=== PATIENT | male | born 1950 ===

== ENCOUNTER 2021-04-27 11:50 | Inpatient (IN) | payer MEDICARE, OTHER, SELFPAY ==
--- NOTE | ~2021-04-27 | US_ITS ---
EXAMINATION: BILATERAL LOWER EXTREMITY DUPLEX CLINICAL INFORMATION: History of diabetes. Foot ulcer. Evaluate for arterial insufficiency. TECHNIQUE: Real-time ultrasound and Doppler techniques (integrating B-mode 2-D vascular images, Doppler spectral analysis and color flow Doppler imaging) were utilized to interrogate the lower extremities. COMPARISON: None FINDINGS: RIGHT LEG: Common femoral artery: 185 cm/s, Triphasic Profunda femoris artery: 185 cm/s, Triphasic Superficial femoral artery (proximal): 135 cm/s, Triphasic Superficial femoral artery (mid): 165 cm/s, Triphasic Superficial femoral artery (distal): 140 cm/s, Triphasic Popliteal artery: 102 cm/s, biphasic Posterior tibial artery: 91 cm/s, biphasic LEFT LEG: Common femoral artery: 134 cm/s, Triphasic Profunda femoris artery: 198 cm/s, biphasic Superficial femoral artery (proximal): 273 cm/s, biphasic Superficial femoral artery (mid): 176 cm/s, Triphasic Superficial femoral artery (distal): 156 cm/s, Triphasic Popliteal artery: 91 cm/s, Triphasic Posterior tibial artery: 63 cm/s, monophasic US/US arterial duplex LE BI IMPRESSION: Right: No evidence of hemodynamically significant stenosis. Left: Mild nonhemodynamically significant stenosis involving the proximal profunda femoris artery and moderate hemodynamically significant stenosis involving the proximal superficial femoral artery.
--- NOTE | ~2021-04-27 | MR_ITS ---
EXAMINATION: MRI OF THE LEFT FOOT WITH AND WITHOUT CONTRAST CLINICAL INFORMATION: Nonhealing diabetic wound. Rule out osteomyelitis. COMPARISON: None. TECHNIQUE: Multiplanar MR imaging was obtained through the left foot on a 1.5 Jaqueline magnet before and after intravenous administration of 10 mL Gadavist. FINDINGS: A skin wound is evident at the plantar aspect of the forefoot at the level of the 5th metatarsal head, measuring 1 x 0.8 cm in area. The skin is edematous and thickened. There is an underlying heterogeneous fluid collection in the subcutaneous fat and surrounding the 5th MTP joint by 1.8 cm (AP by transverse) and 1.8 cm in length. Small foci of susceptibility artifact in the dorsal aspect of this collection along the dorsal margin of the proximal phalanx correspond to gas. This collection appears superficial to the joint capsule without direct intra-articular extension. The contrast enhancement characteristics of this region are not well assessed due to the regional hypoperfusion of the plantar soft tissues in the forefoot, particularly around the 5th toe, likely due to underlying peripheral vascular disease. There is normal signal intensity within the phalanges of the 5th toe on T1-weighted images. There is mild edema signal within the 5th metatarsal head, particularly at its margins, without appreciable abnormal T1 signal. There is a small 5th MTP joint effusion. There is minimal osteoarthritis of the 1st MTP joint. MCP joints are otherwise normal. Tarsometatarsal and interphalangeal joints are unremarkable. The distal tip of the 4th toe distal phalanx is absent. There is diffuse fatty atrophy and increased T2 signal in the intrinsic foot musculature, most consistent with diabetic neuropathy. Tendons are grossly intact. No tenosynovitis. MR/MR foot LT wo/w con IMPRESSION: Gas-containing abscess in the soft tissues surrounding the 5th MTP joint. Underlying septic arthritis is suspected at the 5th MTP joint without findings of osteomyelitis.
--- NOTE | ~2021-04-27 | XR_ITS ---
EXAMINATION: XR FOOT, LEFT CLINICAL INFORMATION: cellulitis, rule out osteomyelitis COMPARISON: None TECHNIQUE: AP, lateral, and oblique views of the left foot. FINDINGS: No fracture or malalignment. Soft tissues are swollen at the forefoot, most notably in the region of the fifth MTP joint. No focal osteolysis is appreciated. Bone mineralization appears normal. No significant gas or radiodense foreign bodies. Joint spaces appear well-preserved. Small enthesopathic spur is present at the plantar fascial origin on the calcaneus. XR/XR foot LT 2V IMPRESSION: Soft tissue swelling at the left foot. No radiographic findings of osteomyelitis.
[2021-04-27 12:07] VITALS: BP 154/50; PULSE 72; RESP 18; TEMP 37; O2SAT 97; BMI 29.2
[2021-04-27 17:06] VITALS: BP 189/68; PULSE 77; RESP 18; TEMP 37.1; O2SAT 96
--- NOTE | 2021-04-27 17:45 | ED.WOUNDLAC ---
HPI - Wound/Laceration General Chief Complaint: Wound/Laceration Stated Complaint: wound on lt ft Time Seen by Provider: 04/27/21 12:37 Source: patient Mode of arrival: ambulatory Limitations: no limitations History of Present Illness HPI narrative: 70-year-old male history of diabetes came in for evaluation of left foot infection. This is a diabetic patient who had calyx removal by his manager utilization management from his left foot, then 2 days later patient noticed that he has been having fever and chills and redness around with the calyx was removed, patient was evaluated at a walk-in urgent care clinic and patient was started on Augmentin, fever and chills persist and patient notices it more pain with left foot with more redness. Went to see his PCP today who sent him to the emergency department for evaluation of worsening of left foot infection. Related Data Home Medications Medication Instructions Recorded Confirmed blood sugar diagnostic #10 ea 04/22/21 04/22/21 gabapentin 300 mg capsule 300 mg PO BID@0800,1400 04/22/21 04/27/21 lisinopril 10 mg tablet 10 mg PO DAILY 04/22/21 04/27/21 meloxicam 15 mg tablet 15 mg PO DAILY 04/22/21 04/27/21 tamsulosin 0.4 mg capsule 0.4 mg PO DAILY 04/22/21 04/27/21 gabapentin [Neurontin] 600 mg PO BEDTIME 04/27/21 04/27/21 Previous Rx's Medication Instructions Recorded amoxicillin 875 mg-potassium 1 tab PO BID #20 tab 04/22/21 clavulanate 125 mg tablet Allergies Allergy/AdvReac Type Severity Reaction Status Date / Time No Known Allergies [NKA] Allergy Unverified 04/22/21 17:36 Review of Systems Review of Systems: All other systems are reviewed and are negative Constitutional: Reports as per HPI and Reports no additional constitutional complaints Eyes: Reports as per HPI and Reports no additional eye complaints Reports system reviewed and no additional complaints, except as documented Cardiovascular: Reports as per HPI and Reports no additional cardiovascular complaints Respiratory: Reports as per HPI and Reports no additional respiratory complaints Gastrointestinal: Reports as per HPI and Reports no additional gastrointestinal complaints Genitourinary: Reports no additional female genitourinary complaints Musculoskeletal: Reports no additional musculoskeletal complaints Skin/Breast: Reports system reviewed and no additional complaints, except as docu Psychiatric: Reports no additional psychiatric complaints Endocrine: Reports no additional endocrine complaints Hematologic/Lymphatic: Reports no additional hematologic/lymphatic complaints Allergic/Immunologic: Reports no additional allergic/immunologic complaints Reports system reviewed and no additional complaints, except as documented and Reports Abnormal speech present [facility] Social History Social History Alcohol intake: never Patient Tobacco Use Status: Former Tobacco user Use of substances other than those prescribed or required for medical reasons: No Advance Directives: No Advance Directives Information Provided: No Physical Exam Vital Signs: Vital Signs: Last Vital Signs Temp 98.7 F 04/27/21 19:00 Pulse 83 04/27/21 19:00 Resp 16 04/27/21 19:00 BP 169/72 H 04/27/21 19:00 Pulse Ox 96 04/27/21 19:00 Body Mass Index 29.2 Vital signs have been reviewed as appeared to be correct. Blood pressure normal. Heart rate normal. Respiration rate normal. Temperature normal. Oxygen saturation normal. Appearance: Alert. Oriented X3. No acute distress. Head: Normal external exam. Normocephalic. Atraumatic. No Marie signs noted. No raccoon eyes noted Eyes: PERRLA. EOMI. Conjunctiva and sclera normal. Eyelids normal. ENT: TM's Normal. Pharynx normal. Uvula midline. Moist mucous membranes. No trismus noted. No drooling noted. No muffled voice noted. Neck: Normal inspection. Neck supple. FROM. No adenopathy. Thyroid Normal. No meningeal signs. No neck mass noted. CVS: Normal heart rate and rhythm. Heart sound normal. No murmurs noted. Pulses normal throughout. Respiratory: No respiratory distress. Painless inspiration. Breath sounds normal. No wheezes/rales/rhonchi noted. Chest nontender. No accessory muscle usage noted or decreased air movement noted. Abdomen: Soft and nontender. Bowel sounds normal in all 4 quadrants. No distention noted. No organomegaly noted. No visible injury noted. Back: No CVA tenderness. Full range of motion noted. Skin: Skin warm and dry. Normal skin color. Normal skin turgor. No rashes/lesions/lacerations noted. Extremities: Left foot with area of 3 x 3 cm of redness, hotness, tenderness the area involving the 5th toe, on the palmar side at the base of the 5th toe there is 1 x 1 cm area of ulceration after the kaylx was removed Neuro: Oriented X 3. No motor deficit. No sensory deficit. Reflexes normal. Course Course Course Narrative: Left foot cellulitis in a diabetic patient was not responding to oral antibiotics as an outpatient. Not meeting criteria for sepsis, start the patient on Zosyn/vancomycin and admit. MDM - Wound/Laceration Lab Data Attestation: I reviewed the patient's lab results. Result diagrams: 04/27/21 18:17 04/27/21 18:17 Labs: Lab Results 04/27/21 04/27/21 04/27/21 Range/Units 18:17 18:17 18:17 WBC 11.1 H (4.8-10.8) X10*3/uL RBC 4.53 L (4.60-5.80) X10*6/uL Hgb 9.7 L (14.0-18.0) g/dl Hct 32.9 L (42-52) % MCV 72.6 L (80-98) fL MCH 21.4 L (27.0-33.0) pg MCHC 29.5 L (31.0-36.0) g/dl RDW 18.0 H (11.0-16.0) % Plt Count 227 (160-400) X10*3/uL MPV 10.4 (9.4-12.4) fL Immature Gran % (Auto) 0.4 (0.0-0.4) % Neut % (Auto) 72.6 (45-73) % Lymph % (Auto) 15.6 L (20-40) % [place] % (Auto) 9.4 (2-11) % Eos % (Auto) 1.1 (0-4) % Baso % (Auto) 0.9 (0-2) % Lymph # (Auto) 1.7 (1.2-4.9) X10*3/uL [place] # (Auto) 1.1 (0.1-1.2) X10*3/uL Eos # (Auto) 0.1 (0.0-0.4) X10*3/uL Baso # (Auto) 0.1 (0.0-0.2) X10*3/uL Abs Immat Gran (auto) 0.05 H (0.00-0.03) X10*3/uL Absolute Neuts (auto) 8.1 (2.0-8.3) X10*3/uL Absolute Nucleated RBC 0.000 (0.0-0.012) X10*3/uL Nucleated RBC % (auto) 0.0 (0.0-0.2) /100WBC Sodium 134 L (135-145) mmol/L Potassium 5.6 H (3.3-5.1) mmol/L Chloride 102 (96-108) mmol/L Carbon Dioxide 20 L (22-29) mmol/L Anion Gap 18 (12-20) BUN 13 (9-16) mg/dL Creatinine 0.95 (0.5-1.4) mg/dL Estim Creat Clear Calc 90.2 Estimated GFR > 60 Random Glucose 175 H (60-115) mg/dL Lactic Acid 1.5 (0.5-2.0) mmol/L Calcium 8.8 (8.4-10.2) mg/dL Total Bilirubin 0.4 (0.0-1.0) mg/dL Direct Bilirubin < 0.2 (0.0-0.5) mg/dL AST 30 (5-37) U/L ALT 12 (0-40) U/L Alkaline Phosphatase 78 (39-117) U/L Total Protein 8.0 (6.5-8.0) g/dL Albumin 4.2 (3.5-5.0) g/dL Lipase 17 (8-78) U/L Urine Color Urine Appearance Urine pH (5.0-8.0) Ur Specific [place] (1.005-1.025) Urine Protein (NEG-TRACE) MG/DL Urine Glucose (UA) (NEG) MG/DL Urine Ketones (NEG) MG/DL Urine Blood (NEG) Urine Nitrite (NEG) Ur Leukocyte Esterase (NEG) 04/27/21 Range/Units 18:22 WBC (4.8-10.8) X10*3/uL RBC (4.60-5.80) X10*6/uL Hgb (14.0-18.0) g/dl Hct (42-52) % MCV (80-98) fL MCH (27.0-33.0) pg MCHC (31.0-36.0) g/dl RDW (11.0-16.0) % Plt Count (160-400) X10*3/uL MPV (9.4-12.4) fL Immature Gran % (Auto) (0.0-0.4) % Neut % (Auto) (45-73) % Lymph % (Auto) (20-40) % [place] % (Auto) (2-11) % Eos % (Auto) (0-4) % Baso % (Auto) (0-2) % Lymph # (Auto) (1.2-4.9) X10*3/uL [place] # (Auto) (0.1-1.2) X10*3/uL Eos # (Auto) (0.0-0.4) X10*3/uL Baso # (Auto) (0.0-0.2) X10*3/uL Abs Immat Gran (auto) (0.00-0.03) X10*3/uL Absolute Neuts (auto) (2.0-8.3) X10*3/uL Absolute Nucleated RBC (0.0-0.012) X10*3/uL Nucleated RBC % (auto) (0.0-0.2) /100WBC Sodium (135-145) mmol/L Potassium (3.3-5.1) mmol/L Chloride (96-108) mmol/L Carbon Dioxide (22-29) mmol/L Anion Gap (12-20) BUN (9-16) mg/dL Creatinine (0.5-1.4) mg/dL Estim Creat Clear Calc Estimated GFR Random Glucose (60-115) mg/dL Lactic Acid (0.5-2.0) mmol/L Calcium (8.4-10.2) mg/dL Total Bilirubin (0.0-1.0) mg/dL Direct Bilirubin (0.0-0.5) mg/dL AST (5-37) U/L ALT (0-40) U/L Alkaline Phosphatase (39-117) U/L Total Protein (6.5-8.0) g/dL Albumin (3.5-5.0) g/dL Lipase (8-78) U/L Urine Color YELLOW Urine Appearance CLEAR Urine pH 6.0 (5.0-8.0) Ur Specific [place] 1.020 (1.005-1.025) Urine Protein TRACE (NEG-TRACE) MG/DL Urine Glucose (UA) NEG (NEG) MG/DL Urine Ketones NEG (NEG) MG/DL Urine Blood NEG (NEG) Urine Nitrite NEG (NEG) Ur Leukocyte Esterase NEG (NEG) Imaging Data Left foot x-ray: Radiologist's impression: Soft tissue swelling at the left foot. No radiographic findings of osteomyelitis. Discharge Plan Discharge Clinical Impression: Cellulitis Patient Disposition: Admitted As Inpatient Prescriptions: No Action gabapentin [Neurontin] 300 mg capsule 600 mg PO BEDTIME RF: 0 lisinopril 10 mg tablet 10 mg PO DAILY RF: 0 tamsulosin 0.4 mg capsule 0.4 mg PO DAILY RF: 0 gabapentin 300 mg capsule 300 mg PO BID@0800,1400 RF: 0 (DME) LanternCRMTouch Verio test strips Strip See Rx Instructions ea Not Applicable QID Qty: 10 RF: 0 meloxicam 15 mg tablet 15 mg PO DAILY RF: 0 amoxicillin-pot clavulanate [Augmentin] 875-125 mg tablet 1 tab PO BID Qty: 20 RF: 0
[2021-04-27] MEDS: 0.9 % Sodium Chloride 1,000 ML 999 ML IVCONT (18:23)
[2021-04-27] MEDS: Piperacillin Sodium/Tazobactam 3.375 GM in 0.9 % Sodium Chloride 50 ML IV (18:23)
[2021-04-27 18:24] LABS: MANUAL DIFF FLAG NO
[2021-04-27 18:27] LABS: Glucose Urine UA NEG (NEG); Leukocyte Esterase Urine NEG (NEG); Nitrite Urine NEG (NEG); Urine Blood NEG (NEG); Urine Ketones NEG (NEG); Urine Protein TRACE MG/DL (NEG-TRACE)
[2021-04-27 18:30] LABS: Appearance Urine CLEAR; Color Urine YELLOW
[2021-04-27 18:47] LABS: Basophils Absolute Auto 0.1 X10*3/uL (0.0-0.2); Basophils Percent Auto 0.9 % (0-2); Eosinophils Absolute Auto 0.1 X10*3/uL (0.0-0.4); Eosinophils Percent Auto 1.1 % (0-4); Hematocrit 32.9 % (42-52); Hemoglobin 9.7 g/dl (14.0-18.0); Imm Gran Abs Auto 0.05 X10*3/uL (0.00-0.03); Imm Gran Pct Auto 0.4 % (0.0-0.4); Lymphocytes Absolute Auto 1.7 X10*3/uL (1.2-4.9); Lymphocytes Percent Auto 15.6 % (20-40); Mean Corpuscular HGB Conc 29.5 g/dl (31.0-36.0); Mean Corpuscular Hemoglobin 21.4 pg (27.0-33.0); Mean Corpuscular Volume 72.6 fL (80-98); Mean Platelet Volume 10.4 fL (9.4-12.4); Monocytes Absolute Auto 1.1 X10*3/uL (0.1-1.2); Monocytes Percent Auto 9.4 % (2-11); Neutrophils Absolute Auto 8.1 X10*3/uL (2.0-8.3); Neutrophils Percent Auto 72.6 % (45-73); Platelet Count 227 X10*3/uL (160-400); Red Blood Count 4.53 X10*6/uL (4.60-5.80); White Blood Count 11.1 X10*3/uL (4.8-10.8)
[2021-04-27 18:52] LABS: Lactic Acid 1.5 mmol/L (0.5-2.0)
[2021-04-27 19:00] VITALS: BP 169/72; PULSE 83; RESP 16; TEMP 37.1; O2SAT 96
[2021-04-27 19:07] LABS: Alanine Aminotransferase 12 U/L (0-40); Albumin Level 4.2 g/dL (3.5-5.0); Alkaline Phosphatase 78 U/L (39-117); Anion Gap 18 (12-20); Aspartate Amino Transferase 30 U/L (5-37); Bilirubin Direct < 0.2 mg/dL (0.0-0.5); Bilirubin Total 0.4 mg/dL (0.0-1.0); Blood Urea Nitrogen 13 mg/dL (9-16); Calcium 8.8 mg/dL (8.4-10.2); Carbon Dioxide 20 mmol/L (22-29); Chloride 102 mmol/L (96-108); Creatinine Clr Calc Pharmacy 90.2; Estimated Glomerular Filt Rate > 60; Glucose Random 175 mg/dL (60-115); Lipase 17 U/L (8-78); Potassium 5.6 mmol/L (3.3-5.1); Sodium 134 mmol/L (135-145)
--- NOTE | 2021-04-27 19:16 | PHA.MEDREC ---
Pharmacy Consult ? Medication Reconciliation Pharmacy has completed the medication reconciliation.
[2021-04-27] MEDS: Acetaminophen 325 MG TABLET 650 MG PO (19:26)
[2021-04-27] MEDS: vancomycin HCL 1,000 MG in 0.9 % Sodium Chloride 250 ML 270 MG IV (19:27)
[2021-04-27 19:34] LABS: Glucose, Whole Blood 205 mg/dL (60-115)
--- NOTE | 2021-04-27 19:40 | PC.NURSE ---
PT RESTING IN STRETCHER, PT REQUESTING BS BECAUSE PT STATES MILAGRO HAD SOME SNACKS . BS OBTAINED 203. PT DENIES ANY COMPLAINTS. VANCO UP AND RUNNING ON PUMP WITHOUT DIFFICULTY. SITE INTACT. PT ALERT AND WATCHING TV. RESPIRATIONS EASY, N/L. PT MEDICATED WITH TYLENOL FOR HIP PAIN. WILL CONTINUE TO MONITOR PT.
[2021-04-27 20:04] VITALS: BP 152/74; PULSE 83; RESP 16; TEMP 36.9; O2SAT 96
[2021-04-27 20:34] LABS: COVID-19 Test Negative (Negative)
--- NOTE | 2021-04-27 21:09 | P.HPHOSP_ITS ---
History of Present Illness Date of Service: 04/27/21 Chief Complaint: left foot wound This is a 62-year-old male with past medical history of hypertension, diabetes, who presents to the hospital with complaints of left foot ulcer. Patient reports that it started about 3 weeks ago after he visited for , calluses were scraped from that foot, but few days after he noticed a hole in the bottom of his foot. Patient reports that the whole started getting more swollen, started draining, he had erythema. He went to urgent care about a week and half ago he was given antibiotics, Augmentin, for few days, with no improvement in his swelling pain or redness. Therefore decided go to the PCP today and he was asked to come to the ED. Patient denies any fever but has chills, some nausea with no vomiting, low appetite, no abdominal pain , no urinary symptoms and no lower extremity edema besides the swelling of his foot. He denies any chest pain or shortness of breath no headache or change in vision no numbness tingling or weakness. On arrival to the ED patient hemodynamically stable with no significant abnormal vitals Labs are significant for 11.1, hemoglobin of 9.7, ESR of 58, sodium of 134, potassium 5.6, CRP of 8.2, UA negative. COVID-19 negative. X-ray of the foot shows soft tissue swelling at the left foot. No radiographic findings of osteomyelitis Patient will be admitted for further management Review of Systems Review of Systems: Yes all other systems are reviewed and are negative [facility] Medical History (Updated 04/28/21 @ 05:11 by Lula Vera MD) BPH (benign prostatic hyperplasia) Chronic anemia Diabetes Diabetic neuropathy GERD (gastroesophageal reflux disease) Hypertension Peripheral vascular disease Social History Alcohol intake: never Patient Tobacco Use Status: Former Tobacco user Use of substances other than those prescribed or required for medical reasons: No Advance Directives: No Advance Directives Information Provided: No Meds Allergies Allergy/AdvReac Type Severity Reaction Status Date / Time No Known Allergies [NKA] Allergy Unverified 04/22/21 17:36 Active Medications: Current Medications Generic Name Dose Route Start Last Admin Trade Name Freq PRN Reason Stop Dose Admin Pharmacy Consult 1 each 04/27/21 18:47 Consult Rx Perform Med Rec MISCELLANE ONCE PRN Consult order Home Medications Medication Instructions Recorded Confirmed Last Taken Type blood sugar diagnostic #10 ea 04/22/21 04/22/21 Unknown History gabapentin 300 mg capsule 300 mg PO BID@0800,1400 04/22/21 04/27/21 Unknown History lisinopril 10 mg tablet 10 mg PO DAILY 04/22/21 04/27/21 Unknown History meloxicam 15 mg tablet 15 mg PO DAILY 04/22/21 04/27/21 Unknown History tamsulosin 0.4 mg capsule 0.4 mg PO DAILY 04/22/21 04/27/21 Unknown History gabapentin [Neurontin] 600 mg PO BEDTIME 04/27/21 04/27/21 Unknown History Physical Exam Vital Signs and Narrative: Vital Signs: Last Vital Signs Temp 98.5 F 04/27/21 20:04 Pulse 83 04/27/21 20:04 Resp 16 04/27/21 20:04 BP 152/74 H 04/27/21 20:04 Pulse Ox 96 04/27/21 20:04 Body Mass Index 29.2 Results Labs CBC and Chem 7: 04/27/21 18:17 04/27/21 18:17 Labs: Laboratory Results - last 24 hr 04/27/21 04/27/21 04/27/21 18:17 18:17 18:17 MCV 72.6 L MCH 21.4 L MCHC 29.5 L RDW 18.0 H Plt Count 227 MPV 10.4 Immature Gran % (Auto) 0.4 Neut % (Auto) 72.6 Lymph % (Auto) 15.6 L [place] % (Auto) 9.4 Eos % (Auto) 1.1 Baso % (Auto) 0.9 Lymph # (Auto) 1.7 [place] # (Auto) 1.1 Eos # (Auto) 0.1 Baso # (Auto) 0.1 Abs Immat Gran (auto) 0.05 H Absolute Neuts (auto) 8.1 Absolute Nucleated RBC 0.000 Nucleated RBC % (auto) 0.0 Anion Gap 18 Estim Creat Clear Calc 90.2 Estimated GFR > 60 POC Glucose Random Glucose 175 H Lactic Acid 1.5 Calcium 8.8 Total Bilirubin 0.4 Direct Bilirubin < 0.2 AST 30 ALT 12 Alkaline Phosphatase 78 Total Protein 8.0 Albumin 4.2 Lipase 17 Urine Color Urine Appearance Urine pH Ur Specific [place] Urine Protein Urine Glucose (UA) Urine Ketones Urine Blood Urine Nitrite Ur Leukocyte Esterase COVID-19 ([facility]) COVID-19 Clin Com 04/27/21 04/27/21 04/27/21 18:22 19:25 20:10 MCV MCH MCHC RDW Plt Count MPV Immature Gran % (Auto) Neut % (Auto) Lymph % (Auto) [place] % (Auto) Eos % (Auto) Baso % (Auto) Lymph # (Auto) [place] # (Auto) Eos # (Auto) Baso # (Auto) Abs Immat Gran (auto) Absolute Neuts (auto) Absolute Nucleated RBC Nucleated RBC % (auto) Anion Gap Estim Creat Clear Calc Estimated GFR POC Glucose 205 H Random Glucose Lactic Acid Calcium Total Bilirubin Direct Bilirubin AST ALT Alkaline Phosphatase Total Protein Albumin Lipase Urine Color YELLOW Urine Appearance CLEAR Urine pH 6.0 Ur Specific [place] 1.020 Urine Protein TRACE Urine Glucose (UA) NEG Urine Ketones NEG Urine Blood NEG Urine Nitrite NEG Ur Leukocyte Esterase NEG COVID-19 ([place]) Negative COVID-19 Clin Com See Note Imaging Radiologist's Impressions: Impressions Foot X-Ray 04/27/21 17:45 IMPRESSION: Soft tissue swelling at the left foot. No radiographic findings of osteomyelitis. Assessment and Plan (1) Diabetic foot ulcer: Status: Acute (2) Cellulitis: Qualifiers: Site of cellulitis of extremity: lower extremity Laterality: left Status: Acute (3) Hyperkalemia: Status: Acute (4) Elevated erythrocyte sedimentation rate: Status: Acute This is a 70-year-old male with history of diabetes and diabetic neuropathy who presents to the hospital with a nonhealing diabetic foot ulcer # diabetic foot also/cellulitis - failed outpatient therapy, has elevated ESR and CRP concerning for osteomye litis - patient hemodynamically stable with a WBC count of 11.1, afebrile , no lactic acidosis - will obtain MRI in the morning to rule out osteomyelitis - broad-spectrum antibiotic - follow cultures - infectious disease consult # hyperkalemia - no EKG changes - will give Kayexalate - follow BMP # diabetes - low-dose sliding scale insulin - diabetic diet # diabetic neuropathy - continue gabapentin # hypertension - stable - continue lisinopril # BPH - continue times lows DVT prophylaxis: Heparin subQ Quality Stroke Does the patient have a stroke diagnosis?: No VTE Prior VTE?: No VTE Risk Level:: Medical - moderate - high VTE Device Contraindication: Treatment Not Indicated VTE Drug Contraindication: N/A - Med Ordered
[2021-04-27] MEDS: Tamsulosin HCL 0.4 MG CAPSULE PO (21:53)
--- NOTE | 2021-04-27 21:53 | PC.NURSE ---
pt medicated as per emar.
[2021-04-27 22:00] VITALS: BP 129/50; PULSE 70; RESP 16; TEMP 36.8; O2SAT 96
[2021-04-28] VITALS (8 sets, daily range): BP systolic 129–172; BP diastolic 54–83; PULSE 67–97; RESP 16–18; TEMP 36.6–37.4; O2SAT 96–99
--- NOTE | 2021-04-28 00:13 | PC.NURSE ---
REPORT TO PARUL HERMOSILLO NURSE.
--- NOTE | 2021-04-28 00:13 | PC.NURSE ---
[place], CHARGE NURSE INFORMED UNABLE TO TAKE CARE OF THIS PT AT THIS TIME.
[2021-04-28 02:18] LABS: Erythrocyte Sedimentation Rate 58 MM/HR (0-15)
[2021-04-28] MEDS: Piperacillin Sodium/Tazobactam 3.375 GM in 0.9 % Sodium Chloride 50 ML IV ×4 (02:53→20:34)
[2021-04-28] MEDS: Heparin Sodium,Porcine 5,000 UNIT/ML VIAL 5000 UNIT SUBCUT ×3 (02:53→20:35)
[2021-04-28] MEDS: 0.9 % Sodium Chloride Flush 3 ML SYRINGE IVFLUSH ×3 (02:53→13:17)
[2021-04-28] MEDS: Gabapentin 300 MG CAPSULE 600 MG PO ×2 (02:55→20:35)
[2021-04-28] MEDS: Sodium Polystyrene Sulfon/Sorb 15 GM/60 ML ORAL.SUSP PO (05:57)
--- NOTE | 2021-04-28 05:57 | PC.NURSE ---
ASSUMED CARE OF PT. PT IN NAD. WILL CONTINUE TO MONITOR PT.
--- NOTE | 2021-04-28 06:44 | PC.NURSE ---
PT UP TO RESTROOM AMBULATORY WITH STEADY EVEN GAIT. PT DENIES ANY COMPLAINTS. PT REMAINS ALERT, RESPIRATIONS EASY, N/L. SKIN W/D. WILL CONTINUE TO MONITOR PT.
--- NOTE | 2021-04-28 06:55 | PC.NURSE ---
PT REFUSING TO PUT ON GOWN.
[2021-04-28 07:17] LABS: MANUAL DIFF FLAG NO
[2021-04-28] MEDS: vancomycin HCL 1,000 MG in 0.9 % Sodium Chloride 250 ML 270 MG IV ×2 (07:20→19:22)
[2021-04-28 07:21] LABS: Basophils Absolute Auto 0.1 X10*3/uL (0.0-0.2); Basophils Percent Auto 0.8 % (0-2); Eosinophils Absolute Auto 0.1 X10*3/uL (0.0-0.4); Eosinophils Percent Auto 1.5 % (0-4); Hematocrit 30.1 % (42-52); Hemoglobin 8.8 g/dl (14.0-18.0); Imm Gran Abs Auto 0.03 X10*3/uL (0.00-0.03); Imm Gran Pct Auto 0.4 % (0.0-0.4); Lymphocytes Absolute Auto 1.2 X10*3/uL (1.2-4.9); Lymphocytes Percent Auto 17.1 % (20-40); Mean Corpuscular HGB Conc 29.2 g/dl (31.0-36.0); Mean Corpuscular Hemoglobin 21.4 pg (27.0-33.0); Mean Corpuscular Volume 73.1 fL (80-98); Mean Platelet Volume 10.6 fL (9.4-12.4); Monocytes Absolute Auto 0.7 X10*3/uL (0.1-1.2); Monocytes Percent Auto 8.9 % (2-11); Neutrophils Absolute Auto 5.2 X10*3/uL (2.0-8.3); Neutrophils Percent Auto 71.3 % (45-73); Platelet Count 194 X10*3/uL (160-400); Red Blood Count 4.12 X10*6/uL (4.60-5.80); Red Cell Distribution Width 17.9 % (11.0-16.0); White Blood Count 7.3 X10*3/uL (4.8-10.8)
[2021-04-28] MEDS: Gabapentin 300 MG CAPSULE PO ×2 (07:21→13:15)
[2021-04-28] MEDS: Acetaminophen 325 MG TABLET 650 MG PO ×2 (07:26→19:20)
[2021-04-28 07:49] LABS: Glucose, Whole Blood 248 mg/dL (60-115)
[2021-04-28] MEDS: ondansetron HCL 4 MG/2 ML VIAL IVPUSH (07:49)
[2021-04-28] MEDS: Insulin Lispro 100 UNIT/ML 3 ML VIAL 15 UNIT SUBCUT (07:50)
--- NOTE | 2021-04-28 07:52 | PC.NURSE ---
alert, nad, c/o nausea and diarrhea after breakfast, informed, zofran given, med rec entered wrong for insulin, informed and 15 units given, will contact pharmacy
[2021-04-28 07:56] LABS: Anion Gap 13 (12-20); Blood Urea Nitrogen 12 mg/dL (9-16); Calcium 8.2 mg/dL (8.4-10.2); Carbon Dioxide 21 mmol/L (22-29); Chloride 106 mmol/L (96-108); Creatinine Clr Calc Pharmacy 100.8; Estimated Glomerular Filt Rate > 60; Glucose Random 260 mg/dL (60-115); Potassium 4.6 mmol/L (3.3-5.1); Sodium 135 mmol/L (135-145)
[2021-04-28] MEDS: lisinopriL 10 MG TABLET PO (08:58)
[2021-04-28] MEDS: Tamsulosin HCL 0.4 MG CAPSULE PO (08:58)
[2021-04-28 08:59] LABS: Iron 18 mcg/dL (45-160); Percent Iron Saturation 5 % (15-50); Total Iron Binding Capacity 357 mcg/dL (228-428); Unsaturated Iron Binding 339 ug/dL
[2021-04-28 09:01] LABS: Estimated Average Glucose 160 mg/dL; Hemoglobin A1c % 7.2 %
[2021-04-28 09:17] LABS: Ferritin 25 ng/mL (20-250)
[2021-04-28 09:39] LABS: Glucose, Whole Blood 183 mg/dL (60-115)
[2021-04-28 11:55] LABS: Glucose, Whole Blood 135 mg/dL (60-115)
[2021-04-28] MEDS: Insulin Lispro 100 UNIT/ML 3 ML VIAL SUBCUT ×2 (13:14→17:13)
--- NOTE | 2021-04-28 14:00 | P.CNID_ITS ---
History of Present Illness Data of Consult Service Date: 04/28/21 Requesting physician: Irineo Gutiérrez Primary Care Provider: NICK Ponce HPI Reason for consult: left diabetic foot infection He presents with left foot redness and ulcer area left foot near 5th digit. He has no fever or chills. He is being seen by [facility] now and area probes to bone. He says he was seen by Dr Zaragoza of Podiatry and had callus debrided three weeks ago. He has increasing redness going up foot. Review of Systems Review of Systems: Yes all other systems are reviewed and are negative [facility] Past Medical History Medical History BPH (benign prostatic hyperplasia) Chronic anemia Diabetes Diabetic neuropathy GERD (gastroesophageal reflux disease) Hypertension Peripheral vascular disease Family History Family history: reviewed and not pertinent Social History Social History Household Members: Spouse Housing: House Do you presently have visiting nurse or other home services: No Alcohol intake: never Patient Tobacco Use Status: Former Tobacco user e-Cigarette/Vaping Use: Never Used service: No Current occupational status: employed Meds Allergies Allergy/AdvReac Type Severity Reaction Status Date / Time No Known Allergies [NKA] Allergy Unverified 05/06/21 10:36 Active Medications: Current Medications Generic Name Dose Route Start Last Admin Trade Name Freq PRN Reason Stop Dose Admin Acetaminophen 650 mg 04/28/21 01:22 04/28/21 07:26 Acetaminophen 325 Mg Tablet PO 650 mg Q6H PRN Administration Pain, Mild (Pain Scale 1-3) Docusate Sodium 100 mg 04/28/21 01:22 Docusate Sodium 100 Mg Capsule PO DAILY PRN Constipation Gabapentin 300 mg 04/28/21 08:00 04/28/21 13:15 Gabapentin 300 Mg Capsule PO 300 mg BID@0800,1400 JORGE LUIS Administration Gabapentin 600 mg 04/28/21 01:22 04/28/21 02:55 Gabapentin 300 Mg Capsule PO 600 mg BEDTIME JORGE LUIS Administration Heparin Sodium (Porcine) 5,000 unit 04/28/21 01:22 04/28/21 08:57 Heparin Sodium,Porcine 5,000 Unit/Ml Vial SUBCUT 5,000 unit BID JORGE LUIS Administration Piperacillin Sod/Tazobactam 50 mls @ 100 mls/hr 04/28/21 02:00 04/28/21 13:48 Sod 3.375 gm/ Sodium Chloride IV Infused Q6H JORGE LUIS Infusion Vancomycin HCl 1,000 mg/ 270 mls @ 270 mls/hr 04/28/21 07:00 04/28/21 09:18 Sodium Chloride IV Infused Q12H JORGE LUIS Infusion Insulin Human Lispro 0 unit 04/28/21 11:30 04/28/21 13:14 Insulin Lispro 100 Unit/Ml 3 Ml Vial SUBCUT 15 unit QIDACHS JORGE LUIS Administration Protocol Lisinopril 10 mg 04/28/21 09:00 04/28/21 08:58 Lisinopril 10 Mg Tablet PO 10 mg DAILY JORGE LUIS Administration Protocol Ondansetron HCl 4 mg 04/28/21 01:22 04/28/21 07:49 Ondansetron Hcl 4 Mg/2 Ml Vial IVPUSH 4 mg Q8H PRN Administration Nausea and Vomiting Pharmacy Consult 1 each 04/27/21 18:47 Consult Rx Perform Med Rec MISCELLANE ONCE PRN Consult order Pharmacy Consult 1 each 04/28/21 01:22 Consult Rx Vancomycin Dosing MISCELLANE DAILY PRN Consult order Sodium Chloride 3 ml 04/28/21 01:22 04/28/21 13:17 0.9 % Sodium Chloride Flush 3 Ml Syringe IVFLUSH 3 ml QSHIFT [facility] Administration Tamsulosin HCl 0.4 mg 04/27/21 21:07 04/28/21 08:58 Tamsulosin Hcl 0.4 Mg Capsule PO 0.4 mg DAILY JORGE LUIS Administration Home Medications Medication Instructions Recorded Confirmed Last Taken Type blood sugar diagnostic #10 ea 04/22/21 04/22/21 Unknown History gabapentin 300 mg capsule 300 mg PO BID@0800,1400 04/22/21 04/27/21 Unknown History lisinopril 10 mg tablet 10 mg PO DAILY 04/22/21 04/27/21 Unknown History meloxicam 15 mg tablet 15 mg PO DAILY 04/22/21 04/27/21 Unknown History tamsulosin 0.4 mg capsule 0.4 mg PO DAILY 04/22/21 04/27/21 Unknown History gabapentin 300 mg capsule 600 mg PO BEDTIME 04/27/21 04/27/21 Unknown History (Neurontin) insulin glargine 100 unit/mL (3 90 unit SUBCUT DAILY 04/28/21 04/28/21 Unknown History mL) subcutaneous pen (Lantus Solostar U-100 Insulin) insulin lispro 100 unit/mL 0 unit SUBCUT TIDAC 04/28/21 04/28/21 Unknown History subcutaneous pen (Humalog KwikPen (U-100) Insulin) amoxicillin 875 mg-potassium 1 tab PO BID 05/06/21 Unknown History clavulanate 125 mg tablet Physical Exam Vital Signs: Vital Signs: Last Vital Signs Temp 98.0 F 04/28/21 11:46 Pulse 90 04/28/21 11:46 Resp 18 04/28/21 11:46 BP 135/65 04/28/21 11:46 Pulse Ox 99 04/28/21 11:46 Body Mass Index 29.2 Const: General: cooperative HENMT: Head: Yes normal to inspection Mouth: Normal oral and palatal mucosa present Resp: Effort & Inspection: normal respiratory effort Cardio: Rate: regular rate Rhythm: regular rhythm GI: Palpation (GI): Soft to palpation and nontender Skin: General skin exam: no rashes or lesions noted Extrem: Other: left 5th digit area redness extending up dorsal foot, .5 cm ulcer tip left fifth toe Ankle/foot/toe images: 1. redness 2. ulcer Results Labs CBC & Chem 7: 05/01/21 05:36 05/01/21 05:36 Labs: Short CBC 04/27/21 04/28/21 Range/Units 18:17 06:50 WBC 11.1 H 7.3 (4.8-10.8) X10*3/uL Hgb 9.7 L 8.8 L (14.0-18.0) g/dl Hct 32.9 L 30.1 L (42-52) % Plt Count 227 194 (160-400) X10*3/uL BMP 04/27/21 04/28/21 18:17 06:50 Sodium 134 L 135 Potassium 5.6 H 4.6 Chloride 102 106 Carbon Dioxide 20 L 21 L BUN 13 12 Creatinine 0.95 0.85 Calcium 8.8 8.2 L D Liver Function 04/27/21 Range/Units 18:17 Total Bilirubin 0.4 (0.0-1.0) mg/dL Direct Bilirubin < 0.2 (0.0-0.5) mg/dL AST 30 (5-37) U/L ALT 12 (0-40) U/L Alkaline Phosphatase 78 (39-117) U/L Albumin 4.2 (3.5-5.0) g/dL Urine 04/27/21 Range/Units 18:22 Urine Color YELLOW Urine Appearance CLEAR Urine pH 6.0 (5.0-8.0) Ur Specific [place] 1.020 (1.005-1.025) Urine Protein TRACE (NEG-TRACE) MG/DL Urine Glucose (UA) NEG (NEG) MG/DL Assessment and Plan (1) Diabetic foot ulcer: Osteomyelitis likely as probe to bone He has elevated ESR as well Staph/strep possible and gram negative Suggest Agree Zosyn and Vancomycin Need 6 week IV.possible Vancomycin or Ertapenem Await cultures Wound Care Surgery consult debridement areas around 5th toe (2) Elevated erythrocyte sedimentation rate: (3) Cellulitis: Qualifiers: Laterality: left Site of cellulitis of extremity: lower extremity
--- NOTE | 2021-04-28 14:42 | HO.PM.IMPN ---
Subjective Subjective Date of Service: 04/28/21 Interval History: no fever/chills redness improved Physical Exam Vital Signs: Vital Signs: Last Vital Signs Temp 98.0 F 04/28/21 11:46 Pulse 90 04/28/21 11:46 Resp 18 04/28/21 11:46 BP 135/65 04/28/21 11:46 Pulse Ox 99 04/28/21 11:46 Body Mass Index 29.2 Gen: in no acute distress HEENT: sclera anicteric, moist mucus membranes Neck: supple Lungs: clear to auscultation bilaterally Heart: regular rate and rhythm, no murmurs Abd: soft, non-tender, non-distended Ext: no edema Skin: warm/well-perfused, L 5th toe and lateral midfoot erythematous, oozing ulcer on toe pad approx 1 cm Neuro: alert and oriented x3, no focal findings Psych: appropriate affect Objective Data Current Medications Generic Name Dose Route Start Last Admin Trade Name Freq PRN Reason Stop Dose Admin Acetaminophen 650 mg 04/28/21 01:22 04/28/21 07:26 Acetaminophen 325 Mg Tablet PO 650 mg Q6H PRN Administration Pain, Mild (Pain Scale 1-3) Docusate Sodium 100 mg 04/28/21 01:22 Docusate Sodium 100 Mg Capsule PO DAILY PRN Constipation Gabapentin 300 mg 04/28/21 08:00 04/28/21 13:15 Gabapentin 300 Mg Capsule PO 300 mg BID@0800,1400 JORGE LUIS Administration Gabapentin 600 mg 04/28/21 01:22 04/28/21 02:55 Gabapentin 300 Mg Capsule PO 600 mg BEDTIME JORGE LUIS Administration Heparin Sodium (Porcine) 5,000 unit 04/28/21 01:22 04/28/21 08:57 Heparin Sodium,Porcine 5,000 Unit/Ml Vial SUBCUT 5,000 unit BID JORGE LUIS Administration Piperacillin Sod/Tazobactam 50 mls @ 100 mls/hr 04/28/21 02:00 04/28/21 13:48 Sod 3.375 gm/ Sodium Chloride IV Infused Q6H JORGE LUIS Infusion Vancomycin HCl 1,000 mg/ 270 mls @ 270 mls/hr 04/28/21 07:00 04/28/21 09:18 Sodium Chloride IV Infused Q12H JORGE LUIS Infusion Insulin Human Lispro 0 unit 04/28/21 11:30 04/28/21 13:14 Insulin Lispro 100 Unit/Ml 3 Ml Vial SUBCUT 15 unit QIDACHS COUNTS INCLUDE 234 BEDS AT THE [facility] Administration Protocol Lisinopril 10 mg 04/28/21 09:00 04/28/21 08:58 Lisinopril 10 Mg Tablet PO 10 mg DAILY COUNTS INCLUDE 234 BEDS AT THE [facility] Administration Protocol Ondansetron HCl 4 mg 04/28/21 01:22 04/28/21 07:49 Ondansetron Hcl 4 Mg/2 Ml Vial IVPUSH 4 mg Q8H PRN Administration Nausea and Vomiting Pharmacy Consult 1 each 04/27/21 18:47 Consult Rx Perform Med Rec MISCELLANE ONCE PRN Consult order Pharmacy Consult 1 each 04/28/21 01:22 Consult Rx Vancomycin Dosing MISCELLANE DAILY PRN Consult order Sodium Chloride 3 ml 04/28/21 01:22 04/28/21 13:17 0.9 % Sodium Chloride Flush 3 Ml Syringe IVFLUSH 3 ml QSHIFT COUNTS INCLUDE 234 BEDS AT THE [facility] Administration Tamsulosin HCl 0.4 mg 04/27/21 21:07 04/28/21 08:58 Tamsulosin Hcl 0.4 Mg Capsule PO 0.4 mg DAILY COUNTS INCLUDE 234 BEDS AT THE [facility] Administration Labs CBC & Chem 7: 04/28/21 06:50 04/28/21 06:50 Labs: Laboratory Results - last 24 hr 04/27/21 04/27/21 04/27/21 18:17 18:17 18:17 WBC 11.1 H RBC 4.53 L Hgb 9.7 L Hct 32.9 L MCV 72.6 L MCH 21.4 L MCHC 29.5 L RDW 18.0 H Plt Count 227 MPV 10.4 Immature Gran % (Auto) 0.4 Neut % (Auto) 72.6 Lymph % (Auto) 15.6 L [place] % (Auto) 9.4 Eos % (Auto) 1.1 Baso % (Auto) 0.9 Lymph # (Auto) 1.7 [place] # (Auto) 1.1 Eos # (Auto) 0.1 Baso # (Auto) 0.1 Abs Immat Gran (auto) 0.05 H Absolute Neuts (auto) 8.1 Absolute Nucleated RBC 0.000 Nucleated RBC % (auto) 0.0 ESR Sodium 134 L Potassium 5.6 H Chloride 102 Carbon Dioxide 20 L Anion Gap 18 BUN 13 Creatinine 0.95 Estim Creat Clear Calc 90.2 Estimated GFR > 60 POC Glucose Random Glucose 175 H Estimat Average Glucose Hemoglobin A1c % Lactic Acid 1.5 Calcium 8.8 Iron TIBC % Saturation Unsat Iron Binding Ferritin Total Bilirubin 0.4 Direct Bilirubin < 0.2 AST 30 ALT 12 Alkaline Phosphatase 78 C-Reactive Protein 8.20 H Total Protein 8.0 Albumin 4.2 Lipase 17 Urine Color Urine Appearance Urine pH Ur Specific [place] Urine Protein Urine Glucose (UA) Urine Ketones Urine Blood Urine Nitrite Ur Leukocyte Esterase COVID-19 ([facility]) COVID-19 Clin Com 04/27/21 04/27/21 04/27/21 18:22 19:25 20:10 WBC RBC Hgb Hct MCV MCH MCHC RDW Plt Count MPV Immature Gran % (Auto) Neut % (Auto) Lymph % (Auto) [place] % (Auto) Eos % (Auto) Baso % (Auto) Lymph # (Auto) [place] # (Auto) Eos # (Auto) Baso # (Auto) Abs Immat Gran (auto) Absolute Neuts (auto) Absolute Nucleated RBC Nucleated RBC % (auto) ESR Sodium Potassium Chloride Carbon Dioxide Anion Gap BUN Creatinine Estim Creat Clear Calc Estimated GFR POC Glucose 205 H Random Glucose Estimat Average Glucose Hemoglobin A1c % Lactic Acid Calcium Iron TIBC % Saturation Unsat Iron Binding Ferritin Total Bilirubin Direct Bilirubin AST ALT Alkaline Phosphatase C-Reactive Protein Total Protein Albumin Lipase Urine Color YELLOW Urine Appearance CLEAR Urine pH 6.0 Ur Specific [place] 1.020 Urine Protein TRACE Urine Glucose (UA) NEG Urine Ketones NEG Urine Blood NEG Urine Nitrite NEG Ur Leukocyte Esterase NEG COVID-19 ([facility]) Negative COVID-19 Clin Com See Note 04/27/21 04/28/21 04/28/21 Unknown 06:50 06:50 WBC 7.3 RBC 4.12 L Hgb 8.8 L Hct 30.1 L MCV 73.1 L MCH 21.4 L MCHC 29.2 L RDW 17.9 H Plt Count 194 MPV 10.6 Immature Gran % (Auto) 0.4 Neut % (Auto) 71.3 Lymph % (Auto) 17.1 L [place] % (Auto) 8.9 Eos % (Auto) 1.5 Baso % (Auto) 0.8 Lymph # (Auto) 1.2 [place] # (Auto) 0.7 Eos # (Auto) 0.1 Baso # (Auto) 0.1 Abs Immat Gran (auto) 0.03 Absolute Neuts (auto) 5.2 Absolute Nucleated RBC 0.000 Nucleated RBC % (auto) 0.0 ESR 58 H Sodium 135 Potassium 4.6 Chloride 106 Carbon Dioxide 21 L Anion Gap 13 BUN 12 Creatinine 0.85 Estim Creat Clear Calc 100.8 Estimated GFR > 60 POC Glucose Random Glucose 260 H D Estimat Average Glucose Hemoglobin A1c % Lactic Acid Calcium 8.2 L D Iron 18 L TIBC 357 % Saturation 5 L Unsat Iron Binding 339 Ferritin 25 Total Bilirubin Direct Bilirubin AST ALT Alkaline Phosphatase C-Reactive Protein Total Protein Albumin Lipase Urine Color Urine Appearance Urine pH Ur Specific [place] Urine Protein Urine Glucose (UA) Urine Ketones Urine Blood Urine Nitrite Ur Leukocyte Esterase COVID-19 ([facility]) COVID-19 [place] Com 04/28/21 04/28/21 04/28/21 06:50 07:23 09:32 WBC RBC Hgb Hct MCV MCH MCHC RDW Plt Count MPV Immature Gran % (Auto) Neut % (Auto) Lymph % (Auto) [place] % (Auto) Eos % (Auto) Baso % (Auto) Lymph # (Auto) [place] # (Auto) Eos # (Auto) Baso # (Auto) Abs Immat Gran (auto) Absolute Neuts (auto) Absolute Nucleated RBC Nucleated RBC % (auto) ESR Sodium Potassium Chloride Carbon Dioxide Anion Gap BUN Creatinine Estim Creat Clear Calc Estimated GFR POC Glucose 248 H 183 H Random Glucose Estimat Average Glucose 160 Hemoglobin A1c % 7.2 Lactic Acid Calcium Iron TIBC % Saturation Unsat Iron Binding Ferritin Total Bilirubin Direct Bilirubin AST ALT Alkaline Phosphatase C-Reactive Protein Total Protein Albumin Lipase Urine Color Urine Appearance Urine pH Ur Specific [place] Urine Protein Urine Glucose (UA) Urine Ketones Urine Blood Urine Nitrite Ur Leukocyte Esterase COVID-19 ([facility]) COVID-19 [facility] [place] Com 04/28/21 11:35 WBC RBC Hgb Hct MCV MCH MCHC RDW Plt Count MPV Immature Gran % (Auto) Neut % (Auto) Lymph % (Auto) [place] % (Auto) Eos % (Auto) Baso % (Auto) Lymph # (Auto) [place] # (Auto) Eos # (Auto) Baso # (Auto) Abs Immat Gran (auto) Absolute Neuts (auto) Absolute Nucleated RBC Nucleated RBC % (auto) ESR Sodium Potassium Chloride Carbon Dioxide Anion Gap BUN Creatinine Estim Creat Clear Calc Estimated GFR POC Glucose 135 H Random Glucose Estimat Average Glucose Hemoglobin A1c % Lactic Acid Calcium Iron TIBC % Saturation Unsat Iron Binding Ferritin Total Bilirubin Direct Bilirubin AST ALT Alkaline Phosphatase C-Reactive Protein Total Protein Albumin Lipase Urine Color Urine Appearance Urine pH Ur Specific [place] Urine Protein Urine Glucose (UA) Urine Ketones Urine Blood Urine Nitrite Ur Leukocyte Esterase COVID-19 ([facility]) COVID-19 Clin Com Impressions Foot X-Ray 04/27/21 17:45 IMPRESSION: Soft tissue swelling at the left foot. No radiographic findings of osteomyelitis. Foot MRI 04/28/21 01:22 IMPRESSION: Gas-containing abscess in the soft tissues surrounding the 5th MTP joint. Underlying septic arthritis is suspected at the 5th MTP joint without findings of osteomyelitis. Quality Stroke Does the patient have a stroke diagnosis?: No VTE Prior VTE?: No VTE Risk Level:: Medical - moderate - high VTE Device Contraindication: Treatment Not Indicated VTE Drug Contraindication: N/A - Med Ordered Assessment and Plan (1) Diabetic foot ulcer: Status: Acute Assessment and Plan: hospital d#2 70yo M with DM2 + neuropathy admitted for infected nonhealing DM foot ulcer # DM foot ulcer with infection/abscess, 5th MTP joint septic arthritis - failed outpt therapy, continue pip/blanca + vanc, ID consulted- will need 6 wk of IV ABX- place PICC once BCx return negative, surgery consult for abscess drainage/debridement # hyperK - resolved s/p SPS # HTN - continue lisinopril # DM2, A1c 7.2 - correction-dose lispro # DM neuropathy - continue gabapentin # BPH - continue tamsulosin # VTE ppx - continue UFH
[2021-04-28 16:14] LABS: Glucose, Whole Blood 128 mg/dL (60-115)
--- NOTE | 2021-04-28 16:37 | P.CONGS_ITS ---
History of Present Illness Consult details Consult date: 04/28/21 Narrative: 70-year-old male admitted yesterday because of on ulcer on the left foot. He had noticed this ulcer for about 3 weeks now. He had actually seen special weapons and tactics officer for this as well. He says a callus had been debrided recently. He was also on Augmentin for some redness of the area. He saw his primary care physician yesterday and he was advised to go to the ER. He was admitted therefore for redness of the left foot with a sinus on the lateral aspect. He actually says that the redness has improved significantly for the past 2 days. He denies any severe pain. Review of Systems Constitutional: Constitutional: Denies chills and Denies fever(s) Cardiovascular: Cardiovascular: Denies chest pain, Denies dyspnea and Denies dyspnea on exertion Respiratory: Respiratory: Denies cough, Denies dyspnea and Denies dyspnea on exertion Gastrointestinal: Gastrointestinal: Denies hematochezia and Denies change in bowel habits Genitourinary: Genitourinary: Denies hematuria and Denies difficulty urinating Musculoskeletal: Musculoskeletal: Denies back pain and Denies limited range of motion Neurologic: Denies focal weakness and Denies convulsions Psychiatric: Psychiatric: Denies depression and Denies mood swings PMFSH Past Medical History Medical History BPH (benign prostatic hyperplasia) Chronic anemia Diabetes Diabetic neuropathy GERD (gastroesophageal reflux disease) Hypertension Peripheral vascular disease Family History Family history: reviewed and not pertinent Social History Social History Household Members: Spouse Housing: House Do you presently have visiting nurse or other home services: No Alcohol intake: never Patient Tobacco Use Status: Former Tobacco user e-Cigarette/Vaping Use: Never Used Use of substances other than those prescribed or required for medical reasons: No Currently Displaying Signs/Symptoms of Drug Intoxication Withdrawal: No Have you been hit, kicked, punched, or otherwise hurt by someone within the past year? If so, by whom?: No Do you feel safe in your current relationship?: Yes Is there a partner from a previous relationship who is making you feel unsafe now?: No Are you made to feel afraid or neglected: No Advance Directives: No Advance Directives Information Provided: No Do you have thoughts of harming others: None Do you have a plan to hurt others: No Plan Recently lost weight without trying: No Nutrition Risks: No Nutritional Risk Poor oral hygiene: No Meds Allergies Allergy/AdvReac Type Severity Reaction Status Date / Time No Known Allergies [NKA] Allergy Unverified 04/22/21 17:36 Active Medications: Current Medications Generic Name Dose Route Start Last Admin Trade Name Freq PRN Reason Stop Dose Admin Acetaminophen 650 mg 04/28/21 01:22 04/28/21 07:26 Acetaminophen 325 Mg Tablet PO 650 mg Q6H PRN Administration Pain, Mild (Pain Scale 1-3) Docusate Sodium 100 mg 04/28/21 01:22 Docusate Sodium 100 Mg Capsule PO DAILY PRN Constipation Gabapentin 300 mg 04/28/21 08:00 04/28/21 13:15 Gabapentin 300 Mg Capsule PO 300 mg BID@0800,1400 JORGE LUIS Administration Gabapentin 600 mg 04/28/21 01:22 04/28/21 02:55 Gabapentin 300 Mg Capsule PO 600 mg BEDTIME JORGE LUIS Administration Heparin Sodium (Porcine) 5,000 unit 04/28/21 01:22 04/28/21 08:57 Heparin Sodium,Porcine 5,000 Unit/Ml Vial SUBCUT 5,000 unit BID JORGE LUIS Administration Piperacillin Sod/Tazobactam 50 mls @ 100 mls/hr 04/28/21 02:00 04/28/21 13:48 Sod 3.375 gm/ Sodium Chloride IV Infused Q6H JORGE LUIS Infusion Vancomycin HCl 1,000 mg/ 270 mls @ 270 mls/hr 04/28/21 07:00 04/28/21 09:18 Sodium Chloride IV Infused Q12H JORGE LUIS Infusion Insulin Human Lispro 0 unit 04/28/21 11:30 04/28/21 13:14 Insulin Lispro 100 Unit/Ml 3 Ml Vial SUBCUT 15 unit QIDACHS JORGE LUIS Administration Protocol Lisinopril 10 mg 04/28/21 09:00 04/28/21 08:58 Lisinopril 10 Mg Tablet PO 10 mg DAILY JORGE LUIS Administration Protocol Ondansetron HCl 4 mg 04/28/21 01:22 04/28/21 07:49 Ondansetron Hcl 4 Mg/2 Ml Vial IVPUSH 4 mg Q8H PRN Administration Nausea and Vomiting Pharmacy Consult 1 each 04/27/21 18:47 Consult Rx Perform Med Rec MISCELLANE ONCE PRN Consult order Pharmacy Consult 1 each 04/28/21 01:22 Consult Rx Vancomycin Dosing MISCELLANE DAILY PRN Consult order Sodium Chloride 3 ml 04/28/21 01:22 04/28/21 13:17 0.9 % Sodium Chloride Flush 3 Ml Syringe IVFLUSH 3 ml QSHIFT JORGE LUIS Administration Tamsulosin HCl 0.4 mg 04/27/21 21:07 04/28/21 08:58 Tamsulosin Hcl 0.4 Mg Capsule PO 0.4 mg DAILY JORGE LUIS Administration Home Medications Medication Instructions Recorded Confirmed Last Taken Type blood sugar diagnostic #10 ea 04/22/21 04/22/21 Unknown History gabapentin 300 mg capsule 300 mg PO BID@0800,1400 04/22/21 04/27/21 Unknown His tory lisinopril 10 mg tablet 10 mg PO DAILY 04/22/21 04/27/21 Unknown History meloxicam 15 mg tablet 15 mg PO DAILY 04/22/21 04/27/21 Unknown History tamsulosin 0.4 mg capsule 0.4 mg PO DAILY 04/22/21 04/27/21 Unknown History gabapentin [Neurontin] 600 mg PO BEDTIME 04/27/21 04/27/21 Unknown History insulin glargine [Lantus Solostar 90 unit SUBCUT DAILY 04/28/21 04/28/21 Unknown History U-100 Insulin] insulin lispro [Humalog KwikPen 0 unit SUBCUT TIDAC 04/28/21 04/28/21 Unknown History Insulin] Physical Exam Vital Signs: Vital Signs: Last Vital Signs Temp 99.1 F 04/28/21 15:27 Pulse 69 04/28/21 15:27 Resp 17 04/28/21 15:27 BP 136/72 04/28/21 15:27 Pulse Ox 98 04/28/21 15:27 Body Mass Index 29.2 Const: General: comfortable and no acute distress Orientation/consciousness: patient oriented x3 Neck: Neck: Yes no lymphadenopathy Resp: Auscultation: clear to auscultation bilaterally Cardio: Rhythm: regular rhythm GI: Palpation (GI): Soft to palpation, nontender and no guarding Neuro: General: patient oriented x3 Extrem: Other: Left foot, with ulcer on the lateral aspect near the base of 5th toe, redness of the area surrounding the toe, open wound/ulcer freely draining scanty purulent material Results Labs Result diagrams: 04/28/21 06:50 04/28/21 06:50 Labs: Abnormal lab results 04/27/21 04/27/21 04/27/21 Range/Units 18:17 18:17 19:25 WBC 11.1 H (4.8-10.8) X10*3/uL RBC 4.53 L (4.60-5.80) X10*6/uL Hgb 9.7 L (14.0-18.0) g/dl Hct 32.9 L (42-52) % MCV 72.6 L (80-98) fL MCH 21.4 L (27.0-33.0) pg MCHC 29.5 L (31.0-36.0) g/dl RDW 18.0 H (11.0-16.0) % Lymph % (Auto) 15.6 L (20-40) % Abs Immat Gran (auto) 0.05 H (0.00-0.03) X10*3/uL ESR (0-15) MM/HR Sodium 134 L (135-145) mmol/L Potassium 5.6 H (3.3-5.1) mmol/L Carbon Dioxide 20 L (22-29) mmol/L POC Glucose 205 H (60-115) mg/dL Random Glucose 175 H (60-115) mg/dL Calcium (8.4-10.2) mg/dL Iron (45-160) mcg/dL % Saturation (15-50) % C-Reactive Protein 8.20 H (< or = 0.50) mg/dL 04/27/21 04/28/21 04/28/21 Range/Units Unknown 06:50 06:50 WBC (4.8-10.8) X10*3/uL RBC 4.12 L (4.60-5.80) X10*6/uL Hgb 8.8 L (14.0-18.0) g/dl Hct 30.1 L (42-52) % MCV 73.1 L (80-98) fL MCH 21.4 L (27.0-33.0) pg MCHC 29.2 L (31.0-36.0) g/dl RDW 17.9 H (11.0-16.0) % Lymph % (Auto) 17.1 L (20-40) % Abs Immat Gran (auto) (0.00-0.03) X10*3/uL ESR 58 H (0-15) MM/HR Sodium (135-145) mmol/L Potassium (3.3-5.1) mmol/L Carbon Dioxide 21 L (22-29) mmol/L POC Glucose (60-115) mg/dL Random Glucose 260 H D (60-115) mg/dL Calcium 8.2 L D (8.4-10.2) mg/dL Iron 18 L (45-160) mcg/dL % Saturation 5 L (15-50) % C-Reactive Protein (< or = 0.50) mg/dL 04/28/21 04/28/21 04/28/21 Range/Units 07:23 09:32 11:35 WBC (4.8-10.8) X10*3/uL RBC (4.60-5.80) X10*6/uL Hgb (14.0-18.0) g/dl Hct (42-52) % MCV (80-98) fL MCH (27.0-33.0) pg MCHC (31.0-36.0) g/dl RDW (11.0-16.0) % Lymph % (Auto) (20-40) % Abs Immat Gran (auto) (0.00-0.03) X10*3/uL ESR (0-15) MM/HR Sodium (135-145) mmol/L Potassium (3.3-5.1) mmol/L Carbon Dioxide (22-29) mmol/L POC Glucose 248 H 183 H 135 H (60-115) mg/dL Random Glucose (60-115) mg/dL Calcium (8.4-10.2) mg/dL Iron (45-160) mcg/dL % Saturation (15-50) % C-Reactive Protein (< or = 0.50) mg/dL 04/28/21 Range/Units 16:10 WBC (4.8-10.8) X10*3/uL RBC (4.60-5.80) X10*6/uL Hgb (14.0-18.0) g/dl Hct (42-52) % MCV (80-98) fL MCH (27.0-33.0) pg MCHC (31.0-36.0) g/dl RDW (11.0-16.0) % Lymph % (Auto) (20-40) % Abs Immat Gran (auto) (0.00-0.03) X10*3/uL ESR (0-15) MM/HR Sodium (135-145) mmol/L Potassium (3.3-5.1) mmol/L Carbon Dioxide (22-29) mmol/L POC Glucose 128 H (60-115) mg/dL Random Glucose (60-115) mg/dL Calcium (8.4-10.2) mg/dL Iron (45-160) mcg/dL % Saturation (15-50) % C-Reactive Protein (< or = 0.50) mg/dL Short CBC 04/27/21 04/28/21 Range/Units 18:17 06:50 WBC 11.1 H 7.3 (4.8-10.8) X10*3/uL Hgb 9.7 L 8.8 L (14.0-18.0) g/dl Hct 32.9 L 30.1 L (42-52) % Plt Count 227 194 (160-400) X10*3/uL BMP 04/27/21 04/28/21 18:17 06:50 Sodium 134 L 135 Potassium 5.6 H 4.6 Chloride 102 106 Carbon Dioxide 20 L 21 L BUN 13 12 Creatinine 0.95 0.85 Calcium 8.8 8.2 L D Liver Function 04/27/21 Range/Units 18:17 Total Bilirubin 0.4 (0.0-1.0) mg/dL Direct Bilirubin < 0.2 (0.0-0.5) mg/dL AST 30 (5-37) U/L ALT 12 (0-40) U/L Alkaline Phosphatase 78 (39-117) U/L Albumin 4.2 (3.5-5.0) g/dL Urine 04/27/21 Range/Units 18:22 Urine Color YELLOW Urine Appearance CLEAR Urine pH 6.0 (5.0-8.0) Ur Specific [place] 1.020 (1.005-1.025) Urine Protein TRACE (NEG-TRACE) MG/DL Urine Glucose (UA) NEG (NEG) MG/DL All other labs normal. 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 I have examined his foot and the wound is open and is freely draining. The air that is seen on the MRI is likely due to the open wound itself. There is no evidence of any necrotizing process. He actually says that the area is much improved compared to 2 days ago. In view of the presence of septic osteoarthritis, I have recommended orthopedic evaluation. He is currently on IV antibiotics and he if he does not improve, I explained to him that I can do amputation of this toe. He wanted to save this toe as much as possible. I will re-evaluate him again in the morning. Procedures Date of Service Date of Service: 04/28/21
--- NOTE | 2021-04-28 16:56 | MHC.CLN ---
NUTRITION PER RD ASSESSMENT, DIET=DIABETIC 2200 KCAL. 2200 KCAL DIET PROVIDES 25.7 KCAL/KG CMW.
[2021-04-28 17:13] LABS: Glucose, Whole Blood 160 mg/dL (60-115)
[2021-04-28 20:40] LABS: Glucose, Whole Blood 98 mg/dL (60-115)
[2021-04-29] VITALS: BP 137/54; PULSE 57; RESP 16; TEMP 36.1; O2SAT 97
[2021-04-29] MEDS: Piperacillin Sodium/Tazobactam 3.375 GM in 0.9 % Sodium Chloride 50 ML IV ×4 (01:44→20:37)
[2021-04-29] MEDS: 0.9 % Sodium Chloride Flush 3 ML SYRINGE IVFLUSH ×4 (01:44→20:48)
[2021-04-29] MEDS: Acetaminophen 325 MG TABLET 650 MG PO ×3 (01:49→19:50)
[2021-04-29 03:45] VITALS: BP 133/76; PULSE 62; RESP 16; TEMP 35.9; O2SAT 99
[2021-04-29 03:45] LABS: Glucose, Whole Blood 146 mg/dL (60-115)
[2021-04-29 06:50] LABS: Anion Gap 13 (12-20); Blood Urea Nitrogen 12 mg/dL (9-16); Calcium 8.5 mg/dL (8.4-10.2); Carbon Dioxide 23 mmol/L (22-29); Chloride 104 mmol/L (96-108); Creatinine Clr Calc Pharmacy 93.2; Estimated Glomerular Filt Rate > 60; Glucose Random 208 mg/dL (60-115); Potassium 4.3 mmol/L (3.3-5.1); Sodium 136 mmol/L (135-145)
[2021-04-29 06:52] LABS: Hematocrit 31.7 % (42-52); Hemoglobin 9.2 g/dl (14.0-18.0); Mean Corpuscular Hemoglobin 21.4 pg (27.0-33.0); Mean Corpuscular Volume 73.9 fL (80-98); Mean Platelet Volume 10.4 fL (9.4-12.4); Platelet Count 224 X10*3/uL (160-400); Red Blood Count 4.29 X10*6/uL (4.60-5.80); Red Cell Distribution Width 17.8 % (11.0-16.0); Vancomycin Trough 8.1 mcg/mL (10.0-20.0); White Blood Count 7.7 X10*3/uL (4.8-10.8)
[2021-04-29 07:36] LABS: Glucose, Whole Blood 183 mg/dL (60-115)
[2021-04-29 07:42] VITALS: BP 154/80; PULSE 58; RESP 18; TEMP 36.2; O2SAT 98
[2021-04-29] MEDS: lisinopriL 10 MG TABLET PO (08:27)
[2021-04-29] MEDS: Gabapentin 300 MG CAPSULE PO ×2 (08:27→13:38)
[2021-04-29] MEDS: Tamsulosin HCL 0.4 MG CAPSULE PO (08:27)
[2021-04-29] MEDS: Insulin Lispro 100 UNIT/ML 3 ML VIAL SUBCUT ×3 (08:42→23:52)
[2021-04-29] MEDS: Heparin Sodium,Porcine 5,000 UNIT/ML VIAL 5000 UNIT SUBCUT ×2 (08:47→20:38)
[2021-04-29] MEDS: vancomycin HCL 1,250 MG in 0.9 % Sodium Chloride 250 ML 166.67 MG IV ×2 (09:11→19:05)
[2021-04-29 11:22] LABS: Glucose, Whole Blood 182 mg/dL (60-115)
--- NOTE | 2021-04-29 11:29 | HO.PM.IMPN ---
Subjective Subjective Date of Service: 04/29/21 Interval History: pain/redness improved no fever Physical Exam Vital Signs: Vital Signs: Last Vital Signs Temp 97.2 F 04/29/21 07:42 Pulse 58 04/29/21 07:42 Resp 18 04/29/21 07:42 BP 154/80 H 04/29/21 07:42 Pulse Ox 98 04/29/21 07:42 Body Mass Index 29.2 Gen: in no acute distress HEENT: sclera anicteric, moist mucus membranes Neck: supple Lungs: clear to auscultation bilaterally Heart: regular rate and rhythm, no murmurs Abd: soft, non-tender, non-distended Ext: no edema Skin: warm/well-perfused, L 5th toe and lateral midfoot erythematous, oozing ulcer on toe pad approx 1 cm Neuro: alert and oriented x3, no focal findings Psych: appropriate affect Objective Data Current Medications Generic Name Dose Route Start Last Admin Trade Name Freq PRN Reason Stop Dose Admin Acetaminophen 650 mg 04/28/21 01:22 04/29/21 10:20 Acetaminophen 325 Mg Tablet PO 650 mg Q6H PRN Administration Pain, Mild (Pain Scale 1-3) Docusate Sodium 100 mg 04/28/21 01:22 Docusate Sodium 100 Mg Capsule PO DAILY PRN Constipation Gabapentin 300 mg 04/28/21 08:00 04/29/21 08:27 Gabapentin 300 Mg Capsule PO 300 mg BID@0800,1400 JORGE LUIS Administration Gabapentin 600 mg 04/28/21 01:22 04/28/21 20:35 Gabapentin 300 Mg Capsule PO 600 mg BEDTIME JORGE LUIS Administration Heparin Sodium (Porcine) 5,000 unit 04/28/21 01:22 04/29/21 08:47 Heparin Sodium,Porcine 5,000 Unit/Ml Vial SUBCUT 5,000 unit BID JORGE LUIS Administration Piperacillin Sod/Tazobactam 50 mls @ 100 mls/hr 04/28/21 02:00 04/29/21 09:14 Sod 3.375 gm/ Sodium Chloride IV Infused Q6H JORGE LUIS Infusion Vancomycin HCl 1,250 mg/ 250 mls @ 166.667 mls/hr 04/29/21 07:00 04/29/21 10:41 Sodium Chloride IV Infused Q12H JORGE LUIS Infusion Insulin Human Lispro 0 unit 04/28/21 11:30 04/29/21 08:42 Insulin Lispro 100 Unit/Ml 3 Ml Vial SUBCUT 20 unit QIDACHS [facility] Administration Protocol Lisinopril 10 mg 04/28/21 09:00 04/29/21 08:27 Lisinopril 10 Mg Tablet PO 10 mg DAILY [facility] Administration Protocol Ondansetron HCl 4 mg 04/28/21 01:22 04/28/21 07:49 Ondansetron Hcl 4 Mg/2 Ml Vial IVPUSH 4 mg Q8H PRN Administration Nausea and Vomiting Pharmacy Consult 1 each 04/27/21 18:47 Consult Rx Perform Med Rec MISCELLANE ONCE PRN Consult order Pharmacy Consult 1 each 04/28/21 01:22 Consult Rx Vancomycin Dosing MISCELLANE DAILY PRN Consult order Sodium Chloride 3 ml 04/28/21 01:22 04/29/21 08:28 0.9 % Sodium Chloride Flush 3 Ml Syringe IVFLUSH 3 ml QSHIFT [facility] Administration Tamsulosin HCl 0.4 mg 04/27/21 21:07 04/29/21 08:27 Tamsulosin Hcl 0.4 Mg Capsule PO 0.4 mg DAILY [facility] Administration Labs CBC & Chem 7: 04/29/21 06:03 04/29/21 06:03 Labs: Laboratory Results - last 24 hr 04/28/21 04/28/21 04/28/21 11:35 16:10 17:08 WBC RBC Hgb Hct MCV MCH MCHC RDW Plt Count MPV Absolute Nucleated RBC Nucleated RBC % (auto) Sodium Potassium Chloride Carbon Dioxide Anion Gap BUN Creatinine Estim Creat Clear Calc Estimated GFR POC Glucose 135 H 128 H 160 H Random Glucose Calcium Vancomycin Trough 04/28/21 04/29/21 04/29/21 20:32 03:39 06:03 WBC RBC Hgb Hct MCV MCH MCHC RDW Plt Count MPV Absolute Nucleated RBC Nucleated RBC % (auto) Sodium Potassium Chloride Carbon Dioxide Anion Gap BUN Creatinine Estim Creat Clear Calc Estimated GFR POC Glucose 98 146 H Random Glucose Calcium Vancomycin Trough 8.1 L 04/29/21 04/29/21 04/29/21 06:03 06:03 07:13 WBC 7.7 RBC 4.29 L Hgb 9.2 L Hct 31.7 L MCV 73.9 L MCH 21.4 L MCHC 29.0 L RDW 17.8 H Plt Count 224 MPV 10.4 Absolute Nucleated RBC 0.000 Nucleated RBC % (auto) 0.0 Sodium 136 Potassium 4.3 Chloride 104 Carbon Dioxide 23 Anion Gap 13 BUN 12 Creatinine 0.92 Estim Creat Clear Calc 93.2 Estimated GFR > 60 POC Glucose 183 H Random Glucose 208 H Calcium 8.5 Vancomycin Trough 04/29/21 11:18 WBC RBC Hgb Hct MCV MCH MCHC RDW Plt Count MPV Absolute Nucleated RBC Nucleated RBC % (auto) Sodium Potassium Chloride Carbon Dioxide Anion Gap BUN Creatinine Estim Creat Clear Calc Estimated GFR POC Glucose 182 H Random Glucose Calcium Vancomycin Trough Microbiology Microbiology Results: Microbiology 04/27/21 18:17 Blood Culture - Preliminary Blood - Venous No growth after 24 hours. 04/27/21 18:09 Blood Culture - Preliminary Blood - Venous No growth after 24 hours. Quality Stroke Does the patient have a stroke diagnosis?: No VTE Prior VTE?: No VTE Risk Level:: Medical - moderate - high VTE Device Contraindication: Treatment Not Indicated VTE Drug Contraindication: N/A - Med Ordered Assessment and Plan (1) Diabetic foot ulcer: Status: Acute Assessment and Plan: hospital d#3 70yo M with DM2 + neuropathy admitted for infected nonhealing DM foot ulcer # DM foot ulcer with infection/abscess, 5th MTP joint septic arthritis - failed outpt therapy, continue pip/blanca + vanco d#3, redose vanco [subtherapeutic], ID consulted- will need 6 wk of IV ABX- place PICC once BCx returns negative, surgery will do abscess drainage/debridement and will follow wound Cx, check arterial doppler US # microcytic anemia - replete iron, also check FOBT # hyperK - resolved s/p SPS # HTN - continue lisinopril # DM2, A1c 7.2 - correction-dose lispro # DM neuropathy - continue gabapentin # BPH - continue tamsulosin # VTE ppx - continue UFH
[2021-04-29] MEDS: Ferrous Sulfate 324 MG TABLET.DR PO (11:58)
--- NOTE | 2021-04-29 13:28 | PM.PNGS ---
Subjective Subjective Date of Service: 04/29/21 Interval history: Says he feels better No more pain on left foot He says the swelling redness has improved Physical Exam Vital Signs: Vital Signs: Last Vital Signs Temp 97.2 F 04/29/21 07:42 Pulse 58 04/29/21 07:42 Resp 18 04/29/21 07:42 BP 154/80 H 04/29/21 07:42 Pulse Ox 98 04/29/21 07:42 Body Mass Index 29.2 Laboratory Results - last 24 hr 04/28/21 04/28/21 04/28/21 16:10 17:08 20:32 WBC RBC Hgb Hct MCV MCH MCHC RDW Plt Count MPV Absolute Nucleated RBC Nucleated RBC % (a uto) Sodium Potassium Chloride Carbon Dioxide Anion Gap BUN Creatinine Estim Creat Clear Calc Estimated GFR POC Glucose 128 H 160 H 98 Random Glucose Calcium Vancomycin Trough 04/29/21 04/29/21 04/29/21 03:39 06:03 06:03 WBC 7.7 RBC 4.29 L Hgb 9.2 L Hct 31.7 L MCV 73.9 L MCH 21.4 L MCHC 29.0 L RDW 17.8 H Plt Count 224 MPV 10.4 Absolute Nucleated RBC 0.000 Nucleated RBC % (a uto) 0.0 Sodium Potassium Chloride Carbon Dioxide Anion Gap BUN Creatinine Estim Creat Clear Calc Estimated GFR POC Glucose 146 H Random Glucose Calcium Vancomycin Trough 8.1 L 04/29/21 04/29/21 04/29/21 06:03 07:13 11:18 WBC RBC Hgb Hct MCV MCH MCHC RDW Plt Count MPV Absolute Nucleated RBC Nucleated RBC % (a uto) Sodium 136 Potassium 4.3 Chloride 104 Carbon Dioxide 23 Anion Gap 13 BUN 12 Creatinine 0.92 Estim Creat Clear Calc 93.2 Estimated GFR > 60 POC Glucose 183 H 182 H Random Glucose 208 H Calcium 8.5 Vancomycin Trough Const: Other: Looks well General: comfortable and no acute distress Resp: Effort & Inspection: normal respiratory effort Cardio: Rhythm: regular rhythm GI: Palpation (GI): Soft to palpation and nontender Extrem: Other: Ulcer on the lateral aspect of the forefoot near the base of the 5th toe, surrounding cellulitis improved, some residual edema however on the toe Progress Note: A&P Assessment and plan (1) Diabetic foot ulcer: Status: Acute Assessment and Plan: There was a question of abscess and septic arthritis I proceeded to sharp excisional debridement of the area therefore This area of the sinus and ulcer on the lateral aspect was prepped and draped. I used a blade 15 and sharp tipped scissors to excise skin and underlying soft tissue surrounding the area of the joint. I also irrigated this with small saline Cultures were taken of the area of the tract of the ulcer There was really no significant purulent fluid that was drained I then applied a light packing and dry dressings I wrapped the foot in a Misty roll He tolerated procedure well Continue daily wound care Leg elevation Antibiotics Follow-up cultures Fall Risk Details Current Medications: Current Medications Generic Name Dose Route Start Last Admin Trade Name Freq PRN Reason Stop Dose Admin Acetaminophen 650 mg 04/28/21 01:22 04/29/21 10:20 Acetaminophen 325 Mg Tablet PO 650 mg Q6H PRN Administration Pain, Mild (Pain Scale 1-3) Docusate Sodium 100 mg 04/28/21 01:22 Docusate Sodium 100 Mg Capsule PO DAILY PRN Constipation Ferrous Sulfate 324 mg 04/29/21 11:40 04/29/21 11:58 Ferrous Sulfate 324 Mg Tablet.Dr PO 324 mg DAILY JORGE LUIS Administration Gabapentin 300 mg 04/28/21 08:00 04/29/21 08:27 Gabapentin 300 Mg Capsule PO 300 mg BID@0800,1400 JORGE LUIS Administration Gabapentin 600 mg 04/28/21 01:22 04/28/21 20:35 Gabapentin 300 Mg Capsule PO 600 mg BEDTIME JORGE LUIS Administration Heparin Sodium (Porcine) 5,000 unit 04/28/21 01:22 04/29/21 08:47 Heparin Sodium,Porcine 5,000 Unit/Ml Vial SUBCUT 5,000 unit BID JORGE LUIS Administration Piperacillin Sod/Tazobactam 50 mls @ 100 mls/hr 04/28/21 02:00 04/29/21 09:14 Sod 3.375 gm/ Sodium Chloride IV Infused Q6H JORGE LUIS Infusion Vancomycin HCl 1,250 mg/ 250 mls @ 166.667 mls/hr 04/29/21 07:00 04/29/21 10:41 Sodium Chloride IV Infused Q12H JORGE LUIS Infusion Insulin Human Lispro 0 unit 04/28/21 11:30 04/29/21 11:42 Insulin Lispro 100 Unit/Ml 3 Ml Vial SUBCUT 20 unit QIDACHS JORGE LUIS Administration Protocol Lisinopril 10 mg 04/28/21 09:00 04/29/21 08:27 Lisinopril 10 Mg Tablet PO 10 mg DAILY JOREG LUIS Administration Protocol Ondansetron HCl 4 mg 04/28/21 01:22 04/28/21 07:49 Ondansetron Hcl 4 Mg/2 Ml Vial IVPUSH 4 mg Q8H PRN Administration Nausea and Vomiting Pharmacy Consult 1 each 04/27/21 18:47 Consult Rx Perform Med Rec MISCELLANE ONCE PRN Consult order Pharmacy Consult 1 each 04/28/21 01:22 Consult Rx Vancomycin Dosing MISCELLANE DAILY PRN Consult order Sodium Chloride 3 ml 04/28/21 01:22 04/29/21 08:28 0.9 % Sodium Chloride Flush 3 Ml Syringe IVFLUSH 3 ml QSHIFT JORGE LUIS Administration Tamsulosin HCl 0.4 mg 04/27/21 21:07 04/29/21 08:27 Tamsulosin Hcl 0.4 Mg Capsule PO 0.4 mg DAILY [facility]OR[facility] LUIS Administration Time Spent With Patient Time: Total time spent is greater than 50% in coordination of care (as documented) at patient's floor/unit and/or counseling patient: Time with patient: 25 - 35 minutes Procedures Date of Service Date of Service: 04/29/21 Quality Stroke Does the patient have a stroke diagnosis?: No VTE Prior VTE?: No VTE Risk Level:: Medical - moderate - high VTE Device Contraindication: Treatment Not Indicated VTE Drug Contraindication: N/A - Med Ordered
[2021-04-29 15:00] VITALS: BP 171/73; PULSE 69; RESP 17; TEMP 37; O2SAT 97
--- NOTE | 2021-04-29 15:28 | MHC.CM.PN ---
PATIENT IS FULLY INDEPENDENT HE LIVES WITH HCP/ AND A COPY IS REQUESTED. PLAN IS 6 WEEKS IV ABX; CURRENTLY AWAITING CULTURES PATIENT BELIEVES HE IS GETTING A MAK. [facility] PATIENT AND ARE TEACHABLE IMM 04/29 IN CHART.
[2021-04-29] MEDS: Magnesium Hydrox/Alum Hydrox 30 ML ORAL.SUSP PO (15:43)
--- NOTE | 2021-04-29 15:51 | MHC.CM.PN ---
PATIENT HAS BEEN COVID VACCINATED
[2021-04-29 16:37] LABS: Glucose, Whole Blood 85 mg/dL (60-115)
[2021-04-29 19:20] VITALS: BP 162/80; PULSE 63; RESP 16; TEMP 36.6; O2SAT 98
[2021-04-29 20:25] LABS: Glucose, Whole Blood 171 mg/dL (60-115)
[2021-04-29] MEDS: Gabapentin 300 MG CAPSULE 600 MG PO (20:38)
[2021-04-29 23:51] VITALS: BP 153/71; PULSE 63; RESP 16; TEMP 36.4; O2SAT 96
[2021-04-29 23:53] LABS: Glucose, Whole Blood 202 mg/dL (60-115)
[2021-04-30] MEDS: Piperacillin Sodium/Tazobactam 3.375 GM in 0.9 % Sodium Chloride 50 ML IV ×4 (01:59→19:56)
[2021-04-30 03:09] VITALS: BP 151/77; PULSE 55; RESP 16; TEMP 36.6; O2SAT 96
[2021-04-30] MEDS: vancomycin HCL 1,250 MG in 0.9 % Sodium Chloride 250 ML 166.67 MG IV (06:33)
[2021-04-30 07:22] VITALS: BP 161/76; PULSE 52; RESP 18; TEMP 36.5; O2SAT 98
[2021-04-30 07:51] LABS: Glucose, Whole Blood 165 mg/dL (60-115)
[2021-04-30] MEDS: 0.9 % Sodium Chloride Flush 3 ML SYRINGE IVFLUSH ×2 (09:02→17:25)
[2021-04-30] MEDS: Heparin Sodium,Porcine 5,000 UNIT/ML VIAL 5000 UNIT SUBCUT ×2 (09:10→20:41)
[2021-04-30] MEDS: Insulin Lispro 100 UNIT/ML 3 ML VIAL SUBCUT ×3 (09:10→17:31)
[2021-04-30] MEDS: lisinopriL 10 MG TABLET PO (09:11)
[2021-04-30] MEDS: Gabapentin 300 MG CAPSULE PO ×2 (09:11→13:29)
[2021-04-30] MEDS: Tamsulosin HCL 0.4 MG CAPSULE PO (09:11)
[2021-04-30] MEDS: Ferrous Sulfate 324 MG TABLET.DR PO (09:11)
--- NOTE | 2021-04-30 09:54 | PM.PNGS ---
Subjective Subjective Date of Service: 04/30/21 Interval history: Feels well Denies foot pain Says he thinks the redness has improved significantly I had debrided the ulcer and the wound yesterday Physical Exam Vital Signs: Vital Signs: Last Vital Signs Temp 97.7 F 04/30/21 07:22 Pulse 52 04/30/21 07:22 Resp 18 04/30/21 07:22 BP 161/76 H 04/30/21 07:22 Pulse Ox 98 04/30/21 07:22 Body Mass Index 29.2 Const: General: comfortable and no acute distress Resp: Effort & Inspection: normal respiratory effort Cardio: Rate: regular rate Extrem: Other: Left foot - cellulitic changes improving, open wound from debridement of ulcer on the lateral aspect clean Progress Note: A&P Assessment and plan (1) Diabetic foot ulcer: Status: Acute Assessment and Plan: Sharp excisional debridement done yesterday Inflammatory changes improving Continue antibiotic treatment Dressings changed today - silver alginate applied Seen with wound care nurse Okay to follow-up in the office after discharge Fall Risk Details Current Medications: Current Medications Generic Name Dose Route Start Last Admin Trade Name Mundoq PRN Reason Stop Dose Admin Acetaminophen 650 mg 04/28/21 01:22 04/29/21 19:50 Acetaminophen 325 Mg Tablet PO 650 mg Q6H PRN Administration Pain, Mild (Pain Scale 1-3) Al Hydroxide/Mg Hydroxide 30 ml 04/29/21 15:30 04/29/21 15:43 Magnesium Hydrox/Alum Hydrox 30 Ml Oral.Susp PO 30 ml Q4H PRN Administration Indigestion Docusate Sodium 100 mg 04/28/21 01:22 Docusate Sodium 100 Mg Capsule PO DAILY PRN Constipation Ferrous Sulfate 324 mg 04/29/21 11:40 04/30/21 09:11 Ferrous Sulfate 324 Mg Tablet. PO 324 mg DAILY JORGE LUIS Administration Gabapentin 300 mg 04/28/21 08:00 04/30/21 09:11 Gabapentin 300 Mg Capsule PO 300 mg BID@0800,1400 JORGE LUIS Administration Gabapentin 600 mg 04/28/21 01:22 04/29/21 20:38 Gabapentin 300 Mg Capsule PO 600 mg BEDTIME JORGE LUIS Administration Heparin Sodium (Porcine) 5,000 unit 04/28/21 01:22 04/30/21 09:10 Heparin Sodium,Porcine 5,000 Unit/Ml Vial SUBCUT 5,000 unit BID JORGE LUIS Administration Piperacillin Sod/Tazobactam 50 mls @ 100 mls/hr 04/28/21 02:00 04/30/21 09:53 Sod 3.375 gm/ Sodium Chloride IV Infused Q6H JORGE LUIS Infusion Vancomycin HCl 1,250 mg/ 250 mls @ 166.667 mls/hr 04/29/21 07:00 04/30/21 08:17 Sodium Chloride IV Infused Q12H JORGE LUIS Infusion Insulin Human Lispro 0 unit 04/28/21 11:30 04/30/21 09:10 Insulin Lispro 100 Unit/Ml 3 Ml Vial SUBCUT 15 unit QIDACHS JORGE LUIS Administration Protocol Lisinopril 10 mg 04/28/21 09:00 04/30/21 09:11 Lisinopril 10 Mg Tablet PO 10 mg DAILY JORGE LUIS Administration Protocol Ondansetron HCl 4 mg 04/28/21 01:22 04/28/21 07:49 Ondansetron Hcl 4 Mg/2 Ml Vial IVPUSH 4 mg Q8H PRN Administration Nausea and Vomiting Pharmacy Consult 1 each 04/27/21 18:47 Consult Rx Perform Med Rec MISCELLANE ONCE PRN Consult order Pharmacy Consult 1 each 04/28/21 01:22 Consult Rx Vancomycin Dosing MISCELLANE DAILY PRN Consult order Sodium Chloride 3 ml 04/28/21 01:22 04/30/21 09:02 0.9 % Sodium Chloride Flush 3 Ml Syringe IVFLUSH 3 ml QSHIFT JORGE LUIS Administration Tamsulosin HCl 0.4 mg 04/27/21 21:07 04/30/21 09:11 Tamsulosin Hcl 0.4 Mg Capsule PO 0.4 mg DAILY JORGE LUIS Administration Time Spent With Patient Time: Total time spent is greater than 50% in coordination of care (as documented) at patient's floor/unit and/or counseling patient: Time with patient: 15 - 24 minutes Procedures Date of Service Date of Service: 04/30/21 Quality Stroke Does the patient have a stroke diagnosis?: No VTE Prior VTE?: No VTE Risk Level:: Medical - moderate - high VTE Device Contraindication: Treatment Not Indicated VTE Drug Contraindication: N/A - Med Ordered
--- NOTE | 2021-04-30 10:35 | PC.NURSE ---
Skin/wound assessment completed today. Patient has a left foot diabetic ulcer Grade 2, no presents of osteomyelitis but does probe to bone. Dr. Odonnell debrided wound on 04/29- some granulation tissue, scant slough and scant serous drainage. Silver alginate applied to wound bed, cover with gauze pad and roll gauze. Patient also 6 weeks antibiotics. Referred to outpatient wound clinic upon discharge.
[2021-04-30 11:17] VITALS: BP 156/78; PULSE 67; RESP 20; TEMP 36.2; O2SAT 98
--- NOTE | 2021-04-30 12:38 | P.PICC_ITS ---
PICC Line Insertion NPICC Diagnosis: DIABETIC FOOT ULCER Indication: PROCESS CONSULTANT IV ANTIBIOTICS Pertinent Labs: REVIEWED Technique: Following informed consent including risks, benefits and alternatives and using sterile technique including cap and mask, sterile gown, glove and drape, the RIGHT arm was prepped and draped in the usual sterile fashion of full barrier technique with CHG. Following completion of Monroe Protocol the skin and soft tissues were anesthetized with 1% Lidocaine plain. Using ultrasound guidance, BASILIC vein access was obtained IN SINGLE ATTEMPT BY THIS RN. Over an 0.018 wire through peel-away sheath, a 4-VIETNAMESE, SINGLE LUMEN, PASV PICC line was positioned. Catheter length is 40 CM internal length, 0 CM external length, for a total trimmed length of 40 CM. The procedure was performed in -1. Tip verification was performed by Bettye Cristobal with rDu 3CG. Tip located in SVC. Ultrasound was used to document vein patency and for needle entry. A formal ultrasound picture and cardiac rhythm strip was recorded. V[employer] Project Manager has released the line for use and it is currently dressed with a StatLock, Tegaderm, and CHG disc. Verification has been performed for blood return and line patency. Arm Circumference: 35.5 CM Equipment: [employer] POWERPICC SOLO Catheter Type: 4-VIETNAMESE, SINGLE LUMEN, PASV Lot #: [id number]
[2021-04-30 13:19] LABS: Glucose, Whole Blood 203 mg/dL (60-115)
[2021-04-30] MEDS: Acetaminophen 325 MG TABLET 650 MG PO (13:33)
--- NOTE | 2021-04-30 14:38 | HO.PM.IMPN ---
Subjective Subjective Date of Service: 04/30/21 Interval History: Surgery did sharp excisional debridement yesterday Redness improved Minimal pain No fever/chills Physical Exam Vital Signs: Vital Signs: Last Vital Signs Temp 97.2 F 04/30/21 11:17 Pulse 67 04/30/21 11:17 Resp 20 04/30/21 11:17 BP 156/78 H 04/30/21 11:17 Pulse Ox 98 04/30/21 11:17 Body Mass Index 29.2 Gen: in no acute distress HEENT: sclera anicteric, moist mucus membranes Neck: supple Lungs: clear to auscultation bilaterally Heart: regular rate and rhythm, no murmurs Abd: soft, non-tender, non-distended Ext: no edema Skin: warm/well-perfused, L 5th toe and lateral midfoot erythematous, ulcer on toe pad approx 1 cm Neuro: alert and oriented x3, no focal findings Psych: appropriate affect Objective Data Current Medications Generic Name Dose Route Start Last Admin Trade Name Freq PRN Reason Stop Dose Admin Acetaminophen 650 mg 04/28/21 01:22 04/30/21 13:33 Acetaminophen 325 Mg Tablet PO 650 mg Q6H PRN Administration Pain, Mild (Pain Scale 1-3) Al Hydroxide/Mg Hydroxide 30 ml 04/29/21 15:30 04/29/21 15:43 Magnesium Hydrox/Alum Hydrox 30 Ml Oral.Susp PO 30 ml Q4H PRN Administration Indigestion Docusate Sodium 100 mg 04/28/21 01:22 Docusate Sodium 100 Mg Capsule PO DAILY PRN Constipation Ferrous Sulfate 324 mg 04/29/21 11:40 04/30/21 09:11 Ferrous Sulfate 324 Mg Tablet.Dr PO 324 mg DAILY JORGE LUIS Administration Gabapentin 300 mg 04/28/21 08:00 04/30/21 13:29 Gabapentin 300 Mg Capsule PO 300 mg BID@0800,1400 JORGE LUIS Administration Gabapentin 600 mg 04/28/21 01:22 04/29/21 20:38 Gabapentin 300 Mg Capsule PO 600 mg BEDTIME JORGE LUIS Administration Heparin Sodium (Porcine) 5,000 unit 04/28/21 01:22 04/30/21 09:10 Heparin Sodium,Porcine 5,000 Unit/Ml Vial SUBCUT 5,000 unit BID JORGE LUIS Administration Piperacillin Sod/Tazobactam 50 mls @ 100 mls/hr 04/28/21 02:00 04/30/21 14:28 Sod 3.375 gm/ Sodium Chloride IV Infused Q6H JORGE LUIS Infusion Vancomycin HCl 1,250 mg/ 250 mls @ 166.667 mls/hr 04/29/21 07:00 04/30/21 08:17 Sodium Chloride IV Infused Q12H JORGE LUIS Infusion Insulin Human Lispro 0 unit 04/28/21 11:30 04/30/21 13:30 Insulin Lispro 100 Unit/Ml 3 Ml Vial SUBCUT 15 unit QIDACHS ON LICENSE OF [facility] Administration Protocol Lisinopril 10 mg 04/28/21 09:00 04/30/21 09:11 Lisinopril 10 Mg Tablet PO 10 mg DAILY ON LICENSE OF [facility] Administration Protocol Ondansetron HCl 4 mg 04/28/21 01:22 04/28/21 07:49 Ondansetron Hcl 4 Mg/2 Ml Vial IVPUSH 4 mg Q8H PRN Administration Nausea and Vomiting Pharmacy Consult 1 each 04/27/21 18:47 Consult Rx Perform Med Rec MISCELLANE ONCE PRN Consult order Pharmacy Consult 1 each 04/28/21 01:22 Consult Rx Vancomycin Dosing MISCELLANE DAILY PRN Consult order Sodium Chloride 3 ml 04/28/21 01:22 04/30/21 09:02 0.9 % Sodium Chloride Flush 3 Ml Syringe IVFLUSH 3 ml QSHIFT ON LICENSE OF [facility] Administration Sodium Chloride 5 ml 04/30/21 15:00 0.9 % Sodium Chloride Flush 10 Ml Syringe IVFLUSH TID JORGE LUIS Tamsulosin HCl 0.4 mg 04/27/21 21:07 04/30/21 09:11 Tamsulosin Hcl 0.4 Mg Capsule PO 0.4 mg DAILY JORGE LUIS Administration Labs CBC & Chem 7: 04/29/21 06:03 04/29/21 06:03 Labs: Laboratory Results - last 24 hr 04/29/21 04/29/21 04/29/21 16:34 20:21 23:49 POC Glucose 85 171 H 202 H 04/30/21 04/30/21 07:23 13:15 POC Glucose 165 H 203 H arterial doppler BLE (04/28/21) Right: No evidence of hemodynamically significant stenosis. Left: Mild nonhemodynamically significant stenosis involving the proximal profunda femoris artery and moderate hemodynamically significant stenosis involving the proximal superficial femoral artery. Microbiology Microbiology Results: Microbiology 04/29/21 12:58 Gram Stain - Final Foot - Left Routine Culture - Preliminary No growth to date. 04/27/21 18:17 Blood Culture - Preliminary Blood - Venous No growth after 48 hours. 04/27/21 18:09 Blood Culture - Preliminary Blood - Venous No growth after 48 hours. Quality Stroke Does the patient have a stroke diagnosis?: No VTE Prior VTE?: No VTE Risk Level:: Medical - moderate - high VTE Device Contraindication: Treatment Not Indicated VTE Drug Contraindication: N/A - Med Ordered Assessment and Plan (1) Diabetic foot ulcer: Status: Acute Assessment and Plan: hospital d#4 70yo M with DM2 + neuropathy admitted for infected nonhealing DM foot ulcer # DM foot ulcer with infection/abscess, 5th MTP joint septic arthritis - failed outpt therapy, continue pip/blanca + vanco d#4, redosed vanco [subtherapeutic], ID consulted- will need 6 wk of IV ABX- PICC placement today (BCx negative at 48h), follow Wound Cx, consult Vascular Surgery regarding L SFA stenosis # microcytic anemia - replete iron, also check FOBT # hyperK - resolved s/p SPS # HTN - continue lisinopril # DM2, A1c 7.2 - correction-dose lispro # DM neuropathy - continue gabapentin # BPH - continue tamsulosin # VTE ppx - continue UFH
[2021-04-30 15:47] VITALS: BP 120/67; PULSE 58; RESP 20; TEMP 36.2; O2SAT 98
--- NOTE | 2021-04-30 16:26 | PM.EVENT ---
Event Note Date of Service: 04/30/21 Event Note: await wound culture probable Ertapenem or Vancomycin for six weeks
[2021-04-30 16:53] LABS: Glucose, Whole Blood 131 mg/dL (60-115)
[2021-04-30] MEDS: 0.9 % Sodium Chloride Flush 10 ML SYRINGE 5 ML IVFLUSH ×2 (17:25→19:57)
[2021-04-30 18:47] LABS: Vancomycin Trough 14.1 mcg/mL (10.0-20.0)
[2021-04-30 19:12] VITALS: BP 159/70; PULSE 50; RESP 18; TEMP 37.1; O2SAT 98
[2021-04-30 20:15] LABS: Glucose, Whole Blood 148 mg/dL (60-115)
[2021-04-30] MEDS: Gabapentin 300 MG CAPSULE 600 MG PO (20:40)
[2021-04-30] MEDS: vancomycin HCL 1,250 MG in 0.9 % Sodium Chloride 250 ML 166.6 MG IV (20:41)
[2021-04-30 23:39] VITALS: BP 114/55; PULSE 53; RESP 18; TEMP 36.1; O2SAT 94
[2021-05-01] MEDS: Piperacillin Sodium/Tazobactam 3.375 GM in 0.9 % Sodium Chloride 50 ML IV ×2 (03:17→09:19)
[2021-05-01 03:45] VITALS: BP 140/73; PULSE 52; RESP 18; TEMP 36.2; O2SAT 99
[2021-05-01 06:11] LABS: Hematocrit 30.8 % (42-52); Hemoglobin 9.2 g/dl (14.0-18.0); Mean Corpuscular HGB Conc 29.9 g/dl (31.0-36.0); Mean Corpuscular Hemoglobin 21.4 pg (27.0-33.0); Mean Corpuscular Volume 71.8 fL (80-98); Mean Platelet Volume 10.5 fL (9.4-12.4); Platelet Count 258 X10*3/uL (160-400); Red Blood Count 4.29 X10*6/uL (4.60-5.80); Red Cell Distribution Width 17.5 % (11.0-16.0); White Blood Count 6.8 X10*3/uL (4.8-10.8)
[2021-05-01] MEDS: vancomycin HCL 1,250 MG in 0.9 % Sodium Chloride 250 ML 100 MG IV (06:44)
[2021-05-01 06:48] LABS: Anion Gap 17 (12-20); Blood Urea Nitrogen 13 mg/dL (9-16); C Reactive Protein 2.95 mg/dL (< or = 0.50); Calcium 8.9 mg/dL (8.4-10.2); Carbon Dioxide 19 mmol/L (22-29); Chloride 103 mmol/L (96-108); Creatinine Clr Calc Pharmacy 92.2; Estimated Glomerular Filt Rate > 60; Glucose Random 224 mg/dL (60-115); Potassium 4.3 mmol/L (3.3-5.1); Sodium 135 mmol/L (135-145)
[2021-05-01 07:10] LABS: Glucose, Whole Blood 189 mg/dL (60-115)
[2021-05-01 08:00] VITALS: BP 147/71; PULSE 54; RESP 17; TEMP 36.2; O2SAT 98
[2021-05-01] MEDS: Insulin Lispro 100 UNIT/ML 3 ML VIAL SUBCUT ×2 (09:17→12:12)
[2021-05-01] MEDS: 0.9 % Sodium Chloride Flush 3 ML SYRINGE IVFLUSH (09:17)
[2021-05-01] MEDS: lisinopriL 10 MG TABLET PO (09:17)
[2021-05-01] MEDS: Gabapentin 300 MG CAPSULE PO (09:17)
[2021-05-01] MEDS: Tamsulosin HCL 0.4 MG CAPSULE PO (09:17)
[2021-05-01] MEDS: Ferrous Sulfate 324 MG TABLET.DR PO (09:18)
[2021-05-01] MEDS: 0.9 % Sodium Chloride Flush 10 ML SYRINGE 5 ML IVFLUSH (09:18)
--- NOTE | 2021-05-01 10:35 | P.F2F_ITS ---
Service Date Service Date: 05/01/21 Encounter Date of encounter: 05/01/21 Encounter: [facility]NA for daily IV ertapenem infusion and wound care and PICC line care Reasons for Services Reason for residential: wound care, administration of IV, SQ, or IM injection, central line care, diabetic teaching, medication management and medication treatment MD Overseeing Care: Benton Chandler Homebound: Leaving the home is medically contraindicated at this time without the asist of a device and/or another person due th the listed conditions above and below. Reason homebound: immunosuppression / infection risk and weakness related to hospital stay Certification: Based on the above findings, I certify that this patient is confined to the home and needs intermittent residential care, physical therapy and/or speech therapy, or continues to need occupational therapy. The patient is under my care, and I have initiated the establishment of the plan of care. The patient will be followed by a physician who will periodically review the plan of care.
--- NOTE | 2021-05-01 10:52 | MHC.CM.PN ---
PATIENT IS RETURNING HOME WITH [facility] AND [facility]. IMM 04/29 IN CHART.
--- NOTE | 2021-05-01 10:56 | PM.DS ---
DS: Providers Provider Date of Service: 05/01/21 Date of admission: 04/27/21 21:07 Primary care physician: NICK Ponce Consults: 04/28/21 01:22 Consult to Infectious Diseases Routine Consulting Provider: Tiny Carrington Reason for consultation: non-healing diabetic wound Has provider been notified: No 04/28/21 12:58 Consult to General Surgery Routine Consulting Provider: Scottie Odonnell Reason for consultation: Patient has diabetic ulcer probed to bone and around the clock undermining. 04/28/21 13:09 Consult to General Surgery Routine Consulting Provider: [facility] General Surgeons Reason for consultation: 5th MTP septic arthritis/DM foot infection 04/29/21 07:54 Consult to Orthopedics Routine Consulting Provider: [facility] Orthopedic Surgeons Reason for consultation: septic arthritis 5th MTP 04/30/21 14:40 Consult to Vascular Surgery Routine Consulting Provider: Sawyer Valencia Reason for consultation: moderate stenosis L prox SFA DS: Diagnosis Discharge Diagnosis (1) Diabetic foot ulcer: Status: Acute (2) Septic arthritis: Status: Acute (3) Diabetic foot infection: Status: Acute (4) Peripheral vascular disease: Status: Acute (5) Iron deficiency anemia: Status: Acute (6) Hyperkalemia: Status: Acute DS: Medications Discharge Medications Home Medications: Home Medications Medication Instructions Recorded Confirmed blood sugar diagnostic #10 ea 04/22/21 04/22/21 gabapentin 300 mg capsule 300 mg PO BID@0800,1400 04/22/21 04/27/21 lisinopril 10 mg tablet 10 mg PO DAILY 04/22/21 04/27/21 meloxicam 15 mg tablet 15 mg PO DAILY 04/22/21 04/27/21 tamsulosin 0.4 mg capsule 0.4 mg PO DAILY 04/22/21 04/27/21 gabapentin [Neurontin] 600 mg PO BEDTIME 04/27/21 04/27/21 Lantus Solostar U-100 Insulin 90 unit SUBCUT DAILY 04/28/21 04/28/21 insulin lispro [Humalog KwikPen 0 unit SUBCUT TIDAC 04/28/21 04/28/21 Insulin] Previous Rx's Medication Instructions Recorded aspirin [Aspirin Childrens] 81 mg PO DAILY #30 tab 05/01/21 atorvastatin 40 mg PO BEDTIME #30 tab 07/17/21 ertapenem 1 g IV Q24H #37 ea 05/01/21 ferrous sulfate 324 mg PO DAILY #30 tab 05/01/21 DS: Summary Hospital Course Hospital Course: from admission H+P by hospitalist Lula Vera, 04/27/21: This is a 62-year-old male with past medical history of hypertension, diabetes, who presents to the hospital with complaints of left foot ulcer. Patient reports that it started about 3 weeks ago after he visited for , calluses were scraped from that foot, but few days after he noticed a hole in the bottom of his foot. Patient reports that the whole started getting more swollen, started draining, he had erythema. He went to urgent care about a week and half ago he was given antibiotics, Augmentin, for few days, with no improvement in his swelling pain or redness. Therefore decided go to the PCP today and he was asked to come to the ED. Patient denies any fever but has chills, some nausea with no vomiting, low appetite, no abdominal pain , no urinary symptoms and no lower extremity edema besides the swelling of his foot. He denies any chest pain or shortness of breath no headache or change in vision no numbness tingling or weakness. The patient was admitted to the medical/surgical floor and started on broad-spectrum IV antibiotic coverage with piperacillin/tazobactam and vancomycin. MRI showed a septic arthritis of the left 5th MTP joint with surroundg abscess. ID and General Surgery were consulted. He underwent bedside sharp excisional debridement of the suspected abscess, but there was no significant purulent fluid obtained. Wound and blood cultures were negative. A PICC line was placed and antibiotics were changed to ertapenem. He was discharged with VNA services to continue ertapenem for a total of 6 weeks with end date of 06/07/21. Weekly labs were ordered: CBCd, CRP, ESR, and BMP. He should follow up with ID, General Surgery, Wound Care, and his primary care doctor. Arterial Doppler also showed moderate left SFA stenosis and outpatient vascular surgery consultation will be arranged. He was started on aspirin and atorvastatin for medical management of peripheral vascular disease. He was also started on iron supplementation for iron deficiency anemia. Mild hyperkalemia resolved with administration of 1 dose of SPS and his lisinopril was continued without recurrence of the hyperkalemia. Time Spent with Patient Time attestation: Total time spent providing and/or coordinating discharge services: 45 Discharge coordination time: Greater than 30 minutes Quality: Stroke Does the patient have a stroke diagnosis?: No Physical Exam Vital Signs: Vital Signs: Last Vital Signs Temp 97.1 F 05/01/21 08:00 Pulse 54 05/01/21 08:00 Resp 17 05/01/21 08:00 BP 147/71 H 05/01/21 08:00 Pulse Ox 98 05/01/21 08:00 Body Mass Index 29.2 Gen: in no acute distress HEENT: sclera anicteric, moist mucus membranes Neck: supple Lungs: clear to auscultation bilaterally Heart: regular rate and rhythm, no murmurs Abd: soft, non-tender, non-distended Ext: no edema Skin: warm/well-perfused, L 5th toe and lateral midfoot with imrpoving erythema, ulcer on toe pad approx 1 cm, no purulence Neuro: alert and oriented x3, no focal findings Psych: appropriate affect DS: Data Data Completed and Pending Completed studies during hospitalization [Text1]: Laboratory Results WBC 6.8 X10*3/uL (4.8-10.8) 05/01/21 05:36 RBC 4.29 X10*6/uL (4.60-5.80) L 05/01/21 05:36 Hgb 9.2 g/dl (14.0-18.0) L 05/01/21 05:36 Hct 30.8 % (42-52) L 05/01/21 05:36 MCV 71.8 fL (80-98) L 05/01/21 05:36 MCH 21.4 pg (27.0-33.0) L 05/01/21 05:36 MCHC 29.9 g/dl (31.0-36.0) L 05/01/21 05:36 RDW 17.5 % (11.0-16.0) H 05/01/21 05:36 Plt Count 258 X10*3/uL (160-400) 05/01/21 05:36 MPV 10.5 fL (9.4-12.4) 05/01/21 05:36 Immature Gran % (Auto) 0.4 % (0.0-0.4) 04/28/21 06:50 Neut % (Auto) 71.3 % (45-73) 04/28/21 06:50 Lymph % (Auto) 17.1 % (20-40) L 04/28/21 06:50 Cloud % (Auto) 8.9 % (2-11) 04/28/21 06:50 Eos % (Auto) 1.5 % (0-4) 04/28/21 06:50 Baso % (Auto) 0.8 % (0-2) 04/28/21 06:50 Lymph # (Auto) 1.2 X10*3/uL (1.2-4.9) 04/28/21 06:50 Cloud # (Auto) 0.7 X10*3/uL (0.1-1.2) 04/28/21 06:50 Eos # (Auto) 0.1 X10*3/uL (0.0-0.4) 04/28/21 06:50 Baso # (Auto) 0.1 X10*3/uL (0.0-0.2) 04/28/21 06:50 Abs Immat Gran (auto) 0.03 X10*3/uL (0.00-0.03) 04/28/21 06:50 Absolute Neuts (auto) 5.2 X10*3/uL (2.0-8.3) 04/28/21 06:50 Absolute Nucleated RBC 0.000 X10*3/uL (0.0-0.012) 05/01/21 05:36 Nucleated RBC % (auto) 0.0 /100WBC (0.0-0.2) 05/01/21 05:36 ESR 58 MM/HR (0-15) H 04/27/21 Unknown Sodium 135 mmol/L (135-145) 05/01/21 05:36 Potassium 4.3 mmol/L (3.3-5.1) 05/01/21 05:36 Chloride 103 mmol/L (96-108) 05/01/21 05:36 Carbon Dioxide 19 mmol/L (22-29) L 05/01/21 05:36 Anion Gap 17 (12-20) 05/01/21 05:36 BUN 13 mg/dL (9-16) 05/01/21 05:36 Creatinine 0.93 mg/dL (0.5-1.4) 05/01/21 05:36 Estim Creat Clear Calc 92.2 05/01/21 05:36 Estimated GFR > 60 05/01/21 05:36 POC Glucose 189 mg/dL (60-115) H 05/01/21 07:04 Random Glucose 224 mg/dL (60-115) H 05/01/21 05:36 Estimat Average Glucose 160 mg/dL 04/28/21 06:50 Hemoglobin A1c % 7.2 % 04/28/21 06:50 Lactic Acid 1.5 mmol/L (0.5-2.0) 04/27/21 18:17 Calcium 8.9 mg/dL (8.4-10.2) 05/01/21 05:36 Iron 18 mcg/dL (45-160) L 04/28/21 06:50 TIBC 357 mcg/dL (228-428) 04/28/21 06:50 % Saturation 5 % (15-50) L 04/28/21 06:50 Unsat Iron Binding 339 ug/dL 04/28/21 06:50 Ferritin 25 ng/mL (20-250) 04/28/21 06:50 Total Bilirubin 0.4 mg/dL (0.0-1.0) 04/27/21 18:17 Direct Bilirubin < 0.2 mg/dL (0.0-0.5) 04/27/21 18:17 AST 30 U/L (5-37) 04/27/21 18:17 ALT 12 U/L (0-40) 04/27/21 18:17 Alkaline Phosphatase 78 U/L (39-117) 04/27/21 18:17 C-Reactive Protein 2.95 mg/dL (< or = 0.50) H 05/01/21 05:36 Total Protein 8.0 g/dL (6.5-8.0) 04/27/21 18:17 Albumin 4.2 g/dL (3.5-5.0) 04/27/21 18:17 Lipase 17 U/L (8-78) 04/27/21 18:17 Urine Color YELLOW 04/27/21 18:22 Urine Appearance CLEAR 04/27/21 18:22 Urine pH 6.0 (5.0-8.0) 04/27/21 18:22 Ur Specific [place] 1.020 (1.005-1.025) 04/27/21 18:22 Urine Protein TRACE MG/DL (NEG-TRACE) 04/27/21 18:22 Urine Glucose (UA) NEG MG/DL (NEG) 04/27/21 18:22 Urine Ketones NEG MG/DL (NEG) 04/27/21 18:22 Urine Blood NEG (NEG) 04/27/21 18:22 Urine Nitrite NEG (NEG) 04/27/21 18:22 Ur Leukocyte Esterase NEG (NEG) 04/27/21 18:22 Vancomycin Trough 14.1 mcg/mL (10.0-20.0) 04/30/21 18:02 COVID-19 ([facility]) Negative (Negative) 04/27/21 20:10 COVID-19 Clin Com See Note 04/27/21 20:10 Impressions Foot X-Ray 04/27/21 17:45 IMPRESSION: Soft tissue swelling at the left foot. No radiographic findings of osteomyelitis. Foot MRI 04/28/21 01:22 IMPRESSION: Gas-containing abscess in the soft tissues surrounding the 5th MTP joint. Underlying septic arthritis is suspected at the 5th MTP joint without findings of osteomyelitis. Duplex Scan Lower Extremity Artery 04/29/21 13:18 IMPRESSION: Right: No evidence of hemodynamically significant stenosis. Left: Mild nonhemodynamically significant stenosis involving the proximal profunda femoris artery and moderate hemodynamically significant stenosis involving the proximal superficial femoral artery. Discharge Plan Discharge Patient Disposition: Home Health Service Discharge Diagnosis: diabetic foot infection/septic arthritis, peripheral vascular disease, iron Referrals: [facility] Wound Care Management [Provider Group] - 1 Week [facility] [Outside] - 1 Week Tiny Carrington MD [Physician] - 1 Week Scottie Odonnell MD [Physician] - 1 Week Sawyer Valencia MD [Physician] - 1 Week Benton Chandler PA [Primary Care Provider] - 1 Week Discharge Medications: New ferrous sulfate 324 mg (65 mg iron) Tablet,Delayed Release (Dr/Ec) 324 mg PO DAILY Qty: 30 RF: 0 ertapenem 1 gram recon soln 1 g IV Q24H Qty: 37 RF: 0 atorvastatin 40 mg tablet 40 mg PO BEDTIME Qty: 30 RF: 0 aspirin [Aspirin Childrens] 81 mg tablet,chewable 81 mg PO DAILY Qty: 30 RF: 0 Continued gabapentin [Neurontin] 300 mg capsule 600 mg PO BEDTIME RF: 0 Lantus Solostar U-100 Insulin 100 unit/mL (3 mL) insulin pen 90 unit subcut DAILY RF: 0 insulin lispro [Humalog KwikPen Insulin] 100 unit/mL Insulin Pen 0 unit SUBCUT TIDAC RF: 0 lisinopril 10 mg tablet 10 mg PO DAILY RF: 0 tamsulosin 0.4 mg capsule 0.4 mg PO DAILY RF: 0 gabapentin 300 mg capsule 300 mg PO BID@0800,1400 RF: 0 (DME) blood sugar diagnostic Strip See Rx Instructions ea Not Applicable QID Qty: 10 RF: 0 meloxicam 15 mg tablet 15 mg PO DAILY RF: 0 Discontinued amoxicillin-pot clavulanate [Augmentin] 875-125 mg tablet 1 tab PO BID Qty: 20 RF: 0 Discharge Orders: Discharge Order (Routine); Ordered 05/01/21 Ordered By: Irineo Gutiérrez Diet: diabetic diet Activity on Discharge: As tolerated Stand Alone Forms: Patient Portal Discharge page Activity Restrictions/Additional Instructions: daily wound care: Silver alginate applied to wound bed, cover with gauze pad and roll gauze Care Plan Goals: cure of diabetic foot infection Health Concerns: diabetic foot infection with septic arthritis peripheral vascular disease iron deficiency anemia Plan of Treatment: ertapenem via PICC line, 1 gram daily IV until 06/07/21 weekly labs while on ertapenem: ESR, CRP, CBCd, BMP take aspirin 81 mg daily and atorvastatin 40 mg every night for medical management of peripheral vascular disease take ferrous sulfate 325 mg daily for iron deficiency anemia follow up in [address] Carrington (Infectious Disease), Dr Odonnell (General Surgery), Dr Valencia (Vascular Surgery), and [facility] W[facility] follow up in 1 week with your primary care doctor Assessment: as above Patient Instructions: Peripheral Vascular Disease (DC), PICC (Peripherally Inserted Central Catheter) (DC), Type 2 Diabetes Management for Adults (DC)
[2021-05-01] MEDS: Ertapenem Sodium 1 GM in 0.9 % Sodium Chloride 50 ML IV (12:12)
[2021-05-01 12:18] LABS: Glucose, Whole Blood 176 mg/dL (60-115)
== END 2021-05-01 14:32 | disposition home health service (06) | DRG 623 ==
LOC: HO.ED 19:19 → HO.EDOVER 21:26 → HO.S3 04-28 09:01
PROVIDERS: Admitting Provider Internal Medicine; Emergency Provider Emergency Medicine; PCP Physician Assistant Medical; Visit Provider Family Medicine
DX: E11.621 Type 2 diabetes mellitus with foot ulcer (principal); L97.429 Non-pressure chronic ulcer of left heel and midfoot with unspecified severity; N40.0 Benign prostatic hyperplasia without lower urinary tract symptoms; E11.42 Type 2 diabetes mellitus with diabetic polyneuropathy; D50.9 Iron deficiency anemia, unspecified; E87.5 Hyperkalemia; Z20.822 Contact with and (suspected) exposure to COVID-19; Z79.1 Long term (current) use of non-steroidal anti-inflammatories (NSAID); Z79.4 Long term (current) use of insulin; Z79.82 Long term (current) use of aspirin; Z79.899 Other long term (current) drug therapy
CPT/HCPCS: 36415; 36573; 73620; 73720; 80048; 80076; 80202; 81003; 82728; 82947; 83036; 83540; 83605; 83690; 85025; 85027; 85652; 86140; 87040; 87071; 87205; 87635; 93925; 99285; A9585; C1751; J1335; J2405; J2543; J3370

== ENCOUNTER → 2021-05-06 10:31 | Outpatient (BNVA) | payer MEDICARE, OTHER, SELFPAY | PROVIDERS: PCP Family Medicine; Visit Provider Surgery Vascular Surgery | DX: I73.9 Peripheral vascular disease, unspecified (principal) | CPT/HCPCS: 99202 ==

== ENCOUNTER 2021-05-06 12:58 | Outpatient (RCR) | payer MEDICARE, OTHER, SELFPAY ==
--- NOTE | ~2021-05-06 | XR_ITS ---
EXAMINATION: XR CHEST CLINICAL INFORMATION: Preprocedure COMPARISON: None TECHNIQUE: 2 views of the chest were obtained. FINDINGS: The lungs are well expanded. There is no focal consolidation, edema, or effusion. No pneumothorax. The cardiomediastinal silhouette is within normal limits. No acute osseous abnormality. XR/XR chest 2V IMPRESSION: No acute pulmonary finding.
[2021-08-12 14:18] LABS: MANUAL DIFF FLAG SCAN; Red Blood Count 3.95 X10*6/uL (4.60-5.80); SCAN SMEAR FLAG 1
[2021-08-12 14:19] LABS: Basophils Absolute Auto 0.1 X10*3/uL (0.0-0.2); Basophils Percent Auto 1.4 % (0-2); Eosinophils Absolute Auto 0.1 X10*3/uL (0.0-0.4); Eosinophils Percent Auto 1.7 % (0-4); Hematocrit 25.1 % (42-52); Imm Gran Abs Auto 0.03 X10*3/uL (0.00-0.03); Imm Gran Pct Auto 0.5 % (0.0-0.4); Lymphocytes Absolute Auto 1.5 X10*3/uL (1.2-4.9); Lymphocytes Percent Auto 22.5 % (20-40); Mean Corpuscular HGB Conc 26.7 g/dl (31.0-36.0); Mean Platelet Volume 10.2 fL (9.4-12.4); Monocytes Absolute Auto 0.9 X10*3/uL (0.1-1.2); Monocytes Percent Auto 13.6 % (2-11); NRBC Pct Auto 0.3 /100WBC (0.0-0.2); Neutrophils Percent Auto 60.3 % (45-73); Platelet Count 235 X10*3/uL (160-400); Red Cell Distribution Width 19.3 % (11.0-16.0); White Blood Count 6.5 X10*3/uL (4.8-10.8)
[2021-08-12 14:25] LABS: Mean Corpuscular Volume 63.5 fL (80-98); PLT ABN DIST 1
[2021-08-12 14:28] LABS: Estimated Average Glucose 143 mg/dL; Hemoglobin A1c % 6.6 %
[2021-08-12 14:36] LABS: Hemoglobin 6.7 g/dl (14.0-18.0)
[2021-08-12 14:47] LABS: Anion Gap 14 (12-20); Blood Urea Nitrogen 14 mg/dL (9-16); C Reactive Protein 2.83 mg/dL (< or = 0.50); Calcium 8.7 mg/dL (8.4-10.2); Carbon Dioxide 21 mmol/L (22-29); Chloride 102 mmol/L (96-108); Estimated Glomerular Filt Rate > 60; Glucose Random 150 mg/dL (60-115); Potassium 4.3 mmol/L (3.3-5.1); Sodium 133 mmol/L (135-145)
[2021-08-12 14:48] LABS: SLIDE REVIEW VERIFIED
[2021-08-12 15:30] LABS: Erythrocyte Sedimentation Rate 38 MM/HR (0-15)
[2021-09-28 13:42] LABS: C Reactive Protein 0.36 mg/dL (< or = 0.50)
[2021-09-28 15:16] LABS: Erythrocyte Sedimentation Rate 14 MM/HR (0-15)
== END 2021-11-29 15:11 | disposition home or self-care (01) ==
LOC: HO.WCC 12:58
PROVIDERS: Physician Assistant; PCP Physician Assistant Medical; Visit Provider Surgery
DX: E11.621 Type 2 diabetes mellitus with foot ulcer (principal); L97.529 Non-pressure chronic ulcer of other part of left foot with unspecified severity; E11.69 Type 2 diabetes mellitus with other specified complication; M86.472 Chronic osteomyelitis with draining sinus, left ankle and foot; I10 Essential (primary) hypertension
CPT/HCPCS: 11042; 11043; 11044; 15275; 17250; 36415; 71046; 80048; 83036; 85025; 85652; 86140; 88304; 88305; 88311; 99183; 99212; 99213; Q4187

== ENCOUNTER 2021-05-08 14:44 | Outpatient (REF) | payer MEDICARE, OTHER, SELFPAY ==
[2021-05-08 15:42] LABS: MANUAL DIFF FLAG NO
[2021-05-08 15:52] LABS: Basophils Absolute Auto 0.1 X10*3/uL (0.0-0.2); Basophils Percent Auto 1.3 % (0-2); Eosinophils Absolute Auto 0.2 X10*3/uL (0.0-0.4); Eosinophils Percent Auto 2.4 % (0-4); Hematocrit 31.3 % (42-52); Hemoglobin 9.4 g/dl (14.0-18.0); Imm Gran Abs Auto 0.02 X10*3/uL (0.00-0.03); Imm Gran Pct Auto 0.3 % (0.0-0.4); Lymphocytes Absolute Auto 1.7 X10*3/uL (1.2-4.9); Lymphocytes Percent Auto 22.1 % (20-40); Mean Corpuscular Volume 73.1 fL (80-98); Mean Platelet Volume 11.1 fL (9.4-12.4); Monocytes Absolute Auto 0.5 X10*3/uL (0.1-1.2); Monocytes Percent Auto 6.6 % (2-11); Neutrophils Absolute Auto 5.3 X10*3/uL (2.0-8.3); Neutrophils Percent Auto 67.3 % (45-73); Platelet Count 297 X10*3/uL (160-400); Red Blood Count 4.28 X10*6/uL (4.60-5.80); Red Cell Distribution Width 17.4 % (11.0-16.0); White Blood Count 7.8 X10*3/uL (4.8-10.8)
[2021-05-08 16:17] LABS: Anion Gap 15 (12-20); Blood Urea Nitrogen 19 mg/dL (9-16); C Reactive Protein 0.61 mg/dL (< or = 0.50); Calcium 9.1 mg/dL (8.4-10.2); Carbon Dioxide 24 mmol/L (22-29); Chloride 102 mmol/L (96-108); Estimated Glomerular Filt Rate > 60; Glucose Random 182 mg/dL (60-115); Potassium 4.9 mmol/L (3.3-5.1); Sodium 136 mmol/L (135-145)
[2021-05-08 16:54] LABS: Erythrocyte Sedimentation Rate 28 MM/HR (0-15)
== END 2021-05-08 14:45 | disposition home or self-care (01) ==
LOC: HO.LNP 14:44
PROVIDERS: Visit Provider Internal Medicine
DX: E11.621 Type 2 diabetes mellitus with foot ulcer (principal)
CPT/HCPCS: 80048; 85025; 85652; 86140

== ENCOUNTER 2021-05-10 06:09 | Day surgery (SDC) | payer MEDICARE, OTHER, SELFPAY ==
[2021-05-10] VITALS (7 sets, daily range): BP systolic 123–158; BP diastolic 64–79; PULSE 53–68; RESP 16–18; TEMP 36.1; O2SAT 96–100; BMI 29.4
[2021-05-10 06:44] LABS: MANUAL DIFF FLAG NO
[2021-05-10] MEDS: 0.9 % Sodium Chloride 1,000 ML 100 ML IVCONT (06:52)
[2021-05-10 06:56] LABS: Basophils Absolute Auto 0.1 X10*3/uL (0.0-0.2); Eosinophils Absolute Auto 0.2 X10*3/uL (0.0-0.4); Eosinophils Percent Auto 2.8 % (0-4); Hematocrit 30.6 % (42-52); INTERNATIONAL NORM RATIO 1.2 (0.9-1.1); Imm Gran Abs Auto 0.02 X10*3/uL (0.00-0.03); Imm Gran Pct Auto 0.3 % (0.0-0.4); Lymphocytes Absolute Auto 1.5 X10*3/uL (1.2-4.9); Mean Corpuscular HGB Conc 29.4 g/dl (31.0-36.0); Mean Corpuscular Hemoglobin 21.6 pg (27.0-33.0); Mean Corpuscular Volume 73.4 fL (80-98); Mean Platelet Volume 10.5 fL (9.4-12.4); Monocytes Absolute Auto 0.6 X10*3/uL (0.1-1.2); Monocytes Percent Auto 9.1 % (2-11); Neutrophils Absolute Auto 3.8 X10*3/uL (2.0-8.3); Neutrophils Percent Auto 61.8 % (45-73); Platelet Count 253 X10*3/uL (160-400); Red Blood Count 4.17 X10*6/uL (4.60-5.80); Red Cell Distribution Width 17.3 % (11.0-16.0); White Blood Count 6.1 X10*3/uL (4.8-10.8)
[2021-05-10 06:59] LABS: Partial Thromboplastin Time 35.3 SEC (24.1-38.0)
[2021-05-10 07:11] LABS: Glucose, Whole Blood 190 mg/dL (60-115)
[2021-05-10 07:15] LABS: Anion Gap 13 (12-20); Blood Urea Nitrogen 20 mg/dL (9-16); Calcium 8.5 mg/dL (8.4-10.2); Carbon Dioxide 24 mmol/L (22-29); Chloride 105 mmol/L (96-108); Creatinine Clr Calc Pharmacy 80.3; Estimated Glomerular Filt Rate > 60; Glucose Random 223 mg/dL (60-115); Potassium 4.9 mmol/L (3.3-5.1); Sodium 137 mmol/L (135-145)
--- NOTE | 2021-05-10 09:38 | W.PM.OPN ---
Operative Note Operative Note Date of Service: 05/10/21 Narrative: Angiogram report from [facility] Preoperative diagnosis: Atherosclerosis of left lower extremity with nonhealing ulcer Postoperative diagnosis: Same Procedure: 1. Ultrasound-guided right common femoral access 2. Aortogram with left lower extremity runoff 3. Plasty of left anterior tibial and posterior tibial arteries 4. Atherectomy and plasty of left SFA 5. Plasty of left common femoral Surgeon:Sawyer Valencia M.D. Virtualization Engineer:None Anesthesia: Local with moderate conscious sedation for a total of 78 minutes, performed by oh Specimens:none Drains:none Estimated blood loss: Less than 10 ml Indications: 70-year-old gentleman was originally seen in the hospital for nonhealing left lower extremity wound ulcer. Patient had noninvasive ultrasound testing. He now presents for endovascular intervention The patient has signed the informed consent after reviewing risks, complications, benefits, and alternatives previously discussed with the patient in my office. The patient was given the opportunity to ask any additional questions or voice any concerns. All questions were answered to the patient's satisfaction. Procedure in detail: Patient was brought to the angiography suite prior to which a time-out was called for patient identification and site verification. Bilateral groins were prepped and draped in the standard surgical fashion. Under ultrasound guidance right common femoral was punctured with micro puncture needle and wire. Subsequently a precision 4 Lebanese sheath was then placed. Bentson wire was advanced to the level of the aorta. 4 Lebanese Flush catheter was brought up and parked at the level of the renal arteries. Aortogram was then undertaken. Catheter was brought down to the level of the iliac bifurcation. Iliacs were subsequently imaged. Catheter was then brought in up and over to the left side SFA. Runoff study was then undertaken. It was recognized that the patient had SFA and below knee disease. At this time Glidewire to vantage was then placed and over this a 6 Lebanese sheath was brought into position which was an up and over sheath. Prior to this 5000 units of systemic heparin was administered and after 5 minutes of circulation time the sheath was then placed. We were able to traverse the SFA disease and get the catheter down to the below-knee vessels. We then advanced an 014 wire into the anterior tibial. A progressive balloon 1.5 to 2-200 in length was then used. The posterior tibial in 12/19/1999 was able to traverse this and we plasty this with a 3 x 80 balloon. We turned our attention to the SFA where this was atherectomy my eyes with a Hawk 1 device in the mid SFA. Three initial passes were undertaken. The device was cleaned and an additional 3 passes were then undertaken. Once this was accomplished a 6 x 60 drug coated balloon was then placed. This was brought into position in under 3 minutes and insufflated for a total of 3 minutes in duration. Once this was accomplished we turned our attention to the common femoral profundus junction. There was some calcified disease there. Plasty this with a 6 x 20 balloon. Once this was accomplished catheter wire sheath was brought back to the ipsilateral side. StarClose closure device was deployed. Patient tolerated the procedure well. Returned to recovery with stable vitals. Interpretation of films: 1. Ultrasound demonstrates appropriate femoral puncture. Image of which was saved. 2. Aortogram demonstrates appropriate caliber aorta. Minimal disease. Appropriate take-off of the renals. 3. Iliac images demonstrate mild tortuosity of the vessels. No significant disease. 4. Left lower extremity demonstrated disease at the common femoral the origin of the SFA and the origin of the profundus femoral S. mid SFA had highly calcified disease. Below knee vessel peroneal was the dominant anterior tibial had some mild disease and posterior tibial had no significant flow. 6. Post for procedure there was good flow through the SFA still some disease in the common femoral profundus origin. Mid SFA had excellent flow throughout and there was actually 3 vessel runoff anterior tibial peroneal which was most dominant and posterior tibial which was now patent. Conclusion: 1. Successful plasty of anterior tibial and posterior tibial of the left leg. Successful atherectomy and plasty of left SFA. Successful plasty of left common femoral. Due to the use of a drug coated balloon patient will require a minimum of 6 months of aspirin and Plavix. This note is constructed using voice recognition software. While every effort has been made to ensure accuracy, tetryl nitrator operator errors may have been included. Thank you for allowing me to participate in the care of your patient. Yours sincerely, Sawyer Valencia MD, FACS, R.P.V.I.
[2021-05-10] MEDS: Clopidogrel Bisulfate 300 MG TABLET PO (10:36)
[2021-05-10] MEDS: Heparin Sodium,Porcine Flush 50 UNITS, 0.9 % Sodium Chloride Flush 5 ML IVFLUSH (12:13)
== END 2021-05-10 12:28 | disposition home or self-care (01) ==
PROVIDERS: PCP Physician Assistant Medical; Visit Provider Surgery Vascular Surgery
DX: E11.51 Type 2 diabetes mellitus with diabetic peripheral angiopathy without gangrene (principal); E11.40 Type 2 diabetes mellitus with diabetic neuropathy, unspecified; I70.245 Atherosclerosis of native arteries of left leg with ulceration of other part of foot; L97.528 Non-pressure chronic ulcer of other part of left foot with other specified severity; D63.8 Anemia in other chronic diseases classified elsewhere; Z79.4 Long term (current) use of insulin; M86.9 Osteomyelitis, unspecified; I10 Essential (primary) hypertension; E87.5 Hyperkalemia; Z87.891 Personal history of nicotine dependence
CPT/HCPCS: 36415; 37225; 37228; 37232; 76937; 80048; 82947; 85025; 85610; 85730; 99152; 99153; C1714; C1725; C1760; C1769; C1887; C2623; J1642; J2250; J3010; Q9967

== ENCOUNTER 2021-05-13 | Outpatient (REF) | payer MEDICARE, OTHER, SELFPAY ==
[2021-05-13 16:35] LABS: MANUAL DIFF FLAG NO
[2021-05-13 16:40] LABS: Basophils Absolute Auto 0.1 X10*3/uL (0.0-0.2); Basophils Percent Auto 1.3 % (0-2); Eosinophils Absolute Auto 0.2 X10*3/uL (0.0-0.4); Eosinophils Percent Auto 2.4 % (0-4); Hematocrit 28.8 % (42-52); Hemoglobin 8.4 g/dl (14.0-18.0); Imm Gran Abs Auto 0.02 X10*3/uL (0.00-0.03); Imm Gran Pct Auto 0.3 % (0.0-0.4); Lymphocytes Absolute Auto 1.5 X10*3/uL (1.2-4.9); Lymphocytes Percent Auto 23.5 % (20-40); Mean Corpuscular HGB Conc 29.2 g/dl (31.0-36.0); Mean Corpuscular Hemoglobin 21.5 pg (27.0-33.0); Mean Corpuscular Volume 73.7 fL (80-98); Mean Platelet Volume 10.7 fL (9.4-12.4); Monocytes Absolute Auto 0.6 X10*3/uL (0.1-1.2); Monocytes Percent Auto 9.2 % (2-11); Neutrophils Percent Auto 63.3 % (45-73); Platelet Count 225 X10*3/uL (160-400); Red Blood Count 3.91 X10*6/uL (4.60-5.80); Red Cell Distribution Width 17.1 % (11.0-16.0); White Blood Count 6.3 X10*3/uL (4.8-10.8)
[2021-05-13 16:56] LABS: Anion Gap 15 (12-20); Blood Urea Nitrogen 17 mg/dL (9-16); C Reactive Protein 0.66 mg/dL (< or = 0.50); Calcium 8.9 mg/dL (8.4-10.2); Carbon Dioxide 23 mmol/L (22-29); Chloride 105 mmol/L (96-108); Estimated Glomerular Filt Rate > 60; Glucose Random 139 mg/dL (60-115); Potassium 4.7 mmol/L (3.3-5.1); Sodium 138 mmol/L (135-145)
[2021-05-13 17:42] LABS: Erythrocyte Sedimentation Rate 30 MM/HR (0-15)
== END 2021-05-13 00:01 | disposition home or self-care (01) ==
LOC: HO.HMGCLNP
PROVIDERS: Visit Provider Internal Medicine
DX: M86.9 Osteomyelitis, unspecified (principal)
CPT/HCPCS: 80048; 85025; 85652; 86140

== ENCOUNTER 2021-05-20 16:30 | Outpatient (REF) | payer MEDICARE, OTHER, SELFPAY | END 2021-05-20 16:31 | disposition home or self-care (01) | LOC: HO.LNP 16:30 | PROVIDERS: Visit Provider Surgery | DX: S90.922D Unspecified superficial injury of left foot, subsequent encounter (principal) | CPT/HCPCS: 87071; 87205 ==

== ENCOUNTER 2021-05-21 12:12 | Outpatient (REF) | payer MEDICARE, OTHER, SELFPAY ==
[2021-05-21 13:50] LABS: MANUAL DIFF FLAG NO
[2021-05-21 13:58] LABS: Basophils Absolute Auto 0.1 X10*3/uL (0.0-0.2); Eosinophils Absolute Auto 0.2 X10*3/uL (0.0-0.4); Eosinophils Percent Auto 1.9 % (0-4); Hematocrit 28.8 % (42-52); Hemoglobin 8.4 g/dl (14.0-18.0); Imm Gran Abs Auto 0.04 X10*3/uL (0.00-0.03); Imm Gran Pct Auto 0.5 % (0.0-0.4); Lymphocytes Absolute Auto 1.4 X10*3/uL (1.2-4.9); Lymphocytes Percent Auto 17.8 % (20-40); Mean Corpuscular HGB Conc 29.2 g/dl (31.0-36.0); Mean Corpuscular Hemoglobin 20.9 pg (27.0-33.0); Mean Corpuscular Volume 71.8 fL (80-98); Mean Platelet Volume 10.7 fL (9.4-12.4); Monocytes Absolute Auto 0.7 X10*3/uL (0.1-1.2); Monocytes Percent Auto 9.1 % (2-11); Neutrophils Absolute Auto 5.4 X10*3/uL (2.0-8.3); Neutrophils Percent Auto 69.7 % (45-73); Platelet Count 177 X10*3/uL (160-400); Red Blood Count 4.01 X10*6/uL (4.60-5.80); White Blood Count 7.8 X10*3/uL (4.8-10.8)
[2021-05-21 14:06] LABS: Anion Gap 16 (12-20); Blood Urea Nitrogen 15 mg/dL (9-16); C Reactive Protein 3.24 mg/dL (< or = 0.50); Calcium 9.1 mg/dL (8.4-10.2); Carbon Dioxide 22 mmol/L (22-29); Chloride 102 mmol/L (96-108); Estimated Glomerular Filt Rate > 60; Glucose Random 180 mg/dL (60-115); Potassium 4.6 mmol/L (3.3-5.1); Sodium 135 mmol/L (135-145)
[2021-05-21 14:50] LABS: Erythrocyte Sedimentation Rate 44 MM/HR (0-15)
== END 2021-05-21 12:13 | disposition home or self-care (01) ==
LOC: HO.HVNA 12:12
PROVIDERS: Visit Provider Internal Medicine
DX: M86.9 Osteomyelitis, unspecified (principal)
CPT/HCPCS: 80048; 85025; 85652; 86140

== ENCOUNTER → 2021-05-25 15:03 | Outpatient (BNVA) | payer MEDICARE, OTHER, SELFPAY | PROVIDERS: Visit Provider Internal Medicine | DX: E11.621 Type 2 diabetes mellitus with foot ulcer (principal); E11.65 Type 2 diabetes mellitus with hyperglycemia; E11.40 Type 2 diabetes mellitus with diabetic neuropathy, unspecified; L97.522 Non-pressure chronic ulcer of other part of left foot with fat layer exposed; L08.9 Local infection of the skin and subcutaneous tissue, unspecified; Z87.891 Personal history of nicotine dependence | CPT/HCPCS: 99212 ==

== ENCOUNTER 2021-05-28 13:25 | Outpatient (REF) | payer MEDICARE, OTHER, SELFPAY ==
[2021-05-28 13:28] LABS: MANUAL DIFF FLAG NO
[2021-05-28 13:37] LABS: Basophils Absolute Auto 0.1 X10*3/uL (0.0-0.2); Basophils Percent Auto 1.4 % (0-2); Eosinophils Absolute Auto 0.2 X10*3/uL (0.0-0.4); Eosinophils Percent Auto 2.9 % (0-4); Hematocrit 27.3 % (42-52); Hemoglobin 7.9 g/dl (14.0-18.0); Imm Gran Abs Auto 0.04 X10*3/uL (0.00-0.03); Imm Gran Pct Auto 0.6 % (0.0-0.4); Lymphocytes Absolute Auto 1.4 X10*3/uL (1.2-4.9); Lymphocytes Percent Auto 19.8 % (20-40); Mean Corpuscular HGB Conc 28.9 g/dl (31.0-36.0); Mean Corpuscular Hemoglobin 20.9 pg (27.0-33.0); Mean Corpuscular Volume 72.2 fL (80-98); Mean Platelet Volume 10.9 fL (9.4-12.4); Monocytes Absolute Auto 0.7 X10*3/uL (0.1-1.2); Monocytes Percent Auto 9.5 % (2-11); Neutrophils Absolute Auto 4.7 X10*3/uL (2.0-8.3); Neutrophils Percent Auto 65.8 % (45-73); Platelet Count 235 X10*3/uL (160-400); Red Blood Count 3.78 X10*6/uL (4.60-5.80); Red Cell Distribution Width 16.8 % (11.0-16.0); White Blood Count 7.1 X10*3/uL (4.8-10.8)
[2021-05-28 14:24] LABS: Anion Gap 16 (12-20); Blood Urea Nitrogen 14 mg/dL (9-16); C Reactive Protein 1.35 mg/dL (< or = 0.50); Calcium 8.4 mg/dL (8.4-10.2); Carbon Dioxide 22 mmol/L (22-29); Chloride 102 mmol/L (96-108); Estimated Glomerular Filt Rate > 60; Glucose Random 170 mg/dL (60-115); Potassium 4.7 mmol/L (3.3-5.1); Sodium 135 mmol/L (135-145)
[2021-05-28 14:28] LABS: Erythrocyte Sedimentation Rate 41 MM/HR (0-15)
== END 2021-05-28 13:26 | disposition home or self-care (01) ==
LOC: HO.LNP 13:25
PROVIDERS: Visit Provider Internal Medicine
DX: E11.621 Type 2 diabetes mellitus with foot ulcer (principal); Z79.2 Long term (current) use of antibiotics
CPT/HCPCS: 80048; 85025; 85652; 86140

== ENCOUNTER → 2021-06-01 14:57 | Outpatient (BNVA) | payer MEDICARE, OTHER, SELFPAY | PROVIDERS: PCP Physician Assistant Medical; Visit Provider Surgery Vascular Surgery | DX: I73.9 Peripheral vascular disease, unspecified (principal) | CPT/HCPCS: 99212 ==

== ENCOUNTER 2021-06-05 10:40 | Outpatient (REF) | payer MEDICARE, OTHER, SELFPAY ==
[2021-06-05 12:03] LABS: MANUAL DIFF FLAG NO
[2021-06-05 12:08] LABS: Basophils Absolute Auto 0.1 X10*3/uL (0.0-0.2); Basophils Percent Auto 1.2 % (0-2); Eosinophils Absolute Auto 0.1 X10*3/uL (0.0-0.4); Eosinophils Percent Auto 1.7 % (0-4); Hemoglobin 7.9 g/dl (14.0-18.0); Imm Gran Abs Auto 0.04 X10*3/uL (0.00-0.03); Imm Gran Pct Auto 0.5 % (0.0-0.4); Lymphocytes Absolute Auto 1.5 X10*3/uL (1.2-4.9); Lymphocytes Percent Auto 19.3 % (20-40); Mean Corpuscular HGB Conc 29.3 g/dl (31.0-36.0); Mean Corpuscular Hemoglobin 20.6 pg (27.0-33.0); Mean Corpuscular Volume 70.5 fL (80-98); Mean Platelet Volume 10.5 fL (9.4-12.4); Monocytes Absolute Auto 0.6 X10*3/uL (0.1-1.2); Monocytes Percent Auto 8.3 % (2-11); Neutrophils Absolute Auto 5.2 X10*3/uL (2.0-8.3); Platelet Count 316 X10*3/uL (160-400); Red Blood Count 3.83 X10*6/uL (4.60-5.80); Red Cell Distribution Width 16.6 % (11.0-16.0); White Blood Count 7.6 X10*3/uL (4.8-10.8)
[2021-06-05 12:37] LABS: Anion Gap 18 (12-20); Blood Urea Nitrogen 16 mg/dL (9-16); C Reactive Protein 2.65 mg/dL (< or = 0.50); Calcium 9.3 mg/dL (8.4-10.2); Carbon Dioxide 23 mmol/L (22-29); Chloride 101 mmol/L (96-108); Estimated Glomerular Filt Rate > 60; Glucose Random 144 mg/dL (60-115); Potassium 4.8 mmol/L (3.3-5.1); Sodium 137 mmol/L (135-145)
[2021-06-05 12:54] LABS: Erythrocyte Sedimentation Rate 49 MM/HR (0-15)
== END 2021-06-05 10:41 | disposition home or self-care (01) ==
LOC: HO.LNP 10:40
PROVIDERS: PCP Internal Medicine; Visit Provider Internal Medicine
DX: E11.621 Type 2 diabetes mellitus with foot ulcer (principal); L02.612 Cutaneous abscess of left foot; L97.509 Non-pressure chronic ulcer of other part of unspecified foot with unspecified severity
CPT/HCPCS: 80048; 85025; 85652; 86140

== ENCOUNTER 2021-06-05 11:42 | Outpatient (REF) | payer MEDICARE, OTHER, SELFPAY | END 2021-06-05 11:43 | disposition home or self-care (01) | LOC: HO.LNP 11:42 | PROVIDERS: Visit Provider Internal Medicine | DX: Z13.89 Encounter for screening for other disorder (principal) ==

== ENCOUNTER → 2021-06-10 13:47 | Outpatient (BNVA) | payer MEDICARE, OTHER, SELFPAY | PROVIDERS: PCP Physician Assistant Medical; Referring Provider Physician Assistant Medical; Visit Provider Surgery Vascular Surgery | DX: I73.9 Peripheral vascular disease, unspecified (principal) | CPT/HCPCS: 99212 ==

== ENCOUNTER 2021-06-14 09:13 | Day surgery (SDC) | payer MEDICARE, OTHER, SELFPAY ==
--- NOTE | 2021-06-11 11:36 | P.CONAN_ITS ---
Documented by User: Jeanine Kendrick NP 06/11/21 11:39 HPI - Anesthesia Eval Consult details Narrative: 70yo M for Left Debridement Soft Tissue foot Plavix for PVD PMFSH Active Problems Active Problems: All Active Problems (Updated 06/01/21 @ 15:41 by Sawyer Valencia MD) Iron deficiency anemia (Acute) Peripheral vascular disease (Acute) Diabetic foot infection (Acute) Septic arthritis (Acute) Past Medical History Medical History (Updated 06/14/21 @ 10:20 by Lilian Bautista MD) BPH (benign prostatic hyperplasia) Cellulitis Chronic anemia Diabetes Diabetic foot ulcer Diabetic neuropathy Elevated erythrocyte sedimentation rate Failed total hip arthroplasty GERD (gastroesophageal reflux disease) Hyperkalemia Hypertension Peripheral vascular disease Surgical History Surgical History (Updated 06/14/21 @ 09:37 by Gabriela Bueno RN) H/O foot surgery H/O hand surgery H/O total hip arthroplasty Hx of appendectomy Social History Social History Household Members: Spouse Housing: House Do you presently have visiting nurse or other home services: No Alcohol intake: never Patient Tobacco Use Status: Former Tobacco user Quit Date: 26 YRS AGO e-Cigarette/Vaping Use: Never Used Use of substances other than those prescribed or required for medical reasons: No Are you DNR?: No Advance Directives: No Advance Directives Information Provided: Yes service: No Current occupational status: employed Meds Allergies Allergy/AdvReac Type Severity Reaction Status Date / Time No Known Allergies [NKA] Allergy Verified 06/14/21 09:22 Home Medications Medication Instructions Recorded Confirmed Last Taken Type blood sugar diagnostic #10 ea 04/22/21 04/22/21 Unknown History gabapentin 300 mg capsule 300 mg PO BID@0800,1400 04/22/21 04/27/21 06/14/21 08:15 History lisinopril 10 mg tablet 10 mg PO DAILY 04/22/21 04/27/21 06/14/21 08:15 History meloxicam 15 mg tablet 15 mg PO DAILY 04/22/21 04/27/21 06/14/21 08:15 History tamsulosin 0.4 mg capsule 0.4 mg PO DAILY 04/22/21 04/27/21 Unknown History gabapentin 300 mg capsule 600 mg PO BEDTIME 04/27/21 04/27/21 Unknown History (Neurontin) insulin glargine 100 unit/mL (3 90 unit SUBCUT DAILY 04/28/21 04/28/21 Unknown History mL) subcutaneous pen (Lantus Solostar U-100 Insulin) insulin lispro 100 unit/mL 0 unit SUBCUT TIDAC 04/28/21 04/28/21 Unknown History subcutaneous pen (Humalog KwikPen (U-100) Insulin) amoxicillin 875 mg-potassium 1 tab PO BID 05/06/21 Unknown History clavulanate 125 mg tablet chlorhexidine gluconate 0.12 % ml PO 06/10/21 Unknown History mouthwash insulin aspart U-100 100 unit/mL unit SUBCUT 06/10/21 Unknown History (3 mL) subcutaneous pen (Novolog Flexpen U-100 Insulin aspart) acetaminophen 500 mg tablet 1,000 mg PO QID PRN 06/14/21 06/14/21 06/14/21 08:15 History omeprazole 20 mg capsule,delayed mg PO 06/14/21 06/14/21 08:15 History release Exam Exam Date and Time: June 11, 2021 1136 Pertinent Lab Results Pertinent Lab Results: Laboratory Tests 06/05/21 10:40 Sodium 137 Potassium 4.8 Chloride 101 BUN 16 Creatinine 0.97 Narrative Narrative: EKG 04/2021: SB Assessment and Plan Assessment Anesthesia Assessment: Chart Reviewed Documented by User: Lilian Bautista MD 06/14/21 10:20 [facility] Past Medical History Medical History (Updated 06/14/21 @ 10:20 by Lilian Bautista MD) BPH (benign prostatic hyperplasia) Cellulitis Chronic anemia Diabetes Diabetic foot ulcer Diabetic neuropathy Elevated erythrocyte sedimentation rate Failed total hip arthroplasty GERD (gastroesophageal reflux disease) Hyperkalemia Hypertension Peripheral vascular disease Family History Family history of problems with anesthesia: No Surgical History Surgical History (Updated 06/14/21 @ 09:37 by Gabriela Bueno RN) H/O foot surgery H/O hand surgery H/O total hip arthroplasty Hx of appendectomy History of Problems with Anesthesia: No Social History Social History Household Members: Spouse Housing: House Do you presently have visiting nurse or other home services: No Alcohol intake: never Patient Tobacco Use Status: Former Tobacco user Quit Date: 26 YRS AGO e-Cigarette/Vaping Use: Never Used Use of substances other than those prescribed or required for medical reasons: No Are you DNR?: No Advance Directives: No Advance Directives Information Provided: Yes service: No Current occupational status: employed Meds Allergies Allergy/AdvReac Type Severity Reaction Status Date / Time No Known Allergies [NKA] Allergy Verified 06/14/21 09:22 Home Medications Medication Instructions Recorded Confirmed Last Taken Type blood sugar diagnostic #10 ea 04/22/21 04/22/21 Unknown History gabapentin 300 mg capsule 300 mg PO BID@0800,1400 04/22/21 04/27/21 06/14/21 08:15 History lisinopril 10 mg tablet 10 mg PO DAILY 04/22/21 04/27/21 06/14/21 08:15 History meloxicam 15 mg tablet 15 mg PO DAILY 04/22/21 04/27/21 06/14/21 08:15 History tamsulosin 0.4 mg capsule 0.4 mg PO DAILY 04/22/21 04/27/21 Unknown History gabapentin 300 mg capsule 600 mg PO BEDTIME 04/27/21 04/27/21 Unknown History (Neurontin) insulin glargine 100 unit/mL (3 90 unit SUBCUT DAILY 04/28/21 04/28/21 Unknown History mL) subcutaneous pen (Lantus Solostar U-100 Insulin) insulin lispro 100 unit/mL 0 unit SUBCUT TIDAC 04/28/21 04/28/21 Unknown History subcutaneous pen (Humalog KwikPen (U-100) Insulin) amoxicillin 875 mg-potassium 1 tab PO BID 05/06/21 Unknown History clavulanate 125 mg tablet chlorhexidine gluconate 0.12 % ml PO 06/10/21 Unknown History mouthwash insulin aspart U-100 100 unit/mL unit SUBCUT 06/10/21 Unknown History (3 mL) subcutaneous pen (Novolog Flexpen U-100 Insulin aspart) acetaminophen 500 mg tablet 1,000 mg PO QID PRN 06/14/21 06/14/21 06/14/21 08:15 History omeprazole 20 mg capsule,delayed mg PO 06/14/21 06/14/21 08:15 History release Exam Height,Weight and Vital Signs: Height 6 ft Weight 98.43 kg Vital Signs Temp Pulse Resp BP Pulse Ox 98.7 F 65 16 131/45 L 97 06/14/21 09:39 06/14/21 09:39 06/14/21 09:39 06/14/21 09:39 06/14/21 09:39 Pertinent Lab Results Pertinent Lab Results: Laboratory Tests 06/05/21 10:40 Sodium 137 Potassium 4.8 Chloride 101 BUN 16 Creatinine 0.97 Lab Results 06/14/21 06/14/21 Range/Units 09:35 09:45 WBC 7.0 (4.8-10.8) X10*3/uL RBC 3.86 L (4.60-5.80) X10*6/uL Hgb 7.7 L (14.0-18.0) g/dl Hct 26.4 L (42-52) % MCV 68.4 L (80-98) fL MCH 19.9 L (27.0-33.0) pg MCHC 29.2 L (31.0-36.0) g/dl RDW 16.7 H (11.0-16.0) % Plt Count 226 D (160-400) X10*3/uL MPV 10.7 (9.4-12.4) fL Absolute Nucleated RBC 0.000 (0.0-0.012) X10*3/uL Nucleated RBC % (auto) 0.0 (0.0-0.2) /100WBC POC Glucose 118 H (60-115) mg/dL Airway Mallampati Class: II TM Dist: >3cm Neck ROM: Full Loose/Missing/Broken Teeth: No Heart: RRR + systolic murmur Lungs: CTAB. Diminished Assessment and Plan Assessment Anesthesia Assessment: Anesthesia Plan Discussed Final Anesthetic Review Family History of Problems with Anesthesia: No History of Problems with Anesthesia: No NPO: Yes ASA Class: III Final Preanesthetic Review: No Changes in Pt Med Stat, Meds/Allgs Chart Reviewed, Consent Obtained/Reviewed and Anes Risks/Benef Reviewed Patient Risk: Intermediate Procedure Risk: Low Assessment/Block/Sedation in SS: Assess/Block/Sedation-SS Anesthetic Plan Anesthetic Plan: GA and MAC: Disposition: Standard PACU
--- NOTE | 2021-06-14 07:52 | MHC.SHP ---
Pre-Procedural Eval Section A Date of Service: 06/14/21 The patient is an INPATIENT: No The History & Physical has been completed within 30 days and I have reviewed it.: Yes Section B Chief Complaint: non pressure chronic ulcer,peripheral vascular Allergies: Allergies Allergy/AdvReac Type Severity Reaction Status Date / Time No Known Allergies [NKA] Allergy Verified 06/10/21 13:48 Plan I have reviewed the history and physical and performed a pertinent physical examination on my patient. No changes have occurred unless specified.
[2021-06-14 09:37] VITALS: BMI 29.4
[2021-06-14 09:39] VITALS: BP 131/45; PULSE 65; RESP 16; TEMP 37.1; O2SAT 97
[2021-06-14 09:43] LABS: Hematocrit 26.4 % (42-52); Hemoglobin 7.7 g/dl (14.0-18.0); Mean Corpuscular HGB Conc 29.2 g/dl (31.0-36.0); Mean Corpuscular Hemoglobin 19.9 pg (27.0-33.0); Mean Corpuscular Volume 68.4 fL (80-98); Mean Platelet Volume 10.7 fL (9.4-12.4); Platelet Count 226 X10*3/uL (160-400); Red Blood Count 3.86 X10*6/uL (4.60-5.80); Red Cell Distribution Width 16.7 % (11.0-16.0)
[2021-06-14 09:51] LABS: Glucose, Whole Blood 118 mg/dL (60-115)
[2021-06-14] MEDS: Lactated Ringers 1,000 ML 100 ML IVCONT (09:55)
[2021-06-14 11:27] VITALS: BP 101/62; PULSE 65; RESP 18; TEMP 36.1; O2SAT 96
--- NOTE | 2021-06-14 11:38 | P.OP_ITS ---
Operative Note Operative Note Date of Service: 06/14/21 Narrative: Operative note by [facility] Preoperative diagnosis: Left foot nonhealing ulcer Postoperative diagnosis: Same Procedure: Left foot debridement into bone Surgeon:Sawyer Valencia M.D. Rewriter: Ana Anesthesia: Local with sedation Specimens: 1 Drains: None Estimated blood loss: Minimal Indications: Pleasant 70-year-old gentleman with a nonhealing left lateral foot ulceration presents for debridement of note [facility] and debridement was requested by them. The patient has signed the informed consent after reviewing risks, complications, benefits, and alternatives previously discussed with the patient in my office. The patient was given the opportunity to ask any additional questions or voice any concerns. All questions were answered to the patient's satisfaction. Procedure in detail: Left foot was prepped and draped in a standard surgical fashion on the lateral aspect over the 5th metatarsal excisional debridement was undertaken. Skin and soft tissue was removed with a 15 blade blade scalp we noted the exposed bone. A bone cutter was used over the 5th metatarsal and resected the exposed portion of bone. This was a 2 cm x 3 cm x 0.2 cm wound initially. After debridement we placed a piece of AmnioFix 2x3cm. Foot was then wrapped. Patient was taken to recovery with stable vitals. Of note post debridement measurement was 2.5 x 3.5 by 0.6 cm bone culture was sent. This note is constructed using voice recognition software. While every effort has been made to ensure accuracy, veterans employment representative errors may have been included. Thank you for allowing me to participate in the care of your patient. Yours sincerely, Sawyer Valencia MD, FACS, R.P.V.I.
[2021-06-14 11:42] VITALS: BP 120/62; PULSE 62; RESP 18; TEMP 36.1; O2SAT 99
== END 2021-06-14 12:20 | disposition home or self-care (01) ==
PROVIDERS: Nurse Practitioner; PCP Physician Assistant Medical; Visit Provider Surgery Vascular Surgery
PROC: (CPT 11044; principal; 2021-06-14 10:50)
DX: E11.621 Type 2 diabetes mellitus with foot ulcer (principal); L97.526 Non-pressure chronic ulcer of other part of left foot with bone involvement without evidence of necrosis; E11.51 Type 2 diabetes mellitus with diabetic peripheral angiopathy without gangrene; E11.40 Type 2 diabetes mellitus with diabetic neuropathy, unspecified; Z79.4 Long term (current) use of insulin; I10 Essential (primary) hypertension; Z79.899 Other long term (current) drug therapy; Z87.891 Personal history of nicotine dependence
CPT/HCPCS: 11044; 36415; 82947; 85027; 87071; 87073; 87077; 87102; 87106; 87186; 87205; 88304; 88311; 88312; J0690; J2405; J3010; Q4186

== ENCOUNTER 2021-06-29 14:23 | Outpatient (REF) | payer MEDICARE, OTHER, SELFPAY ==
--- NOTE | ~2021-06-29 | US_ITS ---
EXAMINATION: NONINVASIVE ASSESSMENT OF THE ARTERIES OF BOTH LOWER EXTREMITIES Stephon Jaquez MD CLINICAL INFORMATION: Nonhealing wound TECHNIQUE: Bilateral lower extremity duplex ultrasound was performed with velocity measurements and waveform analysis in the common femoral arteries, profunda femoris arteries, proximal mid and distal superficial femoral arteries, popliteal arteries and tibial vessels. This study was performed only at rest. COMPARISON: None FINDINGS: Velocities in cm/sec and phasicity as well as the presence of plaque are reported below. RIGHT LEG: Minimal plaque is seen. Triphasic flow is noted in the common femoral artery and biphasic flow noted throughout the remainder of the vasculature Common Femoral: 168 Profunda Femoris: 135 Proximal SFA: 127 Mid SFA: 126 Distal SFA: 131 Popliteal: 75 Tibial: 140 LEFT LEG: Minimal plaque is seen. Triphasic flow noted throughout. Common Femoral: 123 Profunda Femoris: 147 Proximal SFA: 148 Mid SFA: 102 Distal SFA: 135 Popliteal: 86 Tibial: 181 US/US CLEO complete IMPRESSION: There is no evidence of any hemodynamically significant lower extremity arterial disease by pressure, waveform or duplex Doppler criteria at rest.
--- NOTE | ~2021-06-29 | US_ITS ---
EXAMINATION: NONINVASIVE ASSESSMENT OF THE ARTERIES OF BOTH LOWER EXTREMITIES Stephon Jaquez MD CLINICAL INFORMATION: Nonhealing wound TECHNIQUE: Bilateral lower extremity duplex ultrasound was performed with velocity measurements and waveform analysis in the common femoral arteries, profunda femoris arteries, proximal mid and distal superficial femoral arteries, popliteal arteries and tibial vessels. This study was performed only at rest. COMPARISON: None FINDINGS: Velocities in cm/sec and phasicity as well as the presence of plaque are reported below. RIGHT LEG: Minimal plaque is seen. Triphasic flow is noted in the common femoral artery and biphasic flow noted throughout the remainder of the vasculature Common Femoral: 168 Profunda Femoris: 135 Proximal SFA: 127 Mid SFA: 126 Distal SFA: 131 Popliteal: 75 Tibial: 140 LEFT LEG: Minimal plaque is seen. Triphasic flow noted throughout. Common Femoral: 123 Profunda Femoris: 147 Proximal SFA: 148 Mid SFA: 102 Distal SFA: 135 Popliteal: 86 Tibial: 181 US/US arterial duplex LE BI IMPRESSION: There is no evidence of any hemodynamically significant lower extremity arterial disease by pressure, waveform or duplex Doppler criteria at rest.
== END 2021-06-29 14:24 | disposition home or self-care (01) ==
LOC: HO.US 14:23
PROVIDERS: Visit Provider Surgery Vascular Surgery
DX: I70.213 Atherosclerosis of native arteries of extremities with intermittent claudication, bilateral legs (principal)
CPT/HCPCS: 93923; 93925

== ENCOUNTER → 2021-07-08 10:03 | Outpatient (BNVA) | payer MEDICARE, OTHER, SELFPAY | PROVIDERS: PCP Physician Assistant Medical; Visit Provider Surgery Vascular Surgery | DX: I73.9 Peripheral vascular disease, unspecified (principal) | CPT/HCPCS: 99212 ==

== ENCOUNTER 2022-03-15 12:48 | Outpatient (REF) | payer MEDICARE, OTHER, SELFPAY ==
--- NOTE | ~2022-03-15 | US_ITS ---
EXAMINATION: ANKLE BRACHIAL INDEX, COMPLETE US ARTERIAL DUPLEX, LOWER EXTREMITY BILATERAL CLINICAL INFORMATION: Peripheral vascular disease. TECHNIQUE: Ankle pulse volume recordings, ankle pressure measurements and ankle brachial indices were obtained of the lower extremity arterial system bilaterally. Additionally, duplex Doppler techniques were used with wave form analysis and measurement of velocities in the common femoral, profunda femoral, superficial femoral, popliteal and tibial arteries. The study was performed only at rest. COMPARISON: 06/22/2021 and 04/29/2021. FINDINGS: ANKLE-BRACHIAL INDEX: Right: 0.99 Left: 0.74. PVR WAVEFORM: Right: normal. Left: normal. DIRECT DUPLEX DOPPLER FINDINGS: RIGHT LEG: Common femoral artery: 152 cm/s, diastolic flow reversal: Yes. Profunda femoris artery: 258 cm/s, diastolic flow reversal: No. Superficial femoral artery (proximal): 169 cm/s, diastolic flow reversal: Yes. Superficial femoral artery (mid): 132 cm/s, diastolic flow reversal: Yes. Superficial femoral artery (distal): 79.7 cm/s, diastolic flow reversal: Yes. Popliteal artery: 124 cm/s, diastolic flow reversal: Yes. Posterior tibial artery: 194cm/s, diastolic flow reversal: No. Peroneal artery: 77.4cm/s, diastolic flow reversal: No. LEFT LEG: Common femoral artery: 127 cm/s, diastolic flow reversal: Yes. Profunda femoris artery: 236 cm/s, diastolic flow reversal: No. Superficial femoral artery (proximal): 178 cm/s, diastolic flow reversal: No. Superficial femoral artery (mid): 161 cm/s, diastolic flow reversal: Yes. Superficial femoral artery (distal): 70.9 cm/s, diastolic flow reversal: Yes. Popliteal artery: 85 cm/s, diastolic flow reversal: Yes. Posterior tibial artery: Occluded. There is heavy calcified plaque involving the proximal and mid superficial femoral artery. US/US arterial duplex LE BI IMPRESSION: Right leg: CLEO 0.99. There is elevated velocity involving the proximal profunda femoris artery consistent with a moderate stenosis. Elevated velocity and monophasic waveform seen involving the right posterior tibial artery consistent with mild stenosis. Left leg: CLEO 0.74 consistent with moderate peripheral arterial disease. There is heavy calcified plaque involving the proximal and mid superficial femoral artery. There is increased velocity involving the proximal profunda femoris artery consistent with a moderate stenosis. The left posterior tibial artery appears occluded. CLEO Reference: - >0.97-1.25 = normal - no significant arterial disease. - 0.75-0.96 = mild peripheral arterial disease. - 0.5-0.74 = moderate peripheral arterial disease. - <0.50 = severe peripheral arterial disease.
== END 2022-03-15 12:49 | disposition home or self-care (01) ==
LOC: HO.US 12:48
PROVIDERS: Visit Provider Surgery Vascular Surgery
DX: I73.9 Peripheral vascular disease, unspecified (principal); Z98.890 Other specified postprocedural states
CPT/HCPCS: 93923; 93925

== ENCOUNTER → 2022-04-05 09:51 | Outpatient (BNVA) | payer MEDICARE, OTHER, SELFPAY | PROVIDERS: Visit Provider Surgery Vascular Surgery | DX: I73.9 Peripheral vascular disease, unspecified (principal) | CPT/HCPCS: 99212 ==

== ENCOUNTER 2023-03-23 10:00 | Outpatient (REF) | payer MEDICARE, OTHER, SELFPAY ==
--- NOTE | ~2023-03-23 | US_ITS ---
EXAMINATION: Noninvasive assessment of the bilateral lower extremities with ARTERIAL DUPLEX and ANKLE BRACHIAL INDICES (ABIs). CLINICAL INFORMATION: Peripheral vascular disease TECHNIQUE: Duplex Doppler techniques with waveform analysis and measurement of velocities in the bilateral common femoral, profunda femoris, superficial femoral, popliteal and tibial arteries were performed. Additionally, ankle pulse volume recordings, ankle pressure measurements and ankle brachial indices were obtained of the lower extremity arterial system bilaterally. The study was performed only at rest. COMPARISON: 03/15/2022 FINDINGS: DIRECT DUPLEX DOPPLER FINDINGS: RIGHT LEG: Common femoral artery: 140 cm/s, phasicity: Triphasic Profunda femoris artery: 167 cm/s, phasicity: Biphasic Superficial femoral artery (proximal): 128 cm/s, phasicity: Biphasic Superficial femoral artery (mid): 140 cm/s, phasicity: Biphasic Superficial femoral artery (distal): 100 cm/s, phasicity: Biphasic Popliteal artery: 77.4 cm/s, phasicity: Biphasic Posterior tibial artery: 122 cm/s, phasicity: Biphasic Peroneal artery: 98.2 cm/s, phasicity: Biphasic LEFT LEG: Common femoral artery: 104 cm/s, phasicity: Triphasic Profunda femoris artery: 187 cm/s, phasicity: Biphasic Superficial femoral artery (proximal): 255 cm/s, phasicity: Biphasic. A focal atherosclerotic plaque Superficial femoral artery (mid): 222 cm/s, phasicity: Triphasic. A focal atherosclerotic plaque Superficial femoral artery (distal): 64.1 cm/s, phasicity: Triphasic Popliteal artery: 64.5 cm/s, phasicity: Biphasic Posterior tibial artery: 45.9 cm/s, phasicity: Biphasic Peroneal artery: 36.3 cm/s, phasicity: Biphasic ANKLE-BRACHIAL INDEX: Right: 1.05? Left: 0.62 ANKLE PRESSURES: Right: PT 173, DP 181 Left: PT?107, DP?111 ANKLE PVR WAVEFORMS: Right: Abnormal Left: Abnormal US/US arterial duplex LE BI IMPRESSION: Right leg: Normal ankle brachial index. Minimal scattered atherosclerotic plaque with patent arterial flow and duplex ultrasound. No significant change compared to the prior exam Left leg: Moderately decreased ankle brachial index. Calcified plaque with elevated velocities in the proximal to mid superficial femoral artery consistent with a moderate stenosis. No significant change compared to the prior exam CLEO Reference: - >1.4 = calcified vessels - 0.9 - 1.4 = normal - no significant arterial disease - 0.7 - 0.89 = mild peripheral arterial disease - 0.51 - 0.69 = moderate peripheral arterial disease - ? 0.50 = severe peripheral arterial disease - < .30 = critical arterial disease
== END 2023-03-23 10:01 | disposition home or self-care (01) ==
LOC: HO.US 10:00
PROVIDERS: Visit Provider Surgery Vascular Surgery
DX: I70.213 Atherosclerosis of native arteries of extremities with intermittent claudication, bilateral legs (principal)
CPT/HCPCS: 93923; 93925

== ENCOUNTER → 2023-05-02 13:21 | Outpatient (BNVA) | payer MEDICARE, OTHER, SELFPAY | PROVIDERS: Visit Provider Surgery Vascular Surgery ==

== ENCOUNTER 2023-08-04 13:44 | Outpatient (AMB) | payer OTHER, MEDICARE, SELFPAY ==
[2023-08-04 13:51] VITALS: BP 150/80; PULSE 73; TEMP 36.1; O2SAT 98; BMI 29.4
--- NOTE | 2023-08-04 13:51 | MHC.OFFWIV ---
Intake Vital Signs 08/04/23 13:51 Height 6 ft Weight 217 lb BMI 29.4 BP 150/80 H Blood Pressure Location Lt brachial Position Sitting Pulse 73 Pulse Source Pulse Oximeter Temp 97.0 F Temp Source Temporal Artery Scan Pulse Oximetry (%) 98 Intake Visit Reasons: WC-Back, Neck & Head, fell Intake Note: pt is here for c/o back and neck and head pain due to fall at work Patient Tobacco Use Status: Former Tobacco user Quit Date: 26 YRS AGO Allergies No Known Allergies [NKA] Allergy (Verified 08/04/23 14:28) Medication List - Last Reconciled 08/04/23 by Ronni Bellamy MD acetaminophen 1,000 mg PO QID PRN blood sugar diagnostic As directed cetirizine (Zyrtec) 10 mg PO DAILY PRN chlorhexidine gluconate 0.12% mL PO fluticasone propionate 50 mcg/actuation 1 spray intranasal DAILY gabapentin 300 mg PO BID@0800,1400 insulin aspart U-100 (Novolog FlexPen U-100 Insulin aspart) units subcut insulin glargine (Lantus Solostar U-100 Insulin) 90 units subcut DAILY insulin lispro (Humalog KwikPen (U-100) Insulin) inject 15 to 40 units 3 x a day before meals per sliding scale lisinopril 10 mg PO DAILY meloxicam 15 mg PO DAILY omeprazole mg PO rosuvastatin 20 mg PO BEDTIME tamsulosin 0.4 mg PO DAILY testosterone topical Do you need a note to return to daycare/school/sports/work: Yes HPI WC-Back, Neck & Head, fell HPI Details 72-year-old male presents to the office for a sick visit. Date of injury: 08/04/2023. Approximately around noon. Patient was at work, sitting on a chair when he leaned backwards. He fell backwards hitting his head hard on a thin carpeted floor. Patient has been feeling nauseous, headache since then. He drove by himself to the clinic for an evaluation. Reports no vomiting but feels mildly nauseous. Complaining of headache especially in the back of the head. No weakness in the arms or legs P PFSH Medical History BPH (benign prostatic hyperplasia) Cellulitis Chronic anemia Diabetes Diabetic foot ulcer Diabetic neuropathy Elevated erythrocyte sedimentation rate Failed total hip arthroplasty GERD (gastroesophageal reflux disease) Hyperkalemia Hypertension Peripheral vascular disease Surgical History H/O foot surgery H/O hand surgery H/O total hip arthroplasty Hx of appendectomy Social History Household Members: Spouse Housing: House Do you presently have visiting nurse or other home services: No Alcohol intake: never Patient Tobacco Use Status: Former Tobacco user Quit Date: 26 YRS AGO e-Cigarette/Vaping Use: Never Used service: No Current occupational status: employed Physical Exam Vital Signs: Last Vital Signs Temp 97.0 F 08/04/23 13:51 Pulse 73 08/04/23 13:51 BP 150/80 H 08/04/23 13:51 Pulse Ox 98 08/04/23 13:51 BMI result Body Mass Index 29.4 Const General: cooperative and healthy appearing Nutritional Appearance: well nourished Orientation/consciousness: patient oriented x3 Limitations: no limitations HEENT Other: Scalp: No visible bruising. No tender areas. Head: Yes normal to inspection Eyes Other: No nystagmus. General: appearance normal, both eyes and all related structures Neck Other: Supple, full range of motion. Neck: Yes normal visual inspection Chest Chest palpation & inspection: normal palpation of entire chest wall Resp Effort & Inspection: normal respiratory effort Neuro General: patient oriented x3 Assessment & Plan Assessment & Plan (1) Head concussion: Code(s): S06.0XAA - Concussion with loss of consciousness status unknown, initial encounter Plan: Patient was advised to proceed to the emergency room to get a precautionary CT scan. His is coming over to take him to the emergency room. ER notified. Coding Level of Care Code Est Pt Level 4 (32794) Diagnoses Head concussion S06.0XAA
== END 2023-08-04 14:33 | disposition home or self-care (01) ==
LOC: HO.HMGWI 13:44
PROVIDERS: PCP Physician Assistant Medical
DX: S06.0XAA Concussion with loss of consciousness status unknown, initial encounter (principal)
CPT/HCPCS: 99214

== ENCOUNTER 2023-08-04 15:02 | Emergency (ER) | payer OTHER, MEDICARE, SELFPAY ==
--- NOTE | ~2023-08-04 | CT_ITS ---
EXAMINATION: CT HEAD WITHOUT CONTRAST CT CERVICAL SPINE WITHOUT CONTRAST CLINICAL INFORMATION: Fall, head strike. COMPARISON: None TECHNIQUE: Contiguous axial imaging was performed from the skull base to vertex without intravenous administration of contrast. Contiguous axial imaging was performed from the upper chest through the skull base without intravenous administration of contrast. Coronal and sagittal reformats were obtained at the acquisition workstation. This CT examination was performed using dose optimization techniques as appropriate, variously including the following: *Automated exposure control *Adjustment of mA and/or kV according to patient size (this includes techniques or standardized protocols for targeted exams where dose is matched to indication/reason for exam; i.e. extremities or head) *Use of iterative reconstruction technique DLP: 691 and 384 mGy-cm FINDINGS: Head: There is no evidence of acute intracranial hemorrhage or edematous territorial infarction. A few foci of hypoattenuation in the periventricular and deep white matter are consistent with mild microangiopathy. Iyer-white matter differentiation is preserved. Proportional prominence of the ventricles and sulcal spaces. No evidence for obstructive hydrocephalus. No abnormal mass effect or midline shift. No extra-axial fluid collections. No acute soft tissue or osseous abnormalities. The mastoid air cells and paranasal sinuses are clear. Cervical Spine: The atlantooccipital and atlantoaxial articulations remain well aligned. Straightening of the normal cervical lordosis. Otherwise, there is anatomic alignment of the vertebral bodies and posterior elements. No evidence of acute fracture or subluxation. Moderate to severe intervertebral disc height loss at C6-C7. Prominent uncovertebral hypertrophy on the right side at the level of C3-C4 and left side at the level of C4-C5. Prominent ligamentous calcifications surrounding the dens. Various degrees of multilevel neural foraminal encroachment. There is no prevertebral soft tissue swelling. The thyroid gland and remaining cervical soft tissues are normal in appearance. The lung apices are not included within the [id number]. CT/CT cervical spine wo IV con IMPRESSION: 1. No acute intracranial pathology. 2. Mild chronic microangiopathy and generalized cerebral volume loss. 3. No acute cervical spinal fractures or malalignment. 4. Moderate cervical spondylosis.
[2023-08-04 15:08] VITALS: BP 170/59; PULSE 62; RESP 19; TEMP 36.6; O2SAT 98; BMI 29.4
--- NOTE | 2023-08-04 15:08 | ED_ITS ---
HPI - General Adult General Chief complaint: Head Injury Stated complaint: Sent here for cat scan, fall @ work this am Time Seen by Provider: 08/04/23 17:27 Source: patient Mode of arrival: ambulatory Limitations: no limitations History of Present Illness HPI narrative: Patient is a 72 year old assigned male at with a history of DM presenting to the emergency department today with a headache. Patient states that he was at work leaning back in a chair when the chair went all the back and he hit his head against the floor. Patient states that he is dizzy. Patient denies any loss of consciousness. Patient denies any dizziness, lightheadedness, abdominal pain, nausea, vomiting, fever, chills, blurry vision, double vision, loss of vision, chest pain, difficulty breathing, shortness of breath, back pain, night sweats, pain with urination, increased urinary frequency, increased urinary urgency, blood in his urine or stool, syncope or a near syncopal episode, bowel incontinence, bladder incontinence, bowel retention, bladder retention, or any other complaints at this time. Onset (ago): minute(s) Severity: mild Severity scale (1-10): 3 Quality: aching and dull Pain Consistency: constant Relieving factors: none Exacerbating factors: none Associated symptoms: denies other symptoms Treatments prior to arrival: none Related Data Home Medications Medication Instructions Recorded Confirmed blood sugar diagnostic #10 ea 04/22/21 04/22/21 gabapentin 300 mg capsule 300 mg PO BID@0800,1400 04/22/21 04/27/21 lisinopril 10 mg tablet 10 mg PO DAILY 04/22/21 04/27/21 meloxicam 15 mg tablet 15 mg PO DAILY 04/22/21 04/27/21 tamsulosin 0.4 mg capsule 0.4 mg PO DAILY 04/22/21 04/27/21 insulin glargine 100 unit/mL (3 90 unit subcut DAILY 04/28/21 04/28/21 mL) subcutaneous pen (Lantus Solostar U-100 Insulin) insulin lispro 100 unit/mL 0 unit subcut TIDAC 04/28/21 04/28/21 subcutaneous pen (Humalog KwikPen (U-100) Insulin) chlorhexidine gluconate 0.12 % ml PO 06/10/21 mouthwash insulin aspart U-100 100 unit/mL unit subcut 06/10/21 (3 mL) subcutaneous pen (Novolog FlexPen U-100 Insulin aspart) acetaminophen 500 mg tablet 1,000 mg PO QID PRN Mild Pain 06/14/21 06/14/21 (Scale Score 1-4) omeprazole 20 mg capsule,delayed mg PO 06/14/21 release cetirizine 10 mg tablet (Zyrtec) 10 mg PO DAILY PRN 02/18/22 fluticasone propionate 50 1 spray intranasal DAILY 02/18/22 mcg/actuation nasal spray,suspension rosuvastatin 20 mg tablet 20 mg PO BEDTIME 08/04/23 testosterone 50 mg/5 gram (1 %) topical 08/04/23 transdermal gel Allergies Allergy/AdvReac Type Severity Reaction Status Date / Time No Known Allergies [NKA] Allergy Verified 08/04/23 15:08 Review of Systems Constitutional: Constitutional: Reports no additional constitutional complaints, Denies chills, Denies fever(s), Reports headache(s) and Denies night sweats Eyes: Eyes: Reports no additional eye complaints, Denies blurry vision, Denies change in vision, Denies diplopia, Denies eye discharge, Denies loss of vision and Denies eye pain ENT: Reports dizziness and Reports headache(s) Cardiovascular: Cardiovascular: Reports no additional cardiovascular complaints, Denies chest pain, Denies lightheadedness, Denies Loss of Consciousness and Denies dyspnea Respiratory: Respiratory: Reports no additional respiratory complaints and Denies dyspnea Gastrointestinal: Gastrointestinal: Reports no additional gastrointestinal complaints, Denies abdominal pain, Denies melena, Denies hematochezia, Denies change in bowel habits and Denies change in stool character Genitourinary: Genitourinary: Reports no additional male genitourinary complaints, Denies hematuria, Denies oliguria, Denies difficulty urinating, Denies dysuria, Denies urinary frequency, Denies urinary hesitancy, Denies urinary incontinence and Denies urinary urgency Musculoskeletal: Musculoskeletal: Reports no additional musculoskeletal complaints, Denies numbness and Denies tingling Neurologic: Reports dizziness, Reports headache(s), Denies loss of vision, Denies numbness and Denies tingling Psychiatric: Psychiatric: Reports no additional psychiatric complaints Endocrine: Endocrine: Reports no additional endocrine complaints Hematologic/Lymphatic: Hematologic/Lymphatic: Reports no additional hematologic/lymphatic complaints Allergic/Immunologic: Allergic/Immunologic: Reports no additional allergic/immunologic complaints PMFSH Past Medical History Attestation statement: The following information was validated with the patient. Source: old records reviewed and nursing notes reviewed Medical History Failed total hip arthroplasty Diabetic foot ulcer BPH (benign prostatic hyperplasia) Diabetic neuropathy Peripheral vascular disease Elevated erythrocyte sedimentation rate Hyperkalemia GERD (gastroesophageal reflux disease) Chronic anemia Diabetes Hypertension Cellulitis Surgical History H/O hand surgery H/O foot surgery Hx of appendectomy H/O total hip arthroplasty Social History Social History Household Members: Spouse Housing: House Do you presently have visiting nurse or other home services: No Alcohol intake: never Patient Tobacco Use Status: Former Tobacco user Quit Date: 26 YRS AGO e-Cigarette/Vaping Use: Never Used Advance Directives: No service: No Current occupational status: employed Physical Exam ED Vital Signs: Vital Signs - 24 hr 08/04/23 15:08 08/04/23 17:28 Temperature 98 F Pulse Rate 62 60 Respiratory Rate 19 16 Blood Pressure 170/59 H 161/49 H Pulse Oximetry 98 98 Oxygen Delivery Method Room Air BMI result Body Mass Index 29.4 Const General: cooperative, no acute distress, alert and awake Nutritional Appearance: well nourished Orientation/consciousness: patient oriented x3 Limitations: no limitations HENMT Head: Yes normal to inspection and Yes atraumatic Ears: hearing grossly normal bilaterally and external ears normal General nose exam: Normal external nose present, no nasal discharge noted and no epistaxis Face and sinus: Yes normal facial exam, No abrasion and No laceration Mouth: Normal oral and palatal mucosa present, no drooling and no muffled voice Eyes General: appearance normal, both eyes and all related structures Periorbital: periorbital findings normal Eyelids: Yes eyelids normal Conjunctivae: conjunctivae normal Pupils: Equal, round and reactive pupils present EOM: EOMs intact bilaterally Neck Neck: Yes normal visual inspection, Yes full ROM and Yes no lymphadenopathy Chest Chest palpation & inspection: normal inspection of the chest Resp Effort & Inspection: normal respiratory effort and able to speak in complete sentences GI Inspection: Yes normal to inspection Neuro General: patient oriented x3 and moves all extremities Cranial nerves: Yes Equal, round and reactive pupils present Cognition (Neuro): normal cognition Motor exam (neuro): 5/5 motor strength present throughout Sensory Exam: Normal double simultaneous stimulation for sensation Coordination: [id number] test normal Extrem General: Yes normal to inspection, Yes full ROM and Yes capillary refill normal Psych Appearance: grossly normal Mental Status: mental status grossly normal Affect: normal affect Attitude: cooperative Thought process: Normal thought process present Thought content: Normal thought content present Insight: Good insight present (Psych) Course Course Course Narrative: RME performed by Jia Marte PA-C. Patient is a 72 year old assigned male at presenting to the emergency department with after a fall. Imaging ordered. Patient placed back in the waiting room pending room availability and results. Medical Decision Making Medical Decision Making MDM Narrative: Patient is a 72 year old assigned male at with a history of DM presenting to the emergency department today with a headache and dizziness post fall. Patient's physical exam was unremarkable. Patient's head and c-spine CTs showed no acute process. I explained my physical exam findings as well as all test results to the patient. I answered all questions asked by the patient. I stressed the importance of the patient taking his medication as prescribed. I stressed the importance of the patient following up with his primary care provider and given it was a work place injury, with [facility]. I stressed the importance of the patient returning to the emergency department immediately if his symptoms were to worsen or if he were to develop any dizziness, shortness of breath, difficulty breathing, chest pain, blurry vision, loss of vision, nausea, vomiting, abdominal pain, fever, chills, back pain, or any other complaints. Patient verbalized agreement and understanding with this treatment plan and discharge. Differential Diagnosis Differential Diagnoses: The differential diagnosis associated with the presentation includes Concussion Head injury Fall Head strike Admission/Observation Consideration of admission/observation: Escalation of care including admission/observation considered Patient would have been admitted to the hospital had his work up had any findings where hospital admission was appropriate and his clinical presentation warranted hospital admission. Independent Interpretation I performed an independent interpretation of an: CT Scan Interpretation: My interpretation is in agreement with the radiologist's impression of these imaging studies. EXAMINATION: CT HEAD WITHOUT CONTRAST CT CERVICAL SPINE WITHOUT CONTRAST CLINICAL INFORMATION: Fall, head strike. COMPARISON: None TECHNIQUE: Contiguous axial imaging was performed from the skull base to vertex without intravenous administration of contrast. Contiguous axial imaging was performed from the upper chest through the skull base without intravenous administration of contrast. Coronal and sagittal reformats were obtained at the acquisition workstation. This CT examination was performed using dose optimization techniques as appropriate, variously including the following: *Automated exposure control *Adjustment of mA and/or kV according to patient size (this includes techniques or standardized protocols for targeted exams where dose is matched to indication/reason for exam; i.e. extremities or head) *Use of iterative reconstruction technique DLP: 691 and 384 mGy-cm FINDINGS: Head: There is no evidence of acute intracranial hemorrhage or edematous territorial infarction. A few foci of hypoattenuation in the periventricular and deep white matter are consistent with mild microangiopathy. Iyer-white matter differentiation is preserved. Proportional prominence of the ventricles and sulcal spaces. No evidence for obstructive hydrocephalus. No abnormal mass effect or midline shift. No extra-axial fluid collections. No acute soft tissue or osseous abnormalities. The mastoid air cells and paranasal sinuses are clear. Cervical Spine: The atlantooccipital and atlantoaxial articulations remain well aligned. Straightening of the normal cervical lordosis. Otherwise, there is anatomic alignment of the vertebral bodies and posterior elements. No evidence of acute fracture or subluxation. Moderate to severe intervertebral disc height loss at C6-C7. Prominent uncovertebral hypertrophy on the right side at the level of C3-C4 and left side at the level of C4-C5. Prominent ligamentous calcifications surrounding the dens. Various degrees of multilevel neural foraminal encroachment. There is no prevertebral soft tissue swelling. The thyroid gland and remaining cervical soft tissues are normal in appearance. The lung apices are not included within the [id number]. CT/CT head/brain wo IV con IMPRESSION: 1. No acute intracranial pathology. 2. Mild chronic microangiopathy and generalized cerebral volume loss. 3. No acute cervical spinal fractures or malalignment. 4. Moderate cervical spondylosis. Dictated By: Kiera Terry Signed By: Electronically signed by Kiera Terry 08/04/23 0142 Radiology Impression Discussion of test interpretation with radiology: I have reviewed the radiologist's reading. Chronic Conditions Patient?s care impacted by: Diabetes Discharge Plan Discharge Clinical Impression: Headache, Fall Patient Disposition: Home, Self-Care Instructions: Acute Headache (DC), Fall Prevention (ED) Additional Instructions: Follow up with your primary care provider. Return to the emergency department immediately if your symptoms worsen or if you develop any dizziness, shortness of breath, difficulty breathing, chest pain, blurry vision, loss of vision, nausea, vomiting, abdominal pain, fever, chills, back pain, or any other complaints. Prescriptions: No Action Lantus Solostar U-100 Insulin 100 unit/mL (3 mL) insulin pen 90 unit subcut DAILY insulin lispro [Humalog KwikPen Insulin] 100 unit/mL Insulin Pen 0 unit SUBCUT TIDAC Rx Instructions: inject 15 to 40 units 3 x a day before meals per sliding scale acetaminophen 500 mg Tablet 1,000 mg PO QID PRN (Reason: Mild Pain (Scale Score 1-4)) omeprazole 20 mg capsule,delayed release(DR/EC) PO lisinopril 10 mg tablet 10 mg PO DAILY tamsulosin 0.4 mg capsule 0.4 mg PO DAILY gabapentin 300 mg capsule 300 mg PO BID@0800,1400 (DME) blood sugar diagnostic Strip See Rx Instructions Not Applicable QID Qty: 10 Rx Instructions: As directed meloxicam 15 mg tablet 15 mg PO DAILY testosterone 50 mg/5 gram (1 %) gel topical rosuvastatin 20 mg tablet 20 mg PO BEDTIME cetirizine [Zyrtec] 10 mg tablet 10 mg PO DAILY PRN fluticasone propionate 50 mcg/actuation spray,suspension 1 spray intranasal DAILY Rx Instructions: administer into each nostril chlorhexidine gluconate 0.12 % mouthwash PO insulin aspart U-100 [Novolog FlexPen U-100 Insulin] 100 unit/mL (3 mL) insulin pen subcut Referrals: [facility] [Provider Group] (Call to establish and follow up with [facility] given this was a work place injury. ) Benton Chandler PA [Primary Care Provider] - Stand Alone Forms: Work/School Release Interventions: ED Discharge Assessment Last Done: 08/04/23 17:42 Discharge Date/Time: 08/04/23 17:43 Print Language: Tristanian
[2023-08-04 17:28] VITALS: BP 161/49; PULSE 60; RESP 16; O2SAT 98
--- NOTE | 2023-08-04 17:32 | PC.NURSE ---
PT WAS REASSESSED IN TRAIGE BY PROVIDER AND D/C PLAN WAS REVIEWED
== END 2023-08-04 17:43 | disposition home or self-care (01) ==
LOC: HO.ED 17:38
PROVIDERS: Emergency Provider Emergency Medicine; PCP Physician Assistant Medical
DX: S09.90XA Unspecified injury of head, initial encounter (principal); R51.9 Headache, unspecified; M54.2 Cervicalgia; W01.0XXA Fall on same level from slipping, tripping and stumbling without subsequent striking against object, initial encounter; Y93.9 Activity, unspecified; Y92.9 Unspecified place or not applicable; Y99.9 Unspecified external cause status
CPT/HCPCS: 70450; 72125; 99282; 99284

== ENCOUNTER → 2023-08-14 11:10 | Outpatient (BNVA) | payer OTHER, SELFPAY | PROVIDERS: PCP Physician Assistant Medical; Visit Provider Physician Assistant Medical | DX: S06.0X0A Concussion without loss of consciousness, initial encounter (principal); S16.1XXA Strain of muscle, fascia and tendon at neck level, initial encounter; S29.012A Strain of muscle and tendon of back wall of thorax, initial encounter; S39.012A Strain of muscle, fascia and tendon of lower back, initial encounter; W07.XXXA Fall from chair, initial encounter; W18.09XA Striking against other object with subsequent fall, initial encounter | CPT/HCPCS: 99203 ==

== ENCOUNTER → 2023-08-21 12:59 | Outpatient (BNVA) | payer OTHER, SELFPAY | PROVIDERS: PCP Physician Assistant Medical; Visit Provider Physician Assistant Medical | DX: S06.0X0D Concussion without loss of consciousness, subsequent encounter (principal); S16.1XXD Strain of muscle, fascia and tendon at neck level, subsequent encounter; S33.9XXD Sprain of unspecified parts of lumbar spine and pelvis, subsequent encounter; W07.XXXD Fall from chair, subsequent encounter | CPT/HCPCS: 99213 ==

== ENCOUNTER → 2023-08-30 11:44 | Outpatient (BNVA) | payer OTHER, SELFPAY | PROVIDERS: PCP Physician Assistant Medical; Visit Provider Physician Assistant Medical | DX: S06.0X0D Concussion without loss of consciousness, subsequent encounter (principal); S16.1XXD Strain of muscle, fascia and tendon at neck level, subsequent encounter; S29.012D Strain of muscle and tendon of back wall of thorax, subsequent encounter; W07.XXXD Fall from chair, subsequent encounter; W18.09XD Striking against other object with subsequent fall, subsequent encounter | CPT/HCPCS: 99213 ==

== ENCOUNTER 2023-09-12 11:00 | Outpatient (RCR) | payer OTHER, SELFPAY ==
--- NOTE | 2023-08-16 11:06 | MHC.PT.EP ---
[facility] [place] [facility] [place] [facility] [place] Office [address] [phone] F: [phone] F: [phone] F: [phone] F: [phone] Physical Therapy Plan of Care Date of Evaluation: 08/16/23 Date of Surgery: Diagnosis: R side cervical, thoracic, lumbar strain Assessment: Patient is a 72 year old R handed male who presents with s/s consistent with cervical, thoracic and lumbar strain. 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 Patient past medical history includes b/l CASTRO, DM with history of ulcer on foot, HTN, and OA. Current impairments include balance, pain, posture, ROM, flexibility, strength, activity tolerance and functional mobility. Functional limitations include decreased ability to walk, stand, transfer, negotiate stairs, squat, bend, lift, and perform more strenuous daily tasks such as bending to lift objects and carrying household items.. Patient is motivated with good rehab potential. Skilled PT will address impairments and functional limitations in order to achieve goals. Frequency and Duration: The patient will be seen 2x/week for 5 weeks Short Term Goals: I with HEP -2 weeks AROM rotation c-spine - 60 b/l - 3 weeks AROM rotation lumbar spine 50% and pain free - 3 weeks 90/90 lacking 30 or less - 3 weeks Detention Goals: Able to walk 15 minutes without increased pain - normal gait mechanics - 5 weeks c-spin AROM rotation to 70 - 5 weeks AROM rotation lumbar spine 75% and pain free - 5 weeks Pain free return to all work related activities - 5 weeks Oswestry 22% or better, NPDI 30% or better - 5 weeks Treatment Plan: Modalities to reduce pain, spasms and effusion. Manual therapy to restore motion and function. Therapeutic exercise to improve strength and flexibility. Neuromuscular re-education for posture and balance. Therapeutic activities to return to functional activities of daily living. Electronically signed by: Kyle Marie, PT Please sign and return to therapist. Thank you for your referral.
--- NOTE | 2023-10-31 08:20 | MHC.PT.DC ---
[facility] [place] [facility] [place] [facility] [place] [facility] [address] Darren Crow [address] [phone] F: [phone] F: [phone] F: [phone] F: [phone] Physical Therapy Discharge Report Diagnosis: R side cervical, thoracic, lumbar strain Date of Surgery: Date of Evaluation: 08/16/23 Date of Discharge: 09/11/23 Treatments to Date: 5 Cancellations to Date: No Shows to Date: Discharge Status: Independent with HEP Patient Elected to Stop Discharge Summary: Pt elected to continue exclusively with HEP. 09/12; Pt FH dif with chin tucks. Pt had increased D/S pain wit D/S rot. Relief after fascia stretching. 08/31/23: pt progressing well with skilled PT. reduced back pain after stretching today. continue to progress as tolerated. 08/29/23: pt noting s/s on R side of lumbar and cervical spine. notes memory issues. paint on hands suggesting he is able to paint. pt notes unable to answer questions about recent days because he can't remember. 08/22/23: pt progressing with stretching, hip/core strength. Good response to manual intervention. progress as tolerated NV. Patient is a 72 year old R handed male who presents with s/s consistent with cervical, thoracic and lumbar strain. 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 Patient past medical history includes b/l CASTRO, DM with history of ulcer on foot, HTN, and OA. Current impairments include balance, pain, posture, ROM, flexibility, strength, activity tolerance and functional mobility. Functional limitations include decreased ability to walk, stand, transfer, negotiate stairs, squat, bend, lift, and perform more strenuous daily tasks such as bending to lift objects and carrying household items.. Patient is motivated with good rehab potential. Skilled PT will address impairments and functional limitations in order to achieve goals. Electronically signed by: Kyle Marie, PT Please sign and return to therapist. Thank you for your referral.
== END 2023-10-31 08:22 | disposition home or self-care (01) ==
LOC: HO.PTCHIC 11:00
PROVIDERS: PCP Physician Assistant Medical; Visit Provider Physician Assistant Medical
DX: S16.1XXD Strain of muscle, fascia and tendon at neck level, subsequent encounter (principal); S39.012D Strain of muscle, fascia and tendon of lower back, subsequent encounter; S29.012D Strain of muscle and tendon of back wall of thorax, subsequent encounter
CPT/HCPCS: 97110; 97140; 97163

== ENCOUNTER → 2023-09-20 11:07 | Outpatient (BNVA) | payer OTHER, SELFPAY | PROVIDERS: PCP Physician Assistant Medical; Visit Provider Physician Assistant Medical | DX: R51.9 Headache, unspecified (principal) | CPT/HCPCS: 99213 ==

== ENCOUNTER 2024-04-29 15:30 | Outpatient (AMB) | payer MEDICARE, OTHER, SELFPAY ==
--- NOTE | 2024-04-29 15:38 | A.OFFVIS_ITS ---
Vital Signs 04/29/24 15:39 Height 6 ft Intake Visit Reasons: overdue ART US follow up Intake Note: pt is here for arterial US from 03/23/2023 and hoping to get a new arterial US due to bilateral LE pain. Pt states that both legs are equal and walking helps with pain. Pt states shooting pain when standing or sitting or even starting to walk after sitting. Accompanied by: Self / Same As Patient Allergies No Known Allergies [NKA] Allergy (Verified 04/29/24 15:41) HPI HPI overdue ART US follow up: Details: 73-year-old gentleman presents for follow-up evaluation regarding lower extremity peripheral vascular disease. He would actually seen us about a year back and never followed up regarding his arterial status. At the current time he reports that he has lower extremity pain it has more of a shooting pain that comes down from bilateral hips down to the legs. Upon discussion with him is a nonsmoker but does have diabetes. He does have a known history of neuropathy as well. Did have hip replacements in the past and that has been most recently re-evaluated by [facility]. He also reports that it is more from a sitting position that he gets the shooting pains and not from ambulation. He now presents for vascular follow-up. 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 BPH (benign prostatic hyperplasia) Diabetic neuropathy Peripheral vascular disease Elevated erythrocyte sedimentation rate Hyperkalemia GERD (gastroesophageal reflux disease) Chronic anemia Diabetes Hypertension Cellulitis Surgical History H/O hand surgery H/O foot surgery Hx of appendectomy H/O total hip arthroplasty Social History Household Members: Spouse Housing: House Do you presently have visiting nurse or other home services: No Alcohol intake: never Patient Tobacco Use Status: Former Tobacco user e-Cigarette/Vaping Use: Never Used service: No Current occupational status: employed Review of Systems Const All systems reviewed & are unremarkable except as noted in HPI and below Reports no additional complaints ENT Reports Normal hearing present Card Denies chest pain, Denies chest pain at rest, Denies chest pain with activity and Denies pedal edema Resp Denies cough GI Denies abdominal pain Musc Denies abnormal gait, Denies muscle cramps and Denies radiating pain into limb Skin/Breast Denies skin ulcer and Denies wounds Neuro Reports Normal hearing present and Denies abnormal gait Psych Reports no additional complaints Physical Exam Const General: cooperative, healthy appearing and comfortable Orientation/consciousness: oriented to person, oriented to place and oriented to time HEENT Head: Yes normal to inspection Neck Neck: Yes normal visual inspection Carotids: no bruits Chest Chest palpation & inspection: normal inspection of the chest Resp Effort & Inspection: normal respiratory effort and able to speak in complete sentences Auscultation: clear to auscultation bilaterally, no crackles, no rales, no rhonchi and no wheezes Cardio Other: Right side palpable posterior tibial pulse Left side signals only Rate: regular rate Rhythm: regular rhythm Heart sounds: S1 normal heart sound present and S2 normal heart sound present Bruits: no carotid bruits Peripheral pulses: Peripheral pulses 2+ throughout GI Inspection: Yes normal to inspection Skin Wounds: no wounds Hair: normal Neuro General: oriented to person, oriented to place and oriented to time Cranial nerves: Yes CN's II-XII intact bilaterally and Yes Normal hearing present Cognition (Neuro): normal cognition Motor exam (neuro): 5/5 motor strength present throughout Extrem Other: venous exam: No significant superficial varicosities or spider telangiectasias, minimal edema General: No clubbing, No cyanosis and No edema Psych Appearance: grossly normal Mental Status: mental status grossly normal Speech and movement: Normal speech and movement present Results Reviewed Results Reviewed: Results from testing dated 03/23/2023 demonstrates CLEO on the right of 1.05 and on the left of 0.62. Assessment & Plan Assessment & Plan (1) Peripheral vascular disease: Comment: Angiogram 05/10/2021- plasty left anterior tibial and posterior tibial artery atherectomy and plasty left SFA plasty left common femoral Code(s): I73.9 - Peripheral vascular disease, unspecified Category: Medical Plan: In short patient has an element of peripheral vascular disease. It has been awhile since his follow-up. I did discuss with him the multifactorial etiology of this including nerve related issues and neuropathy. He will get noninvasive testing and follow-up with us. Thank you for allowing us to assist in his care. If there are any questions or concerns please do not hesitate to contact us. Orders: Orders US arterial duplex LE BI 1 Week I73.9 - Peripheral vascular disease, unspecified Coding Level of Care Code Est Pt Level 4 (71365) Diagnoses Peripheral vascular disease I73.9
== END 2024-04-29 15:59 | disposition home or self-care (01) ==
PROVIDERS: PCP Physician Assistant Medical; Visit Provider Surgery Vascular Surgery
DX: I73.9 Peripheral vascular disease, unspecified (principal)
CPT/HCPCS: 99214

== ENCOUNTER → 2024-04-29 15:30 | Outpatient (BNVA) | payer MEDICARE, OTHER, SELFPAY | PROVIDERS: PCP Physician Assistant Medical; Visit Provider Surgery Vascular Surgery | DX: I73.9 Peripheral vascular disease, unspecified (principal) | CPT/HCPCS: 99212 ==

== ENCOUNTER 2024-05-15 14:28 | Outpatient (REF) | payer MEDICARE, OTHER, SELFPAY ==
--- NOTE | ~2024-05-15 | US_ITS ---
EXAMINATION: NONINVASIVE ASSESSMENT OF THE ARTERIES OF BOTH LOWER EXTREMITIES INCLUDING PVR EXAM AND BILATERAL LOWER EXTREMITY DUPLEX CLINICAL INFORMATION: Peripheral vascular disease COMPARISON: CLEO and duplex March 23, 2023 TECHNIQUE: Ankle pulse volume recordings, ankle pressure measurements and ankle brachial indices were obtained of the lower extremity arterial system bilaterally in addition to duplex Doppler techniques with wave form analysis and measurement of velocities in the common femoral, profunda femoral, superficial femoral, popliteal, tibial and peroneal arteries. The study was performed only at rest. FINDINGS: RIGHT LEG 1. Right Ankle-Brachial Index: 1.01 (higher of the DP/PT) >0.97-1.25 = normal - no significant arterial disease 0.75-0.96 = mild peripheral arterial disease 0.5-0.74 = moderate peripheral arterial disease <0.50 = severe peripheral arterial disease <0.30 = critical arterial disease 2. Segmental Pressures (mmHg): Brachial: 168 Ankle: PT 80, DP 170 3. PVR Waveforms: Ankle: Abnormal 4. Direct Duplex: Common femoral artery: 139 cm/s, triphasic Profunda femoris artery: 179 cm/s, biphasic Superficial femoral artery (proximal): 128 cm/s, triphasic Superficial femoral artery (mid): 142 cm/s, biphasic Superficial femoral artery (distal): 121 cm/s, triphasic Popliteal artery: 104 cm/s, triphasic Mid posterior tibial artery: 79.2 cm/s, monophasic LEFT LE. Left Ankle-Brachial Index: 0.74 (higher of the DP/PT) >0.97-1.25 = normal - no significant arterial disease 0.75-0.96 = mild peripheral arterial disease 0.5-0.74 = moderate peripheral arterial disease <0.50 = severe peripheral arterial disease <0.30 = critical arterial disease 2. Segmental Pressures: Brachial: 162 Ankle: PT (not audible), DP 124 3. PVR Waveforms: Ankle: Abnormal 4. Direct Duplex: Common femoral artery: 108 cm/s, triphasic Profunda femoris artery: 210 cm/s, biphasic Superficial femoral artery (proximal): 80.3 cm/s, triphasic Superficial femoral artery (mid): 256 cm/s, triphasic Superficial femoral artery (distal): 80.9 cm/s, triphasic Popliteal artery: 70.4 cm/s, monophasic Mid posterior tibial artery: 70.3 cm/s, monophasic US/US arterial duplex LE BI IMPRESSION: 1. Normal right ankle-brachial index. Elevated velocities in the proximal and mid right SFA consistent with mild stenoses. 2. Abnormal left ankle-brachial index of 0.74 consistent with moderate peripheral arterial disease. 3. Moderate to severe stenosis of the mid left SFA by velocity criteria.
== END 2024-05-15 14:29 | disposition home or self-care (01) ==
LOC: HO.US 14:28
PROVIDERS: PCP Physician Assistant Medical; Visit Provider Surgery Vascular Surgery
DX: I73.9 Peripheral vascular disease, unspecified (principal)
CPT/HCPCS: 93923; 93925

== ENCOUNTER 2024-06-25 11:00 | Outpatient (AMB) | payer MEDICARE, OTHER, SELFPAY ==
--- NOTE | 2024-06-25 11:02 | A.OFFVIS_ITS ---
Vital Signs 06/25/24 11:05 Height 6 ft Weight 217 lb BMI 29.4 Intake Visit Reasons: Follow Up 05/15 Arterial US Intake Note: follow up arterial US 05/15/24, pt states bilateral LE pain w/ or w/o ambulation. Pt states he has shooting pain and had an epidural but hasn't worked. Has pain in his back as well as legs. 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 He actually had left lower extremity intervention back in 2020. He does state that the left side is a source of concern for him. But in general has a generalized back pain. He is being seen at [facility] regarding his back issues and actually had an epidural injection which he did receive some relief from. In addition he is scheduled for a follow-up appointment next week there as well. He reports that he was fairly ambulatory until about 3 months ago where he can barely walk any significant distances at this time. He now presents for follow-up with noninvasive arterial testing. 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 BPH (benign prostatic hyperplasia) Diabetic neuropathy Peripheral vascular disease Elevated erythrocyte sedimentation rate Hyperkalemia GERD (gastroesophageal reflux disease) Chronic anemia Diabetes Hypertension Cellulitis Surgical History H/O hand surgery H/O foot surgery Hx of appendectomy H/O total hip arthroplasty Social History Household Members: Spouse Housing: House Do you presently have visiting nurse or other home services: No Alcohol intake: never Patient Tobacco Use Status: Former Tobacco user e-Cigarette/Vaping Use: Never Used service: No Current occupational status: employed Review of Systems Const All systems reviewed & are unremarkable except as noted in HPI and below Reports no additional complaints ENT Reports Normal hearing present Card Denies chest pain, Denies chest pain at rest, Denies chest pain with activity and Denies pedal edema Resp Denies cough GI Denies abdominal pain Musc Denies abnormal gait, Denies muscle cramps and Denies radiating pain into limb Skin/Breast Denies skin ulcer and Denies wounds Neuro Reports Normal hearing present and Denies abnormal gait Psych Reports no additional complaints Physical Exam Vital Signs: BMI result Body Mass Index 29.4 Const General: cooperative, healthy appearing and comfortable Orientation/consciousness: oriented to person, oriented to place and oriented to time HEENT Head: Yes normal to inspection Neck Neck: Yes normal visual inspection Carotids: no bruits Chest Chest palpation & inspection: normal inspection of the chest Resp Effort & Inspection: normal respiratory effort and able to speak in complete sentences Auscultation: clear to auscultation bilaterally, no crackles, no rales, no rhonchi and no wheezes Cardio Other: Bilateral DP signals Rate: regular rate Rhythm: regular rhythm Heart sounds: S1 normal heart sound present and S2 normal heart sound present Bruits: no carotid bruits Peripheral pulses: Peripheral pulses 2+ throughout GI Inspection: Yes normal to inspection Skin Wounds: no wounds Hair: normal Neuro General: oriented to person, oriented to place and oriented to time Cranial nerves: Yes CN's II-XII intact bilaterally and Yes Normal hearing present Cognition (Neuro): normal cognition Motor exam (neuro): 5/5 motor strength present throughout Extrem Other: venous exam: No significant superficial varicosities or spider telangiectasias, minimal edema General: No clubbing, No cyanosis and No edema Psych Appearance: grossly normal Mental Status: mental status grossly normal Speech and movement: Normal speech and movement present Results Reviewed Results Reviewed: Noninvasive arterial testing dated 05/15/2024 demonstrates CLEO on the right of 1.01 and on the left of 0.74. Written report and images were reviewed. Assessment & Plan Assessment & Plan (1) Peripheral vascular disease: Comment: Angiogram 05/10/2021- plasty left anterior tibial and posterior tibial artery atherectomy and plasty left SFA plasty left common femoral Code(s): I73.9 - Peripheral vascular disease, unspecified Category: Medical Plan: Patient notes leg pain when walking distances. I have discussed the pathophysiology of peripheral vascular disease with the patient. I have also discussed risk factor modification. I have reviewed the patient's arterial testing which reveals left SFA and tibial disease. the patient would benefit from a left leg endovascular peripheral angiogram with possible angioplasty, stent, and/or atherectomy. This has been discussed in detail with the patient along with risks, benefits, and complications. This includes but is not limited to bleeding, infection, heart attack, need for emergent surgical repair, limb ischemia, blood vessel damage, bleeding, puncture, kidney injury, bruising, allergic reaction, and skin reaction. The patient demonstrates a clear understanding. We will hold off on scheduling until he has his back re- evaluated at [facility] next week. He will reach out to us to schedule an appropriate time. Thank you for allowing us to assist in this patient's care. Please note a longitudinal relationship has been created with the patient and we have been following and surveillance this chronic condition. Coding Level of Care Code Est Pt Level 4 (43790) Complex EM visit Add On G2211 Diagnoses Peripheral vascular disease I73.9
[2024-06-25 11:05] VITALS: BMI 29.4
== END 2024-06-25 11:33 | disposition home or self-care (01) ==
PROVIDERS: PCP Physician Assistant Medical; Visit Provider Surgery Vascular Surgery
DX: I73.9 Peripheral vascular disease, unspecified (principal)
CPT/HCPCS: 99214; G2211

== ENCOUNTER → 2024-06-25 11:00 | Outpatient (BNVA) | payer MEDICARE, OTHER, SELFPAY | PROVIDERS: PCP Physician Assistant Medical; Visit Provider Surgery Vascular Surgery | DX: I73.9 Peripheral vascular disease, unspecified (principal) | CPT/HCPCS: 99212 ==

== ENCOUNTER 2024-07-31 05:59 | Day surgery (SDC) | payer MEDICARE, OTHER, SELFPAY ==
[2024-07-31] VITALS (7 sets, daily range): BP systolic 149–166; BP diastolic 67–74; PULSE 47–62; RESP 16; TEMP 36.1–36.3; O2SAT 96–100; BMI 29.9
[2024-07-31 06:45] LABS: MANUAL DIFF FLAG NO
[2024-07-31 06:47] LABS: Basophils Absolute Auto 0.1 X10*3/uL (0.0-0.2); Eosinophils Absolute Auto 0.1 X10*3/uL (0.0-0.4); Eosinophils Percent Auto 2.8 % (0-4); Hematocrit 39.3 % (42.0-52.0); Hemoglobin 12.8 g/dl (14.0-18.0); Imm Gran Abs Auto 0.02 X10*3/uL (0.00-0.03); Imm Gran Pct Auto 0.4 % (0.0-0.4); Lymphocytes Absolute Auto 1.3 X10*3/uL (1.2-4.9); Lymphocytes Percent Auto 25.9 % (20-40); Mean Corpuscular HGB Conc 32.6 g/dl (31.0-36.0); Mean Corpuscular Hemoglobin 28.8 pg (27.0-33.0); Mean Corpuscular Volume 88.5 fL (80.0-98.0); Mean Platelet Volume 10.5 fL (9.4-12.4); Monocytes Absolute Auto 0.6 X10*3/uL (0.1-1.2); Monocytes Percent Auto 10.8 % (2-11); Neutrophils Percent Auto 59.1 % (45-73); Platelet Count 131 X10*3/uL (160-400); Red Blood Count 4.44 X10*6/uL (4.60-5.80); Red Cell Distribution Width 15.1 % (11.0-16.0); White Blood Count 5.1 X10*3/uL (4.8-10.8)
[2024-07-31 06:58] LABS: Blood Urea Nitrogen 23 mg/dL (9-16); Creatinine Clr Calc Pharmacy 84.6; Estimated Glomerular Filt Rate > 60
[2024-07-31 07:18] LABS: Glucose, Whole Blood 145 mg/dL (60-115)
--- NOTE | 2024-07-31 09:42 | W.PM.OPN ---
Operative Note Operative Note Date of Service: 07/31/24 Narrative: Angiogram report from [facility] Preoperative diagnosis: Atherosclerosis of left lower extremity with activity limiting claudication Postoperative diagnosis: Same Procedure: 1. Ultrasound-guided right common femoral access 2. Aortogram with left lower extremity runoff 3. Left SFA atherectomy and stent placement Surgeon:Sawyer Valencia M.D., FACS, RPVI Rover Tender:None Anesthesia: Local with moderate conscious sedation. Total intraservice moderate sedation time was 62 minutes. I monitored the patient's level of consciousness and physiologic status continuously throughout the procedure. Specimens:none Drains:none Estimated blood loss: Less than 10 ml Implant: Medtronic Ev 3 stent 6 x 120; Medtronic Impact DCB 6 x 120 Indications: Pleasant 73-year-old gentleman with a history of peripheral vascular disease. He had actually undergone endovascular intervention proximally 3 years ago. He now complains of left leg pain and difficulty ambulating. He now presents to us for endovascular intervention. The patient has signed the informed consent after reviewing risks, complications, benefits, and alternatives previously discussed with the patient. The patient was given the opportunity to ask any additional questions or voice any concerns. All questions were answered to the patient's satisfaction. Procedure in detail: Patient was brought to the angiography suite prior to which a time-out was called for patient identification and site verification. Bilateral groins were prepped and draped in the standard surgical fashion. Under ultrasound guidance right common femoral was punctured with micro puncture needle and wire. Subsequently a precision 5 Salvadorean sheath was then placed. Bentson wire was advanced to the level of the aorta. 5 Salvadorean Flush catheter was brought up and parked at the level of the renal arteries. Aortogram was then undertaken. Catheter was brought down to the level of the iliac bifurcation. Iliacs were subsequently imaged. Catheter was then brought in up and over to the left side SFA. Runoff study was then undertaken. It was recognized that he had some common femoral disease and recurrent disease in the left SFA. At this time [id number] units of systemic heparin was administered after 5 minutes of circulation time ACT was obtained. We were above therapeutic range. At this point we placed an up and over 6 Salvadorean destination sheath. Through this we advanced an 035 glidewire Advantage. We were able to traverse the lesion in the SFA we followed this with a trail Blazer catheter this was instilled with contrast to ensure true lumen. Once this was accomplished we exchanged out for a 6 Salvadorean spider wire. We used a Hawk 1 atherectomy device. We did multiple unidirectional passes. We did note a good result but there was still residual stenosis. We then plasty this area with a 6 x 120 drug coated balloon. This was brought into the left SFA in under 3 minutes and insufflated for a total of 3 minutes in duration. Once this was accomplished we took a completion angio demonstrated still some residual stenosis. At this time a decision was made to place a 6 x 120 stent. This was deployed with no difficulty. Completion angiogram demonstrated good result. Spider basket was then retrieved and removed we then brought the catheter wire sheath back to the ipsilateral side. A CELT closure device was then deployed. Adequate hemostasis was achieved. Patient tolerated the procedure well. Returned to recovery with stable vitals. Interpretation of films: 1. Ultrasound demonstrates appropriate femoral access site. Vessel was patent with minimal stenosis. Needle entry was visualized. Image of ultrasound was saved. 2. Aortogram demonstrates appropriate caliber aorta. Minimal disease. Appropriate take-off of the renals. Duplicate right renal 3. Iliac images demonstrate no significant disease 4. Left Leg Common femoral artery: High-grade stenosis at the origin the SFA and profunda into the common femoral Profundus Femoris: No significant disease Superficial femoral artery: Moderate stenosis mid SFA. Completion demonstrated good result Popliteal artery (p1,p2,p3): No significant disease Anterior tibial artery: Patent dominant runoff to the foot some mild stenosis Peroneal artery: Mild stenosis but patent to for Posterior tibial artery: Occluded Dorsalis pedis/plantar arch: Incomplete Conclusion: 1. Successful left SFA atherectomy and stent placement. Should symptoms not improve he may require left common femoral endarterectomy 2. Anticoagulation status: Aspirin and Plavix for 6 months This note is constructed using voice recognition software. While every effort has been made to ensure accuracy, manager of applications development errors may have been included. Thank you for allowing me to participate in the care of your patient. Yours sincerely, Sawyer Valencia MD, FACS, R.P.V.I.
[2024-07-31] MEDS: Clopidogrel Bisulfate 300 MG TABLET PO (10:32)
[2024-08-05 09:09] LABS: ACT 321 Celite s (79-173)
== END 2024-07-31 11:35 | disposition home or self-care (01) ==
PROVIDERS: PCP Physician Assistant Medical; Visit Provider Surgery Vascular Surgery
DX: E11.51 Type 2 diabetes mellitus with diabetic peripheral angiopathy without gangrene (principal); I70.212 Atherosclerosis of native arteries of extremities with intermittent claudication, left leg; E11.40 Type 2 diabetes mellitus with diabetic neuropathy, unspecified; M79.662 Pain in left lower leg; R26.2 Difficulty in walking, not elsewhere classified; I10 Essential (primary) hypertension; R70.0 Elevated erythrocyte sedimentation rate; L03.90 Cellulitis, unspecified; E87.5 Hyperkalemia; Z87.891 Personal history of nicotine dependence; Z79.4 Long term (current) use of insulin; Z98.890 Other specified postprocedural states; Z79.899 Other long term (current) drug therapy
CPT/HCPCS: 36415; 37227; 75630; 76937; 82565; 82947; 84520; 85025; 85347; 99152; 99153; C1714; C1760; C1769; C1876; C1887; C1894; C2623; J1644; J2250; J2310; J3010; Q9967

== ENCOUNTER → 2024-07-31 05:59 | Outpatient (BNV) | payer MEDICARE, OTHER, SELFPAY | PROVIDERS: PCP Physician Assistant Medical; Visit Provider Surgery Vascular Surgery | DX: I70.212 Atherosclerosis of native arteries of extremities with intermittent claudication, left leg (principal) | CPT/HCPCS: 37227; 75625; 75710; 76937; 99152 ==

== ENCOUNTER 2024-08-13 15:01 | Outpatient (AMB) | payer MEDICARE, OTHER, SELFPAY ==
--- NOTE | 2024-08-13 15:04 | MHC.OFFVIS ---
Intake Visit Reasons: 2 week angio follow up 07/31/24 Intake Note: 2week F/U s/p angio. Pt c/o of left leg numbness and pain. Redness and swelling. [employer] Required: No Accompanied by: Self / Same As Patient Allergies No Known Allergies [NKA] Allergy (Verified 08/13/24 15:06) HPI HPI 2 week angio follow up 07/31/24: Details: Very pleasant 73-year-old gentleman with a history of peripheral vascular disease. He actually had an endovascular intervention about 3 years ago by us and most recently on 07/31/2024. Underwent left SFA atherectomy and stent. Appears to be doing well from that but he complains of a lot of numbness. In addition he noted that he had a rash on the legs but it appears to have resolved. 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 BPH (benign prostatic hyperplasia) Diabetic neuropathy Peripheral vascular disease Elevated erythrocyte sedimentation rate Hyperkalemia GERD (gastroesophageal reflux disease) Chronic anemia Diabetes Hypertension Cellulitis Surgical History H/O hand surgery H/O foot surgery Hx of appendectomy H/O total hip arthroplasty Social History Household Members: Spouse Housing: House Do you presently have visiting nurse or other home services: No Alcohol intake: never Patient Tobacco Use Status: Former Tobacco user e-Cigarette/Vaping Use: Never Used service: No Current occupational status: employed Review of Systems Const All systems reviewed & are unremarkable except as noted in HPI and below Denies chills, Denies fatigue, Denies fever(s), Denies weight gain and Denies weight loss ENT Reports Normal hearing present and Denies dizziness Card Denies chest pain, Denies leg edema, Denies lightheadedness, Denies palpitations, Denies dyspnea on exertion, Denies orthopnea and Denies other Resp Denies cough and Denies dyspnea on exertion GI Denies hematochezia and Denies change in stool character Musc Denies abnormal gait, Denies muscle weakness, Denies numbness, Denies radiating pain into limb and Denies tingling Skin/Breast Denies skin ulcer and Denies wounds Neuro Reports Normal hearing present, Denies abnormal gait, Denies dizziness, Denies numbness and Denies tingling Psych Reports no additional complaints Endo Denies fatigue and Denies palpitations Physical Exam Const General: cooperative, healthy appearing and comfortable Orientation/consciousness: oriented to person, oriented to place and oriented to time HEENT Head: Yes normal to inspection Neck Neck: Yes normal visual inspection Carotids: no bruits Chest Chest palpation & inspection: normal inspection of the chest Resp Effort & Inspection: normal respiratory effort and able to speak in complete sentences Auscultation: clear to auscultation bilaterally, no crackles, no rales, no rhonchi and no wheezes Cardio Other: Bilateral DP signals. Foot warm with good capillary refill excellent motor and sensation Rate: regular rate Rhythm: regular rhythm Heart sounds: S1 normal heart sound present and S2 normal heart sound present Bruits: no carotid bruits Peripheral pulses: Peripheral pulses 2+ throughout GI Inspection: Yes normal to inspection Skin Wounds: no wounds Hair: normal Neuro General: oriented to person, oriented to place and oriented to time Cranial nerves: Yes CN's II-XII intact bilaterally and Yes Normal hearing present Cognition (Neuro): normal cognition Motor exam (neuro): 5/5 motor strength present throughout Extrem Other: venous exam: No significant superficial varicosities or spider telangiectasias, minimal edema General: No clubbing, No cyanosis and No edema Psych Appearance: grossly normal Mental Status: mental status grossly normal Speech and movement: Normal speech and movement present Assessment & Plan Assessment & Plan (1) Peripheral vascular disease: Comment: Angiogram 05/10/2021- plasty left anterior tibial and posterior tibial artery atherectomy and plasty left SFA plasty left common femoral 07/31/2024 - left SFA atherectomy and stent Code(s): I73.9 - Peripheral vascular disease, unspecified Category: Medical Plan: In short patient is doing well status post endovascular intervention. I do believe that most of his issues are more neurogenic in nature. At the current time his arterial status appears to be stable. He does have a follow-up with Neurosurgery and will plan for neurosurgery intervention. We did have a discussion about his anticoagulation status. Should surgery be required will have to discuss timeline and status of anticoagulation with the neurosurgery team. He will follow up with us in approximately 3 months time with noninvasive arterial testing. Thank you for allowing us to assist in his care. If there are any questions or concerns please do not hesitate to contact us Orders: Orders US arterial duplex LE BI 3 Months I73.9 - Peripheral vascular disease, unspecified Coding Level of Care Code Est Pt Level 4 (15524) Complex EM visit Add On G2211 Diagnoses Peripheral vascular disease I73.9
== END 2024-08-13 15:39 | disposition home or self-care (01) ==
LOC: HO.HVS 15:02
PROVIDERS: PCP Physician Assistant Medical; Visit Provider Surgery Vascular Surgery
DX: I73.9 Peripheral vascular disease, unspecified (principal)
CPT/HCPCS: 99214; G2211

== ENCOUNTER → 2024-08-13 15:01 | Outpatient (BNVA) | payer MEDICARE, OTHER, SELFPAY | PROVIDERS: PCP Physician Assistant Medical; Visit Provider Surgery Vascular Surgery | DX: I73.9 Peripheral vascular disease, unspecified (principal) | CPT/HCPCS: 99212 ==

== ENCOUNTER 2024-12-12 09:35 | Outpatient (REF) | payer MEDICARE, OTHER, SELFPAY ==
--- NOTE | ~2024-12-12 | US_ITS ---
EXAMINATION: US NONINVASIVE ASSESSMENT OF THE BOTH LOWER EXTREMITY WITH ARTERIAL DUPLEX AND ANKLE BRACHIAL INDICES (ABIS) CLINICAL INFORMATION: Peripheral vascular disease, unspecified. Left lower extremity angiogram demonstrated a stent in the left superficial femoral artery.. COMPARISON: None available. TECHNIQUE: Duplex Doppler techniques with waveform analysis and measurement of velocities in the common femoral, profunda femoris, superficial femoral, popliteal and tibial arteries were performed. In addition, ankle pulse volume recordings, ankle pressure measurements and ankle brachial indices were obtained of the both lower extremity arterial system. The study was performed only at rest. FINDINGS: NONINVASIVE ASSESSMENT OF THE ARTERIES OF BILATERAL LOWER EXTREMITIES WITH ABIs: RIGHT LEG: Ankle-brachial index: 1.01. Ankle PVR: Abnormal waveforms. LEFT LEG: Ankle-brachial index: 0.8. Left ankle PVR: Abnormal waveforms. CLEO Reference: 0.9 - 1.4 = normal - no significant arterial disease 0.7 - 0.89 = mild peripheral arterial disease 0.51 - 0.69 = moderate peripheral arterial disease 0.50 = severe peripheral arterial disease RIGHT LOWER EXTREMITY DUPLEX ULTRASOUND: Common femoral artery: 134 cm/s. Triphasic waveform. Profunda femoris artery: 224 cm/s. Triphasic waveform. Spectral broadening. Questionable arrhythmia. Superficial femoral artery (proximal): 169 cm/s. Triphasic waveform. Arrhythmia. Superficial femoral artery (mid): 182 cm/s. Triphasic waveform. Superficial femoral artery (distal): 91 cm/s. Triphasic waveform. Popliteal artery: 79 cm/s Triphasic waveform. Posterior tibial artery: 120 cm/s Monophasic waveform. Anterior tibialis artery: 184 cm/s. Monophasic waveform. Spectral broadening. Dorsalis pedis artery: Occluded. LEFT LOWER EXTREMITY DUPLEX ULTRASOUND: Common femoral artery: 103 cm/s. Triphasic waveform. Profunda femoris artery: 304 cm/s. Triphasic waveform. Superficial femoral artery (proximal): There is a stent with intraluminal flow on color Doppler interrogation 106 cm/s. Triphasic waveform. Superficial femoral artery (mid): There is a stent with intraluminal flow on color Doppler interrogation 112 cm/s. Triphasic waveform. Superficial femoral artery (distal): 110 cm/s. Triphasic waveform. Arrhythmia. Popliteal artery: 85 cm/s Triphasic waveform. Posterior tibial artery: 12 cm/s Monophasic waveform. Dorsalis base artery: 27 cm/s. Monophasic waveform. US/US arterial duplex BI w/ CLEO IMPRESSION: Patent stent, left superficial femoral artery. Disease both posterior tibialis arteries and left dorsalis pedis artery. Occluded right dorsalis base artery. Electronically signed by: Holden Casarez MD 12/12/2024 02:46 PM EST
--- OUTSIDE RECORDS SUMMARY | 2024-12-12 10:49 | XMS_ITS | Clinical Summary ---
Author Organization [address] Address [address] [place] [phone] Phone Care Team Providers Care [facility] Name Role Phone Benton Chandler Primary Care Provider [phone] Allergies No known active allergies Medications betamethasone dipropionate (DIPROSONE) 0.05 % ointment Use to affected area twice daily 1 Active cholecalciferol (Dialyvite Vitamin D3 Max) 1,250 mcg (50,000 unit) tablet Take 1 tablet (50,000 Units total) by mouth every 7 (seven) days. 4 Active blood-glucose meter,continuous (FreeStyle Muna 3 [place]) misc 1 Device by Does not apply route continuous. 4 Active blood-glucose sensor (FreeStyle Muna 3 Sensor) device 1 Applicator by Does not apply route every 14 days. 4 Active multivit-min/fol ic/vit K/lycop (MEN'S MULTIVITAMIN ORAL) Take by mouth daily. Active chlorhexidine (PERIDEX) 0.12 % solution Take 15 mL by mouth 2 times daily. 120 mL 11 4 Active cyclobenzaprine (FLEXERIL) 10 mg tablet Take 1 tablet (10 mg total) by mouth at bedtime as needed for muscle spasms. 30 tablet 2 4 025 Active omeprazole (PriLOSEC) [address] capsule Take 1 capsule (20 mg total) by mouth 2 (two) times a day. 180 capsule 3 4 Active clopidogreL (PLAVIX) 75 mg tablet Take 1 tablet (75 mg total) by mouth 1 (one) time each day. 90 tablet 3 4 Active furosemide (LASIX) 20 mg tablet Take 1 tablet (20 mg total) by mouth 1 (one) time each day. 90 tablet 3 4 Active gabapentin (NEURONTIN) 300 mg capsule TAKE 1 CAPSULE IN THE MORNING, 1 CAPSULE IN THE AFTERNOON, AND 2 CAPSULES IN THE EVENING DAILY 540 capsule 3 4 Active lisinopriL (PRINIVIL,ZESTRI L) 20 mg tablet Take 1 tablet (20 mg total) by mouth 1 (one) time each day. 90 tablet 3 4 Active meloxicam (MOBIC) 15 mg tablet Take 1 tablet (15 mg total) by mouth 1 (one) time each day. 90 tablet 3 4 Active tamsulosin (FLOMAX) 0.4 mg 24 hr capsule Take 1 capsule (0.4 mg total) by mouth 1 (one) time each day. Capsules should be taken 30 minutes following the same meal each day. 90 capsule 3 4 Active testosterone 50 mg/5 gram (1 %) gel Place 2 Tubes (100 mg of testosterone total) on the skin 1 (one) time each day. Max Daily Amount: 100 mg of testosterone 300 g 3 4 Active sildenafiL (VIAGRA) 50 mg tablet Take 1 tablet (50 mg total) by mouth 1 (one) time each day if needed for erectile dysfunction. 10 tablet 11 4 Active insulin aspart, niacinamide, (Fiasp FlexTouch U-100 Insulin) 100 unit/mL (3 mL) injection penIndications:T ype 2 diabetes mellitus with diabetic neuropathy, with long-term current use of insulin (CMS/FORMER[facility]) Inject 35 Units into the skin 3 times daily (before meals). 3 times a day before meals up to 100 units a day. (dispense three months supply please) 90 mL 2 4 Active insulin glargine,hum.rec .anlog (Basaglar KwikPen U-100 Insulin) 100 unit/mL (3 mL) injection penIndications:T ype 2 diabetes mellitus with diabetic neuropathy, with long-term current use of insulin (CMS/HCC) Inject 70 Units into the skin at bedtime. Dispense three months supply please 60 mL 1 4 Active glucose blood test stripIndications :Type 2 diabetes mellitus with diabetic neuropathy, with long-term current use of insulin ([facility]) Use as instructed 100 each 12 4 025 Active glucose blood test stripIndications :Type 2 diabetes mellitus with diabetic neuropathy, with long-term current use of insulin ([facility]) Check sugars 3 times a day Contour next 200 each 2 4 026 Active pen needle, diabetic (BD Ultra-Fine Short Pen Needle) 31 gauge x 5/16 needleIndication s:Type 2 diabetes mellitus with diabetic neuropathy, with long-term current use of insulin ([facility]) Inject 1 Device into the skin 4 times daily. 300 each 2 4 Active traMADoL (ULTRAM) 50 mg tablet Take 1 tablet (50 mg total) by mouth every 6 (six) hours if needed for severe pain or moderate pain. Max Daily Amount: 200 mg 28 tablet 4 Active Active Problems Problem Noted Date Diagnosed Date Anemia 07/30/2024 Angiodysplasia of colon 07/30/2024 Hemorrhoids 07/30/2024 Vitamin D deficiency 04/17/2024 1st degree AV block 04/15/2024 PVC (premature ventricular contraction) 04/15/20 24 Sinus arrhythmia 04/15/2024 Sinus bradycardia 04/15/2024 Hypogonadism in male 07/06/2023 Dyspnea on exertion 08/24/2022 Overview (07/30/2024): - Cause is likely multifactorial but predominantly related to severe iron deficiency anemia as symptoms have improved with treatment of this condition - Echocardiogram from 10/05/2022 showed mild, concentric left ventricular hypertrophy with normal LV cavity size and low normal systolic function, normal regional wall motion with an ejection fraction of 50 to 55%, grade 2 diastolic dysfunction consistent with increased left atrial pressure, technically normal pulmonary artery systolic pressure but at the border of borderline pulmonary hypertension at 34.9 mmHg, no hemodynamically significant valve disease, mildly dilated ascending aorta at 4.1 cm -Had a pharmacologic nuclear stress test in 2018 that showed normal perfusion Last Assessment & Plan: The predominance of this is related most likely to iron deficiency anemia as his symptoms have greatly improved with treatment of this condition; however I reviewed that he does have evidence of increased left atrial pressure on echo; however on exam today, he is completely euvolemic without any signs of central congestion making me think that his orthopnea like symptoms are mostly related to nasal congestion and postnasal drip; I would however like to rule out the possibility of significant coronary disease as a cause of symptoms given his risk factors of vascular disease and diabetes among other things-we are setting up an exercise nuclear stress test which should be converted to pharmacologic if patient is unable to achieve either decent workload (greater than 6 MET) or unable to achieve target heart rate-if negative, would proceed with graduated exercise program as he had planned on doing Secondary esophageal varices without bleeding BPH (benign prostatic hyperplasia) 06/04/2021 Chronic anemia 06/04/2021 Diabetic ulcer of left foot associated with type 2 diabetes mellitus 06/04/2021 Overview (07/30/2024): Hospitalized [facility] 04/27/21-05/01/21, follow with wound care GERD (gastroesophageal reflux disease) DM (diabetes mellitus), type 2 with peripheral vascular complications 05/26/2021 PVD (peripheral vascular disease) 05/26/2021 Overview (07/30/2024): Plasty left SFA 05/05 Iron deficiency anemia secondary to blood loss ( chronic) 01/28/2020 Nocturia 08/12/2019 Cirrhosis of liver not due to alcohol 01/10/2016 Overview (07/30/2024): Dr. Foster recommend every 6 month ultrasound to screen for hepatoma. Mixed hyperlipidemia 09/02/2013 Overview (07/30/2024): Last Assessment & Plan: Given patient's history of vascular disease, diabetes, he definitely warrants a statin in spite of his numbers but frankly his numbers most recently did not look great; starting him on rosuvastatin 20 mg at bedtime, reviewed side effects with the patient who verbalized understanding; would repeat LFTs and lipid panel in 3 to 4 months on statin therapy; continue baby aspirin therapy for vascular disease Benign neoplasm of colon 12/17/2012 Overview (07/30/2024): Small tubular adenoma at colonoscopy 2007. Next colonoscopy in 5 years. Diabetes with neurologic complications 2 Overview (07/30/2024): Right peroneal neuropathy. Microalbuminuria 08/20/2012 Type 2 diabetes mellitus with eye manifestations 08/20/2012 Overview (07/30/2024): Bilateral nuclear sclerosis. Diabetes mellitus with renal manifestation 05/07 Overview (07/30/2024): Last Assessment & Plan: No response to multiple outreach attempts to offer the diabetes partnership program; will offer program if patient responds. Hepatitis C, chronic 12/16/2008 Overview (07/30/2024): With increase in liver test. Consider treatment. Treated with Harvoni, q. 6 month ultrasound with yearly alpha-fetoprotein recommended by Dr. Foster infectious disease. Osteoarthritis 07/26/2007 Overview (07/30/2024): ADVANCED (L) HIP, EARLY (R) HIP- NEOS-KRUSHELL, Left THR 12/22. Essential hypertension, benign 12/29/2005 Overview (07/30/2024): Last Assessment & Plan: Well-controlled on current regimen, continue Encounters Date Type Department Care Team Description 12/05/[address] [phone] Teresa Ramirez RN Diabetes (CGM) 09/30/2024 2:45 PM EST Office Visit Endocrinology [address] [phone] Sawyer Barrera MD Type 2 diabetes mellitus with diabetic neuropathy, with long-term current use of insulin (CMS/HCC) (Primary Dx) 09/11/2024 1:00 PM EST Office Visit Orthopedic Surgery [address] [phone] Hood Carter DPM DM (diabetes mellitus), type 2 with peripheral vascular complications (CMS/HCC) (Primary Dx); Callus; Hammertoes of both feet; Lumbosacral radiculopathy 09/11/2024 10:45 AM EST Office Visit Adult Medicine [address] [phone] Benton Chandler, [place] Spinal stenosis of lumbar region with neurogenic claudication (Primary Dx); Actinic keratosis; Benign prostatic hyperplasia, unspecified whether lower urinary tract symptoms present; Chronic anemia; Cirrhosis of liver not due to alcohol (CMS/HCC); Type 2 diabetes mellitus with other diabetic kidney complication, without long-term current use of insulin (CMS/HCC); Type 2 diabetes mellitus with diabetic neuropathy, without long-term current use of insulin (CMS/HCC); Essential hypertension, benign; Hypogonadism in male; Iron deficiency anemia secondary to blood loss (chronic); Type 2 diabetes mellitus with other ophthalmic complication, with long-term current use of insulin (CMS/HCC); PVD (peripheral vascular disease) (CMS/HCC); Diabetic ulcer of left foot associated with type 2 diabetes mellitus, unspecified part of foot, unspecified ulcer stage (CMS/HCC); Mixed hyperlipidemia from Last 3 Months Immunizations Name Administration Dates Next Due H1N1 Inj Preservative Free 09/22/2009 Hepatitis B (Dgarwiu-B-Gaafv , Recombivax HB-Adult) 19yo and older 12/12/2008,06/11/2008,05/12/2008 Influenza Quadravalent, MDCK , 0.5ml, with preservative (Flucelvax) 6mo and older 07/26/2017 Influenza trivalent, 0.5mL ( Fluad) 65yo and older 07/24/2023,06/29/2022 Influenza trivalent, 0.5mL, preservative free (Fluarix; FluLaval; Fluzone) ages 6mo and older (Afluria) 3 years and older 07/30/2019,07/05/2016,10/27/2015,07/23,09/02/2013,08/16/2012,08/18/2011 ,09/07/2010,09/22/2009,09/01/2008 Influenza, Unspecified 08/01/2020,10/15/2018 Moderna Covid-19 Bivalent, O riginal + Ba.1 (Non-US Tradename Spikevax Bivalent) 08/25/2022 Moderna SARS-CoV-2 COVID-19, mRNA, LNP-S, preservative free 09/04/2021 Pneumococcal conjugate 13 va lent (Prevnar 13, PCV13) 2mo and older 01/02/2019 Pneumococcal polysaccharide 23 valent (Pneumovax 23) 2yo and older 11/17/2020,11/18/2013 Td Tetanus diptheria (Tdvax) 7yo and older 04/13/2009 Surgical History Surgery Date Site/Laterality Comments HIP ARTHROPLASTY 2008, 2014 PROCEDURE: HISTORICAL HIP REPLACEMENT; COMMENT: left, right SHOULDER SURGERY 2008 PROCEDURE: HISTORICAL SHOULDER SURGERY; COMMENT: left COLONOSCOPY 04/07/2014 PROCEDURE: HISTORICAL COLONOSCOPY; COMMENT: tics; repeat in 5 yrs COLONOSCOPY 01/01/2008 PROCEDURE: HISTORICAL COLONOSCOPY; COMMENT: Up to terminal ileum, ileum-bx:Normal, colon-bx:Normal, sigmoid polyp removed:Tubular adenoma. Repeat EGD 12/2012 UPPER GASTROINTESTINAL ENDOSCOPY 01/01/2008 PROCEDURE: [place] UPPER GI ENDOSCOPY PERFORMED; COMMENT: Esophageal ulcers-bx:erosive esophagitis, hiatus hernia, SB-normal. Repeat EGD 06/2008 OTHER SURGICAL HISTORY 05/10/2021 Left PROCEDURE: [place] UNLISTED PROCEDURE VASCULAR SURGERY; COMMENT: dr. deng - plasty left anterior tibial and posterior tibial arteries, left sfa, left common femoral OTHER SURGICAL HISTORY 03/25/2022 PROCEDURE: UPPER GI ENDOSCOPY, REMOVE LESION; COMMENT: muslu -small hiatal hernia, esophageal varices without bleeding COLONOSCOPY 03/25/2022 PROCEDURE: HISTORICAL COLONOSCOPY; COMMENT: muslu -1 small polyp, angiodysplastic lesion which was nonbleeding repeat 3 to 5 years OTHER SURGICAL HISTORY 07/31/2024 PROCEDURE: [place] EMBLC/THRMBC [id number]-[employer]; COMMENT: left SF atherectomy, stent - dr. deng Medical History Medical History Date Comments Diabetes mellitus (CMS/HCC) DX:D iabetes mellitus (HCC) Type II or unspecified type diabetes mellitus without mention of complication, not stated as uncontrolled DX:Type II or unspecified ty pe diabetes mellitus without mention of complication, not stated as uncontrolled Essential hypertension, benign D X:Essential hypertension, benign Osteoarthritis 07/26/2007 DX:Osteoarthriti s; COMMENT: hands, feet Benign neoplasm of colon 12/17/2012 DX:Km gn neoplasm of colon DM (diabetes mellitus), type 2 with peripheral vascular complications (CMS/HCC) 05/26/2021 DX:DM (diabetes mellitus), t ype 2 with peripheral vascular complications (HCC) PVD (peripheral vascular dis ease) (CMS/HCC) 05/26/2021 DX:PVD (peripheral vascular disease) (HCC); COMMENT: Plasty left SFA 05/05 BPH (benign prostatic hyperplasia) 06/04/2021 DX:BPH (benign prostatic hyperplasia) Chronic anemia 06/04/2021 DX:Chronic anemi a GERD (gastroesophageal reflux disease) DX:GERD (gastroesophageal reflux disease) Cirrhosis of liver not due t o alcohol (CMS/HCC) 01/10/2016 DX:Cirrhosis of liver not du e to alcohol (HCC); COMMENT: Dr. Foster recommend every 6 month ultrasound to screen for hepatoma. Diabetic ulcer of left foot associated with type 2 diabetes mellitus (CMS/HCC) 06/04/2021 DX:Diabetic ulcer of left fo ot associated with type 2 diabetes mellitus (HCC); COMMENT: Hospitalized [facility] 04/27/21-05/01/21, follow with wound care DM (diabetes mellitus) type II uncontrolled with eye manifestation 08/20/2012 DX:DM (diabetes me llitus) type II uncontrolled with eye manifestation; COMMENT: Bilateral nuclear sclerosis. DM (diabetes mellitus), type 2, uncontrolled, with renal complications 05/07/2012 DX:DM (diabetes mellitus), type 2, uncontrolled, with renal complications History of hepatitis C 01/28/2020 DX:Histor y of hepatitis C History of diverticulosis 08/05/2014 DX:His tory of diverticulosis Hepatitis C, chronic (CMS/HCC) 12/16/2008 D X:Hepatitis C, chronic (HCC); COMMENT: With increase in liver test. Consider treatment. Treated with Harvoni, q. 6 month ultrasound with yearly alpha-fetoprotein recommended by Dr. Foster infectious disease. Hyperlipidemia 09/02/2013 DX:Hyperlipidemi a Iron deficiency anemia secon susan to blood loss (chronic) 01/28/2020 DX:Iron deficiency anemia se condary to blood loss (chronic) Microalbuminuria 08/20/2012 DX:Microalbumin uria Nocturia 08/12/2019 DX:Nocturia Anemia DX:Anemia Angiodysplasia of colon DX:Angio dysplasia of colon Hemorrhoids DX:Hemorrhoids Anemia DX:Anemia Cirrhosis of liver (CMS/HCC) DX: Cirrhosis of liver (HCC) Family History Medical History Relation Name Comments Diabetes Father [place] Other: etoh Father Other cancer Mother no details Colon cancer Neg Hx Stomach cancer Neg Hx Relation Name Status Comments Father (Age 55) Maternal Grandfather Maternal Grandmother Mother (Age 75) Paternal Grandfather Paternal Grandmother Social History Tobacco Use Types Packs/Day Years Used Date Smoking Tobacco: Former Cigarettes Q uit: 10/16/1998 Smokeless Tobacco: Former Tobacco Cessation:Counseling Given: Not Answered Alcohol Use Standard Drinks/Week Comments No 0 (1 standard drink = 0.6 oz pur e alcohol) Sex and Gender Information Value Date Recorded Sex Assigned at Not on file Legal Sex Male 11:38 PM EST Gender Identity Not on file Sexual Orientation Not on file Obstetrics History Last Filed Vital Signs Vital Sign Reading Time Taken Comments Blood Pressure 128/74 09/30/2024 3:33 PM EST Pulse 65 09/30/2024 3:33 PM EST Temperature 36.3 ??C (97.3 ??F) 09/30/2024 3:33 PM ES T Respiratory Rate 16 09/11/2024 11:03 AM EST Oxygen Saturation 95% 09/30/2024 3:33 PM EST Inhaled Oxygen Concentration - - Weight 103 kg (227 lb) 09/30/2024 3:33 PM EST Height 182.9 cm (6') 09/30/2024 3:33 PM EST Body Mass Index 30.79 09/30/2024 3:33 PM EST Plan of Treatment Upcoming Encounters Date Type Department Care Team (Late st Contact Info) Description 12/23/2024 11:00 AM EDT Office Visit Adult Medicine [facility] [address] [place] [phone] Benton Chandler PA [address] [place] [address] 12/24/2024 10:45 AM EDT Office Visit Orthopedic Surgery - [place] [address] [phone] Hood Carter, DPEdward [address] [address] 01/16/2025 11:15 AM EDT Office Visit Endocrinology [facility] [address] [place] [phone] Sawyer Barrera MD [address] [place] [phone] Health Maintenance Due Date Last Done Comments Hepatitis A Vaccines (1 of 2 - Risk 2-dose series) 1969 Zoster Vaccines (1 of 2) 1969 DTaP,Tdap,and Td Vaccines (2 - Td or Tdap) 04/13/2019 04/13/2009 Social Influencers of Health Screening 09/24/2022 Medicare Annual Wellness Visit 06/29/2023 06/29/2022 COVID-19 Vaccine ( season) 2024 08/25/2022, 09/04/2021, 02/01/2021, Additional history exists Diabetes: Annual Foot Exam 07/24/2024 07/24/2023 Diabetes: Blood Sugar Control Test (HGBA1C) 03/26/2025 09/25/2024, 04/15/2024, 04/15/2024, Additional history exists Depression Screening 04/15/2025 04/15/2024 Falls Risk Assessment 04/15/2025 04/15/2024 Diabetes: Annual Retina Eye Exam 08/29/2025 08/29/2024 Diabetes: Annual Urine Albumin-Creatinine Ratio (uACR) 09/25/2025 09/25/2024, 10/05/2023 Diabetes: Annual GFR (Glomerular Filtration Rate) 09/25/2025 09/25/2024, 04/10/2024, 04/10/2024, Additional history exists Hypertension/CHF/CAD Annual BMP Blood Test 09/25/2025 09/25/2024, 04/10/2024, 04/10/2024, Additional history exists Colorectal Cancer Screening: Colonoscopy 03/25/2027 03/25/2022 Cholesterol Screening (Lipid Panel) 09/25/2029 09/25/2024, 10/05/2023 Hepatitis B Vaccines Completed 06/25/2015, 12/25/2014, 11/27/2014, Additional history exists Hepatitis C Screening Completed 05/25/2020 Pneumococcal Vaccine: 50+ Years Completed 11/17/2020, 01/02/2019, 11/18/2013 RSV Immunization Patients 60+ Years Old Completed 10/10/2023 Influenza Vaccine Completed 07/29/2024, , 06/29/2022, Additional history exists Abdominal Aortic Aneurysm (AAA) Screen Discontinued HIB Vaccines Aged Out No longer eligi ble based on patient's age to complete this topic HPV Vaccines Aged Out No longer eligi ble based on patient's age to complete this topic IPV Vaccines Aged Out No longer eligi ble based on patient's age to complete this topic MMR Vaccines Aged Out No longer eligi ble based on patient's age to complete this topic Meningococcal ACWY Vaccine Aged Out N o longer eligible based on patient's age to complete this topic Meningococcal B Vacine Aged Out No lo nger eligible based on patient's age to complete this topic RSV Immunization Patients Under 20 months Aged Out No longer eligible based on patient's age to complete this topic Varicella Vaccines Aged Out No longer eligible based on patient's age to complete this topic Procedures Procedure Name Priority Date/Time Associated Diagnosis Comments MICROALBUMIN CREATININE URINE RATIO Routine 09/25/2024 11:23 AM EST Spinal stenosis of lumbar region with neurogenic claudication Actinic keratosis Benign prostatic hyperplasia, unspecified whether lower urinary tract symptoms present Chronic anemia 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, without long-term current use of insulin (CMS/HCC) Type 2 diabetes mellitus with diabetic neuropathy, without long-term current use of insulin (CMS/HCC) Essential hypertension, benign Hypogonadism in male Iron deficiency anemia secondary to blood loss (chronic) CBC WITH AUTO DIFFERENTIAL Routine 09/25/2024 11:22 AM EST Spinal stenosis of lumbar region with neurogenic claudication Actinic keratosis Benign prostatic hyperplasia, unspecified whether lower urinary tract symptoms present Chronic anemia 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, without long-term current use of insulin (CMS/HCC) Type 2 diabetes mellitus with diabetic neuropathy, without long-term current use of insulin (CMS/HCC) Essential hypertension, benign Hypogonadism in male Iron deficiency anemia secondary to blood loss (chronic) LIPID PANEL WITH REFLEX TO DIRECT LDL Routine 09/25/2024 11:22 AM EST Spinal stenosis of lumbar region with neurogenic claudication Actinic keratosis Benign prostatic hyperplasia, unspecified whether lower urinary tract symptoms present Chronic anemia 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, without long-term current use of insulin (CMS/HCC) Type 2 diabetes mellitus with diabetic neuropathy, without long-term current use of insulin (CMS/HCC) Essential hypertension, benign Hypogonadism in male Iron deficiency anemia secondary to blood loss (chronic) COMPREHENSIVE METABOLIC PANEL Routine 09/25/2024 11:22 AM EST Spinal stenosis of lumbar region with neurogenic claudication Actinic keratosis Benign prostatic hyperplasia, unspecified whether lower urinary tract symptoms present Chronic anemia 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, without long-term current use of insulin (CMS/HCC) Type 2 diabetes mellitus with diabetic neuropathy, without long-term current use of insulin (CMS/HCC) Essential hypertension, benign Hypogonadism in male Iron deficiency anemia secondary to blood loss (chronic) HEMOGLOBIN A1C Routine 09/25/2024 11:22 AM EST Spinal stenosis of lumbar region with neurogenic claudication Actinic keratosis Benign prostatic hyperplasia, unspecified whether lower urinary tract symptoms present Chronic anemia 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, without long-term current use of insulin (CMS/HCC) Type 2 diabetes mellitus with diabetic neuropathy, without long-term current use of insulin (CMS/HCC) Essential hypertension, benign Hypogonadism in male Iron deficiency anemia secondary to blood loss (chronic) PROSTATE SPECIFIC ANTIGEN DIAGNOSTIC Routine 09/25/2024 11:22 AM EST Spinal stenosis of lumbar region with neurogenic claudication Actinic keratosis Benign prostatic hyperplasia, unspecified whether lower urinary tract symptoms present Chronic anemia 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, without long-term current use of insulin (CMS/HCC) Type 2 diabetes mellitus with diabetic neuropathy, without long-term current use of insulin (CMS/HCC) Essential hypertension, benign Hypogonadism in male Iron deficiency anemia secondary to blood loss (chronic) IRON AND TIBC Routine 09/25/2024 11:22 AM EST Spinal stenosis of lumbar region with neurogenic claudication Actinic keratosis Benign prostatic hyperplasia, unspecified whether lower urinary tract symptoms present Chronic anemia 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, without long-term current use of insulin (CMS/HCC) Type 2 diabetes mellitus with diabetic neuropathy, without long-term current use of insulin (CMS/HCC) Essential hypertension, benign Hypogonadism in male Iron deficiency anemia secondary to blood loss (chronic) VITAMIN D 25 HYDROXY Routine 09/25/2024 11:22 AM EST Spinal stenosis of lumbar region with neurogenic claudication Actinic keratosis Benign prostatic hyperplasia, unspecified whether lower urinary tract symptoms present Chronic anemia 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, without long-term current use of insulin (CMS/HCC) Type 2 diabetes mellitus with diabetic neuropathy, without long-term current use of insulin (CMS/HCC) Essential hypertension, benign Hypogonadism in male Iron deficiency anemia secondary to blood loss (chronic) TESTOSTERONE, TOTAL Routine 09/25/2024 1 1:22 AM EST Spinal stenosis of lumbar region with neurogenic claudication Actinic keratosis Benign prostatic hyperplasia, unspecified whether lower urinary tract symptoms present Chronic anemia 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, without long-term current use of insulin (CMS/HCC) Type 2 diabetes mellitus with diabetic neuropathy, without long-term current use of insulin (CMS/HCC) Essential hypertension, benign Hypogonadism in male Iron deficiency anemia secondary to blood loss (chronic) CBC AND DIFFERENTIAL Routine 09/25/2024 11:22 AM EST Spinal stenosis of lumbar region with neurogenic claudication Actinic keratosis Benign prostatic hyperplasia, unspecified whether lower urinary tract symptoms present Chronic anemia 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, without long-term current use of insulin (CMS/HCC) Type 2 diabetes mellitus with diabetic neuropathy, without long-term current use of insulin (CMS/HCC) Essential hypertension, benign Hypogonadism in male Iron deficiency anemia secondary to blood loss (chronic) DEPRESSION SCREENING Routine 04/15/2024 FALLS RISK ASSESSMENT Routine 04/15/2024 DIABETES FOOT EXAM Routine 07/24/2023 COLONOSCOPY Routine 03/25/2022 HEPATITIS C SCREENING Routine 05/25/2020 from Last 3 Months or Most Recently Relevant to Health Maintenance Results * (ABNORMAL) Microalbumin creatinine urine ratio (09/25/2024 11:23 AM EST) Creatinine, Urine 63.0 mg/dL LAB CHEMISTRY METHOD 09/25/2024 3:08 PM EST [facility] Microalb, Ur 235.0(H) 0.0 - 29.0 mg/L LAB CHEMISTRY METHOD 09/25/2024 3:08 PM EST [facility] Microalb/Crea t Ratio 373(H) <30 mg/g creat LAB CHEMISTRY METHOD 09/25/2024 3:08 PM EST [facility] Urine Urine specimen obtained by clean catch procedure / Unknown Non-blood Collection / Unknown 09/25/2024 11:23 AM EST 09/25/2024 11:23 AM EST [facility] URINE ORDERABLES Anne Marie ashton Result [facility] [address] [place] [address], [place] [phone] * (ABNORMAL) Lipid panel with reflex to direct LDL (09/25/2024 11:22 AM EST) Cholesterol 255(H) 0 - 200 mg/dL LAB CHEMISTRY METHOD 09/25/2024 2:55 PM EST [facility] Triglycerides 262(H) 0 - 150 mg/dL LAB CHEMISTRY METHOD 09/25/2024 2:55 PM EST [facility] HDL 47 >=40 mg/dL LAB CHEMISTRY METHOD 09/25/2024 2:55 PM EST [facility] LDL Calculated 156(H) 0 - 100 mg/dL LAB CHEMISTRY METHOD 09/25/2024 2:55 PM EST [facility] VLDL Cholesterol Christian 52.4 mg/dL LAB CHEMISTRY METHOD 09/25/2024 2:55 PM EST [facility] Non HDL Chol. (LDL+VLDL) 208(H) <145 mg/dL LAB CHEMISTRY METHOD 09/25/2024 2:55 PM EST [facility] Chol/HDL Ratio 5.4(H) 0.0 - 4.4 LAB CHEMISTRY METHOD 09/25/2024 2:55 PM EST [facility] Blood Venous blood specimen / Unknown Venipuncture / Unknown 09/25/2024 11:22 AM EST 09/25/2024 11:22 AM EST [facility] BLOOD ORDERABLES Anne Marie l Result [facility] [address] [place] [address], [place] [phone] * Prostate specific antigen diagnostic (09/25/2024 11:22 AM EST) [facility] PSA 0.48 0.00 - 4.00 ng/mL LAB CHEMISTRY METHOD 09/25/2024 6:40 PM EST [facility] Blood Venous blood specimen / Unknown Venipuncture / Unknown 09/25/2024 11:22 AM EST 09/25/2024 11:22 AM EST Narrative [facility] - 09/25/2024 6:40 PM EST The Siemens Advia Centaur Chemiluminescent Immunoassay is used. Results obtained with different assay methods or kits cannot be used interchangeably. Results cannot be interpreted as absolute evidence of the presence or absence of malignant disease. [facility] ROMERO [facility] BLOOD ORDERABLES Anne Marie ashton Result [facility] [address] [place] [address], * (ABNORMAL) CBC auto differential (09/25/2024 11:22 AM EST) WBC 5.2 4.8 - 10.8 K/mcL LAB HEMETOLOGY METHOD 09/25/2024 2:13 PM [facility] RBC 4.40(L) 4.50 - 5.50 M/mcL LAB HEMETOLOGY METHOD 09/25/2024 2:13 PM [facility] Hemoglobin 13.0(L) 13.5 - 17.5 g/dL LAB HEMETOLOGY METHOD 09/25/2024 2:13 PM [facility] Hematocrit 40.5(L) 42.0 - 54.0 % LAB HEMETOLOGY METHOD 09/25/2024 2:13 PM [facility] MCV 92.9 79.0 - 98.0 FL LAB HEMETOLOGY METHOD 09/25/2024 2:13 PM [facility] MCH 29.8 27.0 - 32.0 pcg LAB HEMETOLOGY METHOD 09/25/2024 2:13 PM [facility] MCHC 32.1 32.0 - 37.0 g/dL LAB HEMETOLOGY METHOD 09/25/2024 2:13 PM [facility] RDW 14.5 11.0 - 15.0 % LAB HEMETOLOGY METHOD 09/25/2024 2:13 PM [facility] Platelets 200 130 - 400 K/mcL LAB HEMETOLOGY METHOD 09/25/2024 2:13 PM [facility] MPV 10.9 7.0 - 11.0 FL LAB HEMETOLOGY METHOD 09/25/2024 2:13 PM [facility] NRBC 0.0 <1.0 % LAB HEMETOLOGY METHOD 09/25/2024 2:13 PM [facility] NRBC Absolute 0.00 <0.10 K/mcL LAB HEMETOLOGY METHOD 09/25/2024 2:13 PM [facility] Neutrophils Relative 57.9 % LAB HEMETOLOGY METHOD 09/25/2024 2:13 PM [facility] Lymphocytes Relative 25.9 % LAB HEMETOLOGY METHOD 09/25/2024 2:13 PM [facility] Monocytes Relative 11.0 % LAB HEMETOLOGY METHOD 09/25/2024 2:13 PM [facility] Eosinophils Relative 2.9 % LAB HEMETOLOGY METHOD 09/25/2024 2:13 PM [facility] Basophils Relative 1.9 % LAB HEMETOLOGY METHOD 09/25/2024 2:13 PM [facility] Immature Granulocytes Relative 0.4 % LAB HEMETOLOGY METHOD 09/25/2024 2:13 PM [facility] Neutrophils Absolute 2.99 1.50 - 7.00 K/mcL LAB HEMETOLOGY METHOD 09/25/2024 2:13 PM [facility] Lymphocytes Absolute 1.34 1.00 - 5.00 K/mcL LAB HEMETOLOGY METHOD 09/25/2024 2:13 PM [facility] Monocytes Absolute 0.57 0.20 - 1.00 K/mcL LAB HEMETOLOGY METHOD 09/25/2024 2:13 PM EST [facility] Eosinophils Absolute 0.15 0.00 - 0.50 K/mcL LAB HEMETOLOGY METHOD 09/25/2024 2:13 PM EST [facility] Basophils Absolute 0.10 0.00 - 0.20 K/mcL LAB HEMETOLOGY METHOD 09/25/2024 2:13 PM EST [facility] Immature Granulocytes Absolute 0.02 0.00 - 0.03 K/mcL LAB HEMETOLOGY METHOD 09/25/2024 2:13 PM [facility] Blood Venous blood specimen / Unknown Venipuncture / Unknown 09/25/2024 11:22 AM EST 09/25/2024 11:22 AM EST [facility] BLOOD ORDERABLES Anne Marie l Result Performing Organization Address City/[facility] Co de Phone Number [facility] [address] [place] [address], * (ABNORMAL) Iron and TIBC (09/25/2024 11:22 AM EST) Iron 68 50 - 160 mcg/dL LAB CHEMISTRY METHOD 09/25/2024 2:55 PM EST [facility] TIBC 433 250 - 450 mcg/dL LAB CHEMISTRY METHOD 09/25/2024 2:55 PM EST [facility] Iron Saturation 16(L) 20 - 50 % LAB CHEMISTRY METHOD 09/25/2024 2:55 PM EST [facility] Blood Venous blood specimen / Unknown Venipuncture / Unknown 09/25/2024 11:22 AM EST 09/25/2024 11:22 AM EST [facility] BLOOD ORDERABLES Anne Marie l Result Performing Organization Address City/[facility]/ZIP Co de Phone Number [facility] [address] [place] [address], [place] [phone] * (ABNORMAL) Vitamin D 25 hydroxy (09/25/2024 11:22 AM EST) [facility] Vit D, 25-Hydroxy 29.2(L) 30.0 - 80.0 ng/mL LAB CHEMISTRY METHOD 09/25/2024 6:40 PM EST [facility] Blood Venous blood specimen / Unknown Venipuncture / Unknown 09/25/2024 11:22 AM EST 09/25/2024 11:22 AM EST [facility] BLOOD ORDERABLES Anne Marie l Result Performing Organization Address [facility]/ZIP Co de Phone Number [facility] [address] [place] [address], [place] [phone] * Testosterone, total (09/25/2024 11:22 AM EST) [facility] Testosterone 305 229 - 902 ng/dL LAB CHEMISTRY METHOD 09/25/2024 7:23 PM EST [facility] Blood Venous blood specimen / Unknown Venipuncture / Unknown 09/25/2024 11:22 AM EST 09/25/2024 11:22 AM EST [facility] BLOOD ORDERABLES Anne Marie l Result [facility] [address] [place] [address], [place] [phone] * (ABNORMAL) Hemoglobin A1c (09/25/2024 11:22 AM EST) [facility] Hemoglobin A1C 6.5(H) <6.5 % LAB CHEMISTRY METHOD 09/25/2024 2:49 PM EST [facility] Mean Bld Glu Estim. 140 mg/dL LAB CHEMISTRY METHOD 09/25/2024 2:49 PM [facility] Blood Venous blood specimen / Unknown Venipuncture / Unknown 09/25/2024 11:22 AM EST 09/25/2024 11:22 AM EST us [facility] BLOOD ORDERABLES Anne Marie l Result [facility] [address] [place] [address], * (ABNORMAL) Comprehensive metabolic panel (09/25/2024 11:22 AM EST) Sodium 137 133 - 145 mmol/L LAB CHEMISTRY METHOD 09/25/2024 2:55 PM [facility] Potassium 4.3 3.5 - 5.5 mmol/L LAB CHEMISTRY METHOD 09/25/2024 2:55 PM [facility] Chloride 105 96 - 110 mmol/L LAB CHEMISTRY METHOD 09/25/2024 2:55 PM [facility] CO2 25 21 - 32 mmol/L LAB CHEMISTRY METHOD 09/25/2024 2:55 PM [facility] Anion Gap 7 3 - 11 LAB CHEMISTRY METHOD 09/25/2024 2:55 PM [facility] Glucose 172(H) 70 - 100 mg/dL LAB CHEMISTRY METHOD 09/25/2024 2:55 PM [facility] BUN 13 5 - 25 mg/dL LAB CHEMISTRY METHOD 09/25/2024 2:55 PM [facility] Creatinine 0.89 0.70 - 1.30 mg/dL LAB CHEMISTRY METHOD 09/25/2024 2:55 PM [facility] eGFR 91 >=60 mL/min/1. 73m2 LAB CHEMISTRY METHOD 09/25/2024 2:55 PM [facility] Comment:Calculation based on the??Chronic Kidney Disease Epidemiology Collaboration (CKD-EPI) equation refit??without adjustment for race. BUN/Creatinine Ratio 14.6 LAB CHEMISTRY METHOD 09/25/2024 2:55 PM [facility] Calcium 9.5 8.5 - 10.5 mg/dL LAB CHEMISTRY METHOD 09/25/2024 2:55 PM [facility] AST (SGOT) 24 10 - 42 unit/L LAB CHEMISTRY METHOD 09/25/2024 2:55 PM [facility] ALT (SGPT) 25 10 - 60 unit/L LAB CHEMISTRY METHOD 09/25/2024 2:55 PM [facility] Alkaline Phosphatase 84 42 - 121 unit/L LAB CHEMISTRY METHOD 09/25/2024 2:55 PM [facility] Total Protein 8.0 6.0 - 8.0 g/dL LAB CHEMISTRY METHOD 09/25/2024 2:55 PM [facility] Albumin 4.3 3.2 - 5.0 g/dL LAB CHEMISTRY METHOD 09/25/2024 2:55 PM [facility] Total Bilirubin 0.5 0.0 - 1.4 mg/dL LAB CHEMISTRY METHOD 09/25/2024 2:55 PM [facility] Blood Venous blood specimen / Unknown Venipuncture / Unknown 09/25/2024 11:22 AM EST 09/25/2024 11:22 AM EST [facility] BLOOD ORDERABLES Anne Marie l Result [facility] [address] [place] [address], * Falls Risk Assessment (04/15/2024) Falls Risk Assessment abstracted Historical Provider MD HEALTH MAINTENANCE Final Result * Depression Screening (04/15/2024) Depression Screening abstracted Historical Provider HEALTH MAINTENANCE Final Result * Diabetes Foot Exam (07/24/2023) Diabetes: Annual Foot Exam abstracted [facility] Provider HEALTH MAINTENANCE Final Result * Colonoscopy (03/25/2022) Colonoscopy no interpreta tion,abstr acted Anatomical Region Laterality Modality Other Historical Provider HEALTH MAINTENANCE Final Result * Hepatitis C Screening (05/25/2020) Hepatitis C Screening abstracted [facility] Provider HEALTH MAINTENANCE Final Result from Last 3 Months or Most Recently Relevant to Health Maintenance Insurance MEDICARE [facility] Care Teams Director [facility] Relationship Specialty Start Date End Date Benton Chandler PA [address] [place] [id number] PCP - General Internal Medicine 04/29/20
--- OUTSIDE RECORDS SUMMARY | 2024-12-12 10:49 | XMS_ITS | Patient Health Record ---
Author Organization [facility] Kayce brunner [place] Address [address] [place] [address] Care Team Providers Care Play Therapist Name Role Phone Benton Borges Primary Care Provider Unav Brittanie Barry Unavailable [phone] Allergies No Known Allergies Reason For Referral No Information Medications Medication SIG (Take, Route, Frequency, Duration) Notes Start Date End Date Status Lantus 100 UNIT/ML as directed Subcutaneous Active HumaLOG 100 UNIT/ML as directed Subcutaneous Active Omeprazole 20 MG 1 capsule 30 minutes before morning meal Orally Once a day for 30 day(s) Active Lisinopril 20 MG 1 tablet Orally Once a day for 30 day(s) Active Meloxicam 15 MG 1 tablet on the tong ue and allow to dissolve Orally Once a day for 30 day(s) Active Gabapentin 300 MG 1 capsule Orally Onc e a day for 30 day(s) Active Night Splint AFO - L1930 as directed 03/31/2021 Active Extra Depth Orthopedic Shoes (1 Pair) with Customized Heat Molded Multidensity Innersoles (3 Pair) as directed Dx: IDDM/Polyneuropathy (E10.42), Hammertoe Foot Deformity (M20.41,M20.42), Preulcerative Skin Lesion(s) (L85.1) 03/31/2021 Active Immunizations Vaccine Route Administration Date Status Comme nts COVID-19 Moderna Vaccine Unknown 02/01/2021 Administere d 1st 01/03/21 Social History Tobacco Use: Social History Observation Description Date Details (start date - stop date) Former Smoker NA - NA Tobacco Use/Smoking Question Answer Notes Are you a: former smoker Additional Findings: Tobacco Non-User Current no n-smoker Alcohol Screen Question Answer Notes Did you have a drink containing alcohol in the p ast year? No Points 0 Interpretation Negative Tobacco use other than smoking: Question Answer Notes Are you an other tobacco user? No Problems Problem Type SNOMED Code ICD Code Onset Dates Problem Status W/U Status Risk Notes Problem Acquired hammer toe of right foot (6139123193045220 ) Other hammer toe(s) (acquired), right foot (M20.41) Active confirmed Problem Acquired hammer toe of left foot (1725848974011068 ) Other hammer toe(s) (acquired), left foot (M20.42) Active confirmed Problem Polyneuropathy due to type 2 diabetes mellitus (248977624) Type 2 diabetes mellitus with diabetic polyneuropathy (E11.42) Active confirmed Problem Polyneuropathy due to diabetes mellitus type I (466155650) Type 1 diabetes mellitus with diabetic polyneuropathy (E10.42) Active confirmed Plan Of Treatment Pending Test Test Name Order Date X ray : Foot, left 3V 03/31/2021 X ray : Foot, right 3V 03/31/2021 [id number] SKIN LESIONS, OVER 4 03/31/20 21 [id number] DYSTROPHIC NAILS ANY # [id number] OF HEMATOMA/FLUID 021 Insurance Providers Payer Name Payer Address Payer Phone Subscriber Number Group Number Insured Name Patient Relationship to Insured Coverage Start Date Coverage End Date Medicare National [employer] [address] [place] [address] [id number] Kyle Odonnell Self - patient is the insured [facility] [address] [place] [address] [phone] [id number] Kyle Odonnell Self - patient is the insured Medical (General) History Medical History History ICD Code Anemia Arthritis Diabetic Numbness Poor circulation Surgical History Surgery Date(Month/Year) hip replacement bilateral
--- OUTSIDE RECORDS SUMMARY | 2024-12-12 10:50 | XMS_ITS | Clinical Summary ---
Author Organization [facility] Address [address] [place] [address] Care Team Providers Care Insurance Billing Specialist Name Role Phone Benton Chandler PA-C Primary Care Provider Allergies No known active allergies Medications Medication Sig Dispensed Refills Start Date End Date Status gabapentin (NEURONTIN) 300 MG capsule TAKE 1 CAPSULE BY MOUTH EVERY MORNING TAKE 1 CAPSULE EVERY AFTERNOON TAKE 2 CAPSULES IN THE EVENING 0 06/29/2022 Active insulin Aspart (NovoLOG PENFILL) 100 UNIT/ML Inject 15-40 units tid with meals per sliding scale 0 06/29/2022 Active insulin glargine (LANTUS) injection 100 units/mL Lantus 100 UNIT/ML Subcutaneous Solution Refills: 0 Active 0 10/23/2014 Active lisinopril (PRINIVIL,ZESTRIL) tablet 10 mg Take 1 tablet (10 mg total) by mouth. 0 05/25/2022 Active meloxicam (MOBIC) 15 MG tablet Take 1 tablet (15 mg total) by mouth. 0 05/25/2022 Active omeprazole (PriLOSEC) 20 MG capsule Take 1 capsule (20 mg total) by mouth. 0 12/17/2015 Active sildenafil (VIAGRA) 50 MG tablet Take 1 tablet (50 mg total) by mouth. 0 06/29/2022 Active tamsulosin (FLOMAX) 0.4 MG CAPS Take 1 capsule (0.4 mg total) by mouth. 0 05/19/2022 Active aspirin 81 MG chewable tablet Chew 1 tablet (81 mg total) by mouth daily. 0 Active Active Problems Problem Noted Date Diagnosed Date Iron deficiency anemia due to chronic blood loss 08/22/2022 Social History Tobacco Use Types Packs/Day Years Used Date Smoking Tobacco: Former Cigarettes Smokeless Tobacco: Former Tobacco Cessation:Counseling Given: Not Answered Alcohol Use Standard Drinks/Week Comments Not Currently 0 (1 standard drink = 0.6 oz pur e alcohol) Sex and Gender Information Value Date Recorded Sex Assigned at Male 08/24/2022 3:39 PM EST Gender Identity Male 08/29/2022 1:30 PM EST Sexual Orientation Straight 08/29/2022 1: 30 PM EST Job Start Date Occupation Industry Not on file Not on file Not on file Last Filed Vital Signs Vital Sign Reading Time Taken Comments Blood Pressure 165/75 01/10/2024 11:43 AM EDT Pulse 51 01/10/2024 11:43 AM EDT Temperature 35.9 ??C (96.7 ??F) 01/10/2024 11:43 AM E DT Respiratory Rate 18 10/30/2023 1:45 PM EST Oxygen Saturation 98% 01/10/2024 11:43 AM EDT Inhaled Oxygen Concentration - - Weight 102.5 kg (226 lb) 01/10/2024 11:43 AM EDT Height - - Body Mass Index - - Plan of Treatment Health Maintenance Due Date Last Done Comments Hepatitis C Screening 1950 COVID-19 Vaccine (#1) 03/18/1951 Depression Screening 1964 Preventative Health Evaluation 1970 DTap / Tdap / Td (1 - Tdap) 1971 Colon Cancer Screening (Colonoscopy) 1997 Shingrix-Zoster Vaccine (1 of 2) 2002 Fall Risk Assessment 2017 Influenza Vaccine (#1) 2024 , 06/29/2022, 07/30/2019, Additional history exists RSV Adult > 60+ Yrs or (1 - 1-dose 75+ series) 2027 Hepatitis B Vaccines Completed 12/12/2008, 06/11/2008, 05/12/2008 Pneumococcal Vaccine Completed 11/17/2020, 01/02/2019, 11/18/2013 RSV Ped < 20 months Aged Out No longe r eligible based on patient's age to complete this topic Care Teams Insurance Billing Specialist Relationship Specialty Start Date End Date Benton Chandler, DOMINGAC PCP - General Medical Services 07/19/22
--- OUTSIDE RECORDS SUMMARY | 2024-12-12 10:50 | XMS_ITS | Clinical Summary ---
Author Organization [facility] Address [address] [place] [address] [address] Freight Firer Name Role Phone Benton Chandler Primary Care Provider [phone] Allergies No known active allergies Medications lisinopriL (PRINIVIL,ZESTR IL) 10 mg tablet Take 10 mg by mouth once a day. 2 Active meloxicam (MOBIC) 15 mg tablet Take 15 mg by mouth once a day. 2 Active omeprazole (PriLOSEC) 20 mg capsule Take 20 mg by mouth 2 times a day. 2 Active BD Ultra-Fine Short Pen Needle 31 gauge x 5/16 needle SMARTSI Device SUB-Q 4 Times Daily 2 Active sildenafiL (VIAGRA) 50 mg tablet Take 50 mg by mouth daily as needed. 2 Active tamsulosin (FLOMAX) 0.4 mg capsule Take 0.4 mg by mouth once a day. 2 Active insulin glargine (LANTUS) injection 100 units/mL vial Lantus 100 UNIT/ML Subcutaneous Solution Refills: 0 Active Active gabapentin (NEURONTIN) 300 mg capsule TAKE 1 CAPSULE BY MOUTH EVERY MORNING TAKE 1 CAPSULE EVERY AFTERNOON TAKE 2 CAPSULES IN THE EVENING 2 Active OneTouch Verio test strips USE TO TEST BLOOD SUGAR 3 TIMES A DAY 2 Active acetaminophen (TYLENOL ORAL) Take by mouth. Active multivitamin (THERAGRAN) tablet Take 1 tablet by mouth once a day. Active NovoLOG Flexpen U-100 Insulin 100 unit/mL (3 mL) injection pen SMARTSI-20 Unit(s) SUB-Q 3 Times Daily 3 Active Active Problems Problem Noted Date Diagnosed Date Acquired hammer toe of left foot 04/22/2024 Acquired hammer toe of right foot 04/22/2024 Angiodysplasia of colon 04/22/2024 Hemorrhoids 04/22/2024 Polyneuropathy due to type 2 diabetes mellitus ( [facility]/HCC) 04/22/2024 Vitamin D deficiency 04/17/2024 1st degree AV block 04/15/2024 PVC (premature ventricular contraction) 04/15/20 Sinus arrhythmia 04/15/2024 Sinus bradycardia 04/15/2024 Hypogonadism in male 07/06/2023 Dyspnea on exertion 08/24/2022 Overview (04/22/2024): - Cause is likely multifactorial but predominantly [...] with type 2 diabetes mellitus 06/04/2021 Overview (04/22/2024): Hospitalized [facility] 04/27/21-05/01/21, follow with wound care GERD (gastroesophageal reflux disease) PVD (peripheral vascular disease) 05/26/2021 Overview (04/22/2024): Plasty left SFA 05/05 Iron deficiency anemia due to chronic blood loss 01/28/2020 Nocturia 08/12/2019 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 Foster recommend every 6 month ultrasound to screen for hepatoma. Right knee pain 07/06/2015 Aftercare following joint replacement 04/07/2015 Pre-operative exam 03/16/2015 Osteoarthritis of hip 02/04/2015 Joint pain, hip 11/14/2014 Mixed hyperlipidemia 09/02/2013 Overview (04/22/2024): Last Assessment & Plan: Given patient's history [...] disease Benign neoplasm of colon 12/17/2012 Overview (04/22/2024): Small tubular adenoma at colonoscopy 2007. Next colonoscopy in 5 years. Diabetes with neurologic complications (CMS/HCC) 08/20/2012 Overview (04/22/2024): Right peroneal neuropathy. Microalbuminuria 08/20/2012 Type 2 diabetes mellitus with eye manifestations 08/20/2012 Overview (04/22/2024): Bilateral nuclear sclerosis. DM (diabetes mellitus), type 2 with peripheral vascular complications 11/18/2009 Overview (04/22/2024): Last Assessment & Plan: No response to multiple outreach attempts to offer the diabetes partnership program; will offer program if patient responds. Hepatitis C, chronic (CMS/HCC) 12/16/2008 Overview (04/22/2024): With increase in liver test. Consider treatment. Treated with Harvoni, q. 6 month ultrasound with yearly alpha-fetoprotein recommended by Dr. Foster infectious disease. Osteoarthritis 07/26/2007 Overview (04/22/2024): ADVANCED (L) HIP, EARLY (R) HIP- NEOS-KRUSHELL, Left THR 12/22. Essential hypertension, benign 12/29/2005 Overview (04/22/2024): Last Assessment & Plan: Well-controlled on current regimen, continue Encounters Date Type Department Care Team Description 10/04/2024 Telephone [facility] [address] [place] [id number] Tank Renteria MD 10/01/2024 10:00 AM EST Office Visit [facility] [address] [place] [address] Tank Renteria MD Spinal stenosis of lumbar region without neurogenic claudication (Primary Dx) from Last 3 Months Family History Medical History Relation Name Comments Heart disease Father Hypertension Father Cancer Mother Other Mother No pertinent fa raj history Relation Name Status Comments Father Mother Sister Alive Social History Tobacco Use Types Packs/Day Years Used Date Smoking Tobacco: Former Cigarettes Smokeless Tobacco: Never Tobacco Cessation:Counseling Given: Not Answered Comments:: Alcohol Use Standard Drinks/Week Comments Yes 0 (1 standard drink = 0.6 oz pur e alcohol) Sex and Gender Information Value Date Recorded Sex Assigned at Male 04/17/2024 8:47 AM EDT Legal Sex Male 5:08 AM EDT Gender Identity Male 05/06/2024 9:10 AM EDT Sexual Orientation Not on file Occupation Industry Job Start Date Job End Date [facility] Not on file Not on fi le Not on file Last Filed Vital Signs Vital Sign Reading Time Taken Comments Blood Pressure 167/94 10/01/2024 10:14 AM EST an xious Pulse 69 10/01/2024 10:14 AM EST Temperature 36.8 ??C (98.2 ??F) 07/11/2024 11:08 AM E DT Respiratory Rate 20 10/01/2024 10:14 AM EST Oxygen Saturation 97% 10/01/2024 10:14 AM EST Inhaled Oxygen Concentration - - Weight 98.9 kg (218 lb) 08/02/2022 11:31 AM EDT Height 182.9 cm (6') 08/02/2022 11:31 AM EDT Body Mass Index 29.57 08/02/2022 11:31 AM EDT Plan of Treatment Upcoming Encounters Date Type Department Care Team (Late st Contact Info) Description 12/31/2024 1:00 PM EDT Follow-Up [facility] [address] [place] [address] Tank Renteria MD [address] [place] [address] 05/20/2025 11:15 AM EDT Follow-Up [facility] [address] [place] [id number] Trevon Rosa MD [address] [place] [id number] Health Maintenance Due Date Last Done Comments Quinten 1950 Colon Cancer Screening 1950 Colonoscopy 1950 FOBT / Fit Test 1950 Sigmoidoscopy [address] Lung Cancer Screening (Baseline) 2002 Zoster Vaccines (1 of 2) 2002 DTaP,Tdap,and Td Vaccines (1 - Tdap) 04/14/2009 04/13/2009 Abdominal Aortic Aneurysm (A AA) Screening 2017 COVID-19 Vaccine (5 - 2023-2 5 season) 2024 08/25/2022, 09/04/2021, 02/01/2021, Additional history exists Alcohol/Substance Use Screening 10/16/2024 Depression Screening and Follow-Up 10/16/2024 Health Care Proxy Review 10/16/2024 Social Drivers of Health Neida ual Screening 10/16/2024 Hemoglobin A1C 03/26/2025 09/25/2024, 07/0 10/2023, 03/17/2015, Additional history exists Basic Metabolic Panel 09/25/2025 09/25/2024 , 04/10/2024, 03/28/2015, Additional history exists Urine Microalbumin 09/25/2025 09/25/2024 Hepatitis B Vaccines Completed 06/25/2015, 12/25/2014, 11/27/2014, Additional history exists Pneumococcal Vaccine: 50+ Years Completed 11/17/2020, 01/02/2019, 11/18/2013 RSV Vaccine (60+ years old a nd patients) Completed 10/10/2023 Influenza Vaccine Completed 07/29/2024, , 06/29/2022, Additional history exists Procedures * Due to [place] [facility] law, this organization might not be sharing negative HIV tests. Procedure Name Priority Date/Time Associated Diagnosis Comments BASIC METABOLIC PANEL Routine 03/28/2015 3:55 AM EDT HEMOGLOBIN A1C Routine 03/17/2015 8:27 AM EDT from Last 3 Months or Most Recently Relevant to Health Maintenance Results * Due to [place] [facility] law, this organization might not be sharing negative HIV tests. * (ABNORMAL) Basic Metabolic Panel (03/28/2015 3:55 AM EDT) Sodium Blood 131(L) 135 - 145 mmol/L [facility] Potassium Blood 4.0 3.5 - 5.3 mmol/L [facility] Chloride Blood 101 97 - 110 mmol/L [facility] Carbon Dioxide 26 24 - 32 mmol/L [facility] Gap 4(L) 5 - 15 [facility] Glucose 197(H) 70 - 99 mg/dL [facility] BUN 8 7 - 23 mg/dL [facility] Creatinine 0.84 0.60 - 1.30 mg/dL [facility] eGFR Non- >60 >60 [facility] Comment: Units = mL/min/1.73 m2 Glomerular Filtration Rate (GFR) is estimated based on the IDMS-Traceable MDRD equation(NKDEP).For Americans multiply results by 1.210. Patients with CKD exhibit values less than 60mL/min/1.73 m2, while results less than 15mL/min/1.73 m2 are consistent with kidney failure. This MDRD equation is not recommended by NKDEP for drug-dosing purposes or for children below 18 years of age. Calcium Blood 8.7 8.7 - 10.7 mg/dL [facility] 03/28/2015 3:55 AM EDT 03/28/2015 4:01 AM EDT us Trevon Rosa MD LAB BLOOD ORDERABLES Final Res ult [facility] [address] [place] [address], * (ABNORMAL) Hemoglobin A1c (03/17/2015 8:27 AM EDT) Hemoglobin A1C 6.8(H) <5.7 [facility] Comment: UNITS OF MEASURE: % of total Hgb According to ADA guidelines, hemoglobin A1c <7.0% represents optimal control in non- diabetic patients. Different metrics may apply to specific patient populations. Standards of Medical Care in Diabetes-2013. Diabetes Care. 2013;36:s11-s66 For the purpose of screening for the presence of diabetes <5.7% ? Consistent with the absence of diabetes 5.7-6.4% ?Consistent with increased risk for diabetes ?(prediabetes) >or=6.5% ?Consistent with diabetes This assay result is consistent with diabetes mellitus. Currently, no consensus exists for use of hemoglobin A1c for diagnosis of diabetes for children. 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
--- OUTSIDE RECORDS SUMMARY | 2024-12-12 10:50 | XMS_ITS | Referral Summary ---
Author Organization [facility] Address [address] [place] [address] Care Team Providers Care Nursing Techn Name Role Phone Benton Chandler Primary Care Provider [phone] Encounters Date Type Department Care Team Description 10/04/2024 Telephone [facility] [address] [place] [phone] Tank Renteria MD 10/01/2024 10:00 AM EST Office Visit [facility] [address] [place] [phone] Tank Renteria MD Spinal stenosis of lumbar region without neurogenic claudication (Primary Dx) from Last 3 Months Allergies No known active allergies Medications lisinopriL [...] due to type 2 diabetes mellitus ( CMS/HCC) 04/22/2024 Vitamin D deficiency 04/17/2024 1st degree [...] 2 diabetes mellitus 06/04/2021 Overview (04/22/2024): Hospitalized [facility] 04/27/21-05/01/21, follow with wound care GERD (gastroesophageal reflux disease) PVD (peripheral vascular disease) 05/26/2021 Overview (04/22/2024): Plasty left SFA 05/05 Iron deficiency anemia due to chronic blood loss 01/28/2020 Nocturia 08/12/2019 Cirrhosis of liver not due to alcohol ([facility]/HCC) 01/10/2016 Overview (04/22/2024): Dr. Foster recommend every [...] & Plan: Well-controlled on current regimen, continue Social History Tobacco Use Types Packs/Day Years [...] Info) Description 12/31/2024 1:00 PM EDT Follow-Up [facility] [address] [place] [address] Tank Renteria MD [address] [place] [address] 05/20/2025 11:15 AM EDT Follow-Up [facility] [address] [place] [id number] Trevon Rosa MD [address] [place] [phone] Procedures * Due to [place] state law, this organization might not be sharing negative HIV tests. Procedure Name Priority Date/Time Associated Diagnosis Comments BASIC METABOLIC PANEL Routine 03/28/2015 3:55 AM EDT HEMOGLOBIN A1C Routine 03/17/2015 8:27 AM EDT from Last 3 Months or Most Recently Relevant to Health Maintenance Results * Due to [place] state law, this organization might not be sharing negative HIV tests. * (ABNORMAL) Basic Metabolic Panel (03/28/2015 3:55 AM EDT) Sodium Blood 131(L) 135 - 145 mmol/L [facility] Potassium Blood 4.0 3.5 - 5.3 mmol/L [facility] Chloride Blood 101 97 - 110 mmol/L [facility] Carbon Dioxide 26 24 - 32 mmol/L [facility] Gap 4(L) 5 - 15 [facility] Glucose 197(H) 70 - 99 mg/dL [facility] BUN 8 7 - 23 mg/dL [facility] Creatinine 0.84 0.60 - 1.30 mg/dL [facility] eGFR Non- >60 >60 [facility] Comment: Units = mL/min/1.73 m2 Glomerular Filtration [...] Calcium Blood 8.7 8.7 - 10.7 mg/dL [facility] 03/28/2015 3:55 AM EDT 03/28/2015 4:01 AM EDT us Trevon Rosa MD LAB BLOOD ORDERABLES Final Res ult [facility] [address] [facility] [place] [address], * (ABNORMAL) Hemoglobin A1c (03/17/2015 8:27 AM EDT) Hemoglobin A1C 6.8(H) <5.7 [facility] Comment: UNITS OF MEASURE: % of total [...] for children. 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
--- OUTSIDE RECORDS SUMMARY | 2024-12-12 10:50 | XMS_ITS | Encounter Summary ---
Author Organization [facility] Address [address] [place] [address] Care Team Providers Care Manager Wound Name Role Phone Benton Chandler Primary Care Provider [phone] Reason for Visit * Reason Onset Date Comments Diabetes 12/05/2024 CGM Encounter Details Date Type Department Care Team (Late Contact Info) Description 12/05/[address] [phone] Teresa Ramirez RN Diabetes (CGM) Social History Tobacco Use Types Packs/Day Years Used Date Smoking Tobacco: Former Cigarettes Q uit: 10/16/1998 Smokeless Tobacco: Former Alcohol Use Standard Drinks/Week Comments No 0 (1 standard drink = 0.6 oz pur e alcohol) Sex and Gender Information Value Date Recorded Sex Assigned at Not on file Legal Sex Male 11:38 PM EST Gender Identity Not on file Sexual Orientation Not on file documented as of this encounter Progress Notes * Teresa Ramirez RN - 12/05/2024 1:13 PM EST Last OV notes 09/30/24 faxed to [employer] [phone] for CGM continued coverage documented in this encounter Plan of Treatment Upcoming Encounters Date Type Department Care Team (Late Contact Info) Description 12/23/2024 11:00 AM EDT Office Visit Adult Medicine [address] [phone] Benton Chandler PA [address] [place] [address] 12/24/2024 10:45 AM EDT Office Visit Orthopedic Surgery - [place] [address] [phone] Hood Carter, DPM [address] [address] 01/16/2025 11:15 AM EDT Office Visit Endocrinology [facility] [address] [place] [address] Sawyer Barrera MD [address] [place] [phone] documented as of this encounter Visit Diagnoses Not on filedocumented in this encounter Care Teams Manager Wound Relationship Specialty Start Date End Date Benton Chandler PA [address] [place] [phone] PCP - General Internal Medicine 04/29/20 documented as of this encounter
== END 2024-12-12 09:36 | disposition home or self-care (01) ==
LOC: HO.US 09:35
PROVIDERS: PCP Physician Assistant Medical; Visit Provider Surgery Vascular Surgery
DX: I73.9 Peripheral vascular disease, unspecified (principal)
CPT/HCPCS: 93922; 93925

== ENCOUNTER → 2024-12-12 09:37 | Outpatient (BNV) | payer MEDICARE, OTHER, SELFPAY | PROVIDERS: PCP Physician Assistant Medical; Visit Provider Radiology Diagnostic Radiology | DX: I73.9 Peripheral vascular disease, unspecified (principal) | CPT/HCPCS: 93922; 93925 ==

== ENCOUNTER 2024-12-17 09:28 | Outpatient (AMB) | payer MEDICARE, OTHER, SELFPAY ==
--- NOTE | 2024-12-17 09:49 | MHC.OFFVIS ---
Intake Visit Reasons: 3 mo follow up Arterial US 12/12/2024 Intake Note: 3 mo follow up Arterial US 12/12/24 w/ hx of Left Angio 07/31/24. No complaints Lead Systems Engineer Required: No Accompanied by: Self / Same As Patient Allergies No Known Allergies [NKA] Allergy (Verified 12/17/24 09:54) HPI HPI 3 mo follow up Arterial US 12/12/2024: Details: The patient is a 74-year-old male presenting with follow-up for arterial surveillance post-left SFA atherectomy and stent placement. He has a history of peripheral artery disease, leading to a stent placement and atherectomy due to significant stenosis in the left SFA. The patient reports improvement post-procedure but continues to experience neuropathic and sciatica-related symptoms. He is capable of walking significant distances under favorable conditions, indicating improved functionality. He is being maintained on aspirin and Plavix. He was taking the Plavix but was informed he needs to be on aspirin as well.. He now presents for surveillance ultrasound follow-up. 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 BPH (benign prostatic hyperplasia) Diabetic neuropathy Peripheral vascular disease Elevated erythrocyte sedimentation rate Hyperkalemia GERD (gastroesophageal reflux disease) Chronic anemia Diabetes Hypertension Cellulitis Surgical History H/O hand surgery H/O foot surgery Hx of appendectomy H/O total hip arthroplasty Social History Household Members: Spouse Housing: House Do you presently have visiting nurse or other home services: No Alcohol intake: never Patient Tobacco Use Status: Former Tobacco user e-Cigarette/Vaping Use: Never Used service: No Current occupational status: employed Review of Systems Const All systems reviewed & are unremarkable except as noted in HPI and below Reports no additional complaints ENT Reports Normal hearing present Card Denies chest pain, Denies chest pain at rest, Denies chest pain with activity and Denies pedal edema Resp Denies cough GI Denies abdominal pain Musc Denies abnormal gait, Denies muscle cramps and Denies radiating pain into limb Skin/Breast Denies skin ulcer and Denies wounds Neuro Reports Normal hearing present and Denies abnormal gait Psych Reports no additional complaints Physical Exam Const General: cooperative, healthy appearing and comfortable Orientation/consciousness: oriented to person, oriented to place and oriented to time HEENT Head: Yes normal to inspection Neck Neck: Yes normal visual inspection Carotids: no bruits Chest Chest palpation & inspection: normal inspection of the chest Resp Effort & Inspection: normal respiratory effort and able to speak in complete sentences Auscultation: clear to auscultation bilaterally, no crackles, no rales, no rhonchi and no wheezes Cardio Other: Bilateral DP signals Rate: regular rate Rhythm: regular rhythm Heart sounds: S1 normal heart sound present and S2 normal heart sound present Bruits: no carotid bruits GI Inspection: Yes normal to inspection Skin Wounds: no wounds Hair: normal Neuro General: oriented to person, oriented to place and oriented to time Cranial nerves: Yes CN's II-XII intact bilaterally and Yes Normal hearing present Cognition (Neuro): normal cognition Motor exam (neuro): 5/5 motor strength present throughout Extrem Other: venous exam: No significant superficial varicosities or spider telangiectasias, minimal edema General: No clubbing, No cyanosis and No edema Psych Appearance: grossly normal Mental Status: mental status grossly normal Speech and movement: Normal speech and movement present Results Reviewed Results Reviewed: Noninvasive arterial testing dated 12/12/2024 demonstrates CLEO on the right of 1.01 and on the left of 0.8. Written report and images were reviewed. Assessment & Plan Assessment & Plan (1) Peripheral vascular disease: Comment: Angiogram 05/10/2021- plasty left anterior tibial and posterior tibial artery atherectomy and plasty left SFA plasty left common femoral 07/31/2024 - left SFA atherectomy and stent Code(s): I73.9 - Peripheral vascular disease, unspecified Category: Medical Plan: In short patient has stable claudication. I did review the pathophysiology of peripheral vascular disease with the patient. In addition we did discuss routine conservative measures including a healthy diet and the importance of exercise and ambulation. We did discuss risk factor modification. The patient will continue to to follow-up with surveillance follow-up in approximately 6 months. Thank you for allowing us to participate in this patient's care. If there are any questions or concerns please do not hesitate to contact us. Plan Patient was informed and verbally consented to the use of an ambient scribe for clinic note documentation during this visit. Orders: Orders US arterial duplex LE BI 6 Months I73.9 - Peripheral vascular disease, unspecified Patient Instructions: - Continue current activity level; increase walking as tolerated - Take one baby aspirin (81 mg) daily as advised in addition to the prescribed Plavix - Schedule and attend follow-up ultrasound in six months - Notify the office if symptoms worsen or new symptoms develop - Continue managing sciatica with prescribed treatments; report any changes in symptoms Coding Level of Care Code Est Pt Level 4 (11042) Complex EM visit Add On G2211 Diagnoses Peripheral vascular disease I73.9
--- OUTSIDE RECORDS SUMMARY | 2024-12-17 10:34 | XMS_ITS | Encounter Summary ---
Author Organization [facility] Address [address] [place] [address] Care Team Providers Care Factorer Name Role Phone Benton Chandler Primary Care Provider [phone] Encounter Details Date Type Department Care Team (Late st Contact Info) Description 12/17/2024 Telephone Gastroenterology - [place] [address] [place] [phone] Juan Abernathy PA [address] [place] [address] Social History Tobacco Use Types Packs/Day Years [...] as of this encounter Progress Notes * NICK De La Torre - 12/17/2024 8:41 AM EST Patient has a history of cirrhosis as well as esophageal varices. His last endoscopy was in 2021 and several columns were noted. Would like patient to be considered for a repeat endoscopy. He is on Plavix and he is diabetic so he is presenting with a moderate risk but should have a follow-up for the esophageal varices. Please advise documented in this encounter Plan of Treatment Upcoming Encounters Date Type Department Care Team (Late st Contact Info) Description 12/23/2024 11:00 AM EDT Office Visit Adult Medicine East - [address] [phone] Benton Chandler PA [address] [place], [place] 12/24/2024 10:45 AM EDT Office Visit Orthopedic Surgery - [place] [address] [phone] Hood Carter DPM [address] [address] 01/16/2025 11:15 AM EDT Office Visit [address] [phone] Sawyer Barrera MD [address] [place] [phone] documented as of this encounter Visit Diagnoses Not on filedocumented in this encounter Care Teams Factorer Relationship Specialty Start Date End Date Benton Chandler PA [address] [place] [address] PCP - General Internal Medicine 04/29/20 documented as of this encounter
--- OUTSIDE RECORDS SUMMARY | 2024-12-17 10:34 | XMS_ITS | Referral Summary ---
Author Organization [facility] Address [address] [place] [address] Care Team Providers Care House Superintendent Name Role Phone Benton Chandler Primary Care Provider [phone] Encounters Date Type Department Care Team Description 10/04/2024 Telephone [facility] Neurosurgery [address] [address] Tank Renteria MD 10/01/2024 10:00 AM EST Office Visit [facility] Neurosurgery Clinic [address] [place] [address] Tank Renteria MD Spinal stenosis of lumbar [...] 2 diabetes mellitus 06/04/2021 Overview (04/22/2024): Hospitalized [facility] 04/27/21-05/01/21, follow with wound care GERD (gastroesophageal reflux disease) PVD (peripheral vascular disease) 05/26/2021 Overview (04/22/2024): Plasty left SFA 05/05 Iron deficiency anemia due to chronic blood loss 01/28/2020 Nocturia 08/12/2019 Cirrhosis of liver not due to alcohol ([facility]/HCC) 01/10/2016 Overview (04/22/2024): Dr. Foster recommend [...] Info) Description 12/31/2024 1:00 PM EDT Follow-Up [facility] Building Neurosurgery Clinic [address] [place] [address] Tank Renteria MD [address] [place] [address] 05/20/2025 11:15 AM EDT Follow-Up [facility] [address] [place] [address] Trevon Rosa MD [address] [place] [phone] Procedures * Due to [place] state law, this organization might not be sharing negative HIV tests. Procedure Name Priority Date/Time Associated Diagnosis Comments BASIC METABOLIC PANEL Routine 03/28/2015 3:55 AM EDT HEMOGLOBIN A1C Routine 03/17/2015 8:27 AM EDT from Last 3 Months or Most Recently Relevant to Health Maintenance Results * Due to [place] state law, this organization might not be sharing negative HIV tests. * (ABNORMAL) Basic Metabolic Panel (03/28/2015 3:55 AM EDT) Sodium Blood 131(L) 135 - 145 mmol/L [facility] Potassium Blood 4.0 3.5 - 5.3 mmol/L [facility] Chloride Blood 101 97 - 110 mmol/L [facility] Carbon Dioxide 26 24 - 32 mmol/L [facility] Gap 4(L) 5 - 15 [facility] Glucose 197(H) 70 - 99 mg/dL [facility] BUN 8 7 - 23 mg/dL [facility] Creatinine 0.84 0.60 - 1.30 mg/dL [facility] eGFR Non- >60 >60 [facility] Comment: Units = mL/min/1.73 m2 Glomerular [...] Calcium Blood 8.7 8.7 - 10.7 mg/dL [facility] 03/28/2015 3:55 AM EDT 03/28/2015 4:01 AM EDT us Trevon Rosa MD LAB BLOOD ORDERABLES Final Res ult [facility] [address] [place] [address], * (ABNORMAL) Hemoglobin A1c (03/17/2015 8:27 AM EDT) Hemoglobin A1C 6.8(H) <5.7 [facility] Comment: UNITS OF MEASURE: % of [...] for children. eAG (MG/DL) 148 () (calc) [facility] eAG (MMOL/L) 8.2 () (calc) [facility] 03/17/2015 8:27 AM EDT 03/17/2015 10:53 AM EDT us Caroline Rios MD LAB BLOOD ORDERABLES Final Resul t [facility] from Last 3 Months or Most Recently Relevant to Health Maintenance [place] [id number] MEDICARE Advance Directives Documents on File Type Date Recorded Patient Repair Tech Expl anation Advance Directive 01/21/2009 12:00 AM [facility] dical Dec Making (Adv.Dir) Care Teams House Superintendent Relationship Specialty Start Date End Date Benton Chandler PCP - General Internal Medicine 07/04/22
--- OUTSIDE RECORDS SUMMARY | 2024-12-17 10:34 | XMS_ITS | Clinical Summary ---
Author Organization [facility] Address [address] [place] [address] Care Team Providers Care Workers Compensation Analyst Name Role Phone Benton Chandler Primary Care Provider [phone] Allergies No known active allergies Medications lisinopriL [...] due to type 2 diabetes mellitus ( [facility]/HCC) 04/22/2024 Vitamin D deficiency 04/17/2024 1st degree [...] 2 diabetes mellitus 06/04/2021 Overview (04/22/2024): Hospitalized [facility] 04/27/21-05/01/21, follow with wound care GERD [...] Type Department Care Team Description 10/04/2024 Telephone [facility] Neurosurgery [facility] [address] [place] [address] Tank Renteria MD 10/01/2024 10:00 AM EST Office Visit [facility] Neurosurgery Clinic [address] [place] [address] Tank Renteria MD Spinal stenosis of lumbar [...] Info) Description 12/31/2024 1:00 PM EDT Follow-Up [facility] Building Neurosurgery Clinic [address] [place] [address] Tank Renteria MD [address] [place] [address] 05/20/2025 11:15 AM EDT Follow-Up [facility] [address] [place] [address] Trevon Rosa MD [address] [place] [address] Health Maintenance Due Date Last Done Comments [...] Additional history exists Procedures * Due to [place] Etaphase law, this organization might not be sharing negative HIV tests. Procedure Name Priority Date/Time Associated Diagnosis Comments BASIC METABOLIC PANEL Routine 03/28/2015 3:55 AM EDT HEMOGLOBIN A1C Routine 03/17/2015 8:27 AM EDT from Last 3 Months or Most Recently Relevant to Health Maintenance Results * Due to [place] Etaphase law, this organization might not be sharing negative HIV tests. * (ABNORMAL) Basic Metabolic Panel (03/28/2015 3:55 AM EDT) Sodium Blood 131(L) 135 - 145 mmol/L [facility] Potassium Blood 4.0 3.5 - 5.3 mmol/L [facility] Chloride Blood 101 97 - 110 mmol/L [facility] Carbon Dioxide 26 24 - 32 mmol/L [facility] Gap 4(L) 5 - 15 [facility] Glucose 197(H) 70 - 99 mg/dL [facility] BUN 8 7 - 23 mg/dL [facility] Creatinine 0.84 0.60 - 1.30 mg/dL [facility] eGFR Non- >60 >60 [facility] Comment: Units = mL/min/1.73 m2 Glomerular [...] Blood 8.7 8.7 - 10.7 mg/dL [facility] 03/28/2015 3:55 AM EDT 03/28/2015 4:01 AM EDT us Trevon Rosa MD LAB BLOOD ORDERABLES Final Res ult [facility] [address] [place] [address], * (ABNORMAL) Hemoglobin A1c (03/17/2015 8:27 AM EDT) Hemoglobin A1C 6.8(H) <5.7 [facility] Comment: UNITS OF MEASURE: % of [...] children. eAG (MG/DL) 148 () (calc) [facility] e[facility] (MMOL/L) 8.2 () (calc) [employer] [facility] 03/17/2015 8:27 AM EDT 03/17/2015 10:53 AM EDT us Caroline Rios MD LAB BLOOD ORDERABLES Final Resul t [facility] from Last 3 Months or Most Recently Relevant to Health Maintenance Insurance [facility] MEDICARE Advance Directives Documents on File Type Date Recorded Patient Program Services Assistant Expl anation Advance Directive 01/21/2009 12:00 AM prudencio harp Dec Making (Adv.Dir) Care Teams Workers Compensation Analyst Relationship Specialty Start Date End Date Benton Chandler PCP - General Internal Medicine 07/04/22
--- OUTSIDE RECORDS SUMMARY | 2024-12-17 10:34 | XMS_ITS | Encounter Summary ---
Author Organization [facility] Address [address] [place] [address] Care Team Providers Care Cerner Analyst Name Role Phone Benton Chandler Primary Care Provider [phone] Reason for Referral * Imaging (Routine) - Authorized Specialty Diagnoses / Procedures Referred By Dixie perry Referred To Contact Radiology Diagnoses Other cirrhosis of liver (CMS/HCC) Procedures US Abdomen Limited Juan Abernathy PA [address] [facility] [address] [place] [address] Phone: tel: fax: [facility] Referral ID Status Reason Start Date Expiration Date V isits Requested Visits Authorized [id number] Authorized 12/17/2024 12/17/2025 1 1 Encounter Details Date Type Department Care Team (Late st Contact Info) Description 12/17/2024 Telephone Gastroenterology - [place] [address] [place] [address] Juan Abernathy PA 175 [facility] [address] [place] [address] Social History Tobacco Use Types Packs/Day Years [...] * NICK De La Torre - 12/17/2024 8:39 AM EST Cirrhosis and needs labs and ultrasound documented in this encounter Plan of Treatment Upcoming Encounters Date Type Department Care Team (Late st Contact Info) Description 12/23/2024 11:00 AM EDT Office Visit Adult Medicine East - [place] [address] [place], [place] [phone] Benton Chandler PA [address] [place], [place] 12/24/2024 10:45 AM EDT Office Visit Orthopedic Surgery - [place] [address] [phone] Hood Carter, DPM [address] [address] 01/16/2025 11:15 AM EDT Office Visit Endocrinology [address] [phone] Sawyer Barrera MD [address] [place] [address] Scheduled Orders Name Type Priority Associated Diagnoses Orde r Schedule CBC and differential Lab Routine Other cirrhosis of liver (CMS/HCC) Expected: 12/17/2024, Expires: 12/17/2025 Comprehensive metabolic panel Lab Routine Other cirrhosis of liver (CMS/HCC) Expected: 12/17/2024, Expires: 12/17/2025 Prothrombin time with INR Lab Routine Other cirrhosis of liver (CMS/HCC) Expected: 12/17/2024, Expires: 12/17/2025 Alpha fetoprotein tumor marker Lab Routine Other cirrhosis of liver (CMS/HCC) Expected: 12/17/2024, Expires: 12/17/2025 US Abdomen Limited Imaging Routine Other cirrhosis of liver (CMS/HCC) Expected: 12/17/2024, Expires: 12/17/2025 documented as of this encounter Visit Diagnoses Diagnosis Other cirrhosis of liver (CMS/HCC)- Primary documented in this encounter Care Teams Cerner Analyst Relationship Specialty Start Date End Date Benton Chandler PA [address] [place] [address] PCP - General Internal Medicine 04/29/20 documented as of this encounter
--- OUTSIDE RECORDS SUMMARY | 2024-12-17 10:34 | XMS_ITS | Patient Health Record ---
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 Problem Polyneuropathy due to diabetes mellitus type I (167611083) Type 1 diabetes mellitus with diabetic polyneuropathy (E10.42) Active confirmed Plan Of Treatment Pending Test Test Name Order Date X ray : Foot, left 3V 03/31/2021 X ray : Foot, right 3V 03/31/2021 [id number] SKIN LESIONS, OVER 4 03/31/20 21 [id number] DYSTROPHIC NAILS ANY # [id number] OF HEMATOMA/FLUID 021 Insurance Providers Payer Name Payer Address Payer Phone Subscriber Number Group Number Insured Name Patient Relationship to Insured Coverage Start Date Coverage End Date Medicare National [employer] [address] [place] [address] [id number] Kyle Odonnell Self - patient is the insured [facility] [address] [place] [address] [phone] [id number] Kyle Odonnell Self - patient is the insured Medical (General) History Medical History History ICD Code Anemia Arthritis Diabetic Numbness Poor circulation Surgical History Surgery Date(Month/Year) hip replacement bilateral
--- OUTSIDE RECORDS SUMMARY | 2024-12-17 10:34 | XMS_ITS | Encounter Summary ---
Author Organization [facility] Address [address] [place] [address] Care Team Providers Care Senior Controls Analyst Name Role Phone Benton Chandler Primary Care Provider [phone] Reason for Visit * Reason Onset Date Comments Diabetes 12/05/2024 CGM Encounter Details Date Type Department Care Team (Late Contact Info) Description 12/05/[address] [phone] Teresa Ramirez RN Diabetes (CGM) Social History [...] Last OV notes 09/30/24 faxed to [employer] [phone] for CGM continued coverage documented in this encounter Plan of Treatment Upcoming Encounters Date Type Department Care Team (Late Contact Info) Description 12/23/2024 11:00 AM EDT Office Visit Adult Medicine [address] [phone] Benton Chandler PA [address] [place] [address] 12/24/2024 10:45 AM EDT Office Visit Orthopedic Surgery - [place] [address] [phone] Hood Carter, DPM [address] [address] 01/16/2025 11:15 AM EDT Office Visit Endocrinology [facility] [address] [place] [address] Sawyer Barrera MD [address] [place] [phone] documented as of this encounter Visit Diagnoses Not on filedocumented in this encounter Care Teams Senior Controls Analyst Relationship Specialty Start Date End Date Benton Chandler PA [address] [place] [address] PCP - General Internal Medicine 04/29/20 documented as of this encounter
--- OUTSIDE RECORDS SUMMARY | 2024-12-17 10:34 | XMS_ITS | Clinical Summary ---
Author Organization [address] Address [address] [place] [phone] Phone Care Team Providers Care Chief Architect Name Role Phone Benton Chandler Primary Care Provider [phone] Allergies No known active allergies Medications betamethasone dipropionate (DIPROSONE) 0.05 % ointment Use to affected area twice daily 1 Active cholecalciferol (Dialyvite Vitamin D3 Max) 1,250 mcg (50,000 unit) tablet Take 1 tablet (50,000 Units total) by mouth every 7 (seven) days. 4 Active blood-glucose meter,continuous (FreeStyle Muna 3 [place]) misc 1 Device by Does not apply [...] neuropathy, with long-term current use of insulin ([facility]) Inject 35 Units into the skin 3 [...] neuropathy, with long-term current use of insulin ([facility]) Use as instructed 100 each 12 4 025 Active glucose blood test stripIndications :Type 2 diabetes mellitus with diabetic neuropathy, with long-term current use of insulin ([facility]) Check sugars 3 times a day Contour next 200 each 2 4 026 Active pen needle, diabetic (BD Ultra-Fine Short Pen Needle) 31 gauge x 5/16 needleIndication s:Type 2 diabetes mellitus with diabetic neuropathy, with long-term current use of insulin ([facility]) Inject 1 Device into the skin 4 [...] 2 diabetes mellitus 06/04/2021 Overview (07/30/2024): Hospitalized [facility] 04/27/21-05/01/21, follow with wound care GERD (gastroesophageal [...] Encounters Date Type Department Care Team Description 12/17/2024 Telephone Gastroenterology [facility] [address] [phone] Juan Abernathy PA 12/17/2024 Telephone Gastroenterology [facility] [address] [phone] Juan Abernathy PA 12/05/2024 Telephone Endocrinology [address] [phone] Teresa Ramirez RN Diabetes (CGM) 09/30/2024 2:45 PM EST Office Visit Endocrinology - [address] [place] [phone] Sawyer Barrera MD Type 2 diabetes mellitus with diabetic neuropathy, with long-term current use of insulin ([facility]/HCC) (Primary Dx) from Last 3 Months Immunizations Name Administration Dates Next Due H1N1 Inj Preservative Free 09/22/2009 Hepatitis B ([facility] , Recomb[employer] HB-Adult) 19yo and older 12/12/2008,06/11/2008,05/12/2008 [...] EGD 12/2012 UPPER GASTROINTESTINAL ENDOSCOPY 01/01/2008 PROCEDURE: NV UPPER GI ENDOSCOPY PERFORMED; COMMENT: Esophageal ulcers-bx:erosive esophagitis, hiatus hernia, SB-normal. Repeat EGD 06/2008 OTHER SURGICAL HISTORY 05/10/2021 Left PROCEDURE: NV UNLISTED PROCEDURE VASCULAR SURGERY; COMMENT: dr. deng - plasjed left anterior tibial and posterior tibial arteries, left sfa, left common femoral OTHER SURGICAL HISTORY 03/25/2022 PROCEDURE: UPPER GI ENDOSCOPY, REMOVE LESION; COMMENT: muslu -small hiatal hernia, esophageal varices without bleeding COLONOSCOPY 03/25/2022 PROCEDURE: HISTORICAL COLONOSCOPY; COMMENT: muslu -1 small polyp, angiodysplastic lesion which was nonbleeding repeat 3 to 5 years OTHER SURGICAL HISTORY 07/31/2024 PROCEDURE: NV EMBLC/THRMBC [id number] [employer]; COMMENT: left SF atherectomy, [...] type 2 diabetes mellitus (HCC); COMMENT: Hospitalized [facility] 04/27/21-05/01/21, follow with wound care DM (diabetes [...] Medical History Relation Name Comments Diabetes Father [place] Other: etoh Father Other cancer Mother no [...] 11:00 AM EDT Office Visit Adult Medicine [address] [phone] Benton Chandler PA [address] [place], [place] 12/24/2024 10:45 AM EDT Office Visit Orthopedic Surgery - [place] [id number] [phone] Hood Carter, DPM [address] [address] 01/16/2025 11:15 AM EDT Office Visit Endocrinology [address] [phone] Sawyer Barrera MD [address] [place] [phone] Health Maintenance Due Date Last Done Comments [...] mg/dL LAB CHEMISTRY METHOD 09/25/2024 3:08 PM [facility] Microalb, Ur 235.0(H) 0.0 - 29.0 mg/L LAB CHEMISTRY METHOD 09/25/2024 3:08 PM [facility] Microalb/Crea t Ratio 373(H) <30 mg/g creat LAB CHEMISTRY METHOD 09/25/2024 3:08 PM [facility] Urine Urine specimen obtained by clean catch procedure / Unknown Non-blood Collection / Unknown 09/25/2024 11:23 AM EST 09/25/2024 11:23 AM EST Benton ROMERO LAB URINE ORDERABLES Anne Marie l Result [facility] [address] [place] [address], * (ABNORMAL) Lipid panel with reflex to direct LDL (09/25/2024 11:22 AM EST) Cholesterol 255(H) 0 - 200 mg/dL LAB CHEMISTRY METHOD 09/25/2024 2:55 PM [facility] Triglycerides 262(H) 0 - 150 mg/dL LAB CHEMISTRY METHOD 09/25/2024 2:55 PM [facility] HDL 47 >=40 mg/dL LAB CHEMISTRY METHOD 09/25/2024 2:55 PM [facility] LDL Calculated 156(H) 0 - 100 mg/dL LAB CHEMISTRY METHOD 09/25/2024 2:55 PM [facility] VLDL Cholesterol Christian 52.4 mg/dL LAB CHEMISTRY METHOD 09/25/2024 2:[address] [facility] Non HDL Chol. (LDL+VLDL) 208(H) <145 mg/dL LAB CHEMISTRY METHOD 09/25/2024 2:[address] [facility] Chol/HDL Ratio 5.4(H) 0.0 - 4.4 LAB CHEMISTRY METHOD 09/25/2024 2:[address] [facility] Blood Venous blood specimen / Unknown Venipuncture / Unknown 09/25/2024 11:22 AM EST 09/25/2024 11:22 AM EST Benton ROMERO LAB BLOOD ORDERABLES Anne Marie l Result Performing Organization Address City/[facility]/ZIP Co de Phone Number [facility] [address] [place] [address], [place] [phone] * Prostate specific antigen diagnostic (09/25/2024 11:22 AM EST) PSA 0.48 0.00 - 4.00 ng/mL LAB CHEMISTRY METHOD 09/25/2024 6:[address] [facility] Blood Venous blood specimen / Unknown Venipuncture / Unknown 09/25/2024 11:22 AM EST 09/25/2024 11:[address] [facility] - 09/25/2024 6:40 PM EST The Siemens Advia Centaur Chemiluminescent Immunoassay is used. Results obtained with different assay methods or kits cannot be used interchangeably. Results cannot be interpreted as absolute evidence of the presence or absence of malignant disease. Benton ROMERO LAB BLOOD ORDERABLES Anne Marie l Result [facility] [address] [place] [address], [place] [phone] * (ABNORMAL) CBC auto differential (09/25/2024 11:22 AM EST) WBC 5.2 4.8 - 10.8 K/mcL LAB HEMETOLOGY METHOD 09/25/2024 2:13 PM [facility] RBC 4.40(L) 4.50 - 5.50 M/mcL LAB HEMETOLOGY METHOD 09/25/2024 2:13 PM [facility] Hemoglobin 13.0(L) 13.5 - 17.5 g/dL LAB HEMETOLOGY METHOD 09/25/2024 2:13 PM [facility] Hematocrit 40.5(L) 42.0 - 54.0 % LAB HEMETOLOGY METHOD 09/25/2024 2:13 PM [facility] MCV 92.9 79.0 - 98.0 FL LAB HEMETOLOGY METHOD 09/25/2024 2:13 PM [facility] MCH 29.8 27.0 - 32.0 pcg LAB HEMETOLOGY METHOD 09/25/2024 2:13 PM [facility] MCHC 32.1 32.0 - 37.0 g/dL LAB HEMETOLOGY METHOD 09/25/2024 2:13 PM [facility] RDW 14.5 11.0 - 15.0 % LAB HEMETOLOGY METHOD 09/25/2024 2:13 PM [facility] Platelets 200 130 - 400 K/mcL LAB HEMETOLOGY METHOD 09/25/2024 2:13 PM [facility] MPV 10.9 7.0 - 11.0 FL LAB HEMETOLOGY METHOD 09/25/2024 2:13 PM [facility] NRBC 0.0 <1.0 % LAB HEMETOLOGY METHOD 09/25/2024 2:13 PM [facility] NRBC Absolute 0.00 <0.10 K/mcL LAB HEMETOLOGY METHOD 09/25/2024 2:13 PM [facility] Neutrophils Relative 57.9 % LAB HEMETOLOGY METHOD 09/25/2024 2:13 PM [facility] Lymphocytes Relative 25.9 % LAB HEMETOLOGY METHOD 09/25/2024 2:13 PM [facility] Monocytes Relative 11.0 % LAB HEMETOLOGY METHOD 09/25/2024 2:13 PM [facility] Eosinophils Relative 2.9 % LAB HEMETOLOGY METHOD 09/25/2024 2:13 PM [facility] Basophils Relative 1.9 % LAB HEMETOLOGY METHOD 09/25/2024 2:13 PM [facility] Immature Granulocytes Relative 0.4 % LAB HEMETOLOGY METHOD 09/25/2024 2:13 PM [facility] Neutrophils Absolute 2.99 1.50 - 7.00 K/mcL LAB HEMETOLOGY METHOD 09/25/2024 2:13 PM [facility] Lymphocytes Absolute 1.34 1.00 - 5.00 K/mcL LAB HEMETOLOGY METHOD 09/25/2024 2:13 PM [facility] Monocytes Absolute 0.57 0.20 - 1.00 K/mcL LAB HEMETOLOGY METHOD 09/25/2024 2:13 PM [facility] Eosinophils Absolute 0.15 0.00 - 0.50 K/mcL LAB HEMETOLOGY METHOD 09/25/2024 2:13 PM [facility] Basophils Absolute 0.10 0.00 - 0.20 K/mcL LAB HEMETOLOGY METHOD 09/25/2024 2:13 PM [facility] Immature Granulocytes Absolute 0.02 0.00 - 0.03 K/mcL LAB HEMETOLOGY METHOD 09/25/2024 2:13 PM [facility] Blood Venous blood specimen / Unknown Venipuncture / Unknown 09/25/2024 11:22 AM EST 09/25/2024 11:22 AM EST Benton ROMERO LAB BLOOD ORDERABLES Anne Marie l Result [facility] [address] [place] [address], [place] [phone] * (ABNORMAL) Iron and TIBC (09/25/2024 11:22 AM EST) Iron 68 50 - 160 mcg/dL LAB CHEMISTRY METHOD 09/25/2024 2:[address] [facility] TIBC 433 250 - 450 mcg/dL LAB CHEMISTRY METHOD 09/25/2024 2:[address] [facility] Iron Saturation 16(L) 20 - 50 % LAB CHEMISTRY METHOD 09/25/2024 2:[address] [facility] Blood Venous blood specimen / Unknown Venipuncture / Unknown 09/25/2024 11:22 AM EST 09/25/2024 11:22 AM EST Benton ROMERO LAB BLOOD ORDERABLES Anne Marie l Result Performing Organization Address City/[facility]/ZIP Co de Phone Number [facility] [address] [place] [address], [place] [phone] * (ABNORMAL) Vitamin D 25 hydroxy (09/25/2024 11:22 AM EST) Vit D, 25-Hydroxy 29.2(L) 30.0 - 80.0 ng/mL LAB CHEMISTRY METHOD 09/25/2024 6:[address] [facility] Blood Venous blood specimen / Unknown Venipuncture / Unknown 09/25/2024 11:22 AM EST 09/25/2024 11:22 AM EST B[facility] ROMERO [facility] BLOOD ORDERABLES Anne Marie l Result [facility] [address] [place] [address], [place] [phone] * Testosterone, total (09/25/2024 11:22 AM EST) Pathologist [facility] Testosterone 305 229 - 902 ng/dL LAB CHEMISTRY METHOD 09/25/2024 7:[address] [facility] Blood Venous blood specimen / Unknown Venipuncture / Unknown 09/25/2024 11:22 AM EST 09/25/2024 11:22 AM EST [facility] ROMERO [facility] BLOOD ORDERABLES Anne Marie l Result [facility] [address] [place] [address], [place] [phone] * (ABNORMAL) Hemoglobin A1c (09/25/2024 11:22 AM EST) [facility] Hemoglobin A1C 6.5(H) <6.5 % LAB CHEMISTRY METHOD 09/25/2024 2:[address] [facility] Mean Bld Glu Estim. 140 mg/dL LAB CHEMISTRY METHOD 09/25/2024 2:[address] [facility] Blood Venous blood specimen / Unknown Venipuncture / Unknown 09/25/2024 11:22 AM EST 09/25/2024 11:22 AM EST B[facility] ROMERO LAB BLOOD ORDERABLES Anne Marie l Result [facility] [address] [place] [address], [place] [phone] * (ABNORMAL) Comprehensive metabolic panel (09/25/2024 11:22 AM EST) [facility] Sodium 137 133 - 145 mmol/L LAB CHEMISTRY METHOD 09/25/2024 2:[address] [facility] Potassium 4.3 3.5 - 5.5 mmol/L LAB CHEMISTRY METHOD 09/25/2024 2:55 PM [facility] Chloride 105 96 - 110 mmol/L LAB CHEMISTRY METHOD 09/25/2024 2:55 PM [facility] CO2 25 21 - 32 mmol/L LAB CHEMISTRY METHOD 09/25/2024 2:55 PM [facility] Anion Gap 7 3 - 11 LAB CHEMISTRY METHOD 09/25/2024 2:55 PM [facility] Glucose 172(H) 70 - 100 mg/dL LAB CHEMISTRY METHOD 09/25/2024 2:55 PM [facility] BUN 13 5 - 25 mg/dL LAB CHEMISTRY METHOD 09/25/2024 2:55 PM [facility] Creatinine 0.89 0.70 - 1.30 mg/dL LAB CHEMISTRY METHOD 09/25/2024 2:55 PM [facility] eGFR 91 >=60 mL/min/1. 73m2 LAB CHEMISTRY METHOD 09/25/2024 2:55 PM [facility] Comment:Calculation based on the??Chronic Kidney Disease Epidemiology Collaboration (CKD-EPI) equation refit??without adjustment for race. BUN/Creatinine Ratio 14.6 LAB CHEMISTRY METHOD 09/25/2024 2:55 PM [facility] Calcium 9.5 8.5 - 10.5 mg/dL LAB CHEMISTRY METHOD 09/25/2024 2:55 PM [facility] AST (SGOT) 24 10 - 42 unit/L LAB CHEMISTRY METHOD 09/25/2024 2:55 PM [facility] ALT (SGPT) 25 10 - 60 unit/L LAB CHEMISTRY METHOD 09/25/2024 2:55 PM [facility] Alkaline Phosphatase 84 42 - 121 unit/L LAB CHEMISTRY METHOD 09/25/2024 2:55 PM [facility] Total Protein 8.0 6.0 - 8.0 g/dL LAB CHEMISTRY METHOD 09/25/2024 2:55 PM [facility] Albumin 4.3 3.2 - 5.0 g/dL LAB CHEMISTRY METHOD 09/25/2024 2:[address] [facility] Total Bilirubin 0.5 0.0 - 1.4 mg/dL LAB CHEMISTRY METHOD 09/25/2024 2:[address] [facility] Blood Venous blood specimen / Unknown Venipuncture / Unknown 09/25/2024 11:22 AM EST 09/25/2024 11:22 AM EST [facility] BLOOD ORDERABLES Anne Marie l Result [facility] [address] [place] [address], * Falls Risk Assessment (04/15/2024) [facility] Falls Risk Assessment abstracted [facility] Provider HEALTH MAINTENANCE Final Result * Depression Screening (04/15/2024) [facility] Depression Screening abstracted [facility] Provider HEALTH MAINTENANCE Final Result * Diabetes Foot Exam (07/24/2023) [facility] Diabetes: Annual Foot Exam abstracted [facility] Provider HEALTH MAINTENANCE Final Result * Colonoscopy (03/25/2022) [facility] Colonoscopy no interpreta tion,abstr acted Anatomical Region Laterality Modality Other Result [facility] Provider HEALTH MAINTENANCE Final Result * Hepatitis C Screening (05/25/2020) [facility] Hepatitis C Screening abstracted Result [facility] Provider HEALTH MAINTENANCE Final Result from Last 3 Months or Most Recently Relevant to Health Maintenance Insurance [facility]ICARE [facility] Care Teams Chief Architect Relationship Specialty Start Date End Date Benton Chandler PA [address] [place] [address] PCP - General Internal Medicine 04/29/20
--- OUTSIDE RECORDS SUMMARY | 2024-12-17 10:34 | XMS_ITS | Clinical Summary ---
Author Organization [facility] Address [address] [place] [address] Care Team Providers Care Digital Advisor Name Role Phone Benton Chandler PA-C Primary [...] age to complete this topic Care Teams Digital Advisor Relationship Specialty Start Date End Date Benton Chandler, DOMINGAC PCP - General Medical Services 07/19/22
== END 2024-12-17 10:21 | disposition home or self-care (01) ==
PROVIDERS: PCP Physician Assistant Medical; Visit Provider Surgery Vascular Surgery
DX: I73.9 Peripheral vascular disease, unspecified (principal)
CPT/HCPCS: 99214; G2211

== ENCOUNTER → 2024-12-17 09:28 | Outpatient (BNVA) | payer MEDICARE, OTHER, SELFPAY | PROVIDERS: PCP Physician Assistant Medical; Visit Provider Surgery Vascular Surgery | DX: I73.9 Peripheral vascular disease, unspecified (principal) | CPT/HCPCS: 99212 ==

== ENCOUNTER 2025-03-31 10:53 | Outpatient (AMB) | payer MEDICARE, OTHER, SELFPAY ==
--- NOTE | 2025-03-31 10:55 | AM.OFFWIN_ITS ---
Intake Vital Signs 03/31/25 10:56 Height 6 ft Weight 220 lb BMI 29.8 BP 152/60 H Blood Pressure Location Rt brachial Position Sitting Pulse 82 Pulse Source Pulse Oximeter Temp 98.1 F Temp Source Oral Pulse Oximetry (%) 98 Oxygen Delivery Method Room Air Intake Visit Reasons: EP throat pain Intake Note: Patient presents sore throat times 4 days, took an antibotic he had at home..amoxicillin 500mg 1 tablet on Monday and 1 tablet BID on Monday and Monday Patient Tobacco Use Status: Former Tobacco user Allergies No Known Allergies [NKA] Allergy (Verified 03/31/25 11:05) Do you need a note to return to daycare/school/sports/work: No HPI HPI Comments History of Present Illness Details History - The patient is a 74-year-old male pres enting with sore throat and ear discomfort. - The sore throat began on Monday and s associated with fever, particularly on Monday night. - The patient self-administered leftover amoxicillin, taking one dose on Monday and two doses each on Monday and Monday. - The patient reported improvement in th roat pain but noted it was not completely resolved. - The patient has a history of ear, nose , and throat infections but does not frequently experience strep throat. - The patient reported tenderness on the right side of the neck and impacted cerumen in the left ear. Physical Exam General: Cooperative, healthy appearing, comfortable and no acute distress Orientation/consciousness: Patient oriented x3 Limitations: No limitations Head: Normal to inspection Ears: Hearing grossly normal bilaterally, external ears normal and left ear impacted with wax, right TM normal Nose: Normal external nose present, Normal nares present and No nasal discharge present Face and sinus: Normal facial exam and Yes sinuses nontender Mouth: Normal oral and palatal mucosa present and moist mucous membranes Throat: Yes tonsils normal, Yes uvula midline. Posterior oropharynx not erythematous, no exudates Eyes: Appearance normal, both eyes and all related structures Neck: Normal visual inspection, full ROM, lymph tenderness on the right side Respiratory: Normal respiratory effort, able to speak in complete sentences Skin: No rashes or lesions noted Neuro: Patient oriented x3 Extremities: Normal to inspection and Yes no clubbing, cyanosis or edema [facility] Medical History Failed total hip arthroplasty Diabetic foot ulcer BPH (benign prostatic hyperplasia) Diabetic neuropathy Peripheral vascular disease Elevated erythrocyte sedimentation rate Hyperkalemia GERD (gastroesophageal reflux disease) Chronic anemia Diabetes Hypertension Cellulitis Surgical History H/O hand surgery H/O foot surgery Hx of appendectomy H/O total hip arthroplasty Social History Household Members: Spouse Housing: House Do you presently have visiting nurse or other home services: No Alcohol intake: never Patient Tobacco Use Status: Former Tobacco user e-Cigarette/Vaping Use: Never Used service: No Current occupational status: employed Review of Systems Const All systems reviewed & are unremarkable except as noted in HPI and below Physical Exam Vital Signs: Last Vital Signs Temp 98.1 F 03/31/25 10:56 Pulse 82 03/31/25 10:56 BP 152/60 H 03/31/25 10:56 Pulse Ox 98 03/31/25 10:56 Oxygen Delivery Method Room Air 03/31/25 10:56 BMI result Body Mass Index 29.8 Office Procedures Cerumen Removal From which ear canal was the cerumen removed: left Removal: irrigation and otoscope w/curette Notes: patient tolerated procedure well, no complications and ear canal clear 12590-Isu Irrigation/Lavage Assessment & Plan Assessment & Plan (1) Acute streptococcal pharyngitis: Code(s): J02.0 - Streptococcal pharyngitis Plan: - Plan to flush the left ear to remove impacted cerumen. - Based on subjective fevers, sore throat, hx of strep, cervical lymphadenopathy, Centor criteria 2 points, will treat. - Negative rapid strep test; As pt has been taking Amoxicillin x3 days from some leftover he had at home, difficult to tell if he had strep and abx are working as he is feeling better. -Will treat for 7 days as he has already taken 3 days for full treatment of suspected strep for 10 days. Patient was informed and verbally consented to the use of an ambient scribe for clinic note documentation during this visit (2) Left ear impacted cerumen: Code(s): H61.22 - Impacted cerumen, left ear Plan: Impacted cerumen was removed with the irrigation, unable to remove manually with curette. TM clear. Orders: Orders AMB Rapid Strep Screen Today Z13.9 - Encounter for screening, unspecified Medications: New amoxicillin 500 mg PO Q12H 7 days 14 tabs 0RF Coding Level of Care Code New Pt Level 3 (63948) Diagnoses Acute streptococcal pharyngitis J02.0 Left ear impacted cerumen H61.22 CPT Codes Office Procedure - CPT: 69039-Yeb Irrigation/Lavage ([id number])
[2025-03-31 10:56] VITALS: BP 152/60; PULSE 82; TEMP 36.7; O2SAT 98; BMI 29.8
--- OUTSIDE RECORDS SUMMARY | 2025-03-31 12:22 | XMS_ITS | Clinical Summary ---
Author Organization [facility] [address] [place] [address] [place] [phone] Phone Care Team Providers Care Marble Worker Name Role Phone Benton Chandler Primary Care Provider [phone] Allergies No known active allergies Medications betamethasone dipropionate (DIPROSONE) 0.05 % ointment Use to affected area twice daily 11/17/19 21 Active cholecalciferol (Dialyvite Vitamin D3 Max) 1,250 mcg (50,000 unit) tablet Take 1 tablet (50,000 Units total) by mouth every 7 (seven) days. 04/17/20 24 Active blood-glucose meter,continuous (FreeStyle Muna 3 [place]) misc 1 Device by Does not apply route continuous. 02/13/20 24 Active blood-glucose sensor (FreeStyle Muna 3 Sensor) device 1 Applicator by Does not apply route every 14 days. 07/16/20 24 Active multivit-min/fol ic/vit K/lycop (MEN'S MULTIVITAMIN ORAL) Take by mouth daily. Active chlorhexidine (PERIDEX) 0.12 % solution Take 15 mL by mouth 2 times daily. 120 mL 09/11/20 24 Active cyclobenzaprine (FLEXERIL) 10 mg tablet Take 1 tablet (10 mg total) by mouth at bedtime as needed for muscle spasms. 30 tablet 2 09/11/20 24 025 Active meloxicam (MOBIC) 15 mg tablet Take 1 tablet (15 mg total) by mouth 1 (one) time each day. 90 tablet 3 09/11/20 24 Active testosterone 50 mg/5 gram (1 %) gel Place 2 Tubes (100 mg of testosterone total) on the skin 1 (one) time each day. Max Daily Amount: 100 mg of testosterone 300 g 3 09/11/20 24 Active sildenafiL (VIAGRA) 50 mg tablet Take 1 tablet (50 mg total) by mouth 1 (one) time each day if needed for erectile dysfunction. 10 tablet 11 09/11/20 24 Active glucose blood test stripIndications :Type 2 diabetes mellitus with diabetic neuropathy, with long-term current use of insulin (CMS/TechnoSpin V24, CMS/TechnoSpin V28) Use as instructed 100 each 12 09/30/20 24 025 Active glucose blood test stripIndications :Type 2 diabetes mellitus with diabetic neuropathy, with long-term current use of insulin (CMS/TechnoSpin V24, CMS/TechnoSpin V28) Check sugars 3 times a day Contour next 200 each 2 09/30/20 24 026 Active pen needle, diabetic (BD Ultra-Fine Short Pen Needle) 31 gauge x 5/16 needleIndication s:Type 2 diabetes mellitus with diabetic neuropathy, with long-term current use of insulin ([employer]/TechnoSpin V24, CMS/TechnoSpin V28) Inject 1 Device into the skin 4 times daily. 300 each 2 09/30/20 24 Active empagliflozin (JARDIANCE) 10 mg tablet Take 1 tablet (10 mg total) by mouth 1 (one) time each day. 90 tablet 1 03/17/20 25 Active clopidogreL (PLAVIX) 75 mg tablet Take 1 tablet (75 mg total) by mouth 1 (one) time each day. 90 tablet 3 03/17/20 25 Active furosemide (LASIX) 20 mg tablet Take 1 tablet (20 mg total) by mouth 1 (one) time each day. 90 tablet 3 03/17/20 25 Active gabapentin (NEURONTIN) 300 mg capsule TAKE 1 CAPSULE IN THE MORNING, 1 CAPSULE IN THE AFTERNOON, AND 2 CAPSULES IN THE EVENING DAILY 540 capsule 3 03/17/20 25 Active insulin aspart, niacinamide, (Fiasp FlexTouch U-100 Insulin) 100 unit/mL (3 mL) injection penIndications:T ype 2 diabetes mellitus with diabetic neuropathy, with long-term current use of insulin ([employer]/TechnoSpin V24, CMS/TechnoSpin V28) Inject 35 Units into the skin 3 times daily (before meals). 3 times a day before meals up to 100 units a day. (dispense three months supply please) 90 mL 11 03/17/20 25 Active insulin glargine,hum.rec .anlog (Basaglar KwikPen U-100 Insulin) 100 unit/mL (3 mL) injection penIndications:T ype 2 diabetes mellitus with diabetic neuropathy, with long-term current use of insulin ([facility] V24, CMS/[facility] V28) Inject 70 Units into the skin at bedtime. Dispense three months supply please 60 mL 11 03/17/20 25 Active lisinopriL (PRINIVIL,ZESTRI L) 20 mg tablet Take 1 tablet (20 mg total) by mouth 1 (one) time each day. 90 tablet 03/17/20 25 Active tamsulosin (FLOMAX) 0.4 mg 24 hr capsule Take 1 capsule (0.4 mg total) by mouth 1 (one) time each day. Capsules should be taken 30 minutes following the same meal each day. 90 capsule 3 03/17/20 25 Active omeprazole (PriLOSEC) [address] capsule Take 1 capsule (20 mg total) by mouth 2 (two) times a day. 180 capsule 3 03/17/20 25 Active traMADoL (ULTRAM) 50 mg tablet Take 1 tablet (50 mg total) by mouth every 6 (six) hours if needed for severe pain or moderate pain. Max Daily Amount: 200 mg 28 tablet 03/17/20 25 Active omeprazole (PriLOSEC) [address] capsule Take 1 capsule (20 mg total) by mouth 2 (two) times a day. 180 capsule 3 09/11/20 24 025 Discontin ued(Reord er) clopidogreL (PLAVIX) 75 mg tablet Take 1 tablet (75 mg total) by mouth 1 (one) time each day. 90 tablet 3 09/11/20 24 025 Discontin ued(Reord er) furosemide (LASIX) 20 mg tablet Take 1 tablet (20 mg total) by mouth 1 (one) time each day. 90 tablet 3 09/11/20 24 025 Discontin ued(Reord er) gabapentin (NEURONTIN) 300 mg capsule TAKE 1 CAPSULE IN THE MORNING, 1 CAPSULE IN THE AFTERNOON, AND 2 CAPSULES IN THE EVENING DAILY 540 capsule 3 09/11/20 24 025 Discontin ued(Reord er) lisinopriL (PRINIVIL,ZESTRI L) 20 mg tablet Take 1 tablet (20 mg total) by mouth 1 (one) time each day. 90 tablet 3 09/11/20 24 025 Discontin ued(Reord er) tamsulosin (FLOMAX) 0.4 mg 24 hr capsule Take 1 capsule (0.4 mg total) by mouth 1 (one) time each day. Capsules should be taken 30 minutes following the same meal each day. 90 capsule 3 09/11/20 24 025 Discontin ued(Reord er) insulin aspart, niacinamide, (Fiasp FlexTouch U-100 Insulin) 100 unit/mL (3 mL) injection penIndications:T ype 2 diabetes mellitus with diabetic neuropathy, with long-term current use of insulin (CMS/HCC V24, CMS/HCC V28) Inject 35 Units into the skin 3 times daily (before meals). 3 times a day before meals up to 100 units a day. (dispense three months supply please) 90 mL 2 09/30/20 24 025 Discontin ued(Reord er) insulin glargine,hum.rec .anlog (Basaglar KwikPen U-100 Insulin) 100 unit/mL (3 mL) injection penIndications:T ype 2 diabetes mellitus with diabetic neuropathy, with long-term current use of insulin (CMS/HCC V24, CMS/HCC V28) Inject 70 Units into the skin at bedtime. Dispense three months supply please 60 mL 1 09/30/20 24 025 Discontin ued(Reord er) traMADoL (ULTRAM) 50 mg tablet TAKE 1 TABLET (50 MG TOTAL) BY MOUTH EVERY 6 (SIX) HOURS IF NEEDED FOR SEVERE PAIN OR MODERATE PAIN. MAX DAILY AMOUNT: 200 MG 28 tablet 02/19/20 25 025 Discontin ued(Reord er) Active Problems Problem Noted Date Diagnosed Date Anemia 07/30/2024 Assessment & Plan (03/17/2025 2:11 PM EDT): Orders: Lipid panel with reflex to direct LDL; Future Microalbumin creatinine urine ratio; Future Comprehensive metabolic panel; Future Hemoglobin A1c; Future Vitamin D 25 hydroxy; Future Iron and TIBC; Future CBC and differential; Future Testosterone, total; Future Prostate specific antigen diagnostic; Future Angiodysplasia of colon 07/30/2024 Hemorrhoids 07/30/2024 Vitamin D deficiency 04/17/2024 1st degree AV block 04/15/2024 PVC (premature ventricular contraction) 04/15/20 Sinus arrhythmia 04/15/2024 Sinus bradycardia 04/15/2024 Hypogonadism in male 07/06/2023 Assessment & Plan (03/17/2025 2:11 PM EDT): Orders: Lipid panel with reflex to direct LDL; Future Microalbumin creatinine urine ratio; Future Comprehensive metabolic panel; Future Hemoglobin A1c; Future Vitamin D 25 hydroxy; Future Iron and TIBC; Future CBC and differential; Future Testosterone, total; Future Prostate specific antigen diagnostic; Future Dyspnea on exertion 08/24/2022 Overview (07/30/2024): - [...] on doing Secondary esophageal varices without bleeding ([facility] V24, [facility] V28) 06/29/2022 BPH (benign prostatic hyperplasia) 06/04/2021 Assessment & Plan (03/17/2025 2:11 PM EDT): Orders: Lipid panel with reflex to direct LDL; Future Microalbumin creatinine urine ratio; Future Comprehensive metabolic panel; Future Hemoglobin A1c; Future Vitamin D 25 hydroxy; Future Iron and TIBC; Future CBC and differential; Future Testosterone, total; Future Prostate specific antigen diagnostic; Future Chronic anemia 06/04/2021 Assessment & Plan (03/17/2025 2:11 PM EDT): Orders: Lipid panel with reflex to direct LDL; Future Microalbumin creatinine urine ratio; Future Comprehensive metabolic panel; Future Hemoglobin A1c; Future Vitamin D 25 hydroxy; Future Iron and TIBC; Future CBC and differential; Future Testosterone, total; Future Prostate specific antigen diagnostic; Future Diabetic ulcer of left foot associated with type 2 diabetes mellitus ([facility] V24, [facility] V28) 06/04/2021 Overview (07/30/2024): [facility] 04/27/21-05/01/21, follow with wound care Assessment & Plan (03/17/2025 2:11 PM EDT): Orders: Lipid panel with reflex to direct LDL; Future Microalbumin creatinine urine ratio; Future Comprehensive metabolic panel; Future Hemoglobin A1c; Future Vitamin D 25 hydroxy; Future Iron and TIBC; Future CBC and differential; Future Testosterone, total; Future Prostate specific antigen diagnostic; Future GERD (gastroesophageal reflux disease) DM (diabetes mellitus), type 2 with peripheral vascular complications ([facility] V24, [facility] V28) 05/26/2021 Assessment & Plan (03/17/2025 2:11 PM EDT): Orders: Lipid panel with reflex to direct LDL; Future Microalbumin creatinine urine ratio; Future Comprehensive metabolic panel; Future Hemoglobin A1c; Future Vitamin D 25 hydroxy; Future Iron and TIBC; Future CBC and differential; Future Testosterone, total; Future Prostate specific antigen diagnostic; Future PVD (peripheral vascular disease) ([facility] V24) 05/26/2021 Overview (07/30/2024): Plasty left SFA 05/05 Iron deficiency anemia secondary to blood loss ( chronic) 01/28/2020 Nocturia 08/12/2019 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 Foster recommend every [...] colonoscopy in 5 years. Diabetes with neurologic com plications ([facility] V24, [facility] V28) 08/20/2012 Overview (07/30/2024): Right peroneal neuropathy. Assessment & Plan (03/17/2025 2:11 PM EDT): Orders: Lipid panel with reflex to direct LDL; Future Microalbumin creatinine urine ratio; Future Comprehensive metabolic panel; Future Hemoglobin A1c; Future Vitamin D 25 hydroxy; Future Iron and TIBC; Future CBC and differential; Future Testosterone, total; Future Prostate specific antigen diagnostic; Future insulin aspart, niacinamide, (Fiasp FlexTouch U-100 Insulin) 100 unit/mL (3 mL) injection pen; Inject 35 Units into the skin 3 times daily (before meals). 3 times a day before meals up to 100 units a day. (dispense three months supply please) insulin glargine,hum.rec.anlog (Basaglar CecyikPen U-100 Insulin) 100 unit/mL (3 mL) injection pen; Inject 70 Units into the skin at bedtime. Dispense three months supply please Microalbuminuria 08/20/2012 Type 2 diabetes mellitus wit h eye manifestations ([facility] V24, [facility] V28) 08/20/2012 Overview (07/30/2024): Bilateral nuclear sclerosis. Assessment & Plan (03/17/2025 2:11 PM EDT): Orders: Lipid panel with reflex to direct LDL; Future Microalbumin creatinine urine ratio; Future Comprehensive metabolic panel; Future Hemoglobin A1c; Future Vitamin D 25 hydroxy; Future Iron and TIBC; Future CBC and differential; Future Testosterone, total; Future Prostate specific antigen diagnostic; Future Diabetes mellitus with renal manifestation ([facility] V24, [facility] V28) 05/07/2012 Overview (07/30/2024): Last Assessment & Plan: No response to multiple outreach attempts to offer the diabetes partnership program; will offer program if patient responds. Assessment & Plan (03/17/2025 2:11 PM EDT): Orders: Lipid panel with reflex to direct LDL; Future Microalbumin creatinine urine ratio; Future Comprehensive metabolic panel; Future Hemoglobin A1c; Future Vitamin D 25 hydroxy; Future Iron and TIBC; Future CBC and differential; Future Testosterone, total; Future Prostate specific antigen diagnostic; Future Hepatitis C, chronic ([facility] V24, [facility] V28) 12/16/2008 Overview (07/30/2024): With increase in liver test. Consider treatment. Treated with Harvoni, q. 6 month ultrasound with yearly alpha-fetoprotein recommended by Dr. Foster infectious disease. Osteoarthritis 07/26/2007 Overview (07/30/2024): ADVANCED (L) HIP, EARLY (R) HIP- NEOS-KRUSHELL, Left THR 12/22. Essential hypertension, benign 12/29/2005 Overview (07/30/2024): Last Assessment & Plan: Well-controlled on current regimen, continue Assessment & Plan (03/17/2025 2:11 PM EDT): Orders: Lipid panel with reflex to direct LDL; Future Microalbumin creatinine urine ratio; Future Comprehensive metabolic panel; Future Hemoglobin A1c; Future Vitamin D 25 hydroxy; Future Iron and TIBC; Future CBC and differential; Future Testosterone, total; Future Prostate specific antigen diagnostic; Future Encounters Date Type Department Care Team Description 03/31/2025 Telephone Adult Medicine [address] [phone] Starla Brown LPN Fitting for DME (Faxed form from [employer]) 03/18/[address] [phone] Benton Chandler PA 03/17/2025 1:00 PM EDT Office Visit Adult Medicine [address] [phone] Benton Chandler PA Type 2 diabetes mellitus with diabetic neuropathy, with long-term current use of insulin ([facility] V24, [facility] V28) (Primary Dx); DM (diabetes mellitus), type 2 with peripheral vascular complications (CMS/HCC V24, CMS/HCC V28); Type 2 diabetes mellitus with other diabetic kidney complication, without long-term current use of insulin (CMS/HCC V24, CMS/HCC V28); Chronic anemia; Anemia, unspecified type; Benign prostatic hyperplasia, unspecified whether lower urinary tract symptoms present; Essential hypertension, benign; Diabetic ulcer of left foot associated with type 2 diabetes mellitus, unspecified part of foot, unspecified ulcer stage (CMS/HCC V24, CMS/HCC V28); Hypogonadism in male; Type 2 diabetes mellitus with other ophthalmic complication, with long-term current use of insulin (CMS/HCC V24, CMS/HCC V28); Disorder of cartilage, unspecified; Adult general medical examination 01/23/2025 Telephone Adult Medicine [address] [phone] Benton Chandler PA prior auth 01/16/2025 11:15 AM EDT Office Visit [address] [phone] Sawyer Barrera MD Type 2 diabetes mellitus with diabetic neuropathy, with long-term current use of insulin ([facility] V24, [facility] V28) (Primary Dx) 01/16/2025 Telephone Endocrinology [address] [phone] Yoly Williamma [place] 01/06/2025 Telephone Endocrinology [address] [phone] Aarti William [place] from Last 3 Months Immunizations Name Administration Dates Next Due H1N1 Inj Preservative Free 09/22/2009 Hepatitis B (Mleoybf-P-Krrea , Recombivax HB-Adult) 19yo and older 12/12/2008,06/11/2008,05/12/2008 [...] valent (Pneumovax 23) 2yo and older 11/17/2020,11/18/2013 RSV, bivalent, protein subun it RSVpreF, 0.5mL, Preservative Free (Arexvy) 60yo and older 10/10/2023 Td Tetanus diptheria (Tdvax) 7yo and older [...] EGD 12/2012 UPPER GASTROINTESTINAL ENDOSCOPY 01/01/2008 PROCEDURE: AK UPPER GI ENDOSCOPY PERFORMED; COMMENT: Esophageal ulcers-bx:erosive esophagitis, hiatus hernia, SB-normal. Repeat EGD 06/2008 OTHER SURGICAL HISTORY 05/10/2021 Left PROCEDURE: [place] UNLISTED PROCEDURE VASCULAR SURGERY; COMMENT: dr. deng [...] 5 years OTHER SURGICAL HISTORY 07/31/2024 PROCEDURE: AK EMBLC/THRMBC [id number] [employer]; COMMENT: left SF atherectomy, stent - dr. deng Medical History Medical History Date Comments Diabetes mellitus (CMS/HCC V 24, CMS/HCC V28) DX:Diabetes mellitus (HCC) Type II or unspecified type [...] mellitus), type 2 with peripheral vascular complications (CMS/HCC V24, CMS/HCC V28) 05/26/2021 DX:DM (diabetes mellitus), type 2 with peripheral vascular complications (HCC) PVD (peripheral vascular dis ease) (CMS/HCC V24) 05/26/2021 DX:PVD (peripheral vascular disease) (HCC); COMMENT: Plasty left SFA 05/05 BPH (benign prostatic hyperplasia) 06/04/2021 DX:BPH (benign prostatic hyperplasia) Chronic anemia 06/04/2021 DX:Chronic anemi a GERD (gastroesophageal reflux disease) DX:GERD (gastroesophageal reflux disease) 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 Fsoter recommend every 6 month ultrasound to screen for hepatoma. Diabetic ulcer of left foot associated with type 2 diabetes mellitus (CMS/HCC V24, CMS/HCC V28) 06/04/2021 DX:Diabetic ulcer of left fo ot associated with type 2 diabetes mellitus (HCC); COMMENT: Hospitalized [facility] 04/27/21-05/01/21, follow with wound care DM [...] DX:His tory of diverticulosis Hepatitis C, chronic (CMS/HC C V24, CMS/HCC V28) 12/16/2008 DX:Hepatitis C, chronic (HCC ); COMMENT: With increase in liver test. Consider [...] Hemorrhoids DX:Hemorrhoids Anemia DX:Anemia Cirrhosis of liver (CMS/HCC V24, CMS/HCC V28) DX:Cirrhosis of liver (HCC) Family History Medical History Relation Name Comments Diabetes Father [place] Other: etoh Father Other cancer Mother no [...] Sign Reading Time Taken Comments Blood Pressure 124/74 03/17/2025 1:03 PM EDT Pulse 72 03/17/2025 1:03 PM EDT Temperature 36.7 ??C (98.1 ??F) 03/17/2025 1:03 PM ED T Respiratory Rate 18 03/17/2025 1:03 PM EDT Oxygen Saturation 99% 01/16/2025 11:15 AM EDT Inhaled Oxygen Concentration - - Weight 101 kg (223 lb) 03/17/2025 1:03 PM EDT Height 182.9 cm (6') 03/17/2025 1:03 PM EDT Body Mass Index 30.24 03/17/2025 1:03 PM EDT Plan of Treatment Upcoming Encounters Date Type Department Care Team (Late st Contact Info) Description 04/24/2025 1:00 PM EDT Office Visit Endocrinology - [address] [phone] Sawyer Barrera MD [address] [place] [id number] 06/26/2025 11:00 AM EDT Office Visit Orthopedic Surgery - [place] [address] [facility] [address] [place] [phone] Hood Carter, DPM [address] [place] [address] 06/30/2025 11:00 AM EDT Office Visit Adult Medicine [facility] [address] [place] [phone] Benton Chandler PA [address] [place] [address] Health Maintenance Due Date Last Done Comments Hepatitis A Vaccines (1 of 2 - Risk 2-dose series) 1969 Zoster Vaccines (1 of 2) 1969 Social Influencers of Health Screening 09/24/2022 COVID-19 Vaccine ( season) 2024 08/25/2022, 09/04/2021, 02/01/2021, Additional history exists Depression Screening 04/15/2025 04/15/2024 Diabetes: Blood Sugar Control Test (HGBA1C) 07/18/2025 01/16/2025, 09/25/2024, 04/15/2024, Additional history exists Diabetes: Annual Retina Eye Exam 08/29/2025 08/29/2024 Diabetes: Annual Urine Albumin-Creatinine Ratio (uACR) 09/25/2025 09/25/2024, 10/05/2023 Diabetes: Annual GFR (Glomerular Filtration Rate) 01/16/2026 01/16/2025, 09/25/2024, 04/10/2024, Additional history exists Hypertension/CHF/CAD Annual BMP Blood Test 01/16/2026 01/16/2025, 09/25/2024, 04/10/2024, Additional history exists Diabetes: Annual Foot Exam 03/11/2026 03/11/2025, Falls Risk Assessment 03/17/2026 03/17/2025 , 03/17/2025, 04/15/2024 Medicare Annual Wellness Visit 03/17/2026 03/17/2025 Colorectal Cancer Screening: Colonoscopy 03/25/2027 03/25/2022 Cholesterol Screening (Lipid Panel) 09/25/2029 09/25/2024, 10/05/2023 DTaP,Tdap,and Td Vaccines Discontinued 04/13/2009 Hepatitis B Vaccines Completed 06/25/2015, 12/25/2014, 11/27/2014, Additional history exists Hepatitis C Screening Completed 05/25/2020 Pneumococcal Vaccine: 50+ Years Completed 11/17/2020, 01/02/2019, 11/18/2013 RSV Immunization Adult Patients Completed 10/10/2023 Influenza Vaccine Completed 07/29/2024, , [...] age to complete this topic Meningococcal B Vaccine Aged Out No l onger eligible based on patient's age to complete this topic RSV Immunization Patients Under 20 months Aged Out No longer eligible based on patient's age to complete this topic Varicella Vaccines Aged Out No longer eligible based on patient's age to complete this topic Procedures Procedure Name Priority Date/Time Associated Diagnosis Comments CBC WITH AUTO DIFFERENTIAL Routine 01/16/2025 12:34 PM EDT Other cirrhosis of liver (CMS/HCC V24, CMS/HCC V28) CBC AND DIFFERENTIAL Routine 01/16/2025 12:34 PM EDT Other cirrhosis of liver (CMS/HCC V24, CMS/HCC V28) COMPREHENSIVE METABOLIC PANEL Routine 01/16/2025 12:34 PM EDT Other cirrhosis of liver (CMS/HCC V24, CMS/HCC V28) PROTHROMBIN TIME WITH INR Routine 01/16/2025 12:34 PM EDT Other cirrhosis of liver (CMS/HCC V24, CMS/HCC V28) ALPHA FETOPROTEIN TUMOR MARKER Routine 01/16/2025 12:34 PM EDT Other cirrhosis of liver (CMS/HCC V24, CMS/HCC V28) HEMOGLOBIN A1C Routine 01/16/2025 12:34 PM EDT Type 2 diabetes mellitus with diabetic neuropathy, with long-term current use of insulin (CMS/HCC V24, CMS/HCC V28) MICROALBUMIN CREATININE URINE RATIO Routine 09/25/2024 11:23 AM EST Spinal stenosis of lumbar region with neurogenic claudication Actinic keratosis Benign prostatic hyperplasia, unspecified whether lower urinary tract symptoms present Chronic anemia Cirrhosis of liver not due to alcohol (CMS/HCC V24, CMS/HCC V28) Type 2 diabetes mellitus with other diabetic kidney complication, without long-term current use of insulin (CMS/HCC V24, CMS/HCC V28) Type 2 diabetes mellitus with diabetic neuropathy, without long-term current use of insulin (CMS/HCC V24, CMS/HCC V28) Essential hypertension, benign Hypogonadism in male Iron deficiency anemia secondary to blood loss (chronic) LIPID PANEL WITH REFLEX TO DIRECT LDL Routine 09/25/2024 11:22 AM EST Spinal stenosis of lumbar region with neurogenic claudication Actinic keratosis Benign prostatic hyperplasia, unspecified whether lower urinary tract symptoms present Chronic anemia Cirrhosis of liver not due to alcohol (CMS/HCC V24, CMS/HCC V28) Type 2 diabetes mellitus with other diabetic kidney complication, without long-term current use of insulin (CMS/HCC V24, CMS/HCC V28) Type 2 diabetes mellitus with diabetic neuropathy, without long-term current use of insulin (CMS/HCC V24, CMS/HCC V28) Essential hypertension, benign Hypogonadism in male Iron deficiency anemia secondary to blood loss (chronic) DEPRESSION SCREENING Routine 04/15/2024 FALLS RISK ASSESSMENT Routine 04/15/2024 DIABETES FOOT EXAM Routine 07/24/2023 COLONOSCOPY Routine 03/25/2022 HEPATITIS C SCREENING Routine 05/25/2020 from Last 3 Months or Most Recently Relevant to Health Maintenance Results * (ABNORMAL) CBC auto differential (01/16/2025 12:34 PM EDT) WBC 4.9 4.8 - 10.8 K/mcL LAB HEMETOLOGY METHOD 01/16/2025 2:[address] [facility] RBC 4.50 4.50 - 5.50 M/mcL LAB HEMETOLOGY [facility] Hemoglobin 13.1(L) 13.5 - 17.5 g/dL LAB HEMETOLOGY METHOD 01/16/2025 2:[facility] Hematocrit 39.2(L) 42.0 - 54.0 % LAB HEMETOLOGY METHOD 01/16/2025 2:31 [facility] MCV 86.3 79.0 - 98.0 FL LAB HEMETOLOGY METHOD 01/16/2025 2:31 [facility] MCH 28.9 27.0 - 32.0 pcg LAB HEMETOLOGY METHOD 01/16/2025 2:31 [facility] MCHC 33.4 32.0 - 37.0 g/dL LAB HEMETOLOGY METHOD 01/16/2025 2:31 PM [facility] RDW 14.4 11.0 - 15.0 % LAB HEMETOLOGY METHOD 01/16/2025 2:31 PM [facility] Platelets 180 130 - 400 K/mcL LAB HEMETOLOGY METHOD 01/16/2025 2:31 PM [facility] MPV 11.4(H) 7.0 - 11.0 FL LAB HEMETOLOGY METHOD 01/16/2025 2:31 PM [facility] NRBC 0.0 <1.0 % LAB HEMETOLOGY METHOD 01/16/2025 2:31 PM [facility] NRBC Absolute 0.00 <0.10 K/mcL LAB HEMETOLOGY METHOD 01/16/2025 2:31 PM [facility] Neutrophils Relative 63.8 % LAB HEMETOLOGY METHOD 01/16/2025 2:31 PM [facility] Lymphocytes Relative 22.5 % LAB HEMETOLOGY METHOD 01/16/2025 2:31 PM [facility] Monocytes Relative 9.5 % LAB HEMETOLOGY METHOD 01/16/2025 2:31 PM [facility] Eosinophils Relative 2.8 % LAB HEMETOLOGY METHOD 01/16/2025 2:31 PM [facility] Basophils Relative 1.2 % LAB HEMETOLOGY METHOD 01/16/2025 2:31 PM [facility] Immature Granulocytes Relative 0.2 % LAB HEMETOLOGY METHOD 01/16/2025 2:31 PM [facility] Neutrophils Absolute 3.15 1.50 - 7.00 K/mcL LAB HEMETOLOGY METHOD 01/16/2025 2:31 PM [facility] Lymphocytes Absolute 1.11 1.00 - 5.00 K/mcL LAB HEMETOLOGY METHOD 01/16/2025 2:31 PM [facility] Monocytes Absolute 0.47 0.20 - 1.00 K/mcL LAB HEMETOLOGY METHOD 01/16/2025 2:31 PM [facility] Eosinophils Absolute 0.14 0.00 - 0.50 K/mcL LAB HEMETOLOGY METHOD 01/16/2025 2:31 PM [facility] Basophils Absolute 0.06 0.00 - 0.20 K/[facility] LAB HEMETOLOGY METHOD 01/16/2025 2:[address] [facility] Immature Granulocytes Absolute 0.01 0.00 - 0.03 K/[facility] LAB HEMETOLOGY METHOD 01/16/2025 2:[address] [facility] Blood Venous blood specimen / Unknown Venipuncture / Unknown 01/16/2025 12:34 PM EDT 01/16/2025 12:34 PM EDT Juan ROMERO LAB BLOOD ORDERABLES Final Resu lt [facility] [address] [place] [address], [place] [phone] * Alpha fetoprotein tumor marker (01/16/2025 12:34 PM EDT) [facility] AFP <2.5 0.0 - 8.0 ng/mL LAB CHEMISTRY METHOD 01/16/2025 5:[address] [facility] Blood Venous blood specimen / Unknown Venipuncture / Unknown 01/16/2025 12:34 PM EDT 01/16/2025 12:[address] [facility] - 01/16/2025 5:37 PM EDT The Siemens Advia Centaur Chemiluminescent Immunoassay is used. Results obtained with different assay methods or kits cannot be used interchangeably. Results cannot be interpreted as absolute evidence of the presence or absence of malignant disease. Juan ROMERO LAB BLOOD ORDERABLES Final Resu lt [facility] [address] [place] [address], [place] [phone] * Prothrombin time with INR (01/16/2025 12:34 PM EDT) [facility] Protime 13.4 10.6 - 13.9 sec LAB COAGULATION METHOD 01/16/2025 2:[address] [facility] INR 1.1 LAB COAGULATION METHOD 01/16/2025 2:[address] [facility] Blood Venous blood specimen / Unknown Venipuncture / Unknown 01/16/2025 12:34 PM EDT 01/16/2025 12:34 PM EDT Juan ROMERO LAB BLOOD ORDERABLES Final Resu lt Performing Organization Address [facility]/ZIP Co de Phone Number [facility] [address] [place] [address], [place] [phone] * (ABNORMAL) Hemoglobin A1c (01/16/2025 12:34 PM EDT) Pathologist [facility] Hemoglobin A1C 7.0(H) <6.5 % LAB CHEMISTRY METHOD 01/16/2025 11:[address] [facility] Mean Bld Glu Estim. 154 mg/dL LAB CHEMISTRY METHOD 01/16/2025 11:[address] [facility] Blood Venous blood specimen / Unknown Venipuncture / Unknown 01/16/2025 12:34 PM EDT 01/16/2025 12:34 PM EDT Sawyer Barrera MD LAB BLOOD ORDERABLES Final Resul t Performing Organization Address [facility]/ZIP Co de Phone Number [facility] [address] [place] [address], [place] [phone] * (ABNORMAL) Comprehensive metabolic panel (01/16/2025 12:34 PM EDT) Pathologist [facility] Sodium 137 133 - 145 mmol/L LAB CHEMISTRY METHOD 01/16/2025 4:[address] [facility] Potassium 4.1 3.5 - 5.5 mmol/L LAB CHEMISTRY METHOD 01/16/2025 4:41 PM [facility] Chloride 107 96 - 110 mmol/L LAB CHEMISTRY METHOD 01/16/2025 4:41 PM [facility] CO2 22 21 - 32 mmol/L LAB CHEMISTRY METHOD 01/16/2025 4:41 PM [facility] Anion Gap 8 3 - 11 LAB CHEMISTRY METHOD 01/16/2025 4:41 PM [facility] Glucose 244(H) 70 - 100 mg/dL LAB CHEMISTRY METHOD 01/16/2025 4:41 PM [facility] BUN 15 5 - 25 mg/dL LAB CHEMISTRY METHOD 01/16/2025 4:41 PM [facility] Creatinine 0.96 0.70 - 1.30 mg/dL LAB CHEMISTRY METHOD 01/16/2025 4:41 PM [facility] eGFR 84 >=60 mL/min/1. 73m2 LAB CHEMISTRY METHOD 01/16/2025 4:41 PM [facility] Comment:Calculation based on the??Chronic Kidney Disease Epidemiology Collaboration (CKD-EPI) equation refit??without adjustment for race. BUN/Creatinine Ratio 15.6 LAB CHEMISTRY METHOD 01/16/2025 4:41 PM [facility] Calcium 8.9 8.5 - 10.5 mg/dL LAB CHEMISTRY METHOD 01/16/2025 4:41 PM [facility] AST (SGOT) 20 10 - 42 unit/L LAB CHEMISTRY METHOD 01/16/2025 4:41 PM [facility] ALT (SGPT) 23 10 - 60 unit/L LAB CHEMISTRY METHOD 01/16/2025 4:41 PM [facility] Alkaline Phosphatase 110 42 - 121 unit/L LAB CHEMISTRY METHOD 01/16/2025 4:41 PM [facility] Total Protein 7.8 6.0 - 8.0 g/dL LAB CHEMISTRY METHOD 01/16/2025 4:[address] [facility] Albumin 4.0 3.2 - 5.0 g/dL LAB CHEMISTRY METHOD 01/16/2025 4:[address] [facility] Total Bilirubin 0.3 0.0 - 1.4 mg/dL LAB CHEMISTRY METHOD 01/16/2025 4:[address] [facility] Blood Venous blood specimen / Unknown Venipuncture / Unknown 01/16/2025 12:34 PM EDT 01/16/2025 12:34 PM EDT Juan ROMERO LAB BLOOD ORDERABLES Final Resu lt [facility] [address] [place] [address], [place] [phone] * (ABNORMAL) Microalbumin creatinine urine ratio (09/25/2024 11:23 AM EST) Creatinine, Urine 63.0 mg/dL LAB CHEMISTRY METHOD 09/25/2024 3:[address] [facility] Microalb, Ur 235.0(H) 0.0 - 29.0 mg/L LAB CHEMISTRY METHOD 09/25/2024 3:[address] [facility] Microalb/Crea t Ratio 373(H) <30 mg/g creat LAB CHEMISTRY METHOD 09/25/2024 3:[address] [facility] Urine Urine specimen obtained by clean catch procedure / Unknown Non-blood Collection / Unknown 09/25/2024 11:23 AM EST 09/25/2024 11:23 AM EST Benton ROMERO LAB URINE ORDERABLES Anne Marie l Result Performing Organization Address City/[facility]/ZIP Co de Phone Number [facility] [address] [place] [address], [place] [phone] * (ABNORMAL) Lipid panel with reflex to direct LDL (09/25/2024 11:22 AM EST) Cholesterol 255(H) 0 - 200 mg/dL LAB CHEMISTRY METHOD 09/25/2024 2:[address] [facility] Triglycerides 262(H) 0 - 150 mg/dL LAB CHEMISTRY METHOD 09/25/2024 2:[address] [facility] HDL 47 >=40 mg/dL LAB CHEMISTRY METHOD 09/25/2024 2:[address] [facility] LDL Calculated 156(H) 0 - 100 mg/dL LAB CHEMISTRY METHOD 09/25/2024 2:[address] [facility] VLDL Cholesterol Christian 52.4 mg/dL [...] l Result [facility] [address] [place] [address], * Falls Risk Assessment (04/15/2024) Falls Risk Assessment abstracted Historical Provider HEALTH MAINTENANCE Final Result * Depression Screening (04/15/2024) Depression Screening abstracted Historical Provider HEALTH MAINTENANCE Final Result * Diabetes Foot Exam (07/24/2023) Pathologist [facility] Diabetes: Annual Foot Exam abstracted Historical Provider HEALTH MAINTENANCE Final Result * Colonoscopy (03/25/2022) [facility] Colonoscopy no interpreta tion,abstr acted Anatomical Region Laterality Modality Other [facility] Provider HEALTH MAINTENANCE Final Result * Hepatitis C Screening (05/25/2020) [facility] Hepatitis C Screening abstracted Historical Provider HEALTH MAINTENANCE Final Result from Last 3 Months or Most Recently Relevant to Health Maintenance Insurance MEDICARE [facility] [address] [place] [address] Care Teams Marble Worker Relationship Specialty Start Date End Date Benton Chandler PA [address] [place] [id number] PCP - General Internal Medicine 04/29/20
== END 2025-03-31 11:39 | disposition home or self-care (01) ==
PROVIDERS: PCP Physician Assistant Medical; Visit Provider Physician Assistant
DX: J02.0 Streptococcal pharyngitis (principal); H61.22 Impacted cerumen, left ear

== ENCOUNTER → 2025-03-31 10:53 | Outpatient (BNVA) | payer MEDICARE, OTHER, SELFPAY | PROVIDERS: PCP Physician Assistant Medical; Visit Provider Physician Assistant | DX: J02.0 Streptococcal pharyngitis (principal); H61.22 Impacted cerumen, left ear | CPT/HCPCS: 69209; 99202 ==

== ENCOUNTER 2025-06-26 13:47 | Outpatient (REF) | payer MEDICARE, OTHER, SELFPAY ==
--- NOTE | ~2025-06-26 | US_ITS ---
EXAMINATION: Noninvasive assessment of the bilateral lower extremities with ARTERIAL DUPLEX, ANKLE BRACHIAL INDICES (ABIs), and PULSE VOLUME RECORDINGS (PVRs). CLINICAL INFORMATION: Peripheral vascular disease. Status post stenting, left superficial femoral artery. Occluded right dorsalis pedis artery. TECHNIQUE: Duplex Doppler techniques with waveform analysis and measurement of velocities in the bilateral common femoral, profunda femoris, superficial femoral, popliteal and tibial arteries were performed. Additionally, ankle pulse volume recordings, ankle pressure measurements and ankle brachial indices were obtained of the lower extremity arterial system bilaterally. The study was performed only at rest. COMPARISON: December 12, 2024 FINDINGS: Arrhythmia episodes. DIRECT DUPLEX DOPPLER FINDINGS: RIGHT LEG: Common femoral artery: 134 cm/s, phasicity: Triphasic Profunda femoris artery: 252 cm/s, phasicity: Biphasic. Spectral broadening. Superficial femoral artery (proximal): 96 cm/s, phasicity: Triphasic Superficial femoral artery (mid): 147 cm/s, phasicity: Triphasic Superficial femoral artery (distal): 70 cm/s, phasicity: [Biphasic Popliteal artery: 93 cm/s, phasicity: Triphasic Posterior tibial artery: 74 cm/s, phasicity: Monophasic. Spectral broadening. Peroneal artery: 109 cm/s, phasicity: Monophasic. Spectral broadening Anterior tibial artery: 13 cm/s, phasicity: Monophasic. Spectral broadening. Dorsalis pedis artery: 31 cm/s, phasicity:Monophasic. Spectral broadening. LEFT LEG: Common femoral artery: 122 cm/s, phasicity: Triphasic Profunda femoris artery: 146 cm/s, phasicity: Triphasic. Superficial femoral artery (proximal): There is a stent. Superficial femoral artery (mid): There is a stent Superficial femoral artery (distal): There is a stent Popliteal artery: 72 cm/s, phasicity: Triphasic Posterior tibial artery: 41 cm/s, phasicity: Monophasic. Peroneal artery: 138 cm/s, phasicity: Monophasic. Spectral broadening. Anterior tibial artery: 111 cm/s, phasicity: Monophasic. Spectral broadening. Dorsalis pedis artery: 32 cm/s, phasicity: Monophasic. Spectral broadening. Superficial femoral artery stent, peak systolic velocities as follow: Cantwell artery proximal to the stent: 93 cm/s. Triphasic. Proximal stent: 124 cm/s, triphasic waveform. Mid stent: 135 cm/s, triphasic waveform. Distal stent: 109 cm/s, triphasic waveform. Cantwell artery distal to stent: 79 cm/s. Triphasic waveform. BRACHIAL PRESSURES: Right: 114 Left: 139 ANKLE PRESSURES: Right: PT 47, DP 80 Left: PT 46, DP 73 ANKLE-BRACHIAL INDEX: Right: 0.58 Left: 0.53 ANKLE PVR WAVEFORMS: Right: Abnormal Left: Abnormal US/US arterial duplex LE BI IMPRESSION: Right leg: Severe inflow disease from the posterior tibialis to the dorsalis pedis arteries. Left leg: Normal patency of the superficial femoral artery stent. Severe inflow disease from the peroneal artery to the dorsalis pedis arteries. CLEO Reference: - >1.4 = calcified vessels - 0.9 - 1.4 = normal - no significant arterial disease - 0.7 - 0.89 = mild peripheral arterial disease - 0.51 - 0.69 = moderate peripheral arterial disease - 0.50 = severe peripheral arterial disease - < .30 = critical arterial disease Electronically signed by: Holden Casarez MD 06/26/2025 03:57 PM EDT
--- OUTSIDE RECORDS SUMMARY | 2025-06-26 17:37 | XMS_ITS | Clinical Summary ---
Author Organization [facility] Address [address] [place] [address] Care Team Providers Care Pododermatologist Name Role Phone Benton Chandler Primary Care Provider [phone] Allergies No known active allergies Medications lisinopriL [...] Unit(s) SUB-Q 3 Times Daily 3 Active aspirin chewable tablet 81 mg Chew and swallow 81 mg by mouth once a day. Active clopidogreL (PLAVIX) 75 mg tablet Take 75 mg by mouth once a day. Active amoxicillin (AMOXIL) 500 mg capsule Take 4 capsules (2,000 mg total) by mouth once as needed (1 hour prior to dental appointment). 12 capsule 3 5 Active Active Problems Problem Noted Date Diagnosed Date Acquired hammer toe of left foot 04/22/2024 Acquired hammer toe of right foot 04/22/2024 Angiodysplasia of colon 04/22/2024 Hemorrhoids 04/22/2024 Type 1 diabetes mellitus with diabetic polyneuro can 04/22/2024 Vitamin D deficiency 04/17/2024 1st degree AV block 04/15/2024 PVC (premature ventricular contraction) 04/15/20 24 Sinus arrhythmia 04/15/2024 Sinus bradycardia 04/15/2024 Hypogonadism in male 07/06/2023 Dyspnea on exertion 08/24/2022 Overview (05/20/2025): - Cause is likely multifactorial but predominantly [...] program as he had planned on doing - Cause is likely multifactorial but predominantly [...] without bleeding BPH (benign prostatic hyperplasia) 06/04/2021 Anemia 06/04/2021 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 Foster recommend every 6 month ultrasound to screen for hepatoma. Dr. Foster recommend every 6 month ultrasound to screen for hepatoma. Right knee pain 07/06/2015 Aftercare following joint replacement 04/07/2015 Pre-operative exam 03/16/2015 Osteoarthritis of hip 02/04/2015 Joint pain, hip 11/14/2014 Mixed hyperlipidemia 09/02/2013 Overview (05/20/2025): Last Assessment & Plan: Given patient's history [...] continue baby aspirin therapy for vascular disease Last Assessment & Plan: Given patient's history [...] disease Benign neoplasm of colon 12/17/2012 Overview (05/20/2025): Small tubular adenoma at colonoscopy 2007. Next colonoscopy in 5 years. Small tubular adenoma at colonoscopy 2007. Next colonoscopy in 5 years. Microalbuminuria 08/20/2012 Type 2 diabetes mellitus with eye manifestations 08/20/2012 Overview (05/20/2025): Bilateral nuclear sclerosis. Bilateral nuclear sclerosis. Diabetes with neurologic complications 2 Overview (05/20/2025): Right peroneal neuropathy. Last Assessment & Plan: No response to multiple outreach attempts to offer the diabetes partnership program; will offer program if patient responds. Right peroneal neuropathy. DM (diabetes mellitus), type 2 with peripheral vascular complications 11/18/2009 Overview (04/22/2024): Last Assessment & Plan: No response to multiple outreach attempts to offer the diabetes partnership program; will offer program if patient responds. Hepatitis C, chronic 12/16/2008 Overview (05/20/2025): With increase in liver test. Consider treatment. Treated with Harvoni, q. 6 month ultrasound with yearly alpha-fetoprotein recommended by Dr. Foster infectious disease. With increase in liver test. Consider treatment. Treated with Harvoni, q. 6 month ultrasound with yearly alpha-fetoprotein recommended by Dr. Foster infectious disease. Osteoarthritis 07/26/2007 Overview (05/20/2025): ADVANCED (L) HIP, EARLY (R) HIP- NEOS-KRUSHELL, Left THR 12/22. ADVANCED (L) HIP, EARLY (R) HIP- NEOS-KRUSHELL, Left THR 12/22. Essential hypertension, benign 12/29/2005 Overview (05/20/2025): Last Assessment & Plan: Well-controlled on current regimen, continue Last Assessment & Plan: Well-controlled on current regimen, continue Encounters Date Type Department Care Team Description 05/29/2025 Orders Only [facility] [address] [place] [id number] Candie Aguirre, TEAM PSYCHOLOGIST 05/29/2025 Telephone [facility] [address] [place] [address] [phone] Trevon Rosa MD 05/20/2025 10:19 AM EDT - 05/20/2025 11:59 PM EDT Hospital Encounter [facility] [address] [place] [address] [phone] Trevon Rosa MD Hip pain, bilateral Discharge Disposition: Home or Self Care () 05/20/2025 10:15 AM EDT Follow-Up [facility] [address] [place] [address] [phone] Trevon Rosa MD Aftercare following bilateral hip joint replacement surgery (Primary Dx); Right hip pain; Trochanteric bursitis of right hip 05/16/2025 Telephone [facility] [address] [place] [address] [phone] Trevon Rosa MD 04/23/2025 Orders Only [facility] [address] [place] [address] [phone] Isaias Robin MD Radiculopathy of lumbar region (Primary Dx) 04/14/2025 10:16 AM EDT - 04/14/2025 11:59 PM EDT Hospital Encounter [facility] [address] [place] [address] 11188 Isaias Robin MD Pain Discharge Disposition: Home or Self Care () 04/14/2025 10:16 AM EDT - 04/14/2025 11:59 PM EDT Hospital Encounter [facility] [address] [place] [address] [phone] Isaias Robin MD Radiculopathy of lumbar region (Primary Dx) Discharge Disposition: Home or Self Care () from Last 3 Months Family History Medical [...] Sign Reading Time Taken Comments Blood Pressure 180/80 04/14/2025 11:03 AM EDT Pulse 59 04/14/2025 11:03 AM EDT Temperature 36.2 C (97.2 F) 04/14/2025 10:24 AM EDT Respiratory Rate 18 12/31/2024 12:41 PM EDT Oxygen Saturation 97% 04/14/2025 10:55 AM EDT Inhaled Oxygen Concentration - - Weight 98.9 kg (218 lb) 08/02/2022 11:31 AM EDT Height 182.9 cm (6') 08/02/2022 11:31 AM EDT Body Mass Index 29.57 08/02/2022 11:31 AM EDT Plan of Treatment Upcoming Encounters Date Type Department Care Team (Late st Contact Info) Description 07/01/2025 3:15 PM EDT Follow-Up [facility] [address] [place] [address] Tank Renteria MD [address] [place] [address] 07/25/2025 1:20 PM EDT Follow-Up [facility] [address] [place] [address] Isaias Robin MD [address] [place] [address] 05/22/2026 11:00 AM EDT Follow-Up [facility] [address] [place] [address] Trevon Rosa MD [address] [place] [address] Health Maintenance Due Date Last Done Comments Cologuard 1950 Colonoscopy 1950 Sigmoidoscopy 1950 Medicare AWV [address] Lung Cancer Screening (Baseline) 2002 Zoster Vaccines (1 of 2) 2002 DTaP,Tdap,and Td Vaccines (1 - Tdap) 04/14/2009 04/13/2009 Abdominal Aortic Aneurysm (A AA) Screening 2017 Alcohol/Substance Use Screening 10/16/2024 Depression Screening and Follow-Up 10/16/2024 Health Care Proxy Review 10/16/2024 Hemoglobin A1C 10/16/2024 04/15/2024, 06/0 11/2014, 12/29/2008 Social Drivers of Health Neida ual Screening 10/16/2024 COVID-19 Vaccine (5 - 2024-2 6 season) 2025 08/25/2022, 09/04/2021, 02/01/2021, Additional history exists Influenza Vaccine (#1) 2025 , 07/24/2023, 06/29/2022, Additional history exists Urine Microalbumin 09/25/2025 09/25/2024 Basic Metabolic Panel 01/16/2026 01/16/2025 , 09/25/2024, 04/10/2024, Additional history exists Colon Cancer Screening 01/16/2026 FOBT / Fit Test 01/16/2026 01/16/2025, 09/25/2024 Hepatitis B Vaccines Completed 06/25/2015, 12/25/2014, 11/27/2014, Additional history exists Pneumococcal Vaccine: 50+ Years Completed 11/17/2020, 01/02/2019, 11/18/2013 RSV Vaccine (60+ years old a nd patients) Completed 10/10/2023 Procedures * Due to [place] state law, this organization might not be sharing negative HIV tests. Procedure Name Priority Date/Time Associated Diagnosis Comments XR HIP BILATERAL 2 VW W PELVIS Routine 05/20/2025 10:52 AM EDT Hip pain, bilateral FL C-ARM INJECTION NON-REPORTABLE Routine 04/14/2025 11:00 AM EDT Pain NJ NJX DX/THER SBST INTRLMNR LMBR/SAC W/IMG GDN Routine 04/14/2025 10:45 AM EDT Radiculopathy of lumbar region BASIC METABOLIC PANEL Routine 03/28/2015 3:55 AM EDT HEMOGLOBIN A1C Routine 03/17/2015 8:27 AM EDT from Last 3 Months or Most Recently Relevant to Health Maintenance Results * Due to [facility] law, this organization might not be sharing negative HIV tests. * XR Hip Bilateral 2 vw W Pelvis (05/20/2025 10:52 AM EDT) Anatomical Region Laterality Modality Body, Pelvis, Hip Bilateral Computed Radio graphy 05/20/2025 11:2 2 AM EDT Impressions 05/20/2025 11:24 AM EDT Pelvis AP view bilateral hips AP and lateral views. Bilaterally total hip replacement prosthesis is in normal anatomic alignment. Hardware is intact. No periprosthetic complications particularly on the right side. Mild degenerative changes of the pubic symphysis. SI joints are within normal limits. Vascular calcification and vascular graft on the left side partially included If this radiology report contains a blank impression section, it is an incomplete radiology report. Please contact the interpreting radiologist or applicable radiology division as soon as possible to obtain the completed interpretation. Workstation ID: [id number] Narrative 05/20/2025 11:24 AM EDT COMPARISON: 04/22/2024 FINDINGS AND Resulting Agency Comment [id number] Procedure Note Ofelia Mcmullen MD - 05/20/2025 COMPARISON: 04/22/2024 FINDINGS AND IMPRESSION: Pelvis AP view bilateral hips AP and lateral views. Bilaterally total hip replacement prosthesis is in normal anatomicalignment. Hardware is intact. No periprosthetic complicationsparticularly on the right side. Mild degenerative changes of the pubic symphysis. SI joints are withinnormal limits. Vascular calcification and vascular graft on the left sidepartially included If this radiology report contains a blank impression section, it is anincomplete radiology report. Please contact the interpreting radiologistor applicable radiology division as soon as possible to obtain thecompleted interpretation. Workstation ID: [id number] us Trevon Rosa MD IMG XR PROCEDURES Final Result * FL C-Arm Injection Non-Reportable (04/14/2025 11:00 AM EDT) Narrative IMAGING - 04/14/2025 1:03 PM EDT This procedure does not contain a result. Please see the surgeon's note for official report. us Isaias Robin MD IMTata FLUOROSCOPY PROCEDURES Final Result IMAGING * NJ NJX DX/THER SBST INTRLMNR LMBR/SAC W/IMG GDN (04/14/2025 10:45 AM EDT) Narrative Isaias Robin MD - 04/14/2025 10:45 AM EDT Isaias Robin MD 04/14/2025 11:00 AM Lumbar Epidural Steroid Injection Epidural Spine Inj Indication(s): Lumbar Radiculopathy Date/Time: 04/14/2025 10:45 AM Performed by: Isaias Robin MD Authorized by: Isaias Robin MD Consent: Patient identity confirmed: Name and with patient, Name and MRN on the patient's armband and Verbally Verbal consent obtained: Yes Written consent obtained: Yes Risk and benefits discussed: Yes Written informed consent was obtained from the patient. Patient states understanding of procedure being performed: Yes Patient's understanding of procedure matches consent: Yes [place] Protocol: Procedure consent matches procedure scheduled: Yes All relevant documents/tests are correctly identified, labeled, and matched to patient: Yes Relevant tests/ Imaging studies available/reviewed: Yes Correct site marked: Yes Required blood products, implants, devices and special equipment available: Yes Immediately prior to the procedure a time out was called: Yes An attending physician was present for the procedure OR the procedure was performed by an Advanced Practice Provider: Yes The patient was admitted as an outpatient to the ambulatory injection suite at [facility]. Vital signs were monitored before and after the procedure. Patient laid on the fluoroscopy table in the prone position. An attending physician was present for the procedure OR the procedure was performed by an Advanced Practice Provider: Yes Procedure Details: Guidance: fluoroscopy Injection Medications: 5 mL lidocaine PF 1% (10 mg/mL); 80 mg methylPREDNISolone acetate 80 mg/mL; 1 mL iohexoL 300 mg iodine/mL; 1 mL 0.9% NaCl 0.9% Surgeon Attending Surgeon: Isaias Robin MD Procedures NAME OF PROCEDURE: Lumbar Epidural Steroid Injection at left L5-S1, under Fluoroscopy. PRE-PROCEDURE DIAGNOSES: Lumbar Radiculopathy/Low Back Pain POST-PROCEDURE DIAGNOSES: Same as above INDICATION FOR PROCEDURE: Low back pain with radicular symptoms INFORMED CONSTENT: After reviewing the procedure with the patient, informed consent to proceed with the injection was obtained. A procedural permit was also signed. DESCRIPTION OF PROCEDURE:The patient was placed in the prone position, and fluoroscopy was used to identify the intervertebral interspace at L5-S1 level. The lumbar area was prepped with Chlorhexidine solution and draped with sterile drape (prep and drape materials from the epidural kit). Sterile technique was used throughout. At the needle entry point, the skin and subcutaneous tissues were infiltrated with 1% lidocaine. An 18-gauge Tuohy needle was advanced to the epidural space, using the loss of resistance technique to normal saline with a little air bubble. Omnipaque 300 X 1 ml. was injected, resulting in distribution of contrast in the epidural space from L5 to l4. No paresthesias were encountered during needle placement. With the needle in the epidural space, aspiration was negative for blood or other fluid. 1cc Methylprednisolone, 80 mg., 2 ml lidocaine, 40 mg., (total volume 3 ml.) were injected through the Tuohy needle. The injected local anesthetic and steroid resulted in dispersion of the previously injected contrast. The procedure was well tolerated, and there were no apparent complications. The patient had complete relief of pain from the injected local anesthetic. Dr. Robin was present for, and participated in, the entire procedure. DISPOSITION: Patient was discharged home instable condition. Isaias Robin MD Horse Race Timer- Dept of Anesthesiology [facility] 04/14/2025 11:00 AM The patient tolerated the procedure well with no immediate complications. Dressinx4 sterile gauze Post-procedure Details: The patient was observed in the ambulatory surgery department. Instructions: post-procedure instructions were reviewed The patient discharged from clinic in stable condition. us Isaias Robin MD IN CLINIC/BEDSIDE ORDERABLES Fin al Result * (ABNORMAL) Basic Metabolic Panel (03/28/2015 3:55 AM EDT) Sodium Blood 131(L) 135 - 145 mmol/L [facility] Potassium Blood 4.0 3.5 - 5.3 mmol/L [facility] Chloride Blood 101 97 - 110 mmol/L [facility] Carbon Dioxide 26 24 - 32 mmol/L [facility] Gap 4(L) 5 - 15 [facility] Glucose 197(H) 70 - 99 mg/dL [facility] BUN 8 7 - 23 mg/dL [facility] Creatinine 0.84 0.60 - 1.30 mg/dL [facility] eGFR Non- >60 >60 [facility] Comment: Units = mL/min/1.73 m2 Glomerular Filtration [...] Calcium Blood 8.7 8.7 - 10.7 mg/dL [facility] 03/28/2015 3:55 AM EDT 03/28/2015 4:01 AM EDT us Trevon Rosa MD LAB BLOOD ORDERABLES Final Res ult [facility] - [address] [address], * (ABNORMAL) Hemoglobin A1c (03/17/2015 8:27 AM EDT) Hemoglobin A1C 6.8(H) <5.7 [facility] Comment: UNITS OF MEASURE: % of total Hgb According to ADA guidelines, hemoglobin A1c <7.0% represents optimal control in non- diabetic patients. Different metrics may apply to specific patient populations. Standards of Medical Care in Diabetes-2013. Diabetes Care. 2013;36:s11-s66 For the purpose of screening for the presence of diabetes <5.7% Consistent with the absence of diabetes 5.7-6.4% Consistent with increased risk for diabetes (prediabetes) >or=6.5% Consistent with diabetes This assay result is consistent with diabetes mellitus. Currently, no consensus exists for use of hemoglobin A1c for diagnosis of diabetes for children. eAG (MG/DL) 148 () (calc) [facility] eAG (MMOL/L) 8.2 () (calc) [facility] 03/17/2015 8:27 AM EDT 03/17/2015 10:53 AM EDT us Caroline Rios MD LAB BLOOD ORDERABLES Final Resul t Performing Organization Address City/[facility]/ZIP Co de Phone Number [place] [place] from Last 3 Months or Most Recently Relevant to Health Maintenance Insurance [facility] SUPP MEDICARE Advance Directives Documents on File Type Date Recorded Patient Business Trainer Expl anation Advance Directive 01/21/2009 12:00 AM [facility] dical Dec Making (Adv.Dir) Care Teams Pododermatologist Relationship Specialty Start Date End Date Benton Chandler PCP - General Internal Medicine 07/04/22
--- OUTSIDE RECORDS SUMMARY | 2025-06-26 17:37 | XMS_ITS | Patient Health Record ---
[facility] Address [address] [place] [id number] Care Team Providers Care Campus President Name Role Phone Mark Palomo Jr Reason For Referral No Information Plan Of Treatment No Information
--- OUTSIDE RECORDS SUMMARY | 2025-06-26 17:37 | XMS_ITS | Patient Health Record ---
Author [facility] [place] Address [address] [place] [address] Care Team Providers Care Roll Grinder Name Role Phone Benton Borges Primary Care Provider Meghann Brittanie Barry Unavailable [phone] Allergies No Known Allergies Reason For Referral No Information Medications Medication SIG (Take, Route, Frequency, Duration) Notes Start Date End Date Status Lantus 100 UNIT/ML as directed Subcutaneous Active HumaLOG 100 UNIT/ML as directed Subcutaneous Active Omeprazole 20 MG 1 capsule 30 minutes before morning meal Orally Once a day; Duration: 30 day(s) Active Lisinopril 20 MG 1 tablet Orally Once a day; Duration: 30 day(s) Active Meloxicam 15 MG 1 tablet on the tong ue and allow to dissolve Orally Once a day; Duration: 30 day(s) Active Gabapentin 300 MG 1 capsule Orally Onc e a day; Duration: 30 day(s) Active Night Splint AFO - [...] Problem Acquired hammer toe of right foot (2157399605531146 ) Other hammer toe(s) (acquired), right foot (M20.41) Active confirmed Problem Acquired hammer toe of left foot (2925951130284769 ) Other hammer toe(s) (acquired), left foot (M20.42) Active confirmed Problem Polyneuropathy due to type 2 diabetes mellitus (495363232) Type 2 diabetes mellitus with diabetic polyneuropathy (E11.42) Active confirmed Problem Polyneuropathy due to diabetes mellitus type I (266315005) Type 1 diabetes mellitus with diabetic polyneuropathy (E10.42) Active confirmed Plan Of Treatment Pending Test Test Name Order Date X ray : Foot, left 3V 03/31/2021 X ray : Foot, right 3V 03/31/2021 [id number] SKIN LESIONS, OVER 4 03/31/20 21 [id number] DYSTROPHIC NAILS ANY # [id number] OF HEMATOMA/FLUID 021 Insurance Providers Payer Name Payer Address Payer Phone Subscriber Number Group Number Insured Name Patient Relationship to Insured Coverage Start Date Coverage End Date Medicare [employer] [address] [place] [address] [id number] Kyle Odonnell Self - patient is the insured [facility] [address] [place] [address] [id number] Kyle Odonnell Self - patient is the insured Medical (General) History Medical History History ICD Code Anemia Arthritis Diabetic Numbness Poor circulation Surgical History Surgery Date(Month/Year) hip replacement bilateral
--- OUTSIDE RECORDS SUMMARY | 2025-06-26 17:37 | XMS_ITS | Clinical Summary ---
Author Organization [facility] Address [address] [place] [address] Care Team Providers Care Delicatessen Department Manager Name Role Phone Benton Chandler PA-C Primary [...] 53 01/10/2024 11:43 AM EDT Temperature 35.9 C (96.7 F) 01/10/2024 11:43 AM EDT Respiratory Rate 18 10/30/2023 1:45 PM EST [...] Fall Risk Assessment 2017 Influenza Vaccine (#1) 2025 3, 06/29/2022, 07/30/2019, Additional history exists RSV Adult > 60+ Yrs or (1 - 1-dose 75+ series) 2027 Hepatitis B Vaccines Completed 12/12/2008, 06/11/2008, 05/12/2008 Pneumococcal Vaccine Completed 11/17/2020, 01/02/2019, 11/18/2013 RSV Ped < 20 months Aged Out No longe r eligible based on patient's age to complete this topic Care Teams Delicatessen Department Manager Relationship Specialty Start Date End Date Benton Chandler PA-C PCP - General Medical Services 07/19/22
--- OUTSIDE RECORDS SUMMARY | 2025-06-26 17:37 | XMS_ITS ---
Author Name [facility] Organization Unknown Care Team Organization Name Specialty Phone Email Start Date End Da te [facility] AC 06/04/2025 [facility] Benton Chandler Primary Care 03/24/2023 [facility] Kayleigh Castillo Primary Care 08/23/2022 06/03/20 24
== END 2025-06-26 13:48 | disposition home or self-care (01) ==
LOC: HO.US 13:47
PROVIDERS: PCP Physician Assistant Medical; Visit Provider Surgery Vascular Surgery
DX: I73.9 Peripheral vascular disease, unspecified (principal)
CPT/HCPCS: 93925

== ENCOUNTER → 2025-06-26 13:50 | Outpatient (BNV) | payer MEDICARE, OTHER, SELFPAY | PROVIDERS: PCP Physician Assistant Medical; Visit Provider Radiology Diagnostic Radiology | DX: I73.9 Peripheral vascular disease, unspecified (principal) | CPT/HCPCS: 93925 ==

== ENCOUNTER 2025-08-14 15:03 | Outpatient (AMB) | payer MEDICARE, OTHER, SELFPAY ==
--- OUTSIDE RECORDS SUMMARY | 2025-08-13 13:00 | XMS_ITS | Encounter Summary ---
[facility] [address] Address [address] [place] [address] Care Team Providers Care Tractor Driver Name Role Phone Benton Chandler Primary Care Provider [phone] Reason for Visit * Reason Comments Diabetes Mellitus Consult for diabetes Encounter Details Date Type Department Care Team (Late st Contact Info) Description 08/13/2025 1:00 PM EDT Office Visit [place] [facility] [address] [place] [phone] Jason Hua MD [address] [place] [address] Type 2 diabetes mellitus with diabetic nephropathy, [...] care for your loved ones. For example, children's institution attendant or elderly care for an older adult? [...] nephropathy, with long-term current use of insulin ([facility] V24, [facility] V28) Inject 0.5 mL (2.5 mg total) under the skin every 7 (seven) days. 2 mL 2 08/13/2025 11/11/2025 documented in this encounter Progress Notes * Jason Hua MD - 08/13/2025 1:00 PM EDT Please take basaglar 55U daily Continue to take Fiasp but try to take it before you meal I will send in a prescription for the doubleTwistyle muna 3 sensor and reader. I will [...] exertion 08/24/2022 Secondary esophageal varices without bleeding ([facility] V24, [facility] V28) 06/29/2022 BPH (benign prostatic hyperplasia) 06/04/2021 Chronic anemia 06/04/2021 Diabetic ulcer of left foot associated with type 2 diabetes mellitus ([facility] V24, [facility] V28) 06/04/2021 GERD (gastroesophageal reflux disease) 06/04/2021 PVD (peripheral vascular disease) ([facility] V24) 05/26/2021 Iron deficiency anemia secondary to blood loss (chronic) 01/28/2020 Nocturia 08/12/2019 Cirrhosis of liver not due to alcohol ([facility] V24, [facility] V28) 01/10/2016 Mixed hyperlipidemia 09/02/2013 Benign neoplasm of colon 12/17/2012 Diabetes with neurologic complications ([facility] V24, [facility] V28) 08/20/2012 Microalbuminuria 08/20/2012 Type 2 diabetes mellitus with eye manifestations ([facility] V24, [facility] V28) 08/20/2012 Diabetes mellitus with renal manifestation ([facility] V24, [facility] V28) 05/07/2012 Hepatitis C, chronic ([facility] V24, [facility] V28) 12/16/2008 Osteoarthritis 07/26/2007 Essential hypertension, [...] nephropathy, with long-term current use of insulin ([facility] V24, [facility] V28) Patient is currently on 74-year-old male [...] says that if his blood sugars are [id number] he will take 50 units of Basaglar. [...] Other cancer Mother no details Diabetes Father [place] Other (Other: etoh) Father Colon cancer Neg [...] sensors every 2 weeks 6 kit 3 blood-glucose,site physician,cont (FreeStyle Muna 3 [place]) misc Check sugars regularly 1 each 0 [...] Care Team (Late st Contact Info) Description 10/27/2025 1:00 PM EST Office Visit Orthopedic Surgery - [address] [phone] Hood Carter, RADHA [address] [place] [phone] 11/13/2025 10:00 AM EST Office Visit Endocrinology [address] [phone] Jason Hua MD [address] [place] [address] 01/26/2026 11:00 AM EDT Office Visit Orthopedic Surgery - [address] [phone] Hood Carter DPM [address] [place] [address] Scheduled Orders Name Type Priority Associated Diagnoses Orde r Schedule Basic metabolic panel Lab Routine Type 2 diabetes mellitus with diabetic nephropathy, with long-term current use of insulin ([facility] V24, [facility] V28) 1 Occurrences starting 08/13/2025 until 08/13/2026 C-peptide Lab Routine Type 2 diabetes mellitus with diabetic nephropathy, with long-term current use of insulin ([facility] V24, [facility] V28) 1 Occurrences starting 08/13/2025 until 08/13/2026 documented as of this encounter Visit Diagnoses Diagnosis Type 2 diabetes mellitus with diabetic nephropathy, with long-term current use of insulin ([facility] V24, [facility] V28)- Primary documented in this encounter Additional Health Concerns Assessment Noted Time PHQ-9 Depression Total Score: 0 08/07/20 25 2:57 PM EDT A fall risk assessment has been complete d for the patient 03/17/2025 1:23 PM EDT documented as of this encounter Care Teams Tractor Driver Relationship Specialty Start Date End Date Benton Chandler PA [address] [place] [address] PCP - General Internal Medicine 04/29/20 documented as of this encounter
[2025-08-14 15:00] VITALS: BMI 29.8
--- NOTE | 2025-08-14 15:00 | MHC.OFFVIS ---
Vital Signs 08/14/25 15:00 Height 6 ft Weight 220 lb BMI 29.8 Intake Visit Reasons: follow up Art 06/26/25 Intake Note: 6 mo follow up Arterial 06/26/25, Pt has a wound on the right 2nd toe tunneling w/ discharge and redness. Pt states he went to urgent care a few weeks ago and was given Abx, completed. Credit Collections Clerk Required: No Accompanied by: Self / Same As Patient Allergies No Known Allergies (NKA) Allergy (Verified 08/14/25 15:03) HPI HPI follow up Art 06/26/25: Details: The patient is a 74-year-old male presenting with a right foot ulcer and peripheral artery disease. The ulcer on the right foot has been persistent, with previous drainage and suspicion of ongoing infection. The patient reports numbness in the feet, complicating the detection of pain and contributing to the difficulty in managing the ulcer. The patient has a history of peripheral artery disease, with previous interventions including ballooning and stenting of the left leg approximately a year ago. The current concern is the reduced blood flow in the right leg, suspected to be due to blockages, as indicated by recent ultrasound findings. The patient has been diabetic for an extended period, which has likely contributed to the vascular issues and neuropathy. The patient also reports spinal stenosis, which has been suggested to require surgical intervention. This condition, along with diabetic neuropathy, contributes to the difficulty in ambulation, as the patient experiences heaviness in the legs upon walking. He now presents for vascular evaluation [facility] Medical History Failed total hip arthroplasty Diabetic foot ulcer BPH (benign prostatic hyperplasia) Diabetic neuropathy Peripheral vascular disease Elevated erythrocyte sedimentation rate Hyperkalemia GERD (gastroesophageal reflux disease) Chronic anemia Diabetes Hypertension Cellulitis Surgical History H/O hand surgery H/O foot surgery Hx of appendectomy H/O total hip arthroplasty Social History Household Members: Spouse Housing: House Do you presently have visiting nurse or other home services: No Alcohol intake: never Patient Tobacco Use Status: Former Tobacco user e-Cigarette/Vaping Use: Never Used service: No Current occupational status: employed Review of Systems Const All systems reviewed & are unremarkable except as noted in HPI and below Reports no additional complaints ENT Reports Normal hearing present Card Denies chest pain, Denies chest pain at rest, Denies chest pain with activity and Denies pedal edema Resp Denies cough GI Denies abdominal pain Musc Denies abnormal gait, Denies muscle cramps and Denies radiating pain into limb Skin/Breast Denies skin ulcer and Denies wounds Neuro Reports Normal hearing present and Denies abnormal gait Psych Reports no additional complaints Physical Exam Vital Signs: BMI result Body Mass Index 29.8 Const General: cooperative, healthy appearing and comfortable Orientation/consciousness: oriented to person, oriented to place and oriented to time HEENT Head: Yes normal to inspection Neck Neck: Yes normal visual inspection Carotids: no bruits Chest Chest palpation & inspection: normal inspection of the chest Resp Effort & Inspection: normal respiratory effort and able to speak in complete sentences Auscultation: clear to auscultation bilaterally, no crackles, no rales, no rhonchi and no wheezes Cardio Other: Bilateral DP signals Rate: regular rate Rhythm: regular rhythm Heart sounds: S1 normal heart sound present and S2 normal heart sound present Bruits: no carotid bruits Peripheral pulses: Peripheral pulses 2+ throughout GI Inspection: Yes normal to inspection Skin Wounds: no wounds Hair: normal Neuro General: oriented to person, oriented to place and oriented to time Cranial nerves: Yes CN's II-XII intact bilaterally and Yes Normal hearing present Cognition (Neuro): normal cognition Motor exam (neuro): 5/5 motor strength present throughout Extrem Other: Right 2nd toe ulcer 0.6 in depth. Clean General: No clubbing, No cyanosis and No edema Psych Appearance: grossly normal Mental Status: mental status grossly normal Speech and movement: Normal speech and movement present Results Reviewed Results Reviewed: Noninvasive arterial testing dated 06/26/2025 demonstrates CLEO on the right of 0.58 and on the left of 0.53. Left stent appears to be patent. Right side he does appear to have tibial disease as it appears to be monophasic waveforms down there. Written report and images were reviewed. Assessment & Plan Assessment & Plan (1) Peripheral vascular disease: Comment: 05/10/2021- plasty left anterior tibial and posterior tibial artery atherectomy and plasty left SFA plasty left common femoral 07/31/2024 - left SFA atherectomy and stent Code(s): I73.9 - Peripheral vascular disease, unspecified Category: Medical Plan: Patient notes nonhealing right 2nd toe ulcer. I have discussed the pathophysiology of peripheral vascular disease with the patient. I have also discussed risk factor modification. I have reviewed the patient's arterial testing which reveals tibial disease. the patient would benefit from a right leg endovascular peripheral angiogram with possible angioplasty, stent, and/or atherectomy. This has been discussed in detail with the patient along with risks, benefits, and complications. This includes but is not limited to bleeding, infection, heart attack, need for emergent surgical repair, limb ischemia, blood vessel damage, bleeding, puncture, kidney injury, bruising, allergic reaction, and skin reaction. The patient demonstrates a clear understanding. We will schedule for the next appropriate time. Thank you for allowing us to assist in this patient's care. Coding Level of Care Code Est Pt Level 4 (45976) Diagnoses Peripheral vascular disease I73.9
--- OUTSIDE RECORDS SUMMARY | 2025-08-14 17:54 | XMS_ITS | Clinical Summary ---
Author Organization [facility] Address [address] [place] [address] Care Team Providers Care Bit Tapper Name Role Phone Benton Chandler Primary Care Provider [phone] Allergies No known active allergies Medications lisinopriL [...] 2 diabetes mellitus 06/04/2021 Overview (05/20/2025): Hospitalized [facility] 04/27/21-05/01/21, follow with wound care Hospitalized [facility] 04/27/21-05/01/21, follow with wound care [...] Encounters Date Type Department Care Team Description 07/30/2025 10:45 AM EDT Follow-Up [facility] Neurosurgery [address] [address] Tank Renteria MD Neurogenic claudication (Primary Dx) 07/23/2025 Orders Only External Imaging [address] [place] [address] Radiology, External 07/07/2025 Orders Only External Imaging [address] [place] [address] Radiology, External 05/29/2025 Orders Only [facility] [address] [place] [phone] Candie Aguirre NP 05/29/2025 Telephone [facility] [address] [place] [phone] Trevon Rosa MD 05/20/2025 10:19 AM EDT - 05/20/2025 11:59 PM EDT Hospital Encounter [facility] Xray [address] [place] [phone] Trevon Rosa MD Hip pain, bilateral Discharge Disposition: Home or Self Care (01) 05/20/2025 10:15 AM EDT Follow-Up [facility] [address] [place] [id number] Trevon Rosa MD Aftercare following bilateral hip joint replacement surgery (Primary Dx); Right hip pain; Trochanteric bursitis of right hip 05/16/2025 Telephone [facility] [address] [place] [address] Trevon Rosa MD from Last 3 Months Family History Medical [...] Industry Job Start Date Job End Date [employer] [facility] Not on file Not on fi le Not on file Last Filed Vital Signs Vital Sign Reading Time Taken Comments Blood Pressure 119/73 07/30/2025 10:42 AM EDT Pulse 73 07/30/2025 10:42 AM EDT Temperature 36.2 C (97.2 F) 04/14/2025 10:24 AM EDT Respiratory Rate 18 12/31/2024 12:41 PM EDT Oxygen Saturation 97% 07/30/2025 10:42 AM EDT Inhaled Oxygen Concentration - - Weight 98.9 kg (218 lb) 08/02/2022 11:31 AM EDT Height 182.9 cm (6') 08/02/2022 11:31 AM EDT Body Mass Index 29.57 08/02/2022 11:31 AM EDT Plan of Treatment Scheduled Procedures Name Priority Associated Diagnoses Date/Ti me LAMINECTOMY, FACETECTOMY, AN D FORAMINOTOMY, LUMBAR, SINGLE LEVEL Neurogenic claudication LAMINECTOMY, FACETECTOMY, AN D FORAMINOTOMY, CERVICAL, THORACIC, OR LUMBAR, EACH ADDITIONAL LEVEL Neurogenic claudication Health Maintenance Due Date Last Done Comments [...] patients) Completed 10/10/2023 Procedures * Due to [place] [employer] law, this organization might not be sharing negative HIV tests. Procedure Name Priority Date/Time Associated Diagnosis Comments MRI LUMBAR SPINE WO CONTRAST Routine 07/07/2025 4:15 PM EDT Neurogenic claudication XR HIP BILATERAL 2 VW W PELVIS Routine 05/20/2025 10:52 AM EDT Hip pain, bilateral BASIC METABOLIC PANEL Routine 03/28/2015 3:55 AM EDT HEMOGLOBIN A1C Routine 03/17/2015 8:27 AM EDT from Last 3 Months or Most Recently Relevant to Health Maintenance Results * Due to [place] [employer] law, this organization might not be sharing negative HIV tests. * MRI Lumbar Spine WO Contrast (07/07/2025 4:15 PM EDT) Anatomical Region Laterality Modality Spine, L-spine Magnetic Resonan ce 07/07/2025 3:55 PM EDT Narrative 07/09/2025 4:15 PM EDT [facility] Accession Number: [id number] Patient Name: Kyle Odonnell Date of : 1950 Date of Exam: 07-07-2025 Referring Physician: Tank Renteria [address] [address] Exam: MR Lumbar Spine (C-) CPT 34260 Room Description: [facility] 1.5 MRI Lumbar Spine W/O Contrast INDICATION: worsening neurogenic claudication in the setting of prior stenosis. The patient reports bilateral leg pain and paresthesias. TECHNIQUE: MRI of the lumbar spine was performed without intravenous contrast utilizing sagittal T1, sagittal T2, sagittal STIR, axial T1, and axial T2-weighted sequences. COMPARISON: 05/01/2024 FINDINGS: LOCALIZER: No additional findings on limited localizer images. NUMBERING: The study assumes 5 lzn-nrv-[id number] lumbar type vertebral bodies. ALIGNMENT, VERTEBRAE, MARROW, AND DISCS: Mild leftward curvature of the lumbar spine. No significant subluxation. The lumbar vertebral bodies are normal in height. Severe loss of height of L2-L3 and L5-S1, unchanged. The L3-L4 disc is moderate-severely diminished in height. 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 Marginal osteophytes, facet arthroses, and vacuum disc phenomenon are present at multiple levels. CONUS: The conus is normal in signal and contour, with normal level of termination at L2. PARASPINAL TISSUES: Fatty atrophy of the posterior paraspinal musculature. No acute retroperitoneal abnormality. DETAILED FINDINGS BY LEVEL: T12-L1: Minimal concentric disc-osteophyte complex slightly indenting the ventral thecal sac. No significant central canal or foraminal narrowing. L1-L2: Mild concentric disc bulge. No significant canal stenosis or neural foraminal narrowing. L2-L3: Concentric marginal spurring. Mild central canal narrowing (left greater than right). Mild right and minimal left foraminal narrowing. L3-L4: Concentric disc-osteophyte complex, facet arthrosis, and ligamentum flavum infolding. A medial left facet joint synovial cyst has resolved. Mild-moderate acquired central canal narrowing. Left subarticular recess narrowing with crowding of the left L4 nerve roots. Severe narrowing of the thecal sac in conjunction with epidural lipomatosis. Mild foraminal narrowing. L4-L5: Mild concentric disc bulge, facet arthrosis, and ligamentum flavum infolding. Mild acquired central canal stenosis. Severe narrowing of the thecal sac is more pronounced in conjunction with epidural lipomatosis. Mild right and minimal left foraminal narrowing. L5-S1: Concentric disc-osteophyte complex asymmetric to the right posteriorly with mild right central canal and subarticular recess narrowing. Moderate-severe foraminal narrowing. IMPRESSION: Degenerative changes of the lumbar spine superimposed upon a congenitally-narrowed spinal canal. Central canal and foraminal narrowing can be correlated with the patient's symptoms and neurological examination. WSN: [id number] Ordering Physician: Tank Renteria Electronically Signed By: Tate England MD Procedure Note Provider, Triplett - 07/09/2025 [facility] Accession Number: [id number] Patient Name: Kyle Odonnell Date of : 1950 Date of Exam: 07-07-2025 Referring Physician: Tank Renteria [place] [address] Exam: MR Lumbar Spine (C-) CPT 16326 Room Description: [facility] 1.5 MRI Lumbar Spine W/O Contrast INDICATION: worsening neurogenic claudication in the setting of priorstenosis. The patient reports bilateral leg pain and paresthesias. TECHNIQUE: MRI of the lumbar spine was performed without intravenouscontrast utilizing sagittal T1, sagittal T2, sagittal STIR, axial T1, and axial T2-weighted sequences. COMPARISON: 05/01/2024 FINDINGS: LOCALIZER: No additional findings on limited localizer images. NUMBERING: The study assumes 5 qzj-[id number]-fdfhonw lumbar type vertebralbodies. ALIGNMENT, VERTEBRAE, MARROW, AND DISCS: Mild leftward curvature of thelumbar spine. No significant subluxation. The lumbar vertebral bodies are normalin height. Severe loss of height of L2-L3 and L5-S1, unchanged. The L3-L4disc is moderate-severely diminished in height. Congenital narrowing of the spinalcanal due to shortened pedicles. Marginal osteophytes, facet arthroses, and vacuum disc phenomenon arepresent at multiple levels. CONUS: The conus is normal in signal and contour, with normal level of termination at L2. PARASPINAL TISSUES: Fatty atrophy of the posterior paraspinal musculature.No acute retroperitoneal abnormality. DETAILED FINDINGS BY LEVEL: T12-L1: Minimal concentric disc-osteophyte complex slightly indenting the ventral thecal sac. No significant central canal or foraminal narrowing. L1-L2: Mild concentric disc bulge. No significant canal stenosis or neural foraminal narrowing. L2-L3: Concentric marginal spurring. Mild central canal narrowing (leftgreater than right). Mild right and minimal left foraminal narrowing. L3-L4: Concentric disc-osteophyte complex, facet arthrosis, and ligamentum flavum infolding. A medial left facet joint synovial cyst has resolved. Mild-moderate acquired central canal narrowing. Left subarticular recess narrowing with crowding of the left L4 nerve roots. Severe narrowing ofthe thecal sac in conjunction with epidural lipomatosis. Mild foraminalnarrowing. L4-L5: Mild concentric disc bulge, facet arthrosis, and ligamentum flavum infolding. Mild acquired central canal stenosis. Severe narrowing of thethecal sac is more pronounced in conjunction with epidural lipomatosis. Mildright and minimal left foraminal narrowing. L5-S1: Concentric disc-osteophyte complex asymmetric to the rightposteriorly with mild right central canal and subarticular recess narrowing.Moderate-severe foraminal narrowing. IMPRESSION: Degenerative changes of the lumbar spine superimposed upon a congenitally-narrowed spinal canal. Central canal and foraminal narrowingcan be correlated with the patient's symptoms and neurological examination. WSN: [id number] Ordering Physician: Tank Renteria Electronically Signed By: Tate England MD us Tank Renteria MD IMG MRI PROCEDURES Final Re sult * XR Hip Bilateral 2 vw W [...] to obtain the completed interpretation. Workstation ID: [id number] Narrative 05/20/2025 11:24 AM EDT COMPARISON: 04/22/2024 FINDINGS AND Resulting Agency Comment [id number] Procedure Note Ofelia Mcmullen MD - 05/20/2025 [...] possible to obtain thecompleted interpretation. Workstation ID: [id number] us Trevon Rosa MD IMG XR PROCEDURES Final Result * (ABNORMAL) Basic Metabolic Panel (03/28/2015 3:55 AM EDT) Sodium Blood 131(L) 135 - 145 mmol/L [facility] Potassium Blood 4.0 3.5 - 5.3 mmol/L [facility] Chloride Blood 101 97 - 110 mmol/L [facility] Carbon Dioxide 26 24 - 32 mmol/L [facility] Gap 4(L) 5 - 15 [facility] Glucose 197(H) 70 - 99 mg/dL [facility] BUN 8 7 - 23 mg/dL [facility] Creatinine 0.84 0.60 - 1.30 mg/dL [facility] eGFR Non- >60 >60 [facility] Comment: Units = mL/min/1.73 m2 Glomerular [...] Calcium Blood 8.7 8.7 - 10.7 mg/dL [facility] 03/28/2015 3:55 AM EDT 03/28/2015 4:01 AM EDT us Trevon Rosa MD LAB BLOOD ORDERABLES Final Res ult [facility] [address] [place] [address], [place] * (ABNORMAL) Hemoglobin A1c (03/17/2015 8:27 AM EDT) Hemoglobin A1C 6.8(H) <5.7 [facility] Comment: UNITS OF MEASURE: % of [...] children. eAG (MG/DL) 148 () (calc) [facility] (MMOL/L) 8.2 () (calc) [facility] 03/17/2015 8:27 AM EDT 03/17/2015 10:53 AM EDT us Caroline Rios MD LAB BLOOD ORDERABLES Final Resul t KENDELL ANIBALSELENE from Last 3 Months or Most Recently Relevant to Health Maintenance Insurance [facility] Member Subscriber Plan / Payer (Ef fective 2020-Present) Name:Kyle Odonnell Relation to Subscriber:Self Name:Blas Kyle Payer ID:[id number] Type:Not on file Address: [facility], [address] [id number] MEDICARE Advance Directives Documents on File Type Date Recorded Patient [employer] Expl anation Advance Directive 01/21/2009 12:00 AM dical Dec Making (Adv.Dir) Care Teams Bit Tapper Relationship Specialty Start Date End Date Benton Chandler PCP - General Internal Medicine 07/04/22
--- OUTSIDE RECORDS SUMMARY | 2025-08-14 17:54 | XMS_ITS | Patient Health Record ---
Author Organization [facility] Address [address] [place] [phone] Care Team Providers Care Bilingual Call Center Representative Name Role Phone Mark Palomo Jr Reason For Referral No Information Plan Of Treatment No Information
--- OUTSIDE RECORDS SUMMARY | 2025-08-14 17:54 | XMS_ITS | Clinical Summary ---
Author Organization [facility] Address [address] [place] [address] Care Team Providers Care Privacy Director Name Role Phone Benton Chandler PA-C Primary [...] age to complete this topic Care Teams Privacy Director Relationship Specialty Start Date End Date Benton Chandler PA-C PCP - General Medical Services 07/19/22
--- OUTSIDE RECORDS SUMMARY | 2025-08-14 17:54 | XMS_ITS | Patient Health Record ---
[facility] [place] Address [address] [place] [address] Care Team Providers Care Pharmacology Teacher Name Role Phone Benton Borges Primary Care Provider Meghann Brittanie Barry Unavailable [phone] Allergies No Known Allergies Reason For Referral [...] Problem Acquired hammer toe of right foot (3121362616961064 ) Other hammer toe(s) (acquired), right foot (M20.41) Active confirmed Problem Acquired hammer toe of left foot (6864972208237595 ) Other hammer toe(s) (acquired), left foot (M20.42) Active confirmed Problem Polyneuropathy due to type 2 diabetes mellitus (674398819) Type 2 diabetes mellitus with diabetic polyneuropathy (E11.42) Active confirmed Problem Polyneuropathy due to diabetes mellitus type I (126145768) Type 1 diabetes mellitus with diabetic polyneuropathy (E10.42) Active confirmed Plan Of Treatment Pending Test Test Name Order Date X ray : Foot, left 3V 03/31/2021 X ray : Foot, right 3V 03/31/2021 [id number] SKIN LESIONS, OVER 4 03/31/20 21 [id number] DYSTROPHIC NAILS ANY # [id number] OF HEMATOMA/FLUID 021 Insurance Providers Payer Name Payer Address Payer Phone Subscriber Number Group Number Insured Name Patient Relationship to Insured Coverage Start Date Coverage End Date [employer] [address] [place] [address] [id number] Kyle Odonnell Self - patient is the insured [facility] [address] [place] [address] [phone] [id number] Kyle Odonnell Self - patient is the insured Medical (General) History Medical History History ICD Code Anemia Arthritis Diabetic Numbness Poor circulation Surgical History Surgery Date(Month/Year) hip replacement bilateral
--- OUTSIDE RECORDS SUMMARY | 2025-08-14 17:54 | XMS_ITS | Clinical Summary ---
Author Organization [facility] [address] [facility] Address [address] [place] [phone] Phone Care Team Providers Care Surgical Sales Representative Name Role Phone Benton Chandler Primary Care Provider [phone] Allergies No known active allergies Medications betamethasone dipropionate (DIPROSONE) 0.05 % ointment Use to affected area twice daily 11/17/19 21 Active multivit-min/fol ic/vit K/lycop (MEN'S MULTIVITAMIN ORAL) Take by mouth daily. Active chlorhexidine (PERIDEX) 0.12 % solution Take 15 mL by mouth 2 times daily. 120 mL 11 09/11/20 24 Active cyclobenzaprine (FLEXERIL) 10 mg tablet Take 1 tablet (10 mg total) by mouth at bedtime as needed for muscle spasms. 30 tablet 2 09/11/20 24 Active meloxicam (MOBIC) 15 mg tablet Take 1 tablet (15 mg total) by mouth 1 (one) time each day. 90 tablet 3 09/11/20 24 Active glucose blood test stripIndications :Type 2 diabetes mellitus with diabetic neuropathy, with long-term current use of insulin (CMS/[facility] V24, CMS/[facility] V28) Use as instructed 100 each 12 09/30/20 24 025 Active glucose blood test stripIndications :Type 2 diabetes mellitus with diabetic neuropathy, with long-term current use of insulin (CMS/HCC V24, CMS/HCC V28) Check sugars 3 times a day Contour next 200 each 2 09/30/20 24 026 Active clopidogreL (PLAVIX) 75 mg tablet Take 1 tablet (75 mg total) by mouth 1 (one) time each day. 90 tablet 03/17/20 25 Active furosemide (LASIX) 20 mg tablet Take 1 tablet (20 mg total) by mouth 1 (one) time each day. 90 tablet 03/17/20 25 Active gabapentin (NEURONTIN) 300 mg capsule TAKE 1 CAPSULE IN THE MORNING, 1 CAPSULE IN THE AFTERNOON, AND 2 CAPSULES IN THE EVENING DAILY 540 capsule 03/17/20 25 Active insulin aspart, niacinamide, (Fiasp FlexTouch U-100 Insulin) 100 unit/mL (3 mL) injection penIndications:T ype 2 diabetes mellitus with diabetic neuropathy, with long-term current use of insulin (CMS/HCC V24, CMS/HCC V28) Inject 35 Units into the skin 3 times daily (before meals). 3 times a day before meals up to 100 units a day. (dispense three months supply please) 90 mL 03/17/20 25 Active insulin glargine,hum.rec .anlog (Basaglar KwikPen U-100 Insulin) 100 unit/mL (3 mL) injection penIndications:T ype 2 diabetes mellitus with diabetic neuropathy, with long-term current use of insulin (CMS/HCC V24, CMS/HCC V28) Inject 70 Units into the skin at bedtime. Dispense three months supply please 60 mL 03/17/20 25 Active lisinopriL (PRINIVIL,ZESTRI L) 20 mg tablet Take 1 tablet (20 mg total) by mouth 1 (one) time each day. 90 tablet 03/17/20 25 Active tamsulosin (FLOMAX) 0.4 mg 24 hr capsule Take 1 capsule (0.4 mg total) by mouth 1 (one) time each day. Capsules should be taken 30 minutes following the same meal each day. 90 capsule 03/17/20 25 Active omeprazole (PriLOSEC) [address] capsule Take 1 capsule (20 mg total) by mouth 2 (two) times a day. 180 capsule 03/17/20 25 Active blood-glucose sensor (FreeStyle Muna 3 Plus Sensor) device Box = Kit = EA, change sensors every 2 weeks 6 kit 3 04/24/20 25 Active blood-glucose,re ceiver,cont (FreeStyle Muna 3 [place]) [facility] [place] Check sugars regularly 1 each 04/24/20 25 Active traMADoL (ULTRAM) 50 mg tabletIndication s:Spinal stenosis of lumbar region with neurogenic claudication Take 1 tablet (50 mg total) by mouth every 6 (six) hours if needed for severe pain for up to 7 days. Max Daily Amount: 200 mg 28 tablet 08/07/20 25 025 Active testosterone 50 mg/5 gram (1 %) gel Place 2 Tubes (100 mg of testosterone total) on the skin 1 (one) time each day. Max Daily Amount: 100 mg of testosterone 900 g 1 08/07/20 25 Active sildenafiL (VIAGRA) 50 mg tablet Take 1 tablet (50 mg total) by mouth 1 (one) time each day if needed for erectile dysfunction. 30 tablet 1 08/07/20 25 Active pen needle, diabetic (BD Ultra-Fine Short Pen Needle) 31 gauge x 5/16 needleIndication s:Type 2 diabetes mellitus with diabetic neuropathy, with long-term current use of insulin (CMS/HCC V24, CMS/HCC V28) Inject 1 Device into the skin 4 times daily. 300 each 2 08/07/20 25 Active tirzepatide (Mounjaro) 2.5 mg/0.5 mL injectionIndicat ions:Type 2 diabetes mellitus with diabetic nephropathy, with long-term current use of insulin (CMS/HCC V24, CMS/HCC V28) Inject 0.5 mL (2.5 mg total) under the skin every 7 (seven) days. 2 mL 2 08/13/20 25 026 Active cholecalciferol (Dialyvite Vitamin D3 Max) 1,250 mcg (50,000 unit) tablet Take 1 tablet (50,000 Units total) by mouth every 7 (seven) days. 04/17/20 24 025 Discontin ued(Thera py completed ) blood-glucose sensor (FreeStyle Muna 3 Sensor) device 1 Applicator by Does not apply route every 14 days. 07/16/20 24 025 Discontin ued(Dupli yossi order) testosterone 50 mg/5 gram (1 %) gel Place 2 Tubes (100 mg of testosterone total) on the skin 1 (one) time each day. Max Daily Amount: 100 mg of testosterone 300 g 3 09/11/20 24 Discontin ued(Reord er) sildenafiL (VIAGRA) 50 mg tablet Take 1 tablet (50 mg total) by mouth 1 (one) time each day if needed for erectile dysfunction. 10 tablet 11 09/11/20 24 Discontin ued(Reord er) pen needle, diabetic (BD Ultra-Fine Short Pen Needle) 31 gauge x 5/16 needleIndication s:Type 2 diabetes mellitus with diabetic neuropathy, with long-term current use of insulin ([facility] V24, CMS/[facility] V28) Inject 1 Device into the skin 4 times daily. 300 each 2 09/30/20 24 Discontin ued(Reord er) blood-glucose,re ceiver,cont (FreeStyle Muna 3 [place]) misc Check sugars regularly 1 each 04/24/20 25 Discontin ued(Dupli yossi order) traMADoL (ULTRAM) 50 mg tablet Take 1 tablet (50 mg total) by mouth every 6 (six) hours if needed for severe pain. Max Daily Amount: 200 mg 28 tablet 06/09/20 25 Discontin ued(Reord er) cephalexin (KEFLEX) 500 mg capsule Take 1 capsule (500 mg total) by mouth every 12 (twelve) hours for 7 days. 14 each 07/24/20 25 Discontin ued(Thera py completed ) doxycycline (Vibramycin) 100 mg capsule Take 1 capsule (100 mg total) by mouth 2 (two) times a day for 7 days. 14 capsule 08/01/20 Discontin ued(Thera py completed ) Active Problems Problem Noted Date Diagnosed Date [...] on doing Secondary esophageal varices without bleeding (CMS/HCC V24, CMS/HCC V28) 06/29/2022 BPH (benign prostatic hyperplasia) 06/04/2021 [...] foot associated with type 2 diabetes mellitus ([facility] V24, [facility] V28) 06/04/2021 Overview (07/30/2024): [facility] 04/27/21-05/01/21, follow with wound care Assessment & Plan (03/17/2025 2:11 PM EDT): Orders: Lipid panel with reflex to direct LDL; Future Microalbumin creatinine urine ratio; Future Comprehensive metabolic panel; Future Hemoglobin A1c; Future Vitamin D 25 hydroxy; Future Iron and TIBC; Future CBC and differential; Future Testosterone, total; Future Prostate specific antigen diagnostic; Future GERD (gastroesophageal reflux disease) PVD (peripheral vascular disease) [place] [place] 05/26/2021 Overview (07/30/2024): Plasty left SFA 05/05 Iron deficiency anemia secondary to blood loss ( chronic) 01/28/2020 Nocturia 08/12/2019 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 V24, [facility] V28) 01/10/2016 Overview (07/30/2024): Dr. Foster recommend [...] 5 years. Diabetes with neurologic com plications ([facility] V24, [facility] V28) 08/20/2012 Overview (07/30/2024): Right peroneal neuropathy. [...] three months supply please) insulin glargine,hum.rec.anlog (Basaglar KwikPen U-100 Insulin) 100 unit/mL (3 mL) injection pen; Inject 70 Units into the skin at bedtime. Dispense three months supply please Microalbuminuria 08/20/2012 Type 2 diabetes mellitus wit h eye manifestations ([facility] V24, [facility] V28) 08/20/2012 Overview (07/30/2024): Bilateral nuclear sclerosis. Assessment & Plan (08/13/2025 1:14 PM EDT): >>ASSESSMENT AND PLAN FOR TYPE 2 DIABETES MELLITUS WITH EYE MANIFESTATIONS ([facility]24, [facility] V28) WRITTEN ON 03/17/2025 2:11 PM BY NICK CHARLES Orders: Lipid panel with reflex to direct LDL; Future Microalbumin creatinine urine ratio; Future Comprehensive metabolic panel; Future Hemoglobin A1c; Future Vitamin D 25 hydroxy; Future Iron and TIBC; Future CBC and differential; Future Testosterone, total; Future Prostate specific antigen diagnostic; Future >>ASSESSMENT AND PLAN FOR TYPE 2 DIABETES MELLITUS WITH DIABETIC NEPHROPATHY, WITH LONG-TERM CURRENT USE OF INSULIN ([facility] [place], [facility] [place]) WRITTEN ON 03/17/2025 2:11 PM BY NICK CHARLES Orders: Lipid panel with reflex to direct LDL; Future Microalbumin creatinine urine ratio; Future Comprehensive metabolic panel; Future Hemoglobin A1c; Future Vitamin D 25 hydroxy; Future Iron and TIBC; Future CBC and differential; Future Testosterone, total; Future Prostate specific antigen diagnostic; Future Diabetes mellitus with renal manifestation ([facility] [place], [facility] [place]) 05/07/2012 Overview (07/30/2024): Last Assessment & [...] specific antigen diagnostic; Future Hepatitis C, chronic ([facility] [place], [facility] [place]) 12/16/2008 Overview (07/30/2024): With increase in [...] Encounters Date Type Department Care Team Description 08/13/2025 1:00 PM EDT Office Visit Endocrinology [address] [phone] Jason Hua MD Type 2 diabetes mellitus with diabetic nephropathy, with long-term current use of insulin ([facility] V24, [facility] V28) (Primary Dx) 08/07/2025 3:00 PM EDT Office Visit Adult Medicine [address] [phone] April Brunson PA Primary hypertension (Primary Dx); Mixed hyperlipidemia; Type 2 diabetes mellitus with diabetic neuropathy, with long-term current use of insulin ([facility] V24, CMS/[facility] V28); Hypogonadism in male; Cirrhosis of liver not due to alcohol (CMS/HCC V24, CMS/HCC V28); Gastroesophageal reflux disease, unspecified whether esophagitis present; Secondary esophageal varices without bleeding (CMS/HCC V24, CMS/HCC V28); Iron deficiency anemia secondary to blood loss (chronic); Vitamin D deficiency; Spinal stenosis of lumbar region with neurogenic claudication; Need for prophylactic vaccination and inoculation against influenza 08/01/2025 Telephone Orthopedic Surgery [facility] [address] [phone] Hood Carter DPM 07/28/2025 1:00 PM EDT Office Visit Orthopedic Surgery [facility] [address] [phone] Hood Carter DPM Controlled type 2 diabetes mellitus with diabetic polyneuropathy, without long-term current use of insulin ([facility] V24, CMS/[facility] V28) (Primary Dx); History of amputation of left foot through metatarsal bone ([facility] V24, [facility] V28); Hammertoes of both feet; PAD (peripheral artery disease) ([facility] V24); Ulcer of toe of right foot, with fat layer exposed ([facility] V24, [facility] V28); Cellulitis of right foot 07/24/2025 Telephone Orthopedic Surgery - [address] [phone] Hood Carter, RADHA from Last 3 Months Immunizations Immunization Administration Dates Next Due H1N1 Inj Preservative Free 09/22/2009 Hepatitis B (Yyokark-U-Keelt , Recombivax HB-Adult) 19yo and older 12/12/2008,06/11/2008,05/12/2008 Influenza Quadravalent, MDCK , 0.5ml, with preservative (Flucelvax) 6mo and older 07/26/2017 Influenza trivalent, 0.5mL ( Fluad) 65yo and older 08/07/2025,07/24/2023,06/29/2022 Influenza trivalent, 0.5mL, preservative free (Fluarix; FluLaval; [...] subun it RSVpreF, 0.5mL, Preservative Free (Arexvy) 50yo and older 10/10/2023 Td Tetanus diptheria (Tdvax) [...] EGD 12/2012 UPPER GASTROINTESTINAL ENDOSCOPY 01/01/2008 PROCEDURE: [place] UPPER GI ENDOSCOPY PERFORMED; COMMENT: Esophageal ulcers-bx:erosive esophagitis, hiatus hernia, SB-normal. Repeat EGD 06/2008 OTHER SURGICAL HISTORY 05/10/2021 Left PROCEDURE: [place] UNLISTED PROCEDURE VASCULAR SURGERY; COMMENT: dr. deng [...] 5 years OTHER SURGICAL HISTORY 07/31/2024 PROCEDURE: [place] EMBLC/THRMBC [id number] [employer]; COMMENT: left SF atherectomy, stent - dr. deng Medical History Medical History Date Comments Diabetes mellitus (CMS/[facility] V 24, [facility] V28) DX:Diabetes mellitus (HCC) Type II or [...] 2 with peripheral vascular complications (CMS/HCC V24, CMS/[facility] V28) 05/26/2021 DX:DM (diabetes mellitus), type 2 with peripheral vascular complications (HCC) PVD (peripheral vascular dis ease) (CMS/[facility] V24) 05/26/2021 DX:PVD (peripheral vascular disease) (HCC); COMMENT: Plasty left SFA 05/05 BPH (benign prostatic hyperplasia) 06/04/2021 DX:BPH (benign prostatic hyperplasia) Chronic anemia 06/04/2021 DX:Chronic anemi a GERD (gastroesophageal reflux disease) DX:GERD (gastroesophageal reflux disease) 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 Foster recommend every 6 month ultrasound to screen for hepatoma. Diabetic ulcer of left foot associated with type 2 diabetes mellitus (CMS/HCC V24, CMS/HCC V28) 06/04/2021 DX:Diabetic ulcer of left fo ot associated with type 2 diabetes mellitus (HCC); COMMENT: Hospitalized [facility] 04/27/21-05/01/21, follow with wound care DM (diabetes [...] Medical History Relation Name Comments Diabetes Father [place] Other: etoh Father Other cancer Mother no [...] for your loved ones. For example, children's ministry director or elderly care for an older adult? [...] Pulse 64 08/13/2025 1:03 PM EDT Temperature 36.1 C (97 F) 08/07/2025 2:59 PM EDT Respiratory Rate 14 08/13/2025 1:03 PM EDT Oxygen Saturation 97% 08/07/2025 2:59 PM EDT Inhaled Oxygen Concentration - - Weight 101 kg (222 lb) 08/13/2025 1:03 PM EDT Height 182.9 cm (6') 08/13/2025 1:03 PM EDT Body Mass Index 30.11 08/13/2025 1:03 PM EDT Plan of Treatment Upcoming Encounters Date Type Department Care Team (Late st Contact Info) Description 10/27/2025 1:00 PM EST Office Visit Orthopedic Surgery - [address] [phone] Hood Carter, RADHA [address] [place] [phone] 11/13/2025 10:00 AM EST Office Visit Endocrinology [address] [phone] Jason Hua MD [address] [place] [phone] 01/26/2026 11:00 AM EDT Office Visit Orthopedic Surgery - [place] [address] [place] [address] [place] [phone] Hood Carter, RADHA [address] [place] [phone] Health Maintenance Due Date Last Done Comments Hepatitis A Vaccines (1 of 2 - Risk 2-dose series) 1971 Zoster Vaccines (1 of 2) 1971 COVID-19 Vaccine ( season) 2025 08/25/2022, 09/04/2021, 02/01/2021, Additional history exists Diabetes: Blood Sugar Control Test (HGBA1C) 07/18/2025 [...] 04/15/2024 Medicare Annual Wellness Visit 03/17/2026 03/17/2025 Social Influencers of Health Screening 08/07/2026 08/07/2025 Colorectal Cancer Screening: Colonoscopy 03/25/2027 03/25/2022 Cholesterol Screening (Lipid Panel) 09/25/2029 09/25/2024, 10/05/2023 DTaP,Tdap,and Td Vaccines Discontinued 04/13/2009 Hepatitis B Vaccines Completed 06/25/2015, 12/25/2014, 11/27/2014, Additional history exists Hepatitis C Screening Completed 05/25/2020 Pneumococcal Vaccine: 50+ Years Completed 11/17/2020, 01/02/2019, 11/18/2013 RSV Immunization Adult Patients Completed 10/10/2023 Depression Screening Completed 08/07/2025, 04/15/20 24 Influenza Vaccine Completed 08/07/2025, , 07/24/2023, Additional history exists Abdominal Aortic Aneurysm (AAA) [...] Procedure Name Priority Date/Time Associated Diagnosis Comments EXTERNAL VASCULAR ULTRASOUND 06/26/2025 COMPREHENSIVE METABOLIC PANEL Routine 01/16/2025 12:34 PM EDT Other cirrhosis of liver ([facility] V24, [facility] V28) HEMOGLOBIN A1C Routine 01/16/2025 12:34 PM EDT Type 2 diabetes mellitus with diabetic neuropathy, with long-term current use of insulin ([facility] V24, [facility] V28) MICROALBUMIN CREATININE URINE RATIO Routine 09/25/2024 11:23 AM EST Spinal stenosis of lumbar region with neurogenic claudication Actinic keratosis Benign prostatic hyperplasia, unspecified whether lower urinary tract symptoms present Chronic anemia Cirrhosis of liver not due to alcohol ([facility] V24, [facility] V28) Type 2 diabetes mellitus with other diabetic kidney complication, without long-term current use of insulin ([facility] V24, [facility] V28) Type 2 diabetes mellitus with diabetic neuropathy, without long-term current use of insulin ([facility] V24, [facility] V28) Essential hypertension, benign Hypogonadism in male Iron deficiency anemia secondary to blood loss (chronic) LIPID PANEL WITH REFLEX TO DIRECT LDL Routine 09/25/2024 11:22 AM EST Spinal stenosis of lumbar region with neurogenic claudication Actinic keratosis Benign prostatic hyperplasia, unspecified whether lower urinary tract symptoms present Chronic anemia Cirrhosis of liver not due to alcohol ([facility]/HCC V24, [facility] V28) Type 2 diabetes mellitus with other diabetic kidney complication, without long-term current use of insulin ([facility] V24, [facility] V28) Type 2 diabetes mellitus with diabetic neuropathy, without long-term current use of insulin ([facility] V24, [facility] V28) Essential hypertension, benign Hypogonadism in male Iron deficiency anemia secondary to blood loss (chronic) DEPRESSION SCREENING Routine 04/15/2024 FALLS RISK ASSESSMENT Routine 04/15/2024 DIABETES FOOT EXAM Routine 07/24/2023 COLONOSCOPY Routine 03/25/2022 HEPATITIS C SCREENING Routine 05/25/2020 from Last 3 Months or Most Recently Relevant to Health Maintenance Results * External Vascular Ultrasound (06/26/2025) Anatomical Region Laterality Modality Ultrasound us Provider [facility] CV VASCULAR PROCEDURES F inal Result * (ABNORMAL) Hemoglobin A1c (01/16/2025 12:34 PM EDT) Hemoglobin A1C 7.0(H) <6.5 % LAB CHEMISTRY METHOD 01/16/2025 11:06 PM EDT [facility] Mean Bld Glu Estim. 154 mg/dL LAB CHEMISTRY METHOD 01/16/2025 11:06 PM EDT [facility] Blood Venous blood specimen / Unknown Venipuncture / Unknown 01/16/2025 12:34 PM EDT 01/16/2025 12:34 PM EDT us Sawyer Barrera MD LAB BLOOD ORDERABLES Final Resul t [facility] [address] [place] [address], * (ABNORMAL) Comprehensive metabolic panel (01/16/2025 12:34 PM EDT) Sodium 137 133 - 145 mmol/L LAB CHEMISTRY METHOD 01/16/2025 4:41 PM T [facility] Potassium 4.1 3.5 - 5.5 mmol/L LAB CHEMISTRY METHOD 01/16/2025 4:41 PM [facility] Chloride 107 96 - 110 mmol/L LAB CHEMISTRY METHOD 01/16/2025 4:41 PM [facility] CO2 22 21 - 32 mmol/L LAB CHEMISTRY METHOD 01/16/2025 4:41 PM [facility] Anion Gap 8 3 - 11 LAB CHEMISTRY METHOD 01/16/2025 4:41 PM [facility] Glucose 244(H) 70 - 100 mg/dL LAB CHEMISTRY METHOD 01/16/2025 4:41 PM [facility] BUN 15 5 - 25 mg/dL LAB CHEMISTRY METHOD 01/16/2025 4:41 PM [facility] Creatinine 0.96 0.70 - 1.30 mg/dL LAB CHEMISTRY METHOD 01/16/2025 4:41 PM [facility] eGFR 84 >=60 mL/min/1. 73m2 LAB CHEMISTRY METHOD 01/16/2025 4:41 PM [facility] Comment:Calculation based on the Chronic Kidney Disease Epidemiology Collaboration (CKD-EPI) equation refit without adjustment for race. BUN/Creatinine Ratio 15.6 LAB CHEMISTRY METHOD 01/16/2025 4:41 PM [facility] Calcium 8.9 8.5 - 10.5 mg/dL LAB CHEMISTRY METHOD 01/16/2025 4:41 PM EDT [facility] AST (SGOT) 20 10 - 42 unit/L LAB CHEMISTRY METHOD 01/16/2025 4:41 PM [facility] ALT (SGPT) 23 10 - 60 unit/L LAB CHEMISTRY METHOD 01/16/2025 4:41 PM EDT [facility] Alkaline Phosphatase 110 42 - 121 unit/L LAB CHEMISTRY METHOD 01/16/2025 4:41 PM EDT [facility] Total Protein 7.8 6.0 - 8.0 g/dL LAB CHEMISTRY METHOD 01/16/2025 4:41 PM [facility] Albumin 4.0 3.2 - 5.0 g/dL LAB CHEMISTRY METHOD 01/16/2025 4:41 PM [facility] Total Bilirubin 0.3 0.0 - 1.4 mg/dL LAB CHEMISTRY METHOD 01/16/2025 4:41 PM EDT [facility] Blood Venous blood specimen / Unknown Venipuncture / Unknown 01/16/2025 12:34 PM EDT 01/16/2025 12:34 PM EDT us Juan ROMERO LAB BLOOD ORDERABLES Final Resu lt [facility] [address] [place] [address], * (ABNORMAL) Microalbumin creatinine urine ratio (09/25/2024 11:23 AM EST) Creatinine, Urine 63.0 mg/dL LAB CHEMISTRY METHOD 09/25/2024 3:08 PM EST [facility] Microalb, Ur 235.0(H) 0.0 - 29.0 mg/L LAB CHEMISTRY METHOD 09/25/2024 3:08 PM EST [facility] Microalb/Crea t Ratio 373(H) <30 mg/g creat LAB CHEMISTRY METHOD 09/25/2024 3:08 PM EST [facility] Urine Urine specimen obtained by clean catch procedure / Unknown Non-blood Collection / Unknown 09/25/2024 11:23 AM EST 09/25/2024 11:23 AM EST [place] ROMERO LAB URINE ORDERABLES Anne Marie l Result [facility] [address] [place] [address], [place] [phone] * (ABNORMAL) Lipid panel with reflex to direct LDL (09/25/2024 11:22 AM EST) Cholesterol 255(H) 0 - 200 mg/dL LAB CHEMISTRY METHOD 09/25/2024 2:55 PM [facility] Triglycerides 262(H) 0 - 150 mg/dL LAB CHEMISTRY METHOD 09/25/2024 2:55 PM [facility] HDL 47 >=40 mg/dL LAB CHEMISTRY METHOD 09/25/2024 2:55 PM [facility] LDL Calculated 156(H) 0 - 100 mg/dL LAB CHEMISTRY METHOD 09/25/2024 2:55 PM [facility] VLDL Cholesterol Christian 52.4 mg/dL LAB CHEMISTRY METHOD 09/25/2024 2:55 PM [facility] Non HDL Chol. (LDL+VLDL) 208(H) <145 mg/dL LAB CHEMISTRY METHOD 09/25/2024 2:55 PM [facility] Chol/HDL Ratio 5.4(H) 0.0 - 4.4 LAB CHEMISTRY METHOD 09/25/2024 2:55 PM [facility] Blood Venous blood specimen / Unknown Venipuncture / Unknown 09/25/2024 11:22 AM EST 09/25/2024 11:22 AM EST Benton ROMERO LAB BLOOD ORDERABLES Anne Marie l Result [facility] ([facility]) [facility] [address] [place] [address], [place] [phone] * Falls Risk Assessment (04/15/2024) [facility] Falls Risk Assessment abstracted Historical Provider HEALTH MAINTENANCE Final Result * Depression Screening (04/15/2024) Pathologist [facility] Depression Screening abstracted Historical Provider HEALTH MAINTENANCE Final Result * Diabetes Foot Exam (07/24/2023) [facility] Diabetes: Annual Foot Exam abstracted [facility] Provider HEALTH MAINTENANCE Final Result * Colonoscopy (03/25/2022) [facility] Colonoscopy no interpreta tion,abstr acted Anatomical Region Laterality Modality Other Historical Provider HEALTH MAINTENANCE Final Result * Hepatitis C Screening (05/25/2020) [facility] Hepatitis C Screening abstracted Historical Provider HEALTH MAINTENANCE Final Result from Last 3 Months or Most Recently Relevant to Health Maintenance Insurance MEDICARE [facility] Care Teams Surgical Sales Representative Relationship Specialty Start Date End Date Benton Chandler PA [address] [place] [address] PCP - General Internal Medicine 04/29/20
== END 2025-08-14 15:30 | disposition home or self-care (01) ==
LOC: HO.HVS 15:04
PROVIDERS: PCP Physician Assistant Medical; Visit Provider Surgery Vascular Surgery
DX: I73.9 Peripheral vascular disease, unspecified (principal)
CPT/HCPCS: 99214

== ENCOUNTER → 2025-08-14 15:03 | Outpatient (BNVA) | payer MEDICARE, OTHER, SELFPAY | PROVIDERS: PCP Physician Assistant Medical; Visit Provider Surgery Vascular Surgery | DX: E11.621 Type 2 diabetes mellitus with foot ulcer (principal); L97.519 Non-pressure chronic ulcer of other part of right foot with unspecified severity; E11.51 Type 2 diabetes mellitus with diabetic peripheral angiopathy without gangrene | CPT/HCPCS: 99212 ==

== ENCOUNTER 2025-08-20 07:28 | Day surgery (SDC) | payer MEDICARE, OTHER, SELFPAY ==
--- OUTSIDE RECORDS SUMMARY | 2025-08-13 12:00 | XMS_ITS | Encounter Summary ---
[facility] Organization [facility] [address] [place] [address] Care Team Providers Care Demurrage Agent Name Role Phone Benton Chandler Primary Care Provider [phone] Reason for Visit * Reason Comments Diabetes Mellitus Consult for diabetes Encounter Details Date Type Department Care Team (Late st Contact Info) Description 08/13/2025 1:00 PM EDT Office Visit Endocrinology [facility] [address] [place] [phone] Jason Hua MD [address] [place] [address] Type 2 diabetes mellitus with diabetic nephropathy, with long-term current use of insulin (CMS/HCC V24, CMS/HCC V28) (Primary Dx) Social History Tobacco Use Types Packs/Day Years Used Date Smoking Tobacco: Former Cigarettes Q uit: 10/16/1998 Smokeless Tobacco: Former Alcohol Use Standard Drinks/Week Comments No 0 (1 standard drink = 0.6 oz pur e alcohol) Housing Instability Answer Date Recorde d Are you worried that in the next 2 months you may not have stable housing? No 08/07/2025 Food Access & Nutrition Answer Date Rec orded Do you have access to a vari ety of food including fruits and vegetables? Yes 08/07/2025 Health Literacy Answer Date Recorded How often do you need to hav e someone help you when you read instructions, pamphlets, or other written material from your doctor or pharmacy? Never 08/07/2025 Caregiver: How often do you need to have someone help you when you read instructions, pamphlets, or other written material from your doctor or pharmacy? Not on file 08/07/2025 Financial Risk Answer Date Recorded How hard is it for you to pa y for the very basics like food, housing, medical care, and air conditioning / heating? Not very hard 08/07/2025 Transportation Answer Date Recorded Has the lack of transportati on kept you from meetings, work, or from getting things needed for daily living? No Has the lack of transportati on kept you from medical appointments or from getting medications? No 08/07/2025 Social Isolation Answer Date Recorded How often do you feel lonely or isolated from th ose around you? Never 08/07/2025 Food Risk Answer Date Recorded Within the past 12 months we worried whether our food would run out before we got money to buy more. Never true 08/07/2025 Within the past 12 months th e food we bought just didn't last and we didn't have money to get more. Never true 08/07/2025 Dependent Care Answer Date Recorded Do you need help finding or paying for care for your loved ones. For example, child guidance counselor or elderly care for an older adult? No 08/07/2025 Education Answer Date Recorded Do you think completing more education or training, like finishing a GED, going to college, or learning a trade, would be helpful for you? N/A 08/07/2025 Employment and Income Answer Date Recor ded During the last four weeks, have you been actively looking for work? No 08/07/2025 Living Situation Answer Date Recorded What is your living situation? Unrecognized valu e 08/07/2025 Sex and Gender Information Value Date Recorded Sex Assigned at Not on file Legal Sex Male 11:38 PM EST Gender Identity Not on file Sexual Orientation Not on file documented as of this encounter Last Filed Vital Signs Vital Sign Reading Time Taken Comments Blood Pressure 134/58 08/13/2025 1:03 PM EDT Pulse 64 08/13/2025 1:03 PM EDT Temperature - - Respiratory Rate 14 08/13/2025 1:03 PM EDT Oxygen Saturation - - Inhaled Oxygen Concentration - - Weight 101 kg (222 lb) 08/13/2025 1:03 PM EDT Height 182.9 cm (6') 08/13/2025 1:03 PM EDT Body Mass Index 30.11 08/13/2025 1:03 PM EDT documented in this encounter Ordered Prescriptions Prescription Sig Dispense Quantity Refills Last Filled Start Date End Date tirzepatide (Mounjaro) 2.5 mg/0.5 mL injectionIndicatio ns:Type 2 diabetes mellitus with diabetic nephropathy, with long-term current use of insulin ([facility] V24, [facility] V28) Inject 0.5 mL (2.5 mg total) under the skin every 7 (seven) days. 2 mL 2 08/13/2025 11/11/2025 documented in this encounter Progress Notes * Jason Hua MD - 08/13/2025 1:00 PM EDT Please take basaglar 55U daily Continue to take Fiasp but try to take it before you meal I will send in a prescription for the [employer] muna 3 sensor and reader. I will also send in a prescription for Mounjaro to your pharmacy. * Jason Hua MD - 08/13/2025 1:00 PM EDT CHIEF COMPLAINT: Diabetes Mellitus (Consult for diabetes) IDENTIFIER: Kyle Odonnell is a 74 y.o. old male. HPI: 74-year-old male with past medical history of type 2 diabetes mellitus complicated by neuropathy and retinopathy, hypertension, hyperlipidemia, GERD, hepatitis C presents to the clinic today for follow-up of type 2 diabetes mellitus. Patient was last seen in the clinic in April [address] Barrera. This is my first time evaluating him Diagnosed about 20 years ago Current DM medications: Basaglar 50-65U nightly depending on where his blood sugars are, Fiasp 15-35U TID AC (takes it 3-6x daily), ?Jardiance Previous DM medications: none HbA1c: Lab Results Component Value Date HGBA1C 7.0 (H) 01/16/2025 Poc blood glucose today: Lab Results Component Value Date GLUCOSE 244 (H) 01/16/2025 Blood glucose review: CGM active dates: July 31, 2025 to August 13, 2025 Time CGM active: 97% Average glucose: 162 GMI: 7.2 Glucose variability: 27.3 Target range: 67 low: 0 very low: 0 high: 29 very high: 4 Blood glucose trends: Patient has fasting blood sugars ranging between 140- 180mg/dL with significant postprandial spikes into the mid 200s. This postprandial spikes are frequently followed by a sharpdrop in blood sugars and subsequent hypoglycemia to the 60s. Hypoglycemia: yes; 1x weekly. Has hypoglycemia awareness Last saw eye doctor: 2 years ago; no retinopathy Peripheral neuropathy: yes , on gabapentin Nephropathy: yes , on JEFFRY ASCVD: no Gastroparesis: no Ulcers/amputations: no ROS: GENERAL: Negative for malaise, significant weight loss and fever HEENT: No changes in hearing or vision. No nosebleeds or other nasal problems RESPIRATORY: No cough, wheezing or shortness of breath CARDIOVASCULAR: Negative for chest pain, leg swelling and palpitations GI: Negative for abdominal discomfort, changes in bowel habits, blood in stool or black stools : Negative for dysuria, frequency, and incontinence SKIN: No lesions, rash, or itching ENDOCRINE: See HPI NEURO: No persistent headache, fainting, seizures, strokes, TIAs, weakness, numbness or tingling PAST MEDICAL HISTORY: Patient Active Problem List Diagnosis Date Noted Anemia 07/30/2024 Angiodysplasia of colon 07/30/2024 Hemorrhoids 07/30/2024 Vitamin D deficiency 04/17/2024 1st degree AV block 04/15/2024 PVC (premature ventricular contraction) 04/15/2024 Sinus arrhythmia 04/15/2024 Sinus bradycardia 04/15/2024 Hypogonadism in male 07/06/2023 Dyspnea on exertion 08/24/2022 Secondary esophageal varices without bleeding ([facility] V24, [facility] V28) 06/29/2022 BPH (benign prostatic hyperplasia) 06/04/2021 Chronic anemia 06/04/2021 Diabetic ulcer of left foot associated with type 2 diabetes mellitus ([facility] V24, [facility] V28) 06/04/2021 GERD (gastroesophageal reflux disease) 06/04/2021 PVD (peripheral vascular disease) ([facility] V24) 05/26/2021 Iron deficiency anemia secondary to blood loss (chronic) 01/28/2020 Nocturia 08/12/2019 Cirrhosis of liver not due to alcohol ([facility] V24, [facility] V28) 01/10/2016 Mixed hyperlipidemia 09/02/2013 Benign neoplasm of colon 12/17/2012 Diabetes with neurologic complications ([facility] V24, [facility] V28) 08/20/2012 Microalbuminuria 08/20/2012 Type 2 diabetes mellitus with eye manifestations ([facility] V24, [facility] V28) 08/20/2012 Diabetes mellitus with renal manifestation ([facility] V24, [facility] V28) 05/07/2012 Hepatitis C, chronic ([facility] V24, [facility] V28) 12/16/2008 Osteoarthritis 07/26/2007 Essential hypertension, benign 12/29/2005 SOCIAL HISTORY: Social History Tobacco Use Smoking status: Former Current packs/day: 0.00 Types: Cigarettes Quit date: 10/16/1998 Years since quittin.8 Smokeless tobacco: Former Substance Use Topics Alcohol use: No FAMILY HISTORY: Family Status Relation Name Status Mother at age 75 Father at age 55 Neg Hx (Not Specified) MGM MGF PGM PGF No partnership data on file Family History[1] ACTIVE MEDICATIONS: Medications Taking[2] ALLERGIES: Patient has no known allergies. PHYSICAL EXAM: Blood pressure 134/58, pulse 64, resp. rate 14, height 1.829 m (72 ), weight 101 kg (222 lb). Body mass index is 30.11 kg/m??. GENERAL: Alert and oriented, in no acute distress. Well-nourished and well-hydrated. HEAD/NECK: Normocephalic and atraumatic. EYES: Pupils equal, round, and reactive to light (PERRLA). Extraocular movements intact. Conjunctivae clear. LUNGS: Lungs clear to auscultation bilaterally. No wheezes, rales, or rhonchi. CARDIOVASCULAR: Regular rate and rhythm. Normal S1 and S2 sounds. No murmurs or gallops. ABDOMEN: Soft, non-tender, and non-distended. Bowel sounds are active and normal. EXTREMITIES: No edema or deformities. Full range of motion in all joints. FOOT: Sensory exam of the foot is normal , tested with the monofilament. 2+ dorsalis pedis pulses, no lesions or ulcers. NEUROLOGICAL: Alert and oriented. Grossly nonfocal SKIN: Skin is warm, dry, and intact. LABS: Lab Results Component Value Date HGBA1C 7.0 (H) 01/16/2025 CHOL 255 (H) 09/25/2024 LDLCALC 156 (H) 09/25/2024 HDL 47 09/25/2024 TRIG 262 (H) 09/25/2024 CREATUR 63.0 09/25/2024 MICROALBUR 235.0 (H) 09/25/2024 MICROALBCREA 373 (H) 09/25/2024 Lab Results Component Value Date GLUCOSE 244 (H) 01/16/2025 IMPRESSION: 1. Type 2 diabetes mellitus with diabetic nephropathy, with long-term current use of insulin ([facility] V24, [facility] V28) Patient is currently on 74-year-old male with past medical history of type 2 diabetes mellitus complicated by neuropathy and retinopathy, hypertension, hyperlipidemia, GERD, hepatitis C presents to the clinic today for follow-up of type 2 diabetes mellitus. PLAN: Patient is currently on Basaglar. He reports that he takes anywhere between 50 and 65 units of Basaglar nightly depending on how high his blood sugars are. He says that if his blood sugars are [id number] he will take 50 units of Basaglar. If his blood sugars are around 250, he would take 55 to 60 units of Basaglar. He is also on Fiasp and reports that he takes 15 to 35 units of Fiasp with meals. He reports that he usually takes his Fiasp after eating because he does not remember to take it before. He says that he takes Fiasp throughout the day as a correction in order to bring his blood sugars down if they are running high. Review of his CGM pattern showsasting blood sugars ranging between 140-180mg/dL with significant postprandial spikes into the mid 200s. This postprandial spikes are frequently followed by a sharp drop in blood sugars and subsequent hypoglycemia to the 60s. The postprandial hypoglycemia is most likely due to taking Fiasp after eating. I advised patient colin to take the Fiasp before his meals and that if he does take it after eating, he should cut backon the dose of his Fiasp in order to prevent the hypoglycemic events. I also discussed with him that his Basaglar dose should be fixed and should not vary based on his daily blood sugars. We decided on doing 55 units of Basaglar nightly. He is also on Jardiance that he reports was prescribed by his PCP. I do not see that on his med list and I am unsure of what dose of Jardiance he is taking. Patient has fairly decent blood sugar control but with his age I worry about hypoglycemic events especially since he is not taking Fiasp before meals. I think it would be beneficial to add a GLP-1 receptor agonist with a goal of discontinuing prandial insulin. I will send in a prescription for Mounjaro to his pharmacy. If the Mounjaro is approved, his Fiasp dose will need to be decreased by 30 to 40%. He is also interested in upgrading to a freestyle muna 3+ sensor. I will put in the prescription for that. Patient is interested in checking his pancreatic reserve. BMP and C-peptide levels ordered. Follow-up in 3 months No orders of the defined types were placed in this encounter. ADDITIONAL ORDERS: None Jason Hua MD on 08/13/2025 at 1:15 PM EDT Endocrinology, Diabetes, and Metabolism [1] Family History Problem Relation Name Age of Onset Other cancer Mother no details Diabetes Father PR Other (Other: etoh) Father Colon cancer Neg Hx Stomach cancer Neg Hx [2] Outpatient Medications Marked as Taking for the 08/13/25 encounter (Office Visit) with Jason Hua MD Medication Sig Dispense Refill betamethasone dipropionate (DIPROSONE) 0.05 % ointment Use to affected area twice daily blood-glucose sensor (FreeStyle Muna 3 Plus Sensor) device Box = Kit = EA, change sensors every 2 weeks 6 kit 3 blood-glucose,pole truck driver,cont (FreeStyle Muna 3 [place]) misc Check sugars regularly 1 each 0 furosemide (LASIX) 20 mg tablet Take 1 tablet (20 mg total) by mouth 1 (one) time each day. 90 tablet 3 gabapentin (NEURONTIN) 300 mg capsule TAKE 1 CAPSULE IN THE MORNING, 1 CAPSULE IN THE AFTERNOON, AND 2 CAPSULES IN THE EVENING DAILY 540 capsule 3 glucose blood test strip Use as instructed 100 each 12 glucose blood test strip Check sugars 3 times a day Contour next 200 each 2 insulin aspart, niacinamide, (Fiasp FlexTouch U-100 Insulin) 100 unit/mL (3 mL) injection pen Inject 35 Units into the skin 3 times daily (before meals). 3 times a day before meals up to 100 units a day. (dispense three months supply please) 90 mL 11 insulin glargine,hum.rec.anlog (Basaglar KwikPen U-100 Insulin) 100 unit/mL (3 mL) injection pen Inject 70 Units into the skin at bedtime. Dispense three months supply please 60 mL 11 lisinopriL (PRINIVIL,ZESTRIL) 20 mg tablet Take 1 tablet (20 mg total) by mouth 1 (one) time each day. 90 tablet 3 meloxicam (MOBIC) 15 mg tablet Take 1 tablet (15 mg total) by mouth 1 (one) time each day. 90 tablet 3 multivit-min/folic/vit K/lycop (MEN'S MULTIVITAMIN ORAL) Take by mouth daily. omeprazole (PriLOSEC) [address] capsule Take 1 capsule (20 mg total) by mouth 2 (two) times a day. 180 capsule 3 pen needle, diabetic (BD Ultra-Fine Short Pen Needle) 31 gauge x 5/16 needle Inject 1 Device into the skin 4 times daily. 300 each 2 sildenafiL (VIAGRA) 50 mg tablet Take 1 tablet (50 mg total) by mouth 1 (one) time each day if needed for erectile dysfunction. 30 tablet 1 tamsulosin (FLOMAX) 0.4 mg 24 hr capsule Take 1 capsule (0.4 mg total) by mouth 1 (one) time each day. Capsules should be taken 30 minutes following the same meal each day. 90 capsule 3 traMADoL (ULTRAM) 50 mg tablet Take 1 tablet (50 mg total) by mouth every 6 (six) hours if needed for severe pain for up to 7 days. Max Daily Amount: 200 mg 28 tablet 0 documented in this encounter Plan of Treatment Upcoming Encounters Date Type Department Care Team (Late st Contact Info) Description 08/27/2025 11:30 AM EST Consult [facility] [address] [facility] [address] [place] [address] Tank Bnigham PA 175 [facility] [address] [place] [address] 10/27/2025 1:00 PM EST Office Visit Orthopedic Surgery [facility] [address] [phone] Hood Carter, DPM [address] [place] [phone] 11/13/2025 10:00 AM EST Office Visit Endocrinology [facility] [address] [place] [address] Jason Hua MD [address] [place] [address] 01/26/2026 11:00 AM EDT Office Visit Orthopedic Surgery [facility] [address] [phone] Hood Carter, DP [address] [place] [phone] Scheduled Orders Name Type Priority Associated Diagnoses Orde r Schedule Basic metabolic panel Lab Routine Type 2 diabetes mellitus with diabetic nephropathy, with long-term current use of insulin ([facility] V24, [facility] V28) 1 Occurrences starting 08/13/2025 until 08/13/2026 C-peptide Lab Routine Type 2 diabetes mellitus with diabetic nephropathy, with long-term current use of insulin ([facility] V24, [facility] V28) 1 Occurrences starting 08/13/2025 until 08/13/2026 documented as of this encounter Visit Diagnoses Diagnosis Type 2 diabetes mellitus with diabetic nephropathy, with long-term current use of insulin ([facility] V24, [facility] V28)- Primary documented in this encounter Additional Health Concerns Assessment Noted Time PHQ-9 Depression Total Score: 0 08/07/20 25 2:57 PM EDT A fall risk assessment has been complete d for the patient 03/17/2025 1:23 PM EDT documented as of this encounter Care Teams Demurrage Agent Relationship Specialty Start Date End Date [place], Benton D, PA [address] [place] [address] PCP - General Internal Medicine 04/29/20 documented as of this encounter
--- OUTSIDE RECORDS SUMMARY | 2025-08-18 16:25 | XMS_ITS | Patient Health Record ---
Author Organization [facility] Address [address] [place] [phone] Care Team Providers Care Radiotelephone Operator Name Role Phone Mark Palomo Jr Reason For Referral No Information Plan Of Treatment No Information
--- OUTSIDE RECORDS SUMMARY | 2025-08-18 16:25 | XMS_ITS | Clinical Summary ---
Author Organization [facility] Address [address] [place] [address] Care Team Providers Care Automobile Rental Representative Name Role Phone Benton Chandlre PA-C Primary Care Provider Allergies No known [...] age to complete this topic Care Teams Automobile Rental Representative Relationship Specialty Start Date End Date Benton Chandler PA-C PCP - General Medical Services 07/19/22
--- OUTSIDE RECORDS SUMMARY | 2025-08-18 16:25 | XMS_ITS | Clinical Summary ---
Author Organization [facility] [address] [facility] Address [address] [place] [phone] Phone Care Team Providers Care Comb Tender Name Role Phone Benton Chandler Primary Care Provider [phone] Allergies No known active allergies Medications betamethasone [...] neuropathy, with long-term current use of insulin ([facility] V24, CMS/[facility] V28) Use as instructed 100 each 12 [...] 25 Active blood-glucose,re ceiver,cont (FreeStyle Muna 3 Dodge) [facility] Check sugars regularly 1 each 04/24/20 25 Active testosterone 50 mg/5 gram (1 %) [...] neuropathy, with long-term current use of insulin ([employer] V24, [employer] V28) Inject 1 Device into the skin 4 times daily. 300 each 2 08/07/20 Active tirzepatide (Mounjaro) 2.5 mg/0.5 mL injectionIndicat ions:Type 2 diabetes mellitus with diabetic nephropathy, with long-term current use of insulin ([employer] V24, CMS/[employer] V28) Inject 0.5 mL (2.5 mg total) under the skin every 7 (seven) days. 2 mL 2 08/13/20 25 026 Active cholecalciferol (Dialyvite Vitamin D3 Max) 1,250 mcg (50,000 unit) tablet Take 1 tablet (50,000 Units total) by mouth every 7 (seven) days. 04/17/20 24 Discontinu ed(Therapy completed) blood-glucose sensor (FreeStyle Muna 3 Sensor) device 1 Applicator by Does not apply route every 14 days. 07/16/20 24 Discontinu ed(Duplica te order) testosterone 50 mg/5 gram (1 %) gel Place 2 Tubes (100 mg of testosterone total) on the skin 1 (one) time each day. Max Daily Amount: 100 mg of testosterone 300 g 3 09/11/20 24 025 Discontinu ed(Reorder ) sildenafiL (VIAGRA) 50 mg tablet Take 1 tablet (50 mg total) by mouth 1 (one) time each day if needed for erectile dysfunction. 10 tablet 11 09/11/20 24 025 Discontinu ed(Reorder ) pen needle, diabetic (BD Ultra-Fine Short Pen Needle) 31 gauge x 5/16 needleIndication s:Type 2 diabetes mellitus with diabetic neuropathy, with long-term current use of insulin (CMS/[facility] V24, CMS/HCC V28) Inject 1 Device into the skin 4 times daily. 300 each 2 09/30/20 24 025 Discontinu ed(Reorder ) blood-glucose,re ceiver,cont (FreeStyle Muna 3 Dodge) misc Check sugars regularly 1 each 04/24/20 25 Discontinu ed(Duplica te order) traMADoL (ULTRAM) 50 mg tablet Take 1 tablet (50 mg total) by mouth every 6 (six) hours if needed for severe pain. Max Daily Amount: 200 mg 28 tablet 06/09/20 25 Discontinu ed(Reorder ) cephalexin (KEFLEX) 500 mg capsule Take 1 capsule (500 mg total) by mouth every 12 (twelve) hours for 7 days. 14 each 07/24/20 25 Discontinu ed(Therapy completed) doxycycline (Vibramycin) 100 mg capsule Take 1 capsule (100 mg total) by mouth 2 (two) times a day for 7 days. 14 capsule 08/01/20 Discontinu ed(Therapy completed) traMADoL (ULTRAM) 50 mg tabletIndication s:Spinal stenosis of lumbar region with neurogenic claudication Take 1 tablet (50 mg total) by mouth every 6 (six) hours if needed for severe pain for up to 7 days. Max Daily Amount: 200 mg 28 tablet 08/07/20 25 Active Problems Problem Noted Date Diagnosed Date [...] on doing Secondary esophageal varices without bleeding ([facility] V24, CMS/HCC V28) 06/29/2022 BPH (benign prostatic [...] foot associated with type 2 diabetes mellitus ([facility] V24, [facility] V28) 06/04/2021 Overview (07/30/2024): Hospitalized [facility] 04/27/21-05/01/21, follow with wound care Assessment & Plan (03/17/2025 2:11 PM EDT): Orders: Lipid panel with reflex to direct LDL; Future Microalbumin creatinine urine ratio; Future Comprehensive metabolic panel; Future Hemoglobin A1c; Future Vitamin D 25 hydroxy; Future Iron and TIBC; Future CBC and differential; Future Testosterone, total; Future Prostate specific antigen diagnostic; Future GERD (gastroesophageal reflux disease) PVD (peripheral vascular disease) ([facility] V24) 05/26/2021 Overview (07/30/2024): Plasty left SFA 05/05 Iron deficiency anemia secondary to blood loss ( chronic) 01/28/2020 Nocturia 08/12/2019 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 Foster recommend [...] 5 years. Diabetes with neurologic com plications ([facility] V24, [facility] V28) 08/20/2012 Overview (07/30/2024): Right peroneal neuropathy. [...] 2 diabetes mellitus wit h eye manifestations ([facility] V24, [facility] V28) 08/20/2012 Overview (07/30/2024): Bilateral nuclear sclerosis. Assessment & Plan (08/13/2025 1:14 PM EDT): >>ASSESSMENT AND PLAN FOR TYPE 2 DIABETES MELLITUS WITH EYE MANIFESTATIONS ([facility] V24, [facility] V28) WRITTEN ON 03/17/2025 2:11 PM BY [...] NEPHROPATHY, WITH LONG-TERM CURRENT USE OF INSULIN ([facility] V24, [facility] V28) WRITTEN ON 03/17/2025 2:11 PM BY NICK CHARLES Orders: Lipid panel with reflex to direct LDL; Future Microalbumin creatinine urine ratio; Future Comprehensive metabolic panel; Future Hemoglobin A1c; Future Vitamin D 25 hydroxy; Future Iron and TIBC; Future CBC and differential; Future Testosterone, total; Future Prostate specific antigen diagnostic; Future Diabetes mellitus with renal manifestation ([facility] V24, [facility] V28) 05/07/2012 Overview (07/30/2024): Last Assessment & [...] specific antigen diagnostic; Future Hepatitis C, chronic ([facility] V24, [facility] V28) 12/16/2008 Overview (07/30/2024): With increase in [...] 08/13/2025 1:00 PM EDT Office Visit Endocrinology - [address] [phone] Jason Hua MD Type 2 diabetes mellitus with diabetic nephropathy, with long-term current use of insulin ([facility] V24, [facility] V28) (Primary Dx) 08/07/2025 3:00 PM EDT Office Visit Adult Medicine [address] [phone] April Brunson PA Primary hypertension (Primary Dx); Mixed hyperlipidemia; Type 2 diabetes mellitus with diabetic neuropathy, with long-term current use of insulin ([facility] V24, [facility] V28); Hypogonadism in male; Cirrhosis of liver not due to alcohol ([facility] V24, CMS/HCC V28); Gastroesophageal reflux disease, unspecified whether esophagitis present; Secondary esophageal varices without bleeding (CMS/HCC V24, CMS/HCC V28); Iron deficiency anemia secondary to blood loss (chronic); Vitamin D deficiency; Spinal stenosis of lumbar region with neurogenic claudication; Need for prophylactic vaccination and inoculation against influenza 08/01/2025 Telephone Orthopedic Surgery [facility] [address] [phone] Hood Carter DPM 07/28/2025 1:00 PM EDT Office Visit Orthopedic Surgery [facility] [address] [phone] Hood Carter DPM Controlled type 2 diabetes mellitus with diabetic polyneuropathy, without long-term current use of insulin ([facility] V24, [facility] V28) (Primary Dx); History of amputation of left foot through metatarsal bone ([facility] V24, [facility] V28); Hammertoes of both feet; PAD (peripheral artery disease) ([facility] V24); Ulcer of toe of right foot, with fat layer exposed ([facility] V24, [facility] V28); Cellulitis of right foot 07/24/2025 Telephone Orthopedic Surgery - [address] [phone] Hood Carter DPM from Last 3 Months Immunizations Immunization Administration Dates Next Due H1N1 Inj Preservative Free 09/22/2009 Hepatitis B (Egfscgk-P-Bvkvr , Recombivax HB-Adult) 19yo and older 12/12/2008,06/11/2008,05/12/2008 [...] EGD 12/2012 UPPER GASTROINTESTINAL ENDOSCOPY 01/01/2008 PROCEDURE: FL UPPER GI ENDOSCOPY PERFORMED; COMMENT: Esophageal ulcers-bx:erosive esophagitis, hiatus hernia, SB-normal. Repeat EGD 06/2008 OTHER SURGICAL HISTORY 05/10/2021 Left PROCEDURE: [place] UNLISTED PROCEDURE VASCULAR SURGERY; COMMENT: dr. deng [...] 5 years OTHER SURGICAL HISTORY 07/31/2024 PROCEDURE: [place] EMBLC/THRMBC [id number] [employer]; COMMENT: left SF atherectomy, stent - dr. deng Medical History Medical History Date Comments Diabetes mellitus ([facility] V 24, [facility] V28) DX:Diabetes mellitus (HCC) Type II or [...] 2 with peripheral vascular complications (CMS/HCC V24, [facility] V28) 05/26/2021 DX:DM (diabetes mellitus), type 2 with peripheral vascular complications (HCC) PVD (peripheral vascular dis ease) (CMS/[facility] V24) 05/26/2021 DX:PVD (peripheral vascular disease) (HCC); [...] type 2 diabetes mellitus (HCC); COMMENT: Hospitalized [facility] 04/27/21-05/01/21, follow with wound care DM [...] Medical History Relation Name Comments Diabetes Father DC Other: etoh Father Other cancer Mother no [...] care for your loved ones. For example, childcare center administrator or elderly care for an older adult? [...] Info) Description 08/27/2025 11:30 AM EST Consult Neurosurgery [facility] [address] [phone] Tank Bingham PA 175 [facility] [address] [place] [address] 10/27/2025 1:00 PM EST Office Visit Orthopedic Surgery [facility] [address] [phone] Hood Carter, RADHA [address] [place] [phone] 11/13/2025 10:00 AM EST Office Visit Endocrinology [address] [place] [phone] Jason Hua MD [address] [place] [address] 01/26/2026 11:00 AM EDT Office Visit Orthopedic Surgery - [place] [address] [place] [phone] Hood Carter, RADHA [address] [place] [phone] Health Maintenance Due Date Last Done Comments [...] 12:34 PM EDT Other cirrhosis of liver ([facility] V24, [facility] V28) HEMOGLOBIN A1C Routine 01/16/2025 12:34 PM EDT Type 2 diabetes mellitus with diabetic neuropathy, with long-term current use of insulin ([facility]CC V24, CMS/HCC V28) MICROALBUMIN CREATININE URINE RATIO Routine 09/25/2024 11:23 AM EST Spinal stenosis of lumbar region with neurogenic claudication Actinic keratosis Benign prostatic hyperplasia, unspecified whether lower urinary tract symptoms present Chronic anemia Cirrhosis of liver not due to alcohol (CMS/HCC V24, CMS/[facility] V28) Type 2 diabetes mellitus with other diabetic kidney complication, without long-term current use of insulin ([facility] V24, [facility] V28) Type 2 diabetes mellitus with diabetic neuropathy, without long-term current use of insulin ([facility] V24, [facility] V28) Essential hypertension, benign Hypogonadism in male Iron deficiency anemia secondary to blood loss (chronic) LIPID PANEL WITH REFLEX TO DIRECT LDL Routine 09/25/2024 11:22 AM EST Spinal stenosis of lumbar region with neurogenic claudication Actinic keratosis Benign prostatic hyperplasia, unspecified whether lower urinary tract symptoms present Chronic anemia Cirrhosis of liver not due to alcohol ([facility] V24, [facility] V28) Type 2 diabetes mellitus with other diabetic kidney complication, without long-term current use of insulin ([facility] V24, [facility] V28) Type 2 diabetes mellitus with diabetic neuropathy, without long-term current use of insulin ([facility] V24, [facility] V28) Essential hypertension, benign Hypogonadism in male [...] LAB CHEMISTRY METHOD 01/16/2025 11:06 PM EDT [facility] Mean Bld Glu Estim. 154 mg/dL LAB CHEMISTRY METHOD 01/16/2025 11:[address] [facility] Blood Venous blood specimen / Unknown Venipuncture / Unknown 01/16/2025 12:34 PM EDT 01/16/2025 12:34 PM EDT us Sawyer Barrera MD LAB BLOOD ORDERABLES Final Resul t [facility] [address] [place] [address], [place] [phone] * (ABNORMAL) Comprehensive metabolic panel (01/16/2025 12:34 PM EDT) Sodium 137 133 - 145 mmol/L LAB CHEMISTRY METHOD 01/16/2025 4:[address] [facility] Potassium 4.1 3.5 - 5.5 mmol/L LAB CHEMISTRY METHOD 01/16/2025 4:[address] [facility] Chloride 107 96 - 110 mmol/L LAB CHEMISTRY METHOD 01/16/2025 4:[address] [facility] CO2 22 21 - 32 mmol/L LAB CHEMISTRY METHOD 01/16/2025 4:[address] [facility] Anion Gap 8 3 - 11 LAB CHEMISTRY METHOD 01/16/2025 4:[address] [facility] Glucose 244(H) 70 - 100 mg/dL LAB CHEMISTRY METHOD 01/16/2025 4:[address] [facility] BUN 15 5 - 25 mg/dL LAB CHEMISTRY METHOD 01/16/2025 4:[address] [facility] Creatinine 0.96 0.70 - 1.30 mg/dL LAB CHEMISTRY METHOD 01/16/2025 4:[address] [facility] eGFR 84 >=60 mL/min/1. 73m2 LAB CHEMISTRY METHOD 01/16/2025 4:[address] [facility] Comment:Calculation based on the Chronic Kidney Disease Epidemiology Collaboration (CKD-EPI) equation refit without adjustment for race. BUN/Creatinine Ratio 15.6 LAB CHEMISTRY METHOD 01/16/2025 4:41 PM T [facility] Calcium 8.9 8.5 - 10.5 mg/dL LAB CHEMISTRY METHOD 01/16/2025 4:[address] [facility] AST (SGOT) 20 10 - 42 unit/L LAB CHEMISTRY METHOD 01/16/2025 4:[address] [facility] ALT (SGPT) 23 10 - 60 unit/L LAB CHEMISTRY METHOD 01/16/2025 4:[address] [facility] Alkaline Phosphatase 110 42 - 121 unit/L LAB CHEMISTRY METHOD 01/16/2025 4:[address] [facility] Total Protein 7.8 6.0 - 8.0 g/dL LAB CHEMISTRY METHOD 01/16/2025 4:41 PM EDT [facility] Albumin 4.0 3.2 - 5.0 g/dL LAB CHEMISTRY METHOD 01/16/2025 4:[address] [facility] Total Bilirubin 0.3 0.0 - 1.4 mg/dL LAB CHEMISTRY METHOD 01/16/2025 4:41 PM EDT [facility] Blood Venous blood specimen / Unknown Venipuncture / Unknown 01/16/2025 12:34 PM EDT 01/16/2025 12:34 PM EDT us Juan ROMERO LAB BLOOD ORDERABLES Final Resu lt [facility] [address] [place] [address], * (ABNORMAL) Microalbumin creatinine urine ratio (09/25/2024 11:23 AM EST) Creatinine, Urine 63.0 mg/dL LAB CHEMISTRY METHOD 09/25/2024 3:08 PM EST [facility] Microalb, Ur 235.0(H) 0.0 - 29.0 mg/L LAB CHEMISTRY METHOD 09/25/2024 3:[address] [facility] Microalb/Crea t Ratio 373(H) <30 mg/g creat LAB CHEMISTRY METHOD 09/25/2024 3:[address] [facility] Urine Urine specimen obtained by clean catch procedure / Unknown Non-blood Collection / Unknown 09/25/2024 11:23 AM EST 09/25/2024 11:23 AM EST Benton ROMERO LAB URINE ORDERABLES Anne Marie ashton Result [facility] [address] [place] [address], * (ABNORMAL) Lipid panel with reflex to direct LDL (09/25/2024 11:22 AM EST) Cholesterol 255(H) 0 - 200 mg/dL LAB CHEMISTRY METHOD 09/25/2024 2:[address] [facility] Triglycerides 262(H) 0 - 150 mg/dL LAB CHEMISTRY METHOD 09/25/2024 2:[address] [facility] HDL 47 >=40 mg/dL LAB CHEMISTRY METHOD 09/25/2024 2:[address] [facility] LDL Calculated 156(H) 0 - 100 mg/dL LAB CHEMISTRY METHOD 09/25/2024 2:[address] [facility] VLDL Cholesterol Christian 52.4 mg/dL LAB CHEMISTRY METHOD 09/25/2024 2:[address] [facility] Non HDL Chol. (LDL+VLDL) 208(H) <145 mg/dL LAB CHEMISTRY METHOD 09/25/2024 2:[address] [facility] Chol/HDL Ratio 5.4(H) 0.0 - 4.4 LAB CHEMISTRY METHOD 09/25/2024 2:55 PM EST [facility] Blood Venous blood specimen / Unknown Venipuncture / Unknown 09/25/2024 11:22 AM EST 09/25/2024 11:22 AM EST Benton ROMERO LAB BLOOD ORDERABLES Anne Marie l Result [facility] [address] [place] [address], * Falls Risk Assessment (04/15/2024) [facility] Falls Risk Assessment abstracted [facility] Provider HEALTH MAINTENANCE Final Result * Depression Screening (04/15/2024) [facility] Depression Screening abstracted [facility] Provider HEALTH MAINTENANCE Final Result * Diabetes Foot Exam (07/24/2023) [facility] Diabetes: Annual Foot Exam abstracted [facility] Provider HEALTH MAINTENANCE Final Result * Colonoscopy (03/25/2022) [facility] Colonoscopy no interpreta tion,abstr acted Anatomical Region Laterality Modality Other Result [facility] Provider HEALTH MAINTENANCE Final Result * Hepatitis C Screening (05/25/2020) [facility] Hepatitis C Screening abstracted [facility] Provider HEALTH MAINTENANCE Final Result from Last 3 Months or Most Recently Relevant to Health Maintenance Insurance MEDICARE [facility] Care Teams Comb Tender Relationship Specialty Start Date End Date Benton Chandler PA [address] [place] [address] PCP - General Internal Medicine 04/29/20
--- OUTSIDE RECORDS SUMMARY | 2025-08-18 16:25 | XMS_ITS | Clinical Summary ---
Author Organization [facility] Address [address] [place] [address] Care Team Providers Care Manager Meat Name Role Phone Benton Chandler Primary Care Provider [phone] Allergies No known active allergies Medications lisinopriL [...] 2 diabetes mellitus 06/04/2021 Overview (05/20/2025): Hospitalized [facility] 04/27/21-05/01/21, follow with wound care Hospitalized [facility] 04/27/21-05/01/21, follow with wound care GERD [...] Team Description 07/30/2025 10:45 AM EDT Follow-Up [facility] Neurosurgery [address] [address] Tank Renteria MD Neurogenic claudication (Primary Dx) 07/23/2025 Orders Only External Imaging [address] [place] [address] Radiology, External 07/07/2025 Orders Only External Imaging [address] [place] [address] Radiology, External 05/29/2025 Orders Only [facility] [address] [place] [id number] Candie Aguirre NP 05/29/2025 Telephone [facility] [address] [place] [id number] Trevon Rosa MD 05/20/2025 10:19 AM EDT - 05/20/2025 11:59 PM EDT Hospital Encounter [facility] Xray [address] [place] [id number] Trevon Rosa MD Hip pain, bilateral Discharge Disposition: Home or Self Care (01) 05/20/2025 10:15 AM EDT Follow-Up [facility] [address] [place] [id number] Trevon Rosa MD Aftercare following bilateral hip joint replacement surgery (Primary Dx); Right hip pain; Trochanteric bursitis of right hip from Last 3 Months Family History Medical [...] Industry Job Start Date Job End Date [employer] [facility] Not on file [...] patients) Completed 10/10/2023 Procedures * Due to [place] [employer] law, this organization might not be sharing [...] to Health Maintenance Results * Due to [place] [employer] law, this organization might not be sharing negative HIV tests. * MRI Lumbar Spine WO Contrast (07/07/2025 4:15 PM EDT) Anatomical Region Laterality Modality Spine, L-spine Magnetic Resonan ce 07/07/2025 3:55 PM EDT Narrative 07/09/2025 4:15 PM EDT [facility] Accession Number: [id number] Patient Name: Kyle Odonnell Date of : 1950 Date of Exam: 07-07-2025 Referring Physician: Tank Renteria [address] [address] Exam: MR Lumbar Spine (C-) CPT 87619 Room Description: [facility] Esp 1.5 MRI Lumbar Spine W/O Contrast INDICATION: [...] localizer images. NUMBERING: The study assumes 5 erq-tax-pxsgrbh lumbar type vertebral bodies. ALIGNMENT, VERTEBRAE, MARROW, [...] the patient's symptoms and neurological examination. WSN: [id number] Ordering Physician: Tank Renteria Electronically Signed By: Tate England MD Procedure Note Provider, Triplett - 07/09/2025 [facility] Accession Number: [id number] Patient Name: Kyle Odonnell Date of : 1950 Date of Exam: 07-07-2025 Referring Physician: Tank Renteria [place] [address] Exam: MR Lumbar Spine (C-) CPT 77496 Room Description: [facility] Espr 1.5 MRI Lumbar Spine W/O Contrast INDICATION: worsening neurogenic claudication in the setting of priorstenosis. The patient reports bilateral leg pain and paresthesias. TECHNIQUE: MRI of the lumbar spine was performed without intravenouscontrast utilizing sagittal T1, sagittal T2, sagittal STIR, axial T1, and axial T2-weighted sequences. COMPARISON: 05/01/2024 FINDINGS: LOCALIZER: No additional findings on limited localizer images. NUMBERING: The study assumes 5 hoj-mjs-bqulaew lumbar type vertebralbodies. ALIGNMENT, VERTEBRAE, MARROW, AND [...] the patient's symptoms and neurological examination. WSN: [id number] Ordering Physician: Tank Renteria Electronically Signed By: [...] to obtain the completed interpretation. Workstation ID: [id number] Narrative 05/20/2025 11:24 AM EDT COMPARISON: 04/22/2024 FINDINGS AND Resulting Agency Comment [id number] Procedure Note Ofelia Mcmullen MD - 05/20/2025 [...] possible to obtain thecompleted interpretation. Workstation ID: [id number] us Trevon Rosa MD IMG XR PROCEDURES Final Result * (ABNORMAL) Basic Metabolic Panel (03/28/2015 3:55 AM EDT) Sodium Blood 131(L) 135 - 145 mmol/L [facility] Potassium Blood 4.0 3.5 - 5.3 mmol/L [facility] Chloride Blood 101 97 - 110 mmol/L [facility] Carbon Dioxide 26 24 - 32 mmol/L [facility] Gap 4(L) 5 - 15 [facility] Glucose 197(H) 70 - 99 mg/dL [facility] BUN 8 7 - 23 mg/dL [facility] Creatinine 0.84 0.60 - 1.30 mg/dL [facility] eGFR Non- >60 >60 [facility] Comment: Units = mL/min/1.73 m2 Glomerular [...] Calcium Blood 8.7 8.7 - 10.7 mg/dL [facility] 03/28/2015 3:55 AM EDT 03/28/2015 4:01 AM EDT us Trevon Rosa MD LAB BLOOD ORDERABLES Final Res ult [facility] - [address] [address], * (ABNORMAL) Hemoglobin A1c (03/17/2015 8:27 AM EDT) Hemoglobin A1C 6.8(H) <5.7 [facility] Comment: UNITS OF MEASURE: % of [...] for children. eAG (MG/DL) 148 () (calc) [facility] eAG (MMOL/L) 8.2 () (calc) [facility] 03/17/2015 8:27 AM EDT 03/17/2015 10:53 AM EDT us Caroline Rios MD LAB BLOOD ORDERABLES Final Resul t KENDELL MCDANIELS from Last 3 Months or Most Recently Relevant to Health Maintenance Insurance [facility] SUPP MEDICARE Advance Directives Documents on File Type Date Recorded Patient Sql Server Developer Expl anation Advance Directive 01/21/2009 12:00 AM [facility] dicjordon Dec Making (Adv.Dir) Care Teams Manager Meat Relationship Specialty Start Date End Date Benton Chandler PCP - General Internal Medicine 07/04/22
--- OUTSIDE RECORDS SUMMARY | 2025-08-18 16:25 | XMS_ITS | Patient Health Record ---
[facility] [place] Address [address] [place] [address] Care Team Providers Care Ibm Websphere Portal Developer Name Role Phone Benton Borges Primary Care Provider Meghann Brittanie Barry Unavailable [phone] Allergies No Known Allergies Reason For Referral [...] Problem Acquired hammer toe of right foot (9453417775358885 ) Other hammer toe(s) (acquired), right foot (M20.41) Active confirmed Problem Acquired hammer toe of left foot (3055390215057397 ) Other hammer toe(s) (acquired), left foot (M20.42) Active confirmed Problem Polyneuropathy due to type 2 diabetes mellitus (028880629) Type 2 diabetes mellitus with diabetic polyneuropathy (E11.42) Active confirmed Problem Polyneuropathy due to diabetes mellitus type I (416109144) Type 1 diabetes mellitus with diabetic polyneuropathy (E10.42) Active confirmed Plan Of Treatment Pending Test Test Name Order Date X ray : Foot, left 3V 03/31/2021 X ray : Foot, right 3V 03/31/2021 [id number] SKIN LESIONS, OVER 4 03/31/20 21 [id number] DYSTROPHIC NAILS ANY # [id number] OF HEMATOMA/FLUID 021 Insurance Providers Payer Name Payer Address Payer Phone Subscriber Number Group Number Insured Name Patient Relationship to Insured Coverage Start Date Coverage End Date Medicare National [employer] [address] [place] [address] [id number] Kyle Odonnell Self - patient is the insured [facility] [address] [place] [address] [id number] Kyle Odonnell Self - patient is the insured Medical (General) History Medical History History ICD Code Anemia Arthritis Diabetic Numbness Poor circulation Surgical History Surgery Date(Month/Year) hip replacement bilateral
[2025-08-20] VITALS (25 sets, daily range): BP systolic 109–153; BP diastolic 47–79; PULSE 55–70; RESP 10–20; TEMP 36.1–36.5; O2SAT 96–100; BMI 29.8
[2025-08-20] MEDS: Dextrose 5 % 100 ML IV (08:42)
[2025-08-20 08:46] LABS: MANUAL DIFF FLAG NO
[2025-08-20 08:48] LABS: Hematocrit 26.1 % (42.0-52.0); Hemoglobin 7.4 g/dl (14.0-18.0); Imm Gran Abs Auto 0.02 X10*3/uL (0.00-0.03); Imm Gran Pct Auto 0.4 % (0.0-0.4); Lymphocytes Absolute Auto 1.0 X10*3/uL (1.2-4.9); Mean Corpuscular HGB Conc 28.4 g/dl (31.0-36.0); Mean Corpuscular Hemoglobin 20.6 pg (27.0-33.0); Mean Corpuscular Volume 72.5 fL (80.0-98.0); NRBC Abs Auto 0.000 X10*3/uL (0.0-0.012); NRBC Pct Auto 0.0 /100WBC (0.0-0.2); Platelet Count 171 X10*3/uL (160-400); Red Blood Count 3.60 X10*6/uL (4.60-5.80); White Blood Count 5.4 X10*3/uL (4.8-10.8)
[2025-08-20 09:02] LABS: Blood Urea Nitrogen 16 mg/dL (9-16); Creatinine Clr Calc Pharmacy 78.5; Estimated Glomerular Filt Rate > 60
--- NOTE | 2025-08-20 09:06 | PC.NURSE ---
upon arrival patient POC 101. Pt concerned for it to drop lower. Tigerconnect sent to Dr. Valencia. D5W 100ml given. patient POC 105.
[2025-08-20] MEDS: Heparin Sodium,Porcine 10,000 UNIT/10 ML VIAL 8000 UNIT IVPUSH (09:46)
--- NOTE | 2025-08-20 10:48 | P.OP_ITS ---
Operative Note Operative Note Date of Service: 08/20/25 Narrative: Angiogram report from [facility] Preoperative diagnosis: Atherosclerosis of right lower extremity with nonhealing ulcer Postoperative diagnosis: Same Procedure: 1. Ultrasound-guided left common femoral access 2. Aortogram with bilateral lower extremity runoff 3. Right peroneal and posterior tibial plasty Surgeon:Sawyer Valencia M.D., FACS, RPVI Patient Care Specialist:None Anesthesia: Local with moderate conscious sedation. Total intraservice moderate sedation time was 73 minutes. I monitored the patient's level of consciousness and physiologic status continuously throughout the procedure. Specimens:none Drains:none Estimated blood loss: Less than 10 ml Radiation Dose: 331.3 mGy Implant: None Indications: Very pleasant 74-year-old gentleman with a prior history of peripheral vascular disease has nonhealing ulcer now presents for endovascular intervention The patient has signed the informed consent after reviewing risks, complications, benefits, and alternatives previously discussed with the patient. The patient was given the opportunity to ask any additional questions or voice any concerns. All questions were answered to the patient's satisfaction. Procedure in detail: Patient was brought to the angiography suite prior to which a time-out was called for patient identification and site verification. Bilateral groins were prepped and draped in the standard surgical fashion. Un ana ultrasound guidance left common femoral was punctured with micro puncture needle and wire. Subsequently a precision 5 [place] Islander sheath was then placed. Bentson wire was advanced to the level of the aorta. 5 [place]er Flush catheter was brought up and parked at the level of the renal arteries. Aortogram was then undertaken. Catheter was brought down to the level of the iliac bifurcation. Iliacs and runoff was performed through the flush catheter that was parked at the bifurcation and a power injection was performed to visualize bilateral runoff vessels. Subsequently the catheter was then brought in up and over to the right side SFA. We recognized that he had tibial disease. At this time 8000 units of systemic heparin was administered. After 5 minutes of circulation time up and over 5 [place] Islander sheath was then placed. We placed a Glidewire advantage that went all the way down into the below-knee popliteal. We did an angiogram and we exchanged out for a 014 wire. We were 1st able to access the posterior tibial and we went all the way down to the ankle. We used a taper 2.0-2.5 200 cm length balloon. Two insufflations of this was required. We then redirected the wire down into the peroneal and in a similar fashion we plasty this up as well. Completion angiogram was undertaken. Excellent result was achieved. Catheter wire sheath was brought back to the ipsilateral side. A 5F CELT closure device was then placed. Patient tolerated the procedure well. Returned to recovery with stable vitals. Interpretation of films: 1. Ultrasound demonstrates appropriate femoral access site. Vessel was patent with minimal stenosis. Needle entry was visualized. Image of ultrasound was saved. 2. Aortogram demonstrates appropriate caliber aorta. Minimal disease. Appropriate take-off of the renals. 3. Iliac images demonstrate no significant disease 4. Right Leg Common femoral artery: No significant disease Profundus Femoris: No significant disease Superficial femoral artery: No significant disease Popliteal artery (p1,p2,p3): Mild disease at the P1 segment Anterior tibial artery: Occludes after takeoff Peroneal artery: Multiple small stenotic areas. Post plasty good result Posterior tibial artery: Multiple stenotic areas with post plasty good result Dorsalis pedis/plantar arch: Nearly complete arch 5. Left Leg Common femoral artery: No significant disease Profundus Femoris: No significant disease Superficial femoral artery: No significant disease with patent stents Popliteal artery (p1,p2,p3): Minimal disease Anterior tibial artery: Patent origin Peroneal artery: Patent origin Posterior tibial artery: Patent in origin Dorsalis pedis/plantar arch: Not visualized Conclusion: 1. Successful plasty peroneal and posterior tibial arteries. 2. Anticoagulation status: Continue aspirin and Plavix This note is constructed using voice recognition software. While every effort has been made to ensure accuracy, telephone directory deliverer errors may have been included. Thank you for allowing me to participate in the care of your patient. Yours sincerely, Sawyer Valencia MD, FACS, R.P.V.I.
== END 2025-08-20 12:59 | disposition home or self-care (01) ==
PROVIDERS: PCP Physician Assistant Medical; Visit Provider Surgery Vascular Surgery
DX: E11.51 Type 2 diabetes mellitus with diabetic peripheral angiopathy without gangrene (principal); L97.519 Non-pressure chronic ulcer of other part of right foot with unspecified severity; I70.235 Atherosclerosis of native arteries of right leg with ulceration of other part of foot; E11.42 Type 2 diabetes mellitus with diabetic polyneuropathy; R20.0 Anesthesia of skin; R26.2 Difficulty in walking, not elsewhere classified; I10 Essential (primary) hypertension; D64.9 Anemia, unspecified; E87.5 Hyperkalemia; R70.0 Elevated erythrocyte sedimentation rate; M48.00 Spinal stenosis, site unspecified; N40.0 Benign prostatic hyperplasia without lower urinary tract symptoms; Z79.4 Long term (current) use of insulin; Z79.84 Long term (current) use of oral hypoglycemic drugs; Z98.890 Other specified postprocedural states; Z87.891 Personal history of nicotine dependence
CPT/HCPCS: 36415; 37228; 37232; 76937; 82565; 84520; 85025; 99152; 99153; C1725; C1760; C1769; C1887; C1894; J1644; J2250; J3010; Q9967

== ENCOUNTER → 2025-08-20 07:28 | Outpatient (BNV) | payer MEDICARE, OTHER, SELFPAY | PROVIDERS: PCP Physician Assistant Medical; Visit Provider Surgery Vascular Surgery | DX: I70.238 Atherosclerosis of native arteries of right leg with ulceration of other part of lower leg (principal) | CPT/HCPCS: 37228; 37232; 75625; 75716; 76937; 99152 ==

== ENCOUNTER 2025-08-25 05:47 | Inpatient (IN) | payer MEDICARE, OTHER, SELFPAY ==
--- NOTE | ~2025-08-25 | XR_ITS ---
CLINICAL HISTORY: injury infection 2nd toe Right foot 2 view right 2nd toe Comparison: None provided Findings: Foot and 2nd toe radiographs would be reported concurrently. Normal alignment. Query distal 2nd toe soft tissue irregularity/wound. Distal 2nd toe soft tissue emphysema. No acute fracture. Questionable rarefraction +/-subtle erosion of the lateral cortex of the 2nd distal phalangeal shaft. Calcaneal hardware without complications. 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 Lateral 5th metatarsal base cortical thickening is likely sequela of old injury. No radiopaque foreign body. IMPRESSION: Query distal 2nd toe soft tissue irregularity/wound. Distal 2nd toe soft tissue emphysema. No acute fracture. Questionable rarefraction +/-subtle erosion of the lateral cortex of the 2nd distal phalangeal shaft. If clinically indicated further evaluation with MRI (to rule out possible osteomyelitis) may be of value. This document has been electronically signed by: Nicolasa De La Cruz MD on 08/25/2025 08:33:18
--- NOTE | ~2025-08-25 | XR_ITS ---
CLINICAL HISTORY: injury infection 2nd toe right foot 3 view right foot Comparison: None provided Findings: Foot and 2nd toe radiographs would be reported concurrently. Normal alignment. Query distal 2nd toe soft tissue irregularity/wound. Distal 2nd toe soft tissue emphysema. No acute fracture. Questionable rarefraction +/-subtle erosion of the lateral cortex of the 2nd distal phalangeal shaft. Calcaneal hardware without complications. 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 Lateral 5th metatarsal base cortical thickening is likely sequela of old injury. No radiopaque foreign body. IMPRESSION: Query distal 2nd toe soft tissue irregularity/wound. Distal 2nd toe soft tissue emphysema. No acute fracture. Questionable rarefraction +/-subtle erosion of the lateral cortex of the 2nd distal phalangeal shaft. If clinically indicated further evaluation with MRI (to rule out possible osteomyelitis) may be of value. This document has been electronically signed by: Nicolasa De La Cruz MD on 08/25/2025 08:32:24
--- NOTE | ~2025-08-25 | CT_ITS ---
CLINICAL HISTORY: SOB --- Additional Notes or Special Instructions: CXR with cardiomegaly vs pericardial effusion vs lung edema Exam: Unenhanced CT chest with multiplanar reformats. Comparison: Same day chest x-ray. Findings: Lungs are free of focal consolidation. A right lower lobe nodule measuring up to 7 mm (4; 99) is noted. Scattered tiny pulmonary nodules measuring up to 2 mm (for example within left upper lobe on 4; 57) are present. No other pulmonary nodules. Airways are patent. No pneumothorax. A 1 cm paratracheal lymph node is present (3; 21 common nonspecific. No other mediastinal or hilar masses or adenopathy. No pleural effusions. Equivocal trace pericardial effusion (3; 49). Images below the diaphragms reveal hepatic cirrhotic morphology. Cholelithiasis is present, without CT evidence of cholecystitis. Osseous structures reveal no destructive osseous lesions. Impression: 1. Right lower lobe nodule measuring up to 7 mm. Consider follow-up chest CT in 6-12 months, towards documenting 2 year stability. 2. Otherwise no acute pulmonary disease. 3. Trace pericardial effusion. This document has been electronically signed by: Mir Cheney MD on 08/25/2025 17:49:41
--- NOTE | ~2025-08-25 | XR_ITS ---
EXAMINATION: XR CHEST CLINICAL INFORMATION: SOB COMPARISON: August 12, 2021 TECHNIQUE: Frontal view of the chest was obtained. FINDINGS: No hyperinflation. Mild prominence of the interstitial lung markings. No consolidation, pleural effusion or pneumothorax. Cardiomediastinal silhouette is enlarged. Mild multilevel thoracic spondylosis. XR/XR chest 1V IMPRESSION: Cardiomegaly versus pericardial effusion and likely mild interstitial lung edema in the correct clinical settings. Electronically signed by: Holden Casarez MD 08/25/2025 11:28 AM JENI PANIAGUA
--- NOTE | ~2025-08-25 | MR_ITS ---
CLINICAL HISTORY: concern for osteo on xray; attn: 2nd digit MR right foot with and without gadolinium Comparison: CR - XR TOE RT MIN 2V - 08/25/25 07:23 EST Findings: Diffuse subcutaneous edema throughout the imaged foot. There is an ulcer at the tip of the 2nd toe with deformity of the tip of the distal phalanx. No marrow signal abnormality or abnormal enhancement to suggest osteomyelitis. No acute fractures. No pathologic bone lesions. No effusion. No tears of the visualized flexor and extensor tendons. Visualized medial, lateral, and central bands of the plantar fascia are intact. IMPRESSION: Ulcer at the tip of the 2nd toe with distal phalanx deformity, without evidence of osteomyelitis. This document has been electronically signed by: Luly King MD on 08/27/2025 20:48:24
[2025-08-25 06:12] VITALS: BP 107/58; PULSE 80; RESP 18; TEMP 36.6; O2SAT 98; BMI 29.3
--- OUTSIDE RECORDS SUMMARY | 2025-08-25 06:34 | XMS_ITS | Patient Health Record ---
[facility] [place] Address [address] [place] [address] Care Team Providers Care Protector Plate Attacher Name Role Phone Benton Borges Primary Care Provider Meghann Brittanie Barry Unavailable [phone] Allergies No Known Allergies Reason For Referral [...] Problem Acquired hammer toe of right foot ([id number] ) Other hammer toe(s) (acquired), right foot (M20.41) Active confirmed Problem Acquired hammer toe of left foot (2699180331177850 ) Other hammer toe(s) (acquired), left foot (M20.42) Active confirmed Problem Polyneuropathy due to type 2 diabetes mellitus (631687220) Type 2 diabetes mellitus with diabetic polyneuropathy (E11.42) Active confirmed Problem Polyneuropathy due to diabetes mellitus type I (664384588) Type 1 diabetes mellitus with diabetic polyneuropathy (E10.42) Active confirmed Plan Of Treatment Pending Test Test Name Order Date X ray : Foot, left 3V 03/31/2021 X ray : Foot, right 3V 03/31/2021 [id number] SKIN LESIONS, OVER 4 03/31/20 21 [id number] DYSTROPHIC NAILS ANY # [id number] OF HEMATOMA/FLUID 021 Insurance Providers Payer Name Payer Address Payer Phone Subscriber Number Group Number Insured Name Patient Relationship to Insured Coverage Start Date Coverage End Date Medicare National Gov[employer] Sv[employer] [address] [place] [address] [id number] Kyle Odonnell Self - patient is the insured [facility] [address] [place] [address] [id number] Kyle Odonnell Self - patient is the insured Medical (General) History Medical History History ICD Code Anemia Arthritis Diabetic Numbness Poor circulation Surgical History Surgery Date(Month/Year) hip replacement bilateral
--- OUTSIDE RECORDS SUMMARY | 2025-08-25 06:34 | XMS_ITS | Clinical Summary ---
Author Organization [facility] Address [address] [place] [phone] Phone Care Team Providers Care Reverse Unit Operator Fisherman Name Role Phone Benton Chandler Primary Care Provider [phone] Allergies No known active allergies Medications betamethasone [...] neuropathy, with long-term current use of insulin ([facility] V24, CMS/[facility] V28) Use as instructed 100 each 12 [...] 25 Active blood-glucose,re ceiver,cont (FreeStyle Muna 3 [place]) [facility] Check sugars regularly 1 each 04/24/20 25 [...] neuropathy, with long-term current use of insulin (CircleCI/Palette V24, CircleCI/Palette V28) Inject 1 Device into the skin 4 times daily. 300 each 2 08/07/20 Active tirzepatide (Mounjaro) 2.5 mg/0.5 mL injectionIndicat ions:Type 2 diabetes mellitus with diabetic nephropathy, with long-term current use of insulin (CircleCI/Palette V24, CMS/Palette V28) Inject 0.5 mL (2.5 mg total) [...] neuropathy, with long-term current use of insulin ([facility] V24, CMS/HCC V28) Inject 1 Device into the skin 4 times daily. 300 each 2 09/30/20 24 025 Discontinu ed(Reorder ) blood-glucose,re ceiver,cont (FreeStyle Muna 3 [place]) misc Check sugars regularly 1 each 04/24/20 [...] on doing Secondary esophageal varices without bleeding ([facility] V24, CMS/HCC V28) 06/29/2022 BPH (benign prostatic [...] foot associated with type 2 diabetes mellitus ([facility] V24, [facility] V28) 06/04/2021 Overview (07/30/2024): Hospitalized [facility] 04/27/21-05/01/21, follow with wound care Assessment & Plan (03/17/2025 2:11 PM EDT): Orders: Lipid panel with reflex to direct LDL; Future Microalbumin creatinine urine ratio; Future Comprehensive metabolic panel; Future Hemoglobin A1c; Future Vitamin D 25 hydroxy; Future Iron and TIBC; Future CBC and differential; Future Testosterone, total; Future Prostate specific antigen diagnostic; Future GERD (gastroesophageal reflux disease) PVD (peripheral vascular disease) ([facility] V24) 05/26/2021 Overview (07/30/2024): Plasty left SFA 05/05 Iron deficiency anemia secondary to blood loss ( chronic) 01/28/2020 Nocturia 08/12/2019 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 Foster recommend [...] 5 years. Diabetes with neurologic com plications ([facility] V24, [facility] V28) 08/20/2012 Overview (07/30/2024): Right peroneal neuropathy. [...] 2 diabetes mellitus wit h eye manifestations ([facility] V24, [facility] V28) 08/20/2012 Overview (07/30/2024): Bilateral nuclear sclerosis. Assessment & Plan (08/13/2025 1:14 PM EDT): >>ASSESSMENT AND PLAN FOR TYPE 2 DIABETES MELLITUS WITH EYE MANIFESTATIONS ([facility] V24, [facility] V28) WRITTEN ON 03/17/2025 2:11 PM BY [...] NEPHROPATHY, WITH LONG-TERM CURRENT USE OF INSULIN ([facility] V24, [facility] V28) WRITTEN ON 03/17/2025 2:11 PM BY NICK CHARLES Orders: Lipid panel with reflex to direct LDL; Future Microalbumin creatinine urine ratio; Future Comprehensive metabolic panel; Future Hemoglobin A1c; Future Vitamin D 25 hydroxy; Future Iron and TIBC; Future CBC and differential; Future Testosterone, total; Future Prostate specific antigen diagnostic; Future Diabetes mellitus with renal manifestation ([facility] V24, [facility] V28) 05/07/2012 Overview (07/30/2024): Last Assessment & [...] specific antigen diagnostic; Future Hepatitis C, chronic ([facility] V24, [facility] V28) 12/16/2008 Overview (07/30/2024): With increase in [...] 1:00 PM EDT Office Visit Endocrinology - [address] [phone] Jason Hua MD Type 2 diabetes mellitus with diabetic nephropathy, with long-term current use of insulin ([facility] V24, [facility] V28) (Primary Dx) 08/07/2025 3:00 PM EDT Office Visit Adult Medicine [address] [phone] April Brunson PA Primary hypertension (Primary Dx); Mixed hyperlipidemia; Type 2 diabetes mellitus with diabetic neuropathy, with long-term current use of insulin ([facility] V24, [facility] V28); Hypogonadism in male; Cirrhosis of liver not due to alcohol ([facility] V24, CMS/HCC V28); Gastroesophageal reflux disease, unspecified whether esophagitis present; Secondary esophageal varices without bleeding (CMS/HCC V24, CMS/HCC V28); Iron deficiency anemia secondary to blood loss (chronic); Vitamin D deficiency; Spinal stenosis of lumbar region with neurogenic claudication; Need for prophylactic vaccination and inoculation against influenza 08/01/2025 Telephone Orthopedic Surgery [facility] [address] [phone] Hood Carter DPM 07/28/2025 1:00 PM EDT Office Visit Orthopedic Surgery [facility] [address] [phone] Hood Carter DPM Controlled type 2 diabetes mellitus with diabetic polyneuropathy, without long-term current use of insulin ([facility] V24, [facility] V28) (Primary Dx); History of amputation of left foot through metatarsal bone ([facility] V24, [facility] V28); Hammertoes of both feet; PAD (peripheral artery disease) ([facility] V24); Ulcer of toe of right foot, with fat layer exposed ([facility] V24, [facility] V28); Cellulitis of right foot 07/24/2025 Telephone Orthopedic Surgery - [address] [phone] Hood Carter DPM from Last 3 Months Immunizations Immunization Administration Dates Next Due H1N1 Inj Preservative Free 09/22/2009 Hepatitis B (Lytdgxj-U-Qtvxz , Recombivax HB-Adult) 19yo and older 12/12/2008,06/11/2008,05/12/2008 [...] EGD 12/2012 UPPER GASTROINTESTINAL ENDOSCOPY 01/01/2008 PROCEDURE: MA UPPER GI ENDOSCOPY PERFORMED; COMMENT: Esophageal ulcers-bx:erosive esophagitis, hiatus hernia, SB-normal. Repeat EGD 06/2008 OTHER SURGICAL HISTORY 05/10/2021 Left PROCEDURE: MA UNLISTED PROCEDURE VASCULAR SURGERY; COMMENT: dr. deng [...] 5 years OTHER SURGICAL HISTORY 07/31/2024 PROCEDURE: [place] EMBLC/THRMBC [id number] [employer]; COMMENT: left SF atherectomy, stent - dr. deng Medical History Medical History Date Comments Diabetes mellitus ([facility] V 24, [facility] V28) DX:Diabetes mellitus (HCC) Type II or [...] 2 with peripheral vascular complications (CMS/HCC V24, [facility] V28) 05/26/2021 DX:DM (diabetes mellitus), type 2 with peripheral vascular complications (HCC) PVD (peripheral vascular dis ease) ([facility] V24) 05/26/2021 DX:PVD (peripheral vascular disease) (HCC); [...] type 2 diabetes mellitus (HCC); COMMENT: Hospitalized [facility] 04/27/21-05/01/21, follow with wound care DM (diabetes [...] Medical History Relation Name Comments Diabetes Father [place] Other: etoh Father Other cancer Mother no details Colon cancer Neg Hx Stomach cancer Neg Hx Relation Name Status Comments Father (Age 55) Maternal Grandfather Maternal Grandmother Mother (Age 75) Paternal Grandfather Paternal Grandmother Social History Tobacco Use Types Packs/Day Years Used Date Smoking Tobacco: Former Cigarettes 2 Q uit: 10/16/1998 Smokeless Tobacco: Former Tobacco [...] care for your loved ones. For example, early childhood or elderly care for an older adult? [...] Description 08/27/2025 11:30 AM EST Consult Neurosurgery [place] [address] [phone] Tank Bingham PA [address] [phone] 10/27/2025 1:00 PM EST Office Visit Orthopedic Surgery [facility] [address] [phone] Hood Carter DPM [address] [address] 11/13/2025 10:00 AM EST Office Visit [address] [place] [phone] Jason Hua MD [address] [place] [address] 01/26/2026 11:00 AM EDT Office Visit Orthopedic Surgery - [place] [address] [phone] Hood Carter, DPM [address] [address] Health Maintenance Due Date Last Done Comments [...] 12:34 PM EDT Other cirrhosis of liver ([facility] V24, [facility] V28) HEMOGLOBIN A1C Routine 01/16/2025 12:34 PM EDT Type 2 diabetes mellitus with diabetic neuropathy, with long-term current use of insulin ([facility]/HCC V24, CMS/HCC V28) MICROALBUMIN CREATININE URINE RATIO Routine 09/25/2024 11:23 AM EST Spinal stenosis of lumbar region with neurogenic claudication Actinic keratosis Benign prostatic hyperplasia, unspecified whether lower urinary tract symptoms present Chronic anemia Cirrhosis of liver not due to alcohol (CMS/HCC V24, [facility] V28) Type 2 diabetes mellitus with other diabetic kidney complication, without long-term current use of insulin ([facility] V24, [facility] V28) Type 2 diabetes mellitus with diabetic neuropathy, without long-term current use of insulin ([facility] V24, [facility] V28) Essential hypertension, benign Hypogonadism in male Iron deficiency anemia secondary to blood loss (chronic) LIPID PANEL WITH REFLEX TO DIRECT LDL Routine 09/25/2024 11:22 AM EST Spinal stenosis of lumbar region with neurogenic claudication Actinic keratosis Benign prostatic hyperplasia, unspecified whether lower urinary tract symptoms present Chronic anemia Cirrhosis of liver not due to alcohol ([facility] V24, [facility] V28) Type 2 diabetes mellitus with other diabetic kidney complication, without long-term current use of insulin ([facility] V24, [facility] V28) Type 2 diabetes mellitus with diabetic neuropathy, without long-term current use of insulin ([facility] V24, [facility] V28) Essential hypertension, benign Hypogonadism in male [...] LAB CHEMISTRY METHOD 01/16/2025 11:06 PM EDT [facility] Mean Bld Glu Estim. 154 mg/dL LAB CHEMISTRY METHOD 01/16/2025 11:06 PM [facility] Blood Venous blood specimen / Unknown Venipuncture / Unknown 01/16/2025 12:34 PM EDT 01/16/2025 12:34 PM EDT us Sawyer Barrera MD LAB BLOOD ORDERABLES Final Resul t [facility] [address] [place] [address], [place] [phone] * (ABNORMAL) Comprehensive metabolic panel (01/16/2025 12:34 PM EDT) Sodium 137 133 - 145 mmol/L LAB CHEMISTRY METHOD 01/16/2025 4:41 PM [facility] Potassium 4.1 3.5 - 5.5 mmol/L LAB CHEMISTRY METHOD 01/16/2025 4:41 PM [facility] Chloride 107 96 - 110 mmol/L LAB CHEMISTRY METHOD 01/16/2025 4:41 PM [facility] CO2 22 21 - 32 mmol/L LAB CHEMISTRY METHOD 01/16/2025 4:41 PM [facility] Anion Gap 8 3 - 11 LAB CHEMISTRY METHOD 01/16/2025 4:41 PM [facility] Glucose 244(H) 70 - 100 mg/dL LAB CHEMISTRY METHOD 01/16/2025 4:41 PM [facility] BUN 15 5 - 25 mg/dL LAB CHEMISTRY METHOD 01/16/2025 4:41 PM [facility] Creatinine 0.96 0.70 - 1.30 mg/dL LAB CHEMISTRY METHOD 01/16/2025 4:41 PM [facility] eGFR 84 >=60 mL/min/1. 73m2 LAB CHEMISTRY METHOD 01/16/2025 4:41 PM [facility] Comment:Calculation based on the Chronic Kidney Disease Epidemiology Collaboration (CKD-EPI) equation refit without adjustment for race. BUN/Creatinine Ratio 15.6 LAB CHEMISTRY METHOD 01/16/2025 4:41 PM [facility] Calcium 8.9 8.5 - 10.5 mg/dL LAB CHEMISTRY METHOD 01/16/2025 4:41 PM [facility] AST (SGOT) 20 10 - 42 unit/L LAB CHEMISTRY METHOD 01/16/2025 4:41 PM [facility] ALT (SGPT) 23 10 - 60 unit/L LAB CHEMISTRY METHOD 01/16/2025 4:41 PM [facility] Alkaline Phosphatase 110 42 - 121 unit/L LAB CHEMISTRY METHOD 01/16/2025 4:41 PM [facility] Total Protein 7.8 6.0 - 8.0 g/dL LAB CHEMISTRY METHOD 01/16/2025 4:41 PM [facility] Albumin 4.0 3.2 - 5.0 g/dL LAB CHEMISTRY METHOD 01/16/2025 4:41 PM [facility] Total Bilirubin 0.3 0.0 - 1.4 mg/dL LAB CHEMISTRY METHOD 01/16/2025 4:41 PM [facility] Blood Venous blood specimen / Unknown Venipuncture / Unknown 01/16/2025 12:34 PM EDT 01/16/2025 12:34 PM EDT us Juan ROMERO LAB BLOOD ORDERABLES Final Resu lt [facility] [address] [place] [address], * (ABNORMAL) Microalbumin creatinine urine ratio (09/25/2024 11:23 AM EST) Creatinine, Urine 63.0 mg/dL LAB CHEMISTRY METHOD 09/25/2024 3:08 PM EST [facility] Microalb, Ur 235.0(H) 0.0 - 29.0 mg/L LAB CHEMISTRY METHOD 09/25/2024 3:[address] [facility] Microalb/Crea t Ratio 373(H) <30 mg/g creat LAB CHEMISTRY METHOD 09/25/2024 3:[address] [facility] Urine Urine specimen obtained by clean catch procedure / Unknown Non-blood Collection / Unknown 09/25/2024 11:23 AM EST 09/25/2024 11:23 AM EST Benton ROMERO LAB URINE ORDERABLES Anne Marie ashton Result [facility] [address] [place] [address], * (ABNORMAL) Lipid panel with reflex to direct LDL (09/25/2024 11:22 AM EST) Cholesterol 255(H) 0 - 200 mg/dL LAB CHEMISTRY METHOD 09/25/2024 2:[address] [facility] Triglycerides 262(H) 0 - 150 mg/dL LAB CHEMISTRY METHOD 09/25/2024 2:[address] [facility] HDL 47 >=40 mg/dL LAB CHEMISTRY METHOD 09/25/2024 2:[address] [facility] LDL Calculated 156(H) 0 - 100 mg/dL LAB CHEMISTRY METHOD 09/25/2024 2:[address] [facility] VLDL Cholesterol Christian 52.4 mg/dL LAB CHEMISTRY METHOD 09/25/2024 2:[address] [facility] Non HDL Chol. (LDL+VLDL) 208(H) <145 mg/dL LAB CHEMISTRY METHOD 09/25/2024 2:[address] [facility] Chol/HDL Ratio 5.4(H) 0.0 - 4.4 LAB CHEMISTRY METHOD 09/25/2024 2:55 PM EST [facility] Blood Venous blood specimen / Unknown Venipuncture / Unknown 09/25/2024 11:22 AM EST 09/25/2024 11:22 AM EST Benton ROMERO LAB BLOOD ORDERABLES Anne Marie l Result [facility] [address] [place] [address], * Falls Risk Assessment (04/15/2024) [facility] [place] Risk Assessment abstracted [facility] Provider HEALTH MAINTENANCE Final Result * Depression Screening (04/15/2024) [facility] Depression Screening abstracted [facility] Provider HEALTH MAINTENANCE Final Result * Diabetes Foot Exam (07/24/2023) [facility] Diabetes: Annual Foot Exam abstracted Result [facility] Provider HEALTH MAINTENANCE Final Result * Colonoscopy (03/25/2022) [facility] Colonoscopy no interpreta tion,abstr acted Anatomical Region Laterality Modality Other Result [facility] Provider HEALTH MAINTENANCE Final Result * Hepatitis C Screening (05/25/2020) [facility] Hepatitis C Screening abstracted [facility] Provider HEALTH MAINTENANCE Final Result from Last 3 Months or Most Recently Relevant to Health Maintenance [facility] Care Teams Reverse Unit Operator Fisherman Relationship Specialty Start Date End Date Benton Chandler PA [address] [place] [id number] PCP - General Internal Medicine 04/29/20
--- OUTSIDE RECORDS SUMMARY | 2025-08-25 06:34 | XMS_ITS | Clinical Summary ---
Author Organization [facility] Address [address] [place] [address] Care Team Providers Care Cloth Finishing Range Back Tender Name Role Phone Benton Chandler Primary Care Provider [phone] Allergies No known active allergies Medications lisinopriL [...] 2 diabetes mellitus 06/04/2021 Overview (05/20/2025): Hospitalized [facility] 04/27/21-05/01/21, follow with wound care Hospitalized [facility] 04/27/21-05/01/21, follow with wound care GERD (gastroesophageal [...] Team Description 07/30/2025 10:45 AM EDT Follow-Up [facility] Neurosurgery [address] [address] Tank Renteria MD Neurogenic claudication (Primary Dx) 07/23/2025 Orders Only External Imaging [address] [place] [address] Radiology, External 07/07/2025 Orders Only External Imaging [address] [place] [address] Radiology, External 05/29/2025 Orders Only [facility] [address] [place] [phone] Candie Aguirre NP 05/29/2025 Telephone [facility] [address] [place] [address] Trevon Rosa MD from Last 3 Months [...] FOBT / Fit Test 01/16/2026 01/16/2025, 09/25/2024 Fall Risk Screening 04/14/2026 04/14/2025 Hepatitis B Vaccines Completed 06/25/2015, 12/25/2014, 11/27/2014, Additional history exists Pneumococcal Vaccine: 50+ Years Completed 11/17/2020, 01/02/2019, 11/18/2013 RSV Vaccine (60+ years old a nd patients) Completed 10/10/2023 Procedures * Due to [place] state law, this organization might not be sharing negative HIV tests. Procedure Name Priority Date/Time Associated Diagnosis Comments MRI LUMBAR SPINE WO CONTRAST Routine 07/07/2025 4:15 PM EDT Neurogenic claudication BASIC METABOLIC PANEL Routine 03/28/2015 3:55 AM EDT HEMOGLOBIN A1C Routine 03/17/2015 8:27 AM EDT from Last 3 Months or Most Recently Relevant to Health Maintenance Results * Due to [place] state law, this organization might not be sharing negative HIV tests. * MRI Lumbar Spine WO Contrast (07/07/2025 4:15 PM EDT) Anatomical Region Laterality Modality Spine, L-spine Magnetic Resonan ce 07/07/2025 3:55 PM EDT Narrative 07/09/2025 4:15 PM EDT [facility] Accession Number: [id number] Patient Name: Kyle Odonnell Date of : 1950 Date of Exam: 07-07-2025 Referring Physician: Tank Renteria [address] [address] Exam: MR Lumbar Spine (C-) CPT 64736 Room Description: [facility] 1.5 MRI Lumbar Spine W/O Contrast [...] localizer images. NUMBERING: The study assumes 5 srz-pjm-[id number] lumbar type vertebral bodies. ALIGNMENT, VERTEBRAE, MARROW, [...] the patient's symptoms and neurological examination. WSN: [id number] Ordering Physician: Tank Renteria Electronically Signed By: Tate England MD Procedure Note Provider, [place] - 07/09/2025 [facility] Accession Number: [id number] Patient Name: Kyle Odonnell Date of : 1950 Date of Exam: 07-07-2025 Referring Physician: Tank Renteria [address] [address] Exam: MR Lumbar Spine (C-) CPT 59535 Room Description: [facility] 1.5 MRI Lumbar Spine W/O Contrast INDICATION: worsening neurogenic claudication in the setting of priorstenosis. The patient reports bilateral leg pain and paresthesias. TECHNIQUE: MRI of the lumbar spine was performed without intravenouscontrast utilizing sagittal T1, sagittal T2, sagittal STIR, axial T1, and axial T2-weighted sequences. COMPARISON: 05/01/2024 FINDINGS: LOCALIZER: No additional findings on limited localizer images. NUMBERING: The study assumes 5 gki-sqr-ychhuqh lumbar type vertebralbodies. ALIGNMENT, VERTEBRAE, MARROW, AND [...] the patient's symptoms and neurological examination. WSN: [id number] Ordering Physician: Tank Renteria Electronically Signed By: Tate England MD us Tank Renteria MD IM MRI PROCEDURES Final Re sult * (ABNORMAL) Basic Metabolic Panel (03/28/2015 3:55 AM EDT) Sodium Blood 131(L) 135 - 145 mmol/L [facility] Potassium Blood 4.0 3.5 - 5.3 mmol/L [facility] Chloride Blood 101 97 - 110 mmol/L [facility] Carbon Dioxide 26 24 - 32 mmol/L [facility] Gap 4(L) 5 - 15 [facility] Glucose 197(H) 70 - 99 mg/dL [facility] BUN 8 7 - 23 mg/dL [facility] Creatinine 0.84 0.60 - 1.30 mg/dL [facility] eGFR Non- >60 >60 [facility] Comment: Units = mL/min/1.73 m2 Glomerular Filtration [...] Calcium Blood 8.7 8.7 - 10.7 mg/dL [facility] 03/28/2015 3:55 AM EDT 03/28/2015 4:01 AM EDT us Trevon Rosa MD LAB BLOOD ORDERABLES Final Res ult [facility] [address] [place] [address], [place] * (ABNORMAL) Hemoglobin A1c (03/17/2015 8:27 AM EDT) Hemoglobin A1C 6.8(H) <5.7 [facility] Comment: UNITS OF MEASURE: % of total [...] children. eAG (MG/DL) 148 () (calc) [facility] eAG (MMOL/L) 8.2 () (calc) [facility] 03/17/2015 8:27 AM EDT 03/17/2015 10:53 AM EDT us Caroline Rios MD LAB BLOOD ORDERABLES Final Resul t [facility] MCDANIELS from Last 3 Months or Most Recently Relevant to Health Maintenance Insurance [facility] Member Subscriber Plan / Payer (Ef fective 2020-Present) Name:Kyle Odonnell Relation to Subscriber:Self Name:Kyle Odonnell Payer ID:[id number] Type:Not on file Address: [facility], [address] [phone] MEDICARE Advance Directives Documents on File Type Date Recorded Patient Skilled Nursing Case Manager Expl anation Advance Directive 01/21/2009 12:00 AM [facility] dicjordon Dec Making (Adv.Dir) Care Teams Cloth Finishing Range Back Tender Relationship Specialty Start Date End Date Benton Chandler PCP - General Internal Medicine 07/04/22
--- OUTSIDE RECORDS SUMMARY | 2025-08-25 06:34 | XMS_ITS | Patient Health Record ---
Author Organization [facility] Address [address] [place] [phone] Care Team Providers Care Cytology Teacher Name Role Phone Mark Palomo Jr Reason For Referral No Information Plan Of Treatment No Information
--- OUTSIDE RECORDS SUMMARY | 2025-08-25 06:34 | XMS_ITS | Clinical Summary ---
Author Organization [facility] Address [address] [place] [address] Care Team Providers Care Equine Vet Name Role Phone Benton Chandler PA-C Primary [...] age to complete this topic Care Teams Equine Vet Relationship Specialty Start Date End Date Benton Chandler PA-C PCP - General Medical Services 07/19/22
[2025-08-25 06:44] LABS: MANUAL DIFF FLAG NO
[2025-08-25 06:46] LABS: Hematocrit 27.2 % (42.0-52.0); Hemoglobin 7.7 g/dl (14.0-18.0); Imm Gran Abs Auto 0.09 X10*3/uL (0.00-0.03); Imm Gran Pct Auto 0.6 % (0.0-0.4); Lymphocytes Absolute Auto 0.6 X10*3/uL (1.2-4.9); Mean Corpuscular HGB Conc 28.3 g/dl (31.0-36.0); Mean Corpuscular Hemoglobin 20.2 pg (27.0-33.0); Mean Corpuscular Volume 71.4 fL (80.0-98.0); NRBC Abs Auto 0.000 X10*3/uL (0.0-0.012); NRBC Pct Auto 0.0 /100WBC (0.0-0.2); Platelet Count 188 X10*3/uL (160-400); Red Blood Count 3.81 X10*6/uL (4.60-5.80); White Blood Count 14.4 X10*3/uL (4.8-10.8)
--- NOTE | 2025-08-25 06:52 | ED_ITS ---
HPI - General Adult General Chief complaint: General Medical Stated complaint: severe infected toe Time Seen by Provider: 08/25/25 06:40 Source: patient and old records reviewed Mode of arrival: ambulatory Limitations: no limitations History of Present Illness ED Provider: HAROON FLORES narrative: 24-year-old male with past medical history of diabetes, hypertension, GERD, peripheral vascular disease status post angioplasty on 08/20/[address] Valencia with successful angioplasty of peroneal and posterior tibial arteries has been on aspirin and Plavix. Right 2nd toe, has been on cephalexin and doxycycline courses in July for infection of the right toe. He feels that it never improved, and now he is feeling worse for the last few days. He redness, drainage, fevers, chills at home, he feels like he is unable to walk due to this as well and feels a little bit unsteady. He does not think he has been on antibiotics in the last 2 weeks. He has seen a corporate director of human resources in urgent Care as well. He denies any trauma to the toe MD complaint: Toe infection Onset (ago): week(s) Location: right and lower extremity Radiation: non-radiation Severity: moderate Quality: dull Relieving factors: none Exacerbating factors: movement Associated symptoms: fever/chills Treatments prior to arrival: none Related Data Home Medications ?Medication ?Instructions ?Recorded ?Confirmed blood sugar diagnostic #10 ea 04/22/21 04/22/21 meloxicam 15 mg tablet 15 mg PO DAILY 04/22/2104/15 tamsulosin 0.4 mg capsule 0.4 mg PO DAILY 04/22/21 insulin glargine 100 unit/mL (3 90 unit subcut DAILY 0 04/28/21 04/28/21 mL) subcutaneous pen (Lantus Solostar U-100 Insulin) acetaminophen 500 mg tablet 1,000 mg PO QID PRN Mild P ain 06/14/21 06/14/21 (Scale Score 1-4) omeprazole 20 mg capsule,delayed mg PO 06/14/21 release fluticasone propionate 50 1 spray intranasal DAILY 04/06 mcg/actuation nasal spray,suspension lisinopril 20 mg tablet 20 mg PO DAILY 04/29/24 gabapentin 300 mg capsule 300 mg PO QID 10/29/24 insulin lispro 100 unit/mL 1 sliding scale dose subcut 08/13/24 subcutaneous pen (Admelog SoloStar USEASDIRECTD U-100 Insulin lispro) Previous Rx's ?Medication ?Instructions ?Recorded amoxicillin 500 mg tablet 500 mg PO Q12H 7 days #14 ta bs 03/31/25 clopidogrel 75 mg tablet (Plavix) 75 mg PO DAILY #90 t abs 08/20/25 Allergies Allergy/AdvReac Type Severity Reaction Status Date / Time No Known Allergies (NKA) Allergy Verified 08/25/25 06:17 Review of Systems 2 Review of Systems: Constitutional : Positive Fever, positive Chills ENT/Mouth : No sore throat, No Rhinorrhea Eyes: No Eye Pain, No Swelling, No Redness Cardiovascular : No Chest Pain, No SOB Respiratory : No Cough, No Sputum Gastrointestinal : No Nausea, No Vomiting, No Diarrhea, No abdominal Pain Genitourinary : No Dysuria, No Hematuria Musculoskeletal : No joint pain, No Myalgias, No Joint Swelling Skin : No Skin Lesions, positive skin rash Neuro : No Weakness, No Numbness, No Headache All other systems reviewed and are negative [facility] Past Medical History Attestation statement: The following information was validated with the patient. 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 BPH (benign prostatic hyperplasia) Diabetic neuropathy Peripheral vascular disease Elevated erythrocyte sedimentation rate Hyperkalemia GERD (gastroesophageal reflux disease) Chronic anemia Diabetes Hypertension Cellulitis Surgical History H/O hand surgery H/O foot surgery Hx of appendectomy H/O total hip arthroplasty Social History Social History Household Members: Spouse Housing: House Are you a primary occasional caregiver to a significant other at home: No Do you presently have visiting nurse or other home services: No Alcohol intake: never Patient Tobacco Use Status: Former Tobacco user e-Cigarette/Vaping Use: Never Used Second Hand Smoke Exposure: No Advance Directives: No Advance Directives Information Provided: No service: No Current occupational status: employed Physical Exam ED Vital Signs: Vital Signs - 24 hr 08/25/25 06:12 08/25/25 08:33 Temperature 97.8 F 97.9 F Pulse Rate 80 75 Respiratory Rate 18 16 Blood Pressure 107/58 L 110/61 Pulse Oximetry 98 98 Oxygen Delivery Method Room Air Room Air BMI result Body Mass Index 29.3 Appearance: Alert. Oriented X3. No acute distress. Eyes: Pupils equal, round and reactive to light. ENT: Pharynx normal. Neck: Normal inspection. Neck supple. CVS: Normal heart rate and rhythm. Pulses normal. Respiratory: No respiratory distress. Breath sounds normal. Abdomen: Soft and nontender. Skin: Skin warm and dry. Normal skin color. Normal skin turgor. Extremities: No lower extremity edema. Right foot is warm to the touch and has capillary refill in the toes, but I am unable to palpate the DP the right toe is swollen, red with streaking up the foot, as well as purulent discharge and ecchymosis to the head of the toe Neuro: Oriented X 3. No motor deficit. No sensory deficit. CN2-12 intact Medications Administered Generic Name Dose Route Start Last Admin Trade Name Freq PRN Reason Stop Dose Admin Vancomycin HCl 2,000 mg in 500 mls @ 250 mls/hr 08/25/25 06:41 08/25/25 08:23 Vancomycin/Ns IV 08/25/25 08:40 250 mls/hr ONCE ONE Administration Lactated Ringer's 1,000 mls @ 100 mls/hr 08/25/25 07:00 08/25/25 08:22 Lr IVCONT 100 mls/hr .Q10H JORGE LUIS Administration Discontinued Medications Generic Name Dose Route Start Last Admin Trade Name Freq PRN Reason Stop Dose Admin Piperacillin Sod/Tazobactam 50 mls @ 100 mls/hr 08/25/25 06:41 08/25/25 07:30 Sod 3.375 gm/ Sodium Chloride IV 08/25/25 07:10 Infused ONCE ONE Infusion Lactated Ringer's 1,000 mls @ 999 mls/hr 08/25/25 07:05 08/25/25 08:20 Lr IV 08/25/25 08:05 Infused .Q1H1M ONE Infusion Medical Decision Making Medical Decision Making MDM Narrative: 24-year-old male with past medical history of diabetes, hypertension, GERD, peripheral vascular disease status post angioplasty on 08/20/[address] Valencia here with complaint of worsening right 2nd toe infection along with systemic fevers and chills. His foot is warm and well perfused though given his history of peripheral vascular disease I am not able to palpate pulses but there is no other signs of acute vascular compromise. At this time there is signs of streaking redness up the leg he will be worked up for infection. He is to get IV labs, lactic acid, blood cultures, x-ray for osteo. I have started him on empiric Zosyn and IV vancomycin. Plan to admit Differential Diagnosis Differential Diagnoses: The differential diagnosis associated with the presentation includes Cellulitis, osteomyelitis, peripheral vascular disease Admission/Observation Consideration of admission/observation: Escalation of care including admission/observation considered Will admit for IV antibiotics Consult Healthcare Provider Management of the patient was discussed with: Hospitalist Will admit Lab Data MDM Lab Attestation statement: I reviewed the patient's lab results. 08/25/25 06:24 08/25/25 06:24 Labs: Lab Results 08/25/25 Range/Units 06:24 WBC 14.4 H (4.8-10.8) X10*3/uL RBC 3.81 L (4.60-5.80) X10*6/uL Hgb 7.7 L (14.0-18.0) g/dl Hct 27.2 L (42.0-52.0) % MCV 71.4 L (80.0-98.0) fL MCH 20.2 L (27.0-33.0) pg MCHC 28.3 L (31.0-36.0) g/dl RDW 16.9 H (11.0-16.0) % Plt Count 188 (160-400) X10*3/uL MPV 10.6 (9.4-12.4) fL Immature Gran % (Auto) 0.6 H (0.0-0.4) % Neut % (Auto) 87.4 H (45-73) % Lymph % (Auto) 3.9 L (20-40) % [place] % (Auto) 7.3 (2-11) % Eos % (Auto) 0.2 (0-4) % Baso % (Auto) 0.6 (0-2) % Lymph # (Auto) 0.6 L (1.2-4.9) X10*3/uL [place] # (Auto) 1.1 (0.1-1.2) X10*3/uL Eos # (Auto) 0.0 (0.0-0.4) X10*3/uL Baso # (Auto) 0.1 (0.0-0.2) X10*3/uL Abs Immat Gran (auto) 0.09 H (0.00-0.03) X10*3/uL Absolute Neuts (auto) 12.6 H (2.0-8.3) x10*3/uL Absolute Nucleated RBC 0.000 (0.0-0.012) X10*3/uL Nucleated RBC % (auto) 0.0 (0.0-0.2) /100WBC Sodium 131 L (135-145) mmol/L Potassium 3.9 (3.3-5.1) mmol/L Chloride 100 (96-108) mmol/L Carbon Dioxide 19 L (22-29) mmol/L Anion Gap 16 (12-20) BUN 34 H (9-16) mg/dL Creatinine 2.01 H (0.5-1.4) mg/dL Estim Creat Clear Calc 40.2 Estimated GFR 33 Random Glucose 213 H (60-115) mg/dL Lactic Acid 2.7 H* (0.5-2.0) mmol/L Calcium 8.9 (8.4-10.2) mg/dL Magnesium 2.1 (1.6-2.6) mg/dL Total Bilirubin 0.5 (0.0-1.0) mg/dL AST 31 (5-37) U/L ALT 13 (0-40) U/L Alkaline Phosphatase 75 (39-117) U/L Total Protein 7.7 (6.5-8.0) g/dL Albumin 4.4 (3.5-5.0) g/dL Independent Interpretation I performed an independent interpretation of an: Plain X-Ray (Needs further studies to rule out osteo) Radiology Impression Discussion of test interpretation with radiology: I have reviewed the radiologist's reading. External Record Review External record reviewed: Outpatient record, Prior outpatient labs and Prior outpatient radiology Discharge Plan Discharge Clinical Impression: Cellulitis of foot, right, Elevated WBC count, TIFFANI (acute kidney injury), Acidosis, lactic Patient Disposition: Admitted As Inpatient Print Language: Sammarinese
[2025-08-25 07:03] LABS: Alanine Aminotransferase 13 U/L (0-40); Albumin Level 4.4 g/dL (3.5-5.0); Alkaline Phosphatase 75 U/L (39-117); Anion Gap 16 (12-20); Aspartate Amino Transferase 31 U/L (5-37); Blood Urea Nitrogen 34 mg/dL (9-16); Calcium 8.9 mg/dL (8.4-10.2); Carbon Dioxide 19 mmol/L (22-29); Chloride 100 mmol/L (96-108); Creatinine Clr Calc Pharmacy 40.2; Estimated Glomerular Filt Rate 33; Magnesium 2.1 mg/dL (1.6-2.6); Potassium 3.9 mmol/L (3.3-5.1); Sodium 131 mmol/L (135-145); Total Protein 7.7 g/dL (6.5-8.0)
[2025-08-25] MEDS: Lactated Ringers 1,000 ML 100 ML IVCONT ×2 (07:04→08:22)
[2025-08-25] MEDS: Lactated Ringers 1,000 ML 999 ML IV (07:22)
[2025-08-25] MEDS: vancomycin/NS 2,000 MG/500 ML PLAST..BAG 250 MG IV (08:23)
[2025-08-25 08:33] VITALS: BP 110/61; PULSE 75; RESP 16; TEMP 36.6; O2SAT 98
[2025-08-25 08:42] LABS: Reflex Lactate? Lactic Acid Added
[2025-08-25 09:58] LABS: ~Lactic Acid-LAB USE ONLY 1.0 mmol/L (0.5-2.0)
--- NOTE | 2025-08-25 10:29 | PM.IMHP ---
History of Present Illness Date of Service: 08/25/25 Attending physician on admission: [facility] Chief Complaint: Right toe redness Pt is a 74-year-old male with a PMH significant for?HTN, insulin-dependent type 2 diabetes, peripheral vascular disease on Plavix, BPH, and GERD who presents to the ED with?worsening right 2nd toe redness and swelling x4 days. Last week on 08/20 pt underwent successful right lower extremity angioplasty of peroneal and posterior and tibial arteries with Dr. Valencia. Pt was discharged home in the reports the following day he was ?sick as a dog nausea, vomiting, and subjective fever and chills. Pt was unable to tolerate much by mouth. No diarrhea or abdominal pain. Pt also noticed that his right 2nd toe was getting more red and swollen than prior to his angioplasty. Nausea and vomiting eventually subsided last night, and pt decided to come in to the hospital for evaluation of his toe. Reports he has been unsteady on his feet. Also reports some SOB and increased difficulty breathing. Denies chest pain or pressure. In the ED pt's vitals were stable, afebrile. Labs were significant for leukocytosis of 14.4, sodium 131, BUN 34 , creatinine 2.01 (baseline 1.0), initial lactic acid 2.7 repeat 1.0. Stable microcytic anemia of 7.7/27.2. Right foot and 2nd toe with question 2nd toe soft tissue irregularity/wound, as well as questionable erosion of lateral cortex of 2nd distal phalangeal shaft. Pt was treated in the ED with IVF 1 L bolus and maintenance fluids, vancomycin, and Zosyn. Pt is admitted to the hospital for treatment and further evaluation of right toe cellulitis concerning for possible osteomyelitis, as well as TIFFANI in the setting of hypovolemia. Review of Systems Review of Systems: Negative except for that which is stated in the HPI. 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 BPH (benign prostatic hyperplasia) Diabetic neuropathy Peripheral vascular disease Elevated erythrocyte sedimentation rate Hyperkalemia GERD (gastroesophageal reflux disease) Chronic anemia Diabetes Hypertension Cellulitis Surgical History H/O hand surgery H/O foot surgery Hx of appendectomy H/O total hip arthroplasty Social History Household Members: Spouse Housing: House Are you a primary rn palliative care to a significant other at home: No Do you presently have visiting nurse or other home services: No Alcohol intake: never Patient Tobacco Use Status: Former Tobacco user e-Cigarette/Vaping Use: Never Used Second Hand Smoke Exposure: No Advance Directives: No Advance Directives Information Provided: No service: No Current occupational status: employed Meds Allergies Allergy/AdvReac Type Severity Reaction Status Date / Time No Known Allergies (NKA) Allergy Verified 08/25/25 06:17 Active Medications: Current Medications Lactated Ringer's (Lr) 1,000 mls @ 100 mls/hr IVCONT .Q10H JORGE LUIS Last Admin: 08/25/25 08:22 Dose: 100 mls/hr Home Medications ?Medication ?Instructions ?Recorded ?Confirmed ?Last Taken ?Type blood sugar diagnostic #10 ea 04/22/21 04/22/21 Unknown History meloxicam 15 mg tablet 15 mg PO DAILY 04/22/21 08/25/25 08/25/25 History tamsulosin 0.4 mg capsule 0.4 mg PO DAILY 04/22/21 08/25/25 08/25/25 History acetaminophen 500 mg tablet 1,000 mg PO QID PRN Mild Pain 06/14/21 08/25/25 06/14/21 08:15 History (Scale Score 1-4) omeprazole 20 mg capsule,delayed 20 mg PO DAILY 06/14/21 08/25/25 08/25/25 History release fluticasone propionate 50 1 spray intranasal BEDTIME PRN 02/18/22 08/25/25 Unknown History mcg/actuation nasal Allergy Symptoms spray,suspension lisinopril 20 mg tablet 20 mg PO DAILY 04/29/24 08/25/25 08/25/25 History gabapentin 300 mg capsule 300 mg PO BID@0700,1200 08/13/24 08/25/25 08/25/25 History clopidogrel 75 mg tablet (Plavix) 75 mg PO BEDTIME 08/25/25 08/25/25 08/24/25 History empagliflozin 10 mg tablet 10 mg PO DAILY 08/25/25 08/25/25 08/25/25 History (Jardiance) furosemide 20 mg tablet 20 mg PO BEDTIME 08/25/25 08/25/25 08/24/25 History gabapentin 300 mg capsule 600 mg PO BEDTIME 08/25/25 08/25/25 08/24/25 History insulin aspart See Protocol subcut QIDACHS 08/25/25 08/25/25 08/25/25 History (niacinamide)(U-100) 100 unit/mL(3 mL) subcutaneous pen (Fiasp FlexTouch U-100 Insulin) insulin glargine 100 unit/mL (3 55 unit subcut BEDTIME 08/25/25 08/25/25 08/24/25 History mL) subcutaneous pen (Basaglar KwikPen U-100 Insulin) Physical Exam Vital Signs and Narrative: Vital Signs: Last Vital Signs Temp 97.9 F 08/25/25 08:33 Pulse 75 08/25/25 08:33 Resp 16 08/25/25 08:33 BP 110/61 08/25/25 08:33 Pulse Ox 98 08/25/25 08:33 O2 Del Method Room Air 08/25/25 08:33 BMI result Body Mass Index 29.3 General: AOx3, no acute distress Resp: CTA bilaterally CVS: S1, S2, RRR. No JVD GI: +BS, NT, no distention Skin: Warm, dry Neuro: Cranial nerves II-XII grossly intact bilaterally. Motor grossly intact bilaterally Extremities: Right toe with swelling, erythema,. As pictured below. Psych: Appropriate affect Results Labs 08/26/25 03:43 08/26/25 03:43 Labs: Laboratory Results - last 24 hr 08/25/25 08/25/25 06:24 09:35 MCV 71.4 L MCH 20.2 L MCHC 28.3 L RDW 16.9 H Plt Count 188 MPV 10.6 Immature Gran % (Auto) 0.6 H Neut % (Auto) 87.4 H Lymph % (Auto) 3.9 L [place] % (Auto) 7.3 Eos % (Auto) 0.2 Baso % (Auto) 0.6 Lymph # (Auto) 0.6 L [place] # (Auto) 1.1 Eos # (Auto) 0.0 Baso # (Auto) 0.1 Abs Immat Gran (auto) 0.09 H Absolute Neuts (auto) 12.6 H Absolute Nucleated RBC 0.000 Nucleated RBC % (auto) 0.0 Anion Gap 16 Estim Creat Clear Calc 40.2 Estimated GFR 33 Random Glucose 213 H Lactic Acid 2.7 H* Lactic Acid F/U @ 2Hr 1.0 Calcium 8.9 Magnesium 2.1 Total Bilirubin 0.5 AST 31 ALT 13 Alkaline Phosphatase 75 Total Protein 7.7 Albumin 4.4 Assessment and Plan (1) TIFFANI (acute kidney injury): Status: Acute (2) Cellulitis of right toe: Status: Acute Plan Pt is a 74-year-old male with a PMH significant for?HTN, insulin-dependent type 2 diabetes, peripheral vascular disease on Plavix, BPH, and GERD who presents to the ED with?worsening right 2nd toe redness and swelling x4 days. Pt is admitted to the hospital for treatment and further evaluation of right toe cellulitis concerning for possible osteomyelitis, as well as TIFFANI in the setting of hypovolemia. Right toe cellulitis S/P angioplasty of right peroneal and posterior tibial arteries 08/20 No sepsis: Leukocytosis but no tachycardia, tachypnea, or fever X-ray: 2nd digit soft tissue irregularlity/wound; ?subtle erosion of distal phalangeal shaft Continue vanc and Zosyn, started 08/25 Vascular surgery consult Hold on MRI pending vascular surgery input TIFFANI Creatinine 2.01, baseline around 1.0 Likely in the setting of hypovolemia secondary to N/V and reduced p.o. intake Continue IVF Monitor creatinine Shortness or breath/difficulty breathing Possibly secondary to recent viral illness Will check CXR, full respiratory panel No hypoxia Acute lactic acidosis, resolved Secondary to hypovolemia from N/V, not sepsis Resolved with IVF Insulin-dependent type 2 diabetes Sliding-scale insulin, Lantus Diabetic diet PVD Continue Plavix HTN Continue lisinopril BPH Continue tamsulosin GERD PPI Full Code Attending:?Dr. Olivia DVT Prophylaxis: Lovenox Pt will require a hospitalization of at least two nights for treatment of?multiple issues, including right 2nd toe cellulitis and TIFFANI secondary to hypovolemia. pt will need both IV fluids and IV antibiotics elevated vascular surgery input for possible additional imaging or workup for question of osteomyelitis. Quality Stroke Does the patient have a stroke diagnosis?: No VTE Prior VTE?: No VTE Risk Level:: Medical - moderate - high VTE Device Contraindication: Treatment Not Indicated VTE Drug Contraindication: N/A - Med Ordered
[2025-08-25 11:46] LABS: NT Pro B Type Natriuretic Pept 2115.2 pg/mL (<300)
[2025-08-25 11:50] LABS: Iron 17 mcg/dL (45-160); Percent Iron Saturation 5 % (15-50); Total Iron Binding Capacity 335 mcg/dL (228-428); Unsaturated Iron Binding 318 ug/dL
[2025-08-25 11:59] LABS: Ferritin 49 ng/mL (20-250)
[2025-08-25 12:13] VITALS: BP 113/61; PULSE 82; RESP 16; TEMP 36.7; O2SAT 96
[2025-08-25 12:47] LABS: Glucose, Whole Blood 207 mg/dL (60-115)
[2025-08-25 13:14] LABS: Chlamydia pneumoniae PCR Not Detected (Not Detect.); Coronavirus 229E PCR Not Detected (Not Detect.); Coronavirus HKU1 PCR Not Detected (Not Detect.); Coronavirus NL63 PCR Not Detected (Not Detect.); Coronavirus OC43 PCR Not Detected (Not Detect.); RSV PCR Not Detected (Not Detect.); Rhino/Enterovirus PCR Not Detected (Not Detect.)
[2025-08-25 13:17] LABS: SARS-CoV-2 PCR Not Detected (Not Detect.)
[2025-08-25 13:20] LABS: Influenza A H1 PCR Not Detected (Not Detect.); Influenza A H1-2009 PCR Not Detected (Not Detect.); Influenza A H3 PCR Not Detected (Not Detect.)
[2025-08-25 13:47] LABS: Glucose, Whole Blood 267 mg/dL (60-115)
--- NOTE | 2025-08-25 14:31 | PC.NURSE ---
Assumed care of pt. Pt very concerned about insulin coverage, pharmacy contacted for med rec. Hospitalist contacted for diabetic protocols. IV abx running with IVF.
--- NOTE | 2025-08-25 15:02 | PHA.MEDREC ---
Addendum entered by Wilton Ferris, PharmAurelio 08/25/25 15:24: MED REC CHECKED BY [facility] Original Note: Pharmacy Consult ? Medication Reconciliation Pharmacy has completed the medication reconciliation. Patient was able to confirm all of his medications. Patient states he is not taking Testosterone cream, and Mounjaro 5 mg ( hasn't started yet). Patient states he take Insulin Aspart multiple times a day depending on his BS lvl ( put in sliding scale dose), Basaglar KwikPen 55 units at daily, and Gabapentin 300 mg BID and Gabapentin 600 (2x 300 mg) at bedtime. Patient had all his morning medications today.
[2025-08-25 15:53] LABS: Glucose, Whole Blood 285 mg/dL (60-115)
[2025-08-25 15:55] VITALS: BP 126/52; PULSE 73; RESP 16; TEMP 36.8; O2SAT 97
[2025-08-25 19:00] VITALS: BP 139/70; PULSE 79; RESP 16; TEMP 36.9; O2SAT 98
[2025-08-25 20:06] LABS: Glucose, Whole Blood 170 mg/dL (60-115)
[2025-08-25] MEDS: Insulin Glargine,Hum.rec.anlog 100 UNIT/ML 10 ML VIAL 40 UNIT SUBCUT (22:00)
[2025-08-26] VITALS (10 sets, daily range): BP systolic 114–191; BP diastolic 54–95; PULSE 60–75; RESP 16–19; TEMP 36.1–37.2; O2SAT 96–100; BMI 29.3
[2025-08-26 04:39] LABS: Hematocrit 23.1 % (42.0-52.0); Mean Corpuscular HGB Conc 29.0 g/dl (31.0-36.0); Mean Corpuscular Hemoglobin 20.6 pg (27.0-33.0); Mean Corpuscular Volume 71.1 fL (80.0-98.0); NRBC Abs Auto 0.000 X10*3/uL (0.0-0.012); NRBC Pct Auto 0.0 /100WBC (0.0-0.2); Platelet Count 182 X10*3/uL (160-400); Red Blood Count 3.25 X10*6/uL (4.60-5.80); White Blood Count 10.2 X10*3/uL (4.8-10.8)
[2025-08-26 04:45] LABS: Anion Gap 11 (12-20); Blood Urea Nitrogen 26 mg/dL (9-16); Calcium 8.3 mg/dL (8.4-10.2); Carbon Dioxide 21 mmol/L (22-29); Chloride 106 mmol/L (96-108); Creatinine Clr Calc Pharmacy 67.4; Estimated Glomerular Filt Rate 60; Magnesium 2.2 mg/dL (1.6-2.6); Potassium 4.2 mmol/L (3.3-5.1); Sodium 134 mmol/L (135-145)
[2025-08-26 04:47] LABS: Hemoglobin 6.7 g/dl (14.0-18.0)
--- NOTE | 2025-08-26 07:00 | CA_ITS ---
Transthoracic Echocardiogram Patient (Last, First, Middle): Kyle Odonnell, Gender: M Date of : 1950 Age: 74 Procedure Date: 08/26/2025 Procedure Type: Transthoracic Echocardiogram Location: ER Height: 182.88 cm Weight: 97.98 kg BSA: 2.20 m2 Heart Rate: 80 bpm BP: 113 / 61 mmHg Commodities Broker: DELLA Referring MD: Mayte ROMERO Sketcher: Renard Thacker MD Symptoms: Elevated BNP Study Quality: Adequate ECG Rhythm: Sinus Conclusions: - 1. Normal LV ejection fraction 55-60% with mild LVH with pseudonormal filling pattern 2. Mild biatrial enlargement 3. Mild aortic stenosis 4. Mildly elevated right ventricular systolic pressure 5. Mildly dilated ascending aorta 6. No gross pericardial effusion Findings Left Ventricle Normal left ventricular size and systolic function. There is mildly increased left ventricular wall thickness. The visually estimated ejection fraction is between 55-60%. Spectral Doppler is indicative of a pseudonormal filling pattern. Right Ventricle Normal right ventricular cavity size and systolic function. Atria Mild biatrial enlargement. There is no evidence of interatrial shunt. Aortic Valve There is mild calcification of the aortic valve. There is mild aortic valve stenosis. The peak aortic gradient is 31 mmHg.The mean gradient is 15 mmHg. The aortic valve area is 2.10 cm2. There is no aortic valve regurgitation. Mitral Valve There is mild anterior mitral leaflet thickening. There is trace mitral valve regurgitation. There is no mitral valve stenosis. Pulmonic Valve The pulmonic valve is likely normal. There is trace pulmonic valve regurgitation. Tricuspid Valve Normal tricuspid valve structure. There is mild tricuspid valve regurgitation. The right ventricular systolic pressure is 41 mmHg. Normal right atrial pressure. Mild pulmonary hypertension is present. Great Vessels All visible segments of the aorta are normal in size. The pulmonary artery was not well visualized. There is mild dilatation of the ascending aorta measuring 4.20 cm. Small plaque is seen in the sino tubular ridge. Venous The inferior vena cava is normal in size and collapses greater than 50% with inspiration. Pericardium/Pleural There is no evidence of pericardial effusion. Prior Study Comparison No prior study available for comparison. Measurements 2D Linear Measurements IVSd: 1.32 0.6-0.9/0.6-1.0 cm LVIDd: 5.71 3.9-5.3/4.2-5.9 cm LVIDd Index: 2.60 2.4-3.2/2.2-3.1 cm/m2 LVIDs: 3.67 2.0-3.6 cm LVPWd: 1.24 0.7-1.1 cm LA Diam: 4.20 2.7-3.8/3.0-4.0 cm LAIDs Index: 1.91 1.5-2.3 cm/m2 LV Mass: 394.62 67-162/88-224 g LV Mass Index: 179.37 43-95/49-115 g/m2 LVOT Diam: 2.20 3.0+(-)1.3 cm 2D Systolic Function EF 4C: 63.10 >55% EF 2C: 52.60 >55% EF BiP: 58.60 >55% Mitral Valve MV VTI: 0.37 MV Pk Jarad: 1.42 MV Mn Jarad: 1.07 MV Pk Grad: 8.00 MV Mn Grad: 5.00 MV Pk E: 1.31 MV PK A: 1.26 MV Decel Time: 238.00 E/A: 1.00 E'Lateral: 6.74 E'Medial: 9.36 E/E' Med: 14.00 E/E' Lat: 19.40 PHT: 70.00 MVA PHT: 3.14 MVA Continuity: 2.99 Decel [place]: 5.51 Aortic Valve AoV Pk Jarad: 2.78 AoV Mn Jarad: 1.79 AoV VTI: 0.53 AoV Pk Grad: 31.00 Aov Mn Grad: 15.00 BRAD Cont.VTI: 2.10 LVOT LVOT Pk Jarad: 1.51 LVOT Mn Jarad: 0.94 LVOT VTI: 0.29 LVOT Pk Grad: 9.00 LVOT Mn Grad: 4.00 LVOT Diam: 2.20 LVOT Area: 3.80 Diastolic Function MV Pk E: 1.31 MV Pk A: 1.26 E/A: 1.00 E'Medial: 9.36 E/E' Med: 14.00 E' Laterial: 6.74 E/E' Lat: 19.40 Right Ventricle TAPSE (mm): 24.30 TVS' Jarad: 15.80 Tricuspid Valve TR Pk Jarad: 3.07 TR Pk Grad: 38.00 RA Press: 3.00 RVSP: 41.00 Great Vessels Aorta Sinus of Valsalva: 3.40 2.0-3.5 cm Ao Asc: 4.20 2.1-3.4 cm Pulmonary Veins Pulm Vein S/D 0.80 Pulmonary Valve PV Pk Jarad: 1.15 Peak PV Grad: 5.00 Updated in Other Vendor System with Status of Final Renard Thacker MD electronically signed on 08/26/2025 10:50:30 AM with status of Final
--- NOTE | 2025-08-26 07:58 | PC.NURSE ---
pt has own machine to check bood sugar- refuses to allow staff to do poc, his blood sugar is 163
[2025-08-26] MEDS: 0.9 % Sodium Chloride Flush 3 ML SYRINGE IVFLUSH ×2 (08:10→17:08)
--- NOTE | 2025-08-26 08:13 | HO.PM.IMPN ---
Subjective Subjective Date of Service: 08/26/25 Interval History: Follow-up on diabetic foot infection, , TIFFANI and acute on chronic anemia. Patient is doing relatively better today. No fever or chills. Shortness of breath has resolved anemia has significantly improved. Physical Exam Vital Signs: Vital Signs: Last Vital Signs Temp 97.9 F 08/26/25 05:28 Pulse 74 08/26/25 05:28 Resp 16 08/26/25 05:28 BP 144/72 H 08/26/25 05:28 Pulse Ox 97 08/26/25 05:28 O2 Del Method Room Air 08/26/25 05:28 BMI result Body Mass Index 29.3 Const: Other: General: AO X 3, no acute distress Resp: CTA bilateral CVS: S1,S2,RRR GI: +BS, NT, no distention Skin: see pic from H and p , essentially unchanged Neuro: motor grossly intact Psych: appropriate affect Objective Data Active Medications Acetaminophen (Acetaminophen 325 Mg Tablet) 650 mg PO Q6H PRN PRN Reason: Pain, Mild 1-3,fever,headache Last Admin: 08/26/25 06:11 Dose: 650 mg Documented By: ARTI Calcium Carbonate (Calcium Carbonate 750 Mg Tab.Chew) 750 mg PO Q4H PRN PRN Reason: Heartburn Clopidogrel Bisulfate (Clopidogrel Bisulfate 75 Mg Tablet) 75 mg PO BEDTIME JORGE LUIS Last Admin: 08/25/25 21:59 Dose: 75 mg Documented By: ARTI Dextrose (Dextrose 50 % 25 Gm/50 Ml Syringe) 25 gm IVPUSH Q15M PRN; Protocol PRN Reason: per Hypoglycemia Standing Ord. Empagliflozin (Empagliflozin 10 Mg Tablet) 10 mg PO DAILY [facility] Enoxaparin Sodium (Enoxaparin Sodium 40 Mg/0.4 Ml Syringe) 40 mg SUBCUT Q24H JORGE LUIS Last Admin: 08/25/25 11:45 Dose: Not Given Documented By: CATRACHO Non-Admin Reason: Patient Refused Comments: pt declines at this time, ambulates frequently Fluticasone Propionate (Fluticasone Propionate Nasal 16 Gm [place]) 1 spray NOSTRIL-B BEDTIME PRN PRN Reason: Allergy Symptoms Furosemide (Furosemide 20 Mg Tablet) 20 mg PO BEDTIME JORGE LUIS; Protocol Gabapentin (Gabapentin 300 Mg Capsule) 300 mg PO BID@0700,1200 [facility] Last Admin: 08/26/25 06:08 Dose: 300 mg Documented By: RATI Gabapentin (Gabapentin 300 Mg Capsule) 600 mg PO BEDTIME [facility] Last Admin: 08/25/25 21:59 Dose: 600 mg Documented By: ARTI Glucose (Glucose Gel 15 Gm Gel..Gram.) 15 gm PO Q15M PRN; Protocol PRN Reason: per Hypoglycemia Standing Ord. Piperacillin Sod/Tazobactam (Sod 3.375 gm/ Sodium Chloride) 50 mls @ 100 mls/hr IV Q6H [facility] Last Infusion: 08/26/25 06:43 Dose: Infused Documented By: ARTI Vancomycin HCl 1,000 mg/ (Sodium Chloride) 270 mls @ 270 mls/hr IV Q24H [facility] Insulin Glargine (Insulin Glargine,Hum.Rec.Anlog 100 Unit/Ml 10 Ml Vial) 40 unit SUBCUT BEDTIME [facility] Last Admin: 08/25/25 22:00 Dose: 40 unit Documented By: ARTI Insulin Human Lispro (Insulin Lispro 100 Unit/Ml 3 Ml Vial) 0 unit SUBCUT QIDACHS [facility]; Protocol Last Admin: 08/26/25 08:07 Dose: 2 unit Documented By: JULIANA Lisinopril (Lisinopril 20 Mg Tablet) 20 mg PO DAILY [facility]; Protocol Lorazepam (Lorazepam 0.5 Mg Tablet) 0.5 mg PO Q8H PRN PRN Reason: anxiety/restlessness Magnesium Hydroxide (Milk Of Magnesia 30 Ml Oral.Susp) 30 ml PO DAILY PRN PRN Reason: Constipation Melatonin (Melatonin 3 Mg Tablet) 6 mg PO BEDTIME PRN PRN Reason: Insomnia Omeprazole (Omeprazole 20 Mg Capsule.Dr) 20 mg PO DAILY@0630 [facility] Last Admin: 08/26/25 06:07 Dose: 20 mg Documented By: ARTI Ondansetron HCl (Ondansetron Hcl 4 Mg/2 Ml Vial) 4 mg IVPUSH Q8H PRN PRN Reason: Nausea and Vomiting Pharmacy Consult (Consult Rx Vancomycin Dosing) 1 each MISCELLANE DAILY PRN PRN Reason: Consult order Sodium Chloride (0.9 % Sodium Chloride Flush 3 Ml Syringe) 3 ml IVFLUSH QSHIFT [facility] Last Admin: 08/26/25 08:10 Dose: 3 ml Documented By: JULIANA Tamsulosin HCl (Tamsulosin Hcl 0.4 Mg Capsule) 0.4 mg PO DAILY JORGE LUIS Labs 08/26/25 03:43 08/26/25 03:43 Labs: Laboratory Results - last 24 hr 08/25/25 08/25/25 08/25/25 06:24 09:35 11:28 MCV MCH MCHC RDW Plt Count MPV Absolute Nucleated RBC Nucleated RBC % (auto) Anion Gap Estim Creat Clear Calc Estimated GFR POC Glucose Random Glucose Lactic Acid F/U @ 2Hr 1.0 Calcium Magnesium Iron 17 L TIBC 335 % Saturation 5 L Unsat Iron Binding 318 Ferritin 49 NT-Pro-B Natriuret Pep 2115.2 H Respiratory Panel [place] See Note Adenovirus (Rapid PCR) Not Detected B.pert (TEM-PCR) Not Detected B.parapertussis DNA PCR Not Detected C. pneumoniae DNA (PCR) Not Detected Coronavirus OC43 (PCR) Not Detected Coronavirus HKU1 (PCR) Not Detected Coronavirus 229E (PCR) Not Detected Coronavirus NL63 (PCR) Not Detected Human Metapneumovir PCR Not Detected Influenza A (RT-PCR) Not Detected Influenza A (H1) PCR Not Detected Influ A (H1/09) PCR Not Detected Influenza A (H3) PCR Not Detected Influenza B (RT-PCR) Not Detected M. pneumoniae (PCR) Not Detected Parainfluenza 1 (PCR) Not Detected Parainfluenza 2 (PCR) Not Detected Parainfluenza 3 (PCR) Not Detected Parainfluenza 4 (PCR) Not Detected RSV (PCR) Not Detected Entero/Rhino (PCR) Not Detected SARS-CoV-2 RNA (RT-PCR) Not Detected Blood Type Antibody Screen 08/25/25 08/25/25 08/25/25 12:32 13:43 15:43 MCV MCH MCHC RDW Plt Count MPV Absolute Nucleated RBC Nucleated RBC % (auto) Anion Gap Estim Creat Clear Calc Estimated GFR POC Glucose 207 H 267 H 285 H Random Glucose Lactic Acid F/U @ 2Hr Calcium Magnesium Iron TIBC % Saturation Unsat Iron Binding Ferritin NT-Pro-B Natriuret Pep Respiratory Panel [place] Adenovirus (Rapid PCR) B.pert (TEM-PCR) B.parapertussis DNA PCR C. pneumoniae DNA (PCR) Coronavirus OC43 (PCR) Coronavirus HKU1 (PCR) Coronavirus 229E (PCR) Coronavirus NL63 (PCR) Human Metapneumovir PCR Influenza A (RT-PCR) Influenza A (H1) PCR Influ A () PCR Influenza A (H3) PCR Influenza B (RT-PCR) M. pneumoniae (PCR) Parainfluenza 1 (PCR) Parainfluenza 2 (PCR) Parainfluenza 3 (PCR) Parainfluenza 4 (PCR) RSV (PCR) Entero/Rhino (PCR) SARS-CoV-2 RNA (RT-PCR) Blood Type Antibody Screen 08/25/25 08/26/25 08/26/25 20:02 03:43 05:12 MCV 71.1 L MCH 20.6 L MCHC 29.0 L RDW 16.7 H Plt Count 182 MPV 10.6 Absolute Nucleated RBC 0.000 Nucleated RBC % (auto) 0.0 Anion Gap 11 L Estim Creat Clear Calc 67.4 Estimated GFR 60 POC Glucose 170 H Random Glucose 190 H Lactic Acid F/U @ 2Hr Calcium 8.3 L D Magnesium 2.2 Iron TIBC % Saturation Unsat Iron Binding Ferritin NT-Pro-B Natriuret Pep Respiratory Panel [place] Adenovirus (Rapid PCR) B.pert (TEM-PCR) B.parapertussis DNA PCR C. pneumoniae DNA (PCR) Coronavirus OC43 (PCR) Coronavirus HKU1 (PCR) Coronavirus 229E (PCR) Coronavirus NL63 (PCR) Human Metapneumovir PCR Influenza A (RT-PCR) Influenza A (H1) PCR Influ A () PCR Influenza A (H3) PCR Influenza B (RT-PCR) M. pneumoniae (PCR) Parainfluenza 1 (PCR) Parainfluenza 2 (PCR) Parainfluenza 3 (PCR) Parainfluenza 4 (PCR) RSV (PCR) Entero/Rhino (PCR) SARS-CoV-2 RNA (RT-PCR) Blood Type O Positive Antibody Screen NEGATIVE Assessment and Plan (1) TIFFANI (acute kidney injury): Status: Acute (2) Acidosis, lactic: Status: Acute (3) Diabetic foot infection: Status: Acute Plan Pt is a 74-year-old male with a PMH significant for?HTN, insulin-dependent type 2 diabetes, peripheral vascular disease on Plavix, BPH, and GERD who presents to the ED with?worsening right 2nd toe redness and swelling x4 days. Pt is admitted to the hospital for treatment and further evaluation of right toe cellulitis concerning for possible osteomyelitis (OM), as well as TIFFANI in the setting of hypovolemia. Right toe cellulitis in diabetic patient S/P angioplasty of right peroneal and posterior tibial arteries 08/20 No sepsis: Leukocytosis but no tachycardia, tachypnea, or fever X-ray: 2nd digit soft tissue irregularlity/wound; ?subtle erosion of distal phalangeal shaft, concern for OM Continue vanc and Zosyn, started 08/25 Vascular surgery consult Hold on MRI pending vascular surgery input TIFFANI, likely pre-renal, improved with IVF, continue monitoring Shortness or breath/difficulty breathing CXR no consolidation CT chestt: 1. Right lower lobe nodule measuring up to 7 mm. Consider follow-up chest CT in 6-12 months, towards documenting 2 year stability No sings of Heart failure, possibly anemia related as well, and feels better this morning Acute lactic acidosis, resolved Secondary to hypovolemia from N/V, not sepsis Resolved with IVF Acute on chronic iron def anemia, Hgb 6.7 this morning, no active bleed has consented for transfusion of 1 unit of RBC Insulin-dependent type 2 diabetes Sliding-scale insulin, Lantus Diabetic diet PVD Continue Plavix HTN Continue lisinopril BPH Continue tamsulosin GERD PPI Full Code Attending:?Dr. Olivia DVT Prophylaxis: Lovenox Pt will require a hospitalization of at least two nights for treatment of?multiple issues, including right 2nd toe cellulitis and TIFFANI secondary to hypovolemia. pt will need both IV fluids and IV antibiotics elevated vascular surgery input for possible additional imaging or workup for question of osteomyelitis. Quality Stroke Does the patient have a stroke diagnosis?: No VTE Prior VTE?: No VTE Risk Level:: Medical - moderate - high VTE Device Contraindication: Treatment Not Indicated VTE Drug Contraindication: N/A - Med Ordered
--- NOTE | 2025-08-26 11:49 | PM.CNGS ---
History of Present Illness Consult details Consult date: 08/26/25 Reason for consult: wound care Narrative: Complex 74-year-old gentleman with a history of diabetes and peripheral vascular disease presents for follow-up regarding worsening of his right 2nd toe. Been swollen. He reports that was getting worse over the last several days. He had undergone right lower extremity angiogram on 08/20/2025 and at that time underwent angioplasty of peroneal and posterior tibial arteries. Following the operation he went home he reports some nausea and vomiting. He presents to the hospital yesterday and he was as admitted for concerns of osteomyelitis of that right 2nd toe as well as TIFFANI and hypovolemia. At the time of his procedure he had normal renal function. Review of Systems Review of Systems: Yes all other systems are reviewed and are negative Constitutional: Constitutional: Reports no additional constitutional complaints ENT: Reports Normal hearing present Cardiovascular: Cardiovascular: Denies chest pain, Denies chest pain at rest, Denies chest pain with activity and Denies pedal edema Respiratory: Respiratory: Denies cough Gastrointestinal: Gastrointestinal: Denies abdominal pain Musculoskeletal: Musculoskeletal: Denies abnormal gait, Denies muscle cramps and Denies radiating pain into limb Integumentary/Breasts: Skin/Breast: Denies skin ulcer and Denies wounds Neurologic: Reports Normal hearing present and Denies abnormal gait Psychiatric: Psychiatric: Reports no additional psychiatric complaints PMFSH Past Medical History Medical History Failed total hip arthroplasty Diabetic foot ulcer BPH (benign prostatic hyperplasia) Diabetic neuropathy Peripheral vascular disease Elevated erythrocyte sedimentation rate Hyperkalemia GERD (gastroesophageal reflux disease) Chronic anemia Diabetes Hypertension Cellulitis Surgical History Surgical History H/O hand surgery H/O foot surgery Hx of appendectomy H/O total hip arthroplasty Social History Social History Household Members: Spouse Housing: House Are you a primary manager medicare to a significant other at home: No Do you presently have visiting nurse or other home services: No Alcohol intake: never Patient Tobacco Use Status: Former Tobacco user e-Cigarette/Vaping Use: Never Used Second Hand Smoke Exposure: No Advance Directives: No Advance Directives Information Provided: No service: No Current occupational status: employed Meds Allergies Allergy/AdvReac Type Severity Reaction Status Date / Time No Known Allergies (NKA) Allergy Verified 08/25/25 06:17 Active Medications: Current Medications Acetaminophen (Acetaminophen 325 Mg Tablet) 650 mg PO Q6H PRN PRN Reason: Pain, Mild 1-3,fever,headache Last Admin: 08/26/25 06:11 Dose: 650 mg Calcium Carbonate (Calcium Carbonate 750 Mg Tab.Chew) 750 mg PO Q4H PRN PRN Reason: Heartburn Clopidogrel Bisulfate (Clopidogrel Bisulfate 75 Mg Tablet) 75 mg PO BEDTIME JORGE LUIS Last Admin: 08/25/25 21:59 Dose: 75 mg Dextrose (Dextrose 50 % 25 Gm/50 Ml Syringe) 25 gm IVPUSH Q15M PRN; Protocol PRN Reason: per Hypoglycemia Standing Ord. Empagliflozin (Empagliflozin 10 Mg Tablet) 10 mg PO DAILY [facility] Last Admin: 08/26/25 08:58 Dose: 10 mg Enoxaparin Sodium (Enoxaparin Sodium 40 Mg/0.4 Ml Syringe) 40 mg SUBCUT Q24H JORGE LUIS Last Admin: 08/26/25 11:40 Dose: 40 mg Fluticasone Propionate (Fluticasone Propionate Nasal 16 Gm [place]) 1 spray NOSTRIL-B BEDTIME PRN PRN Reason: Allergy Symptoms Furosemide (Furosemide 20 Mg Tablet) 20 mg PO BEDTIME JORGE LUIS; Protocol Gabapentin (Gabapentin 300 Mg Capsule) 300 mg PO BID@0700,1200 [facility] Last Admin: 08/26/25 11:40 Dose: 300 mg Gabapentin (Gabapentin 300 Mg Capsule) 600 mg PO BEDTIME JORGE LUIS Last Admin: 08/25/25 21:59 Dose: 600 mg Glucose (Glucose Gel 15 Gm Gel..Gram.) 15 gm PO Q15M PRN; Protocol PRN Reason: per Hypoglycemia Standing Ord. Piperacillin Sod/Tazobactam (Sod 3.375 gm/ Sodium Chloride) 50 mls @ 100 mls/hr IV Q6H [facility] Last Infusion: 08/26/25 06:43 Dose: Infused Vancomycin HCl 1,500 mg/ (Sodium Chloride) 500 mls @ 333.333 mls/hr IV Q24H JORGE LUIS Last Infusion: 08/26/25 10:30 Dose: Infused Insulin Glargine (Insulin Glargine,Hum.Rec.Anlog 100 Unit/Ml 10 Ml Vial) 40 unit SUBCUT BEDTIME JORGE LUIS Last Admin: 08/25/25 22:00 Dose: 40 unit Insulin Human Lispro (Insulin Lispro 100 Unit/Ml 3 Ml Vial) 0 unit SUBCUT QIDACHS [facility]; Protocol Last Admin: 08/26/25 11:39 Dose: 4 unit Lisinopril (Lisinopril 20 Mg Tablet) 20 mg PO DAILY [facility]; Protocol Last Admin: 08/26/25 08:59 Dose: 20 mg Lorazepam (Lorazepam 0.5 Mg Tablet) 0.5 mg PO Q8H PRN PRN Reason: anxiety/restlessness Magnesium Hydroxide (Milk Of Magnesia 30 Ml Oral.Susp) 30 ml PO DAILY PRN PRN Reason: Constipation Melatonin (Melatonin 3 Mg Tablet) 6 mg PO BEDTIME PRN PRN Reason: Insomnia Omeprazole (Omeprazole 20 Mg Capsule.Dr) 20 mg PO DAILY@0630 [facility] Last Admin: 08/26/25 06:07 Dose: 20 mg Ondansetron HCl (Ondansetron Hcl 4 Mg/2 Ml Vial) 4 mg IVPUSH Q8H PRN PRN Reason: Nausea and Vomiting Pharmacy Consult (Consult Rx Vancomycin Dosing) 1 each MISCELLANE DAILY PRN PRN Reason: Consult order Sodium Chloride (0.9 % Sodium Chloride Flush 3 Ml Syringe) 3 ml IVFLUSH QSHIFT [facility] Last Admin: 08/26/25 08:10 Dose: 3 ml Tamsulosin HCl (Tamsulosin Hcl 0.4 Mg Capsule) 0.4 mg PO DAILY [facility] Last Admin: 08/26/25 08:58 Dose: 0.4 mg Home Medications ?Medication ?Instructions ?Recorded ?Confirmed ?Last Taken ?Type blood sugar diagnostic #10 ea 04/22/21 04/22/21 Unknown History meloxicam 15 mg tablet 15 mg PO DAILY 04/22/21 08/25/25 08/25/25 History tamsulosin 0.4 mg capsule 0.4 mg PO DAILY 04/22/21 08/25/25 08/25/25 History acetaminophen 500 mg tablet 1,000 mg PO QID PRN Mild Pain 06/14/21 08/25/25 06/14/21 08:15 History (Scale Score 1-4) omeprazole 20 mg capsule,delayed 20 mg PO DAILY 06/14/21 08/25/25 08/25/25 History release fluticasone propionate 50 1 spray intranasal BEDTIME PRN 05/06/22 11/10/25 Unknown History mcg/actuation nasal Allergy Symptoms spray,suspension lisinopril 20 mg tablet 20 mg PO DAILY 04/29/24 08/25/25 08/25/25 History gabapentin 300 mg capsule 300 mg PO BID@0700,1200 08/13/24 08/25/25 08/25/25 History clopidogrel 75 mg tablet (Plavix) 75 mg PO BEDTIME 08/25/25 08/25/25 08/24/25 History empagliflozin 10 mg tablet 10 mg PO DAILY 08/25/25 08/25/25 08/25/25 History (Jardiance) furosemide 20 mg tablet 20 mg PO BEDTIME 08/25/25 08/25/25 08/24/25 History gabapentin 300 mg capsule 600 mg PO BEDTIME 08/25/25 08/25/25 08/24/25 History insulin aspart See Protocol subcut QIDACHS 08/25/25 08/25/25 08/25/25 History (niacinamide)(U-100) 100 unit/mL(3 mL) subcutaneous pen (Fiasp FlexTouch U-100 Insulin) insulin glargine 100 unit/mL (3 55 unit subcut BEDTIME 08/25/25 08/25/25 08/24/25 History mL) subcutaneous pen (Basaglar KwikPen U-100 Insulin) Physical Exam Vital Signs: Vital Signs: Last Vital Signs Temp 97.7 F 08/26/25 11:26 Pulse 62 08/26/25 11:26 Resp 18 08/26/25 11:26 BP 114/54 L 08/26/25 11:26 Pulse Ox 100 08/26/25 11:26 O2 Del Method Room Air 08/26/25 11:26 BMI result Body Mass Index 29.3 Const: General: cooperative, healthy appearing and comfortable Orientation/consciousness: oriented to person, oriented to place and oriented to time HEENT: Head: Yes normal to inspection Neck: Neck: Yes normal visual inspection Carotids: no bruits Chest: Chest palpation & inspection: normal inspection of the chest Resp: Effort & Inspection: normal respiratory effort and able to speak in complete sentences Auscultation: clear to auscultation bilaterally, no crackles, no rales, no rhonchi and no wheezes Cardio: Rate: regular rate Rhythm: regular rhythm Heart sounds: S1 normal heart sound present and S2 normal heart sound present Bruits: no carotid bruits Peripheral pulses: Peripheral pulses 2+ throughout GI: Inspection: Yes normal to inspection Skin: Other: Right 2nd toe opening on the plantar aspect a proximally 1 cm when pressed purulent material expressed. Wounds: no wounds Hair: normal Neuro: General: oriented to person, oriented to place and oriented to time Cranial nerves: Yes CN's II-XII intact bilaterally and Yes Normal hearing present Cognition (Neuro): normal cognition Motor exam (neuro): 5/5 motor strength present throughout Extrem: Other: venous exam: No significant superficial varicosities or spider telangiectasias, minimal edema General: No clubbing, No cyanosis and No edema Psych: Appearance: grossly normal Mental Status: mental status grossly normal Speech and movement: Normal speech and movement present Results Labs 08/26/25 03:43 08/26/25 03:43 Labs: Abnormal lab results 08/25/25 08/25/25 08/25/25 Range/Units 06:24 12:32 13:43 RBC (4.60-5.80) X10*6/uL Hgb (14.0-18.0) g/dl Hct (42.0-52.0) % MCV (80.0-98.0) fL MCH (27.0-33.0) pg MCHC (31.0-36.0) g/dl RDW (11.0-16.0) % Sodium (135-145) mmol/L Carbon Dioxide (22-29) mmol/L Anion Gap (12-20) BUN (9-16) mg/dL POC Glucose 207 H 267 H (60-115) mg/dL Random Glucose (60-115) mg/dL Calcium (8.4-10.2) mg/dL Iron 17 L (45-160) mcg/dL % Saturation 5 L (15-50) % Crossmatch 08/25/25 08/25/25 08/26/25 Range/Units 15:43 20:02 03:43 RBC 3.25 L (4.60-5.80) X10*6/uL Hgb 6.7 L* (14.0-18.0) g/dl Hct 23.1 L (42.0-52.0) % MCV 71.1 L (80.0-98.0) fL MCH 20.6 L (27.0-33.0) pg MCHC 29.0 L (31.0-36.0) g/dl RDW 16.7 H (11.0-16.0) % Sodium 134 L (135-145) mmol/L Carbon Dioxide 21 L (22-29) mmol/L Anion Gap 11 L (12-20) BUN 26 H (9-16) mg/dL POC Glucose 285 H 170 H (60-115) mg/dL Random Glucose 190 H (60-115) mg/dL Calcium 8.3 L D (8.4-10.2) mg/dL Iron (45-160) mcg/dL % Saturation (15-50) % Crossmatch 08/26/25 Range/Units 05:12 RBC (4.60-5.80) X10*6/uL Hgb (14.0-18.0) g/dl Hct (42.0-52.0) % MCV (80.0-98.0) fL MCH (27.0-33.0) pg MCHC (31.0-36.0) g/dl RDW (11.0-16.0) % Sodium (135-145) mmol/L Carbon Dioxide (22-29) mmol/L Anion Gap (12-20) BUN (9-16) mg/dL POC Glucose (60-115) mg/dL Random Glucose (60-115) mg/dL Calcium (8.4-10.2) mg/dL Iron (45-160) mcg/dL % Saturation (15-50) % Crossmatch See Detail Short CBC 08/26/25 Range/Units 03:43 WBC 10.2 (4.8-10.8) X10*3/uL Hgb 6.7 L* (14.0-18.0) g/dl Hct 23.1 L (42.0-52.0) % Plt Count 182 (160-400) X10*3/uL BMP 08/26/25 03:43 Sodium 134 L Potassium 4.2 Chloride 106 Carbon Dioxide 21 L BUN 26 H Creatinine 1.20 Calcium 8.3 L D All other labs normal. Assessment and Plan (1) Diabetic foot infection: Status: Acute Plan In short patient has diabetic foot ulcer on his right 2nd toe along with an element of peripheral vascular disease.. It appears to have progressed since his last visit. At the time of my angiogram on 08/20/2025 the wound was examined. The patient was informed that I do take the socks off during the procedure in order to get better visualization under fluoroscopy. It was seen at that time appeared to be similar. The difference this time is that there is actually purulent material expressed from that 2nd toe. Concern is underlying infection. Again I provided significant amount of information and reassurance that this was seen and treated as we appreciated at the time of visit there appears to be a change as there is now purulent material coming from that toe. I did also inform him if he would like a 2nd opinion I can get the General surgery team involved as well. He is refusing any sort of evaluation or surgery. This was discussed with the hospitalist team. He will require further workup for osteomyelitis and possibly long-term IV antibiotics which he did have in the past for his other leg. He can follow up with us as an outpatient. Thank you for allowing us to assist in his care. Procedures Date of Service Date of Service: 08/26/25
--- NOTE | 2025-08-26 11:57 | PC.NURSE ---
patient a&ox3, ambulatory with steady gait, rr equal/non labored, vss, pt medicated per order, presently has PRB running per order- tolerating transfusion well. 2nd rt foot toe/wound- surgeon evaluated- patient told surgeon that he does not want surgery and he should have had antibiotics after his recent surgery with him. surgeon was gracious despite the patient being abrupt and condescending to the provider. additionally, wound nurse has stopped in to see the patient. call klein within reach, plan of care ongoing.
--- NOTE | 2025-08-26 12:46 | PC.NURSE ---
waiting for missing med from pharmacy
--- NOTE | 2025-08-26 12:51 | HO.NURTONUR ---
patient a&ox3, ambulatory with steady gait, came to the ED for 2nd toe to rt foot swelling, pt states he had a small cut to the area seen by assembler twice with antibiotics prescribed states it has worsened. Additionally 08/20/25 pt had RLE angiogram with angioplasty, Dr. Valencia consulted today and pt is refusing any surgical interventions for the toe. The toe does have purulent drainage at times- wound checked in on patient this afternoon as well- dressing is intact. Pt is diabetic refusing hospital POCs as he has his own indwelling sensors/machine that he uses to check his sugars- he does allow staff to give him insulin on sliding scale. Last poc was 206 and 4U was given. His H&H was 6.7/23.1, pt has 1U PRB running- tolerating well, states that he has had many transfusions as well as iron infusions. He has 20G to bilateral wrist areas, has been requesting his meloxicam which wasnt ordered as of yet. Dr. Olivia just put the order in and awaiting for its substitution to arrive to medicate the patient. His rr is equal/non labored.
--- NOTE | 2025-08-26 14:01 | MHC.CM.PN ---
PT LIVES WITHHIS IS INDEPEDENT HAD NO SERVICES IN HOME PT HAS OWN TRANSPORTAION HOME WHEN DCD DC PLAN HOME N/S
--- NOTE | 2025-08-26 14:08 | PC.NURSE ---
blood ended by Katiuska Brennan
--- NOTE | 2025-08-26 15:04 | HO.WOUND ---
Wound Consult: Initial 74yr old? male admitted to [facility] on 08/25/25 - See progress notes and H&P for detailed history.? Wound consult placed for right 2nd toe wound.? Patient agreeable to assessment and photo documentation.? After talking with patient he reports he follows with Annie [facility] and has used the out pt wound clinic in the past. Recommend continued out pt follow up and re-establish with outpt wound clinic. Right Second Toe Right second toe tip Etiology: ?Diabetic Wound ?Present on Admission Measurements: 0.4cm x 0.5cm x 1cm Wound Bed: adherent slough with dry thickened wound edges probes to bone Drainage / Odor: mild odor noted - serosang noted on dressing Edges: ? lifting Nelly wound: ?redness and swelling noted No Induration, Fluctuance or Warmth noted Pain: denies Goals of Treatment: ? Systemic treatment per provider orders and Hyrdoferablue packing Recommendations: Provide adequate and supplemental nutrition.? When applicable maintain blood glucose levels per Providers order. right 2nd Toe - Cleanse with NS moist gauze, pat dry. Apply skinprep to toe and periwound. Cover and pack wound bed with Hydroferablue. Cover with dry gauze dressing and or foam. Change daily while inpatient and every other day at time of d/c. Recommend follow up out patient Wound Clinic at [address] [place] [id number] and to call for an appointment at time of discharge. [phone].? Re-consult wound care Nurse for wound deterioration or wound changes.
--- NOTE | 2025-08-26 17:09 | PC.NURSE ---
Pt refusing to be stuck for point of care using his SPO 2 reader. MD Olivia notified and requested Md to place order that pt may us his own meter
--- NOTE | 2025-08-26 17:12 | PC.NURSE ---
POC before dinner was 140 via pts freestyle
--- NOTE | 2025-08-26 20:05 | PC.NURSE ---
Patient refusing staff to check his blood sugar with hospital glucometer. He checked via his freestyle. POC 158. Will cover accordingly. Provider notified.
[2025-08-26] MEDS: Insulin Glargine,Hum.rec.anlog 100 UNIT/ML 10 ML VIAL 40 UNIT SUBCUT (20:19)
[2025-08-27] VITALS (7 sets, daily range): BP systolic 129–164; BP diastolic 59–77; PULSE 53–71; RESP 16–18; TEMP 36–36.9; O2SAT 94–100
[2025-08-27] MEDS: 0.9 % Sodium Chloride Flush 3 ML SYRINGE IVFLUSH ×4 (00:52→20:28)
[2025-08-27 07:19] LABS: Anion Gap 11 (12-20); Blood Urea Nitrogen 20 mg/dL (9-16); Calcium 8.6 mg/dL (8.4-10.2); Carbon Dioxide 23 mmol/L (22-29); Chloride 107 mmol/L (96-108); Creatinine Clr Calc Pharmacy 73.5; Estimated Glomerular Filt Rate > 60; Potassium 4.0 mmol/L (3.3-5.1); Sodium 137 mmol/L (135-145)
--- NOTE | 2025-08-27 07:28 | PC.NURSE ---
Patient refusing use of hospital glucometer with own glucometer reading 106 and insulin held this morning.
[2025-08-27 08:06] LABS: MANUAL DIFF FLAG NO
[2025-08-27 08:09] LABS: Hematocrit 27.5 % (42.0-52.0); Hemoglobin 8.2 g/dl (14.0-18.0); Imm Gran Abs Auto 0.06 X10*3/uL (0.00-0.03); Imm Gran Pct Auto 0.9 % (0.0-0.4); Lymphocytes Absolute Auto 1.0 X10*3/uL (1.2-4.9); Mean Corpuscular HGB Conc 29.8 g/dl (31.0-36.0); Mean Corpuscular Hemoglobin 21.8 pg (27.0-33.0); Mean Corpuscular Volume 73.1 fL (80.0-98.0); NRBC Abs Auto 0.000 X10*3/uL (0.0-0.012); NRBC Pct Auto 0.0 /100WBC (0.0-0.2); Platelet Count 199 X10*3/uL (160-400); Red Blood Count 3.76 X10*6/uL (4.60-5.80); White Blood Count 6.8 X10*3/uL (4.8-10.8)
--- NOTE | 2025-08-27 10:24 | HE.PHANOTE ---
ASPEN Changed dose to 1000mg Q12H per subtherapeutic trough. New predicted trough 16.9, AUC 515. Next trough 08/28 @0700.
--- NOTE | 2025-08-27 13:04 | PC.NURSE ---
Patient continues to refuse use of glucometer with own glucometer reading 176 and 2 units of insulin given at lunch time.
--- NOTE | 2025-08-27 16:24 | PC.NURSE ---
Patient refusing POC with our glucometer with own glucometer reading 195. Patient given 2 units of insulin based on sliding scale.
--- NOTE | 2025-08-27 17:23 | P.CDIM_ITS ---
PROVIDER RESPONSE TEXT: To clarify, the appropriate diagnosis supported by the clinical indicators: Yes Cellulitis right toe is associated with / due to the Diabetes QUERY TEXT: PHYSICIAN'S DOCUMENTATION REQUEST Date of Query: 08/27/2025 09:27 AM EST Patient Name: Kyle Odonnell Admit Date: 08/25/2025 Dear Alban Olivia MD, A review of the medical record indicates additional documentation may be needed. Please review below and update the documentation accordingly. Documentation includes the conditions of cellulitis and Diabetes: Clinical Indicators: Progress note 08/26/25 - Right toe cellulitis in diabetic patient. Presented to Ed with worsening right 2nd toe redness and swelling x4 days. Cellulitis concerning for osteomyelitis. Insulin, Vancomycin, Zosyn. Please clarify the relationship between these conditions: Yes Cellulitis right toe is associated with / due to the Diabetes No Cellulitis right toe is not associated with / due to the Diabetes Other (explain) Clinically unable to determine (explain) Thank you, Tatiana Gaona, CCS, CDIS Use of terms such as suspected, likely, concern for, or probable (associated with a specific diagnosis that is being evaluated, monitored, or treated as if it exists) are acceptable and can be coded in the inpatient setting, when documented at the time of discharge. Please use your independent medical judgment in providing your response. THIS QUERY IS PART OF THE PERMANENT MEDICAL RECORD
[2025-08-27 19:47] LABS: Glucose, Whole Blood 203 mg/dL (60-115)
[2025-08-27] MEDS: Insulin Glargine,Hum.rec.anlog 100 UNIT/ML 10 ML VIAL 40 UNIT SUBCUT (20:28)
[2025-08-28 03:45] VITALS: BP 161/74; PULSE 61; RESP 18; TEMP 36.2; O2SAT 96
[2025-08-28 06:48] VITALS: BP 141/62; PULSE 57; RESP 16; TEMP 36.6; O2SAT 97
[2025-08-28 07:26] LABS: Glucose, Whole Blood 160 mg/dL (60-115)
[2025-08-28] MEDS: 0.9 % Sodium Chloride Flush 3 ML SYRINGE IVFLUSH (07:44)
[2025-08-28 07:55] LABS: Anion Gap 14 (12-20); Blood Urea Nitrogen 23 mg/dL (9-16); Calcium 8.7 mg/dL (8.4-10.2); Carbon Dioxide 22 mmol/L (22-29); Chloride 106 mmol/L (96-108); Creatinine Clr Calc Pharmacy 68.6; Estimated Glomerular Filt Rate > 60; Potassium 4.1 mmol/L (3.3-5.1); Sodium 138 mmol/L (135-145)
--- NOTE | 2025-08-28 08:28 | HE.PHANOTE ---
RE: VANCO Trough returned at 15. Indication is SSTI. Decreasing dose to 750 mg Q12h with predicted AUC 412 and 13.7. Will continue to monitor renal function. Next trough due 08/29 @0700.
--- NOTE | 2025-08-28 09:23 | P.DS_ITS ---
DS: Providers Provider Date of Service: 08/28/25 Date of admission: 08/25/25 11:28 Date of discharge: 08/28/25 Primary care physician: NICK Ponce Consults: 08/25/25 10:49 Consult to Vascular Surgery [place]ine [place]ing [place] [facility] [place] Reason for consultation: Right toe cellulitis; s/p angioplasty 08/20 DS: Diagnosis Discharge Diagnosis (1) Diabetic foot infection: Status: Acute DS: Summary Hospital Course Hospital Course: Chief Complaint: Right toe redness Pt is a 74-year-old male with a PMH significant for?HTN, insulin-dependent type 2 diabetes, peripheral vascular disease on Plavix, BPH, and GERD who presents to the ED with?worsening right 2nd toe redness and swelling x4 days. Last week on 08/20 pt underwent successful right lower extremity angioplasty of peroneal and posterior and tibial arteries with Dr. Valencia. Pt was discharged home in the reports the following day he was ?sick as a dog nausea, vomiting, and subjective fever and chills. Pt was unable to tolerate much by mouth. No diarrhea or abdominal pain. Pt also noticed that his right 2nd toe was getting more red and swollen than prior to his angioplasty. Nausea and vomiting eventually subsided last night, and pt decided to come in to the hospital for evaluation of his toe. Reports he has been unsteady on his feet. Also reports some SOB and increased difficulty breathing. Denies chest pain or pressure. In the ED pt's vitals were stable, afebrile. Labs were significant for leukocytosis of 14.4, sodium 131, BUN 34 , creatinine 2.01 (baseline 1.0), initial lactic acid 2.7 repeat 1.0. Stable microcytic anemia of 7.7/27.2. Right foot and 2nd toe with question 2nd toe soft tissue irregularity/wound, as well as questionable erosion of lateral cortex of 2nd distal phalangeal shaft. Pt was treated in the ED with IVF 1 L bolus and maintenance fluids, vancomycin, and Zosyn. Pt is admitted to the hospital for treatment and further evaluation of right toe cellulitis concerning for possible osteomyelitis, as well as TIFFANI in the setting of hypovolemia. Hospital course: Pt is a 74-year-old male with a PMH significant for?HTN, insulin-dependent type 2 diabetes, peripheral vascular disease on Plavix, BPH, and GERD who presents to the ED with?worsening right 2nd toe redness and swelling x4 days. Pt is admitted to the hospital for treatment and further evaluation of right toe cellulitis concerning for possible osteomyelitis (OM), as well as TIFFANI in the setting of hypovolemia. Right toe cellulitis in diabetic patient S/P angioplasty of right peroneal and posterior tibial arteries 08/20 No sepsis: X-ray: 2nd digit soft tissue irregularlity/wound; ?subtle erosion of distal phalangeal shaft, concern for OM. He was treated with vanc and Zosyn. He was seen by vascular surgery with recommendation for MRI which and recommended MR which sshowed Ulcer at the tip of the 2nd toe with distal phalanx deformity, without evidence of osteomyelitis . Given no osteomylitis, will change antibiotics to PO Doxy and Augmentin for a total of 10 days and to follow up with and wound clinic TIFFANI Creatinine 2.01, baseline around 1.0 Likely in the setting of hypovolemia secondary to N/V and reduced p.o. intake Resolved with IVF Shortness or breath/difficulty breathing Possibly secondary to recent viral illness Will check CXR, full respiratory panel No hypoxia, resolved. Acute lactic acidosis, resolved Secondary to hypovolemia from N/V, not sepsis Resolved with IVF Insulin-dependent type 2 diabetes resume home medications Acute on chronic anemia Hgb was 6.7 on 08/16,transfused 1 unit of RBC with improvement to 8, baselline is 7 to 8, PVD Continue Plavix HTN Continue lisinopril BPH Continue tamsulosin GERD PPI Time Attestation Discharge Coordination Time (in mins): 40 Quality: Safe Use of Opioids Does Pt have an Active Cancer Diagnosis on the Problem List?: No Quality: Stroke Does the patient have a stroke diagnosis?: No Physical Exam Vital Signs: Vital Signs: Last Vital Signs Temp 98 F 08/28/25 06:48 Pulse 57 08/28/25 06:48 Resp 16 08/28/25 06:48 BP 141/62 H 08/28/25 06:48 Pulse Ox 97 08/28/25 06:48 O2 Del Method Room Air 08/28/25 06:48 BMI result Body Mass Index 29.3 DS: Data Data Completed and Pending Completed studies during hospitalization [Text1]: Procedures Excision of Left Foot Subcutaneous Tissue and Fascia, Open Approach (04/27/21) Insertion of Infusion Device into Superior Vena Cava, Percutaneous Approach (04/27/21) Labs on day of discharge: Laboratory Results - last 24 hr 08/27/25 08/28/25 08/28/25 19:18 07:00 07:02 Hold Purple Top SEE NOTE Sodium 138 Potassium 4.1 Chloride 106 Carbon Dioxide 22 Anion Gap 14 BUN 23 H Creatinine 1.18 Estim Creat Clear Calc 68.6 Estimated GFR > 60 POC Glucose 203 H Random Glucose 167 H Calcium 8.7 Random Vancomycin 15.0 08/28/25 07:21 Hold Purple Top Sodium Potassium Chloride Carbon Dioxide Anion Gap BUN Creatinine Estim Creat Clear Calc Estimated GFR POC Glucose 160 H Random Glucose Calcium Random Vancomycin Preliminary micro results at discharge 08/25/25 06:53 Blood Culture - Preliminary Blood - Venous No growth after 48 hours. 08/25/25 06:24 Blood Culture - Preliminary Blood - Venous No growth after 48 hours. Discharge Plan Discharge Anticipated Discharge Date/Time: 08/28/25 09:35 Patient Disposition: Home, Self-Care Discharge Diagnosis: Diabetic foot infection, cellulitis Referrals: Sawyer Valencia MD [Physician, Vascular Surgery] - 2 Weeks Benton Chandler PA [Primary Care Provider, Internal Medicine] - 1 Week Discharge Medications: New doxycycline hyclate 100 mg tablet 100 mg PO BID 7 Days Qty: 14 0RF amoxicillin-pot clavulanate 875-125 mg tablet 1 tab PO BID Qty: 14 0RF Continued acetaminophen 500 mg Tablet 1,000 mg PO QID PRN (Reason: Mild Pain (Scale Score 1-4)) omeprazole 20 mg capsule,delayed release(DR/EC) 20 mg PO DAILY furosemide 20 mg tablet 20 mg PO BEDTIME insulin glargine [Basaglar KwikPen U-100 Insulin] 100 unit/mL (3 mL) insulin pen 55 unit subcut BEDTIME Fiasp FlexTouch U-100 Insulin 100 unit/mL (3 mL) insulin pen See Protocol SUBCUT QIDACHS Protocol: Insulin Correction Scale Less than or equal to 110 ---- Give (units): 0 111 to 150 Give (units): 0 151 to 200 Give (units): 2 201 to 250 Give (units): 4 251 to 300 Give (units): 6 301 to 350 Give (units): 8 Greater than 350 Give (units): 10 Call MD if Blood Glucose > : 350 Rx Instructions: INJECT 35 UNITS INTO THE SKIN 3 TIMES DAILY (BEFORE MEALS). UP TO 100 UNITS A DAY. gabapentin 300 mg capsule 600 mg PO BEDTIME clopidogrel [Plavix] 75 mg tablet 75 mg PO BEDTIME Jardiance 10 mg tablet 10 mg PO DAILY tamsulosin 0.4 mg capsule 0.4 mg PO DAILY (DME) blood sugar diagnostic Strip See Rx Instructions Not Applicable QID Qty: 10 Rx Instructions: As directed gabapentin 300 mg capsule 300 mg PO BID@0700,1200 fluticasone propionate 50 mcg/actuation spray,suspension 1 spray intranasal BEDTIME PRN (Reason: Allergy Symptoms) Rx Instructions: administer into each nostril lisinopril 20 mg tablet 20 mg PO DAILY Discontinued meloxicam 15 mg tablet 15 mg PO DAILY Discharge Orders: Discharge Order (Routine); Ordered 08/28/25 Ordered By: Alban Olivia Diet: Diabetic diet Activity on Discharge: As tolerated Stand Alone Forms: Patient Portal Discharge page, Work/School Release Print Language: Puerto Rican Activity Restrictions/Additional Instructions: Topical Wound Care Recommendations: Provide adequate and supplemental nutrition.? When applicable maintain blood glucose levels per Providers order. right 2nd Toe - Cleanse with NS moist gauze, pat dry. Apply skinprep to toe and periwound. Cover and pack wound bed with Hydroferablue. Cover with dry gauze dressing and or foam. Change daily while inpatient and every other day at time of d/c. Recommend follow up out patient Wound Clinic at [address] [place] [id number] and to call for an appointment at time of discharge. [phone].? Care Plan Goals: recovery from diabetic foot ulcer and cellulitis Health Concerns: Diabetic foot ulcer Plan of Treatment: Take doxycycline and Augmentin as recommended and follow up with your doctor within a week Follow-up with Dr. Freeman, follow-up with the Wound Clinic Assessment: see above Patient Instructions: Foot Ulcers in a Person with Diabetes (DC) Discharge Date/Time: 08/28/25 10:38
--- NOTE | 2025-08-28 10:00 | HO.VASCPN ---
Subjective Subjective Date of Service: 08/28/25 Patient reports: no new complaints and feels better Interval history: Patient seen and examined. No significant events overnight. Had wound care and now has Hydrofera blue on the wound. Had undergone MRI as well. There was no evidence of osteomyelitis. He is doing somewhat better. Physical Exam Vital Signs: Vital Signs: Last Vital Signs Temp 98 F 08/28/25 06:48 Pulse 57 08/28/25 06:48 Resp 16 08/28/25 06:48 BP 141/62 H 08/28/25 06:48 Pulse Ox 97 08/28/25 06:48 O2 Del Method Room Air 08/28/25 06:48 BMI result Body Mass Index 29.3 Const: General: cooperative, healthy appearing and comfortable Orientation/consciousness: oriented to person, oriented to place and oriented to time HEENT: Head: Yes normal to inspection Neck: Neck: Yes normal visual inspection Carotids: no bruits Chest: Chest palpation & inspection: normal inspection of the chest Resp: Effort & Inspection: normal respiratory effort and able to speak in complete sentences Auscultation: clear to auscultation bilaterally, no crackles, no rales, no rhonchi and no wheezes Cardio: Other: Right and left foot DP signals Rate: regular rate Rhythm: regular rhythm Heart sounds: S1 normal heart sound present and S2 normal heart sound present Bruits: no carotid bruits Peripheral pulses: Peripheral pulses 2+ throughout GI: Inspection: Yes normal to inspection Skin: Wounds: no wounds Hair: normal Neuro: General: oriented to person, oriented to place and oriented to time Cranial nerves: Yes CN's II-XII intact bilaterally and Yes Normal hearing present Cognition (Neuro): normal cognition Motor exam (neuro): 5/5 motor strength present throughout Extrem: Other: venous exam: No significant superficial varicosities or spider telangiectasias, minimal edema General: No clubbing, No cyanosis and No edema Psych: Appearance: grossly normal Mental Status: mental status grossly normal Speech and movement: Normal speech and movement present Progress Note: A&P Assessment and plan (1) Peripheral vascular disease: Status: Acute Assessment and Plan: In short patient has nonhealing right 2nd toe ulcer. It is negative for osteomyelitis. Plan is for p.o. antibiotics. He can [facility] an [facility]. He can follow up with us in approximately 2 weeks time for routine follow-up. I did discuss with him that the concern here is that this is a persistent wound and if it continues to nonhealing consideration main be given for toe amputation which he is quite resistant to. We will continue to peripherally follow him as an outpatient. Thank you for allowing us to assist in his care. If there are any questions or concerns please do not hesitate to contact us. Time Spent With Patient Time: Total time managing care of this patient today ____ minutes. Procedures Date of Service Date of Service: 08/28/25 Quality Stroke Does the patient have a stroke diagnosis?: No VTE Prior VTE?: No VTE Risk Level:: Medical - moderate - high VTE Device Contraindication: Treatment Not Indicated VTE Drug Contraindication: N/A - Med Ordered
--- NOTE | 2025-08-28 10:26 | HO.WOUND ---
Wound Consult: follow up 74yr old? male [place] [facility] - See progress notes and H&P for detailed history.? Wound consult follow up placed for right 2nd toe wound/need for dressing supplies.? Patient agreeable to assessment and photo documentation.? After talking with patient he reports he follows with [facility] and has used the out pt wound clinic in the past. Recommend continued out pt follow up and re-establish with outpt wound clinic. Plans to call for appointment today, pt being discharged home with visiting nurses. Seen by vascular inpt, declining surgical options at this time. pt reports that he feels improvement in the toe redness and swelling. Right Second Toe admission Right dorsal 08/28/25 Right second toe tip admission Right second toe plantar 08/28/25 Etiology: ?Diabetic Wound ?Present on Admission Measurements: 0.4cm x 0.5cm x 1cm Wound Bed: adherent slough with dry thickened wound edges probes to bone Drainage / Odor: mild odor noted - serosang noted on dressing Edges: ? lifting Nelly wound: ?redness and swelling noted No Induration, Fluctuance or Warmth noted Pain: denies Goals of Treatment: ? Systemic treatment per provider orders and Hyrdoferablue packing Recommendations: Provide adequate and supplemental nutrition.? When applicable maintain blood glucose levels per Providers order. right 2nd Toe - Cleanse with NS moist gauze, pat dry. Apply skinprep to toe and periwound. Cover and pack wound bed with Hydroferablue. Cover with dry gauze dressing and or foam. Change daily while inpatient and every other day at time of d/c. Recommend follow up out patient Wound Clinic at [address] [place] [phone] and to call for an appointment at time of discharge. [phone].? Re-consult wound care Nurse for wound deterioration or wound changes.
--- NOTE | 2025-08-28 10:45 | MHC.CM.PN ---
Addendum entered by Bettina Melton 08/28/25 11:28: [facility] ACCEPTED REFERRAL Original Note: PT CLEARED TO DC HOME TODAY, HE WILL NEED [facility] FOR EVERY OTHER DAY WOUND CARE REFERRALS MADE PT ARRANGED HIS OWN TRANSPORT CM WILL CALL PT ONCE [facility] SECURED
--- NOTE | 2025-08-28 11:04 | P.F2F_ITS ---
Service Date Service Date: 08/28/25 Encounter Date of encounter: 08/28/25 Reasons for Services Signs and symptoms assessed: diabetic foot ulcer Reason for correction: wound care, medication management and medication treatment Homebound: Leaving the home is medically contraindicated at this time without the asist of a device and/or another person due th the listed conditions above and below. Reason homebound: pain with ambulation Homebound supporting statement: Homebound due to diabetic foot ulcer, wound with pain with ambulation and therefore needs the assistance of another person Certification: Based on the above findings, I certify that this patient is confined to the home and needs intermittent correction care, physical therapy and/or speech therapy, or continues to need occupational therapy. The patient is under my care, and I have initiated the establishment of the plan of care. The patient will be followed by a physician who will periodically review the plan of care. Time Spent With Patient Time: Total time managing care of this patient today ____ minutes.
== END 2025-08-28 10:38 | disposition home or self-care (01) | DRG 638 ==
LOC: HO.ED 08:40 → HO.EDOVER 09:30 → HO.S3 08-26 12:44
PROVIDERS: Student in an Organized Health Care Education/Training Program; Admitting Provider Internal Medicine; Emergency Provider Emergency Medicine; PCP Physician Assistant Medical; Visit Provider Internal Medicine
DX: E11.628 Type 2 diabetes mellitus with other skin complications (principal); E87.21 Acute metabolic acidosis; E11.51 Type 2 diabetes mellitus with diabetic peripheral angiopathy without gangrene; N17.9 Acute kidney failure, unspecified; L03.031 Cellulitis of right toe; E86.1 Hypovolemia; L97.519 Non-pressure chronic ulcer of other part of right foot with unspecified severity; I70.235 Atherosclerosis of native arteries of right leg with ulceration of other part of foot; D50.9 Iron deficiency anemia, unspecified; I10 Essential (primary) hypertension; N40.0 Benign prostatic hyperplasia without lower urinary tract symptoms; Z20.822 Contact with and (suspected) exposure to COVID-19; Z79.4 Long term (current) use of insulin; Z79.899 Other long term (current) drug therapy
CPT/HCPCS: 36415; 71045; 71250; 73630; 73660; 73720; 80048; 80053; 80202; 82728; 82947; 83540; 83605; 83735; 83880; 85025; 85027; 86850; 86900; 86901; 86923; 87040; 87633; 93306; 99284; A9585; J1650; J2543; J3373; J3374; J7120; P9016; Q9957

== ENCOUNTER → 2025-08-25 07:20 | Outpatient (BNV) | payer MEDICARE, OTHER, SELFPAY | PROVIDERS: Emergency Provider Emergency Medicine; PCP Physician Assistant Medical; Visit Provider Radiology Diagnostic Radiology | DX: R06.02 Shortness of breath (principal) | CPT/HCPCS: 71045 ==

== ENCOUNTER 2025-08-25 11:28 | Outpatient (BNV) | payer MEDICARE, OTHER, SELFPAY | END 2025-08-26 07:00 | PROVIDERS: Admitting Provider Internal Medicine; Emergency Provider Emergency Medicine; PCP Physician Assistant Medical; Visit Provider Internal Medicine Cardiovascular Disease | DX: I51.7 Cardiomegaly (principal); I35.0 Nonrheumatic aortic (valve) stenosis; I77.810 Thoracic aortic ectasia | CPT/HCPCS: 93306 ==

== ENCOUNTER 2025-08-25 11:28 | Outpatient (BNV) | payer MEDICARE, OTHER, SELFPAY | END 2025-08-27 17:32 | PROVIDERS: Admitting Provider Internal Medicine; Emergency Provider Emergency Medicine; PCP Physician Assistant Medical; Visit Provider Radiology Diagnostic Radiology | DX: M20.5X1 Other deformities of toe(s) (acquired), right foot (principal); L97.519 Non-pressure chronic ulcer of other part of right foot with unspecified severity | CPT/HCPCS: 73720 ==

== ENCOUNTER → 2025-08-25 11:28 | Outpatient (BNV) | payer MEDICARE, OTHER, SELFPAY | PROVIDERS: Admitting Provider Internal Medicine; Emergency Provider Emergency Medicine; PCP Physician Assistant Medical; Visit Provider Surgery Vascular Surgery | DX: I73.9 Peripheral vascular disease, unspecified (principal) | CPT/HCPCS: 99222; 99232 ==

== ENCOUNTER → 2025-08-25 11:28 | Outpatient (BNV) | payer MEDICARE, OTHER, SELFPAY | PROVIDERS: Admitting Provider Internal Medicine; Emergency Provider Emergency Medicine; PCP Physician Assistant Medical; Visit Provider Student in an Organized Health Care Education/Training Program | DX: E11.621 Type 2 diabetes mellitus with foot ulcer (principal) | CPT/HCPCS: G0180 ==

== ENCOUNTER → 2025-09-22 14:02 | Outpatient (BNV) | payer MEDICARE, OTHER, SELFPAY | PROVIDERS: PCP Physician Assistant Medical; Visit Provider Radiology Diagnostic Radiology | DX: Z01.818 Encounter for other preprocedural examination (principal) | CPT/HCPCS: 71046 ==